=== PATIENT | male | born 1945 | race Caucasian/White ===

== ENCOUNTER → 2019-02-23 13:30 | Outpatient (BNVA) | payer MEDICARE, OTHER, SELFPAY | PROVIDERS: Family Provider Electrodiagnostic Medicine; PCP Electrodiagnostic Medicine; Visit Provider Specialist | DX: G43.711 Chronic migraine without aura, intractable, with status migrainosus (principal) | CPT/HCPCS: 64615; J0585 ==

== ENCOUNTER 2019-06-17 23:47 | Emergency (ER) | payer OTHER, MEDICARE, SELFPAY ==
[2019-06-17 23:54] VITALS: BP 177/117; PULSE 80; RESP 24; TEMP 36; O2SAT 99; BMI 21.9
[2019-06-18] VITALS (7 sets, daily range): BP systolic 158–172; BP diastolic 90–99; PULSE 67–78; RESP 16–22; O2SAT 98–100
--- NOTE | 2019-06-18 00:13 | W.ED.BACK ---
HPI - Back Pain/Injury General: Chief Complaint: Back Pain/Injury Stated Complaint: kidney stone Time Seen by Provider: 06/18/19 00:13 History of Present Illness: HPI Narrative: Patient is a 73-year-old male who comes to the ED with left flank pain. Patient states he has a past medical history of kidney stones and states that his current pain feels like past kidney stones. Patient said he woke up today around 11:00 tonight and he was having intense left flank pain and discomfort. He is not taking anything for pain at home. He denies any dysuria, hematuria, constipation and diarrhea. Associated symptoms: Deny abdominal pain, chills, dysuria, fatigue, fever(s), hematuria, nausea or vomiting Review of Systems Const: Denies: fever, chills or fatigue Eyes: Denies: change in vision or eye discomfort ENMT: Denies: throat pain, painful swallowing, nasal discharge or nasal congestion Card: Denies: chest pain, palpitations, edema, swelling of feet/ankles, shortness of breath on exertion or shortness of breath when lying down Resp: Denies: shortness of breath, productive cough or non-productive cough GI: Denies: abdominal pain, nausea, vomiting, diarrhea, constipation or blood in stool : Reports: flank pain; Denies: difficulty urinating, painful urination or blood in urine Musc: Denies: neck pain, back pain or extremity swelling Skin/Breast: Denies: rash or new lesion Neuro: Denies: headache, numbness in extremities or weakness in extremities PFS ED PFSH: Social History Smoking and tobacco status: never smoked Physical Exam Const: COMMON NORMALS: oriented x3 and alert GENERAL APPEARANCE: cooperative and ill appearing (Patient appears uncomfortable and in pain.); not comfortable HENMT: COMMON NORMALS: normocephalic HEAD & SCALP: normocephalic MOUTH: oral and palatal mucosa normal THROAT: posterior oropharynx normal and uvula midline Eye: COMMON NORMALS: PERRL PUPIL: Yes PERRL Neck/C-Spine: COMMON NORMALS: supple GENERAL: Yes normal visual inspection Resp: COMMON NORMALS: normal respiratory effort, no retractions, no use of accessory muscles and clear to auscultation bilaterally AUSCULTATION: clear to auscultation bilaterally Cardio: COMMON NORMALS: regular rate, regular rhythm, S1 normal heart sound, S2 normal heart sound, no gallops, no clicks, no murmurs and peripheral pulses 2+ throughout RATE: regular rate RHYTHM: regular rhythm HEART SOUNDS: S1 normal and S2 normal PERIPHERAL PULSES: pulses 2+ throughout GI: COMMON NORMALS: normal to inspection, nondistended, normoactive bowel sounds, soft to palpation, non-tender and no masses PALPATION: Yes soft : BLADDER/KIDNEY EXAM: Yes CVA tenderness on the left (moderate) Back/Pelvis: GENERAL BACK: Yes CVA tenderness Extremity: COMMON NORMALS: normal to inspection Neuro: COMMON NORMALS: oriented x3 and moves all extremities SENSORIUM/ORIENTATION: Yes alert Skin: COMMON NORMALS: no rashes or lesions noted GENERAL SKIN EXAM: no rashes or lesions noted and dry skin Course Vital Signs: Vital signs: Vital Signs Temperature 96.8 F L 06/17/19 23:54 Pulse Rate 73 06/18/19 02:46 Respiratory Rate 16 06/18/19 02:46 Blood Pressure 158/90 06/18/19 02:46 Pulse Oximetry 99 06/18/19 02:46 MDM - Back Pain/Injury MDM Narrative: Medical decision making narrative: Patient is a 73-year-old male who comes to the ED with left flank pain. CT of abdomen and pelvis without contrast showed an obstructing 3 mm proximal left ureter stone. CBC and CMP were unremarkable. UA was positive for blood. Patient was given IV fluids, tamsulosin and pain meds. Urology referral was placed with case management. Patient was discharged with prescription for tamsulosin and a couple hydrocodone to help with some pain. Patient was told to drink a lot of fluids and to catch and keep stone by straining urine. Tell patient urology office should be contacting him in the next several days to set up an appointment. Patient understood and agreed with plan. Lab Data: Attestation: I reviewed the patient's lab results. Labs: Lab Results 06/18/19 06/18/19 06/18/19 Range/Units 00:30 00:30 00:45 WBC 5.2 (4.0-10.0) 10^3/ uL RBC 4.16 (4.1-5.3) 10^6/u L Hgb 13.6 (11.7-16.6) g/dL Hct 40.0 L (42.0-52.0) % MCV 96.2 H (80-94) fL MCH 32.7 (28.0-34.0) pg MCHC 34.0 (30.0-36.0) g/dL RDW 12.2 (12.1-15.1) % Plt Count 186 (130-400) 10^3/c mm MPV 8.9 (7.4-10.4) fL Neut % (Auto) 38.5 % Lymph % (Auto) 46.0 % [place] % (Auto) 10.8 % Eos % (Auto) 3.9 % Baso % (Auto) 0.4 % Neut # (Auto) 2.0 (1.8-7.7) 10^3/u L Lymph # (Auto) 2.4 (0.8-4.8) 10^3/u L Raleigh # (Auto) 0.6 (0.2-0.9) 10^3/u L Eos # (Auto) 0.2 (0.0-0.8) 10^3/u L Baso # (Auto) 0.0 (0.0-0.1) 10^3/u L Nucleated RBC % (a uto) 0 % Nucleated RBCs # 0.0 /100WBC Sodium 137 (136-145) mmol/L Potassium 3.5 (3.5-5.1) mmol/L Chloride 97 L (98-107) mmol/L Carbon Dioxide 25 (22-29) mmol/L Anion Gap 18.5 (5-19) BUN 16 (8-23) mg/dL Creatinine 1.0 (0.7-1.2) mg/dL Glucose 104 (65-115) mg/dL Calculated Osmolal ity 281 L (285-295) mOsm/k g Calcium 10.1 (8.5-10.5) mg/dL Total Bilirubin 0.5 (0.15-1.2) mg/dL AST 20 (0-40) U/L ALT 17 (0-41) U/L Alkaline Phosphata se 96 (40-130) IU/L Total Protein 7.2 (6.6-8.7) g/dL Albumin 4.5 (3.5-5.2) g/dL Globulin 2.7 (1.3-4.6) g/dL Urine Color Yellow (Yellow) Urine Appearance Hazy A (CLEAR) Urine pH 8 H (5-7) Ur Specific Gravit y 1.005 (1.005-1.030) Urine Protein Neg (Negative) Urine Glucose (UA) Norm (Normal) Urine Ketones Negative (Negative) Urine Blood 3+ H (Negative) Urine Nitrate Negative (Negative) Urine Bilirubin Neg (NEGATIVE) Prot Sulfosalicyli c Acd Negative (Negative) Urine Urobilinogen Norm (Negative) mg/dL Ur Leukocyte Elsa ase Negative (Negative) Urine RBC >100 H (0-2) /hpf Urine WBC 0-4 H (0-5) /hpf Ur Squamous Epith Cells Rare (0-5) Urine Bacteria Trace (NONE) Imaging Data^: CT Abd/Pel: Attestation: I personally reviewed and interpreted this imaging study as follows: Radiologist's impression: [place] [address] CT Scan Report Signed Patient: Gil Rojas Unit #: [id number] : 1945 Age/Sex: 73 / M ADM Date: 06/17/19 Loc: ER Room/Bed: Attending Dr: Ordering Provider/Ordering MD: Av Vee Date of Service: 06/18/19 Procedure(s): CT kidney stone 80898 Accession Number(s): [id number] Report Number: [id number] PROCEDURE INFORMATION: Exam: CT Abdomen And Pelvis Without Contrast Exam date and time: 06/18/2019 12:25 AM Age: 73 years old Clinical indication: Abdominal pain; Left; Patient HX: Sudden onset L flank pain HX of stones; Additional info: Left flank pain TECHNIQUE: Imaging protocol: Computed tomography of the abdomen and pelvis without contrast. Radiation optimization: All CT scans at this facility use at least one of these dose optimization techniques: automated exposure control; mA and/or kV adjustment per patient size (includes targeted exams where dose is matched to clinical indication); or iterative reconstruction. COMPARISON: No relevant prior studies available. RADIATION DOSE METRICS: Total DLP: 521.65 mGy-cm FINDINGS: Liver: There is no focal abnormality within the liver. Gallbladder and bile ducts: The gallbladder is normal. Pancreas: The pancreas is normal. Spleen: The spleen is normal. Adrenals: The adrenal glands are normal. Kidneys and ureters: There are multiple bilateral renal collecting system calcifications. There is mild fullness of the left renal collecting system. There is a 3 mm sized stone in the proximal left ureter. This stone has a density of 741 Hounsfield units and is possibly visible on the photo lab specialist image. Stomach and bowel: Calcific density in the duodenum likely represents ingested medication. Appendix: Not identified Intraperitoneal space: Unremarkable. No free air. No significant fluid collection. Vasculature: Unremarkable. No abdominal aortic aneurysm. Lymph nodes: Unremarkable. No enlarged lymph nodes. Bladder: Unremarkable as visualized. Reproductive: The prostate demonstrates moderate nonspecific enlargement. The seminal vesicles are normal. Bones/joints: The lumbar spine demonstrates marked degenerative changes at multiple levels. There is chronic appearing compression deformity of the superior endplate of L3 Soft tissues: Unremarkable. CT/CT kidney stone [id number] IMPRESSION: Small obstructing stone in the proximal left ureter. Radiation Dose CTDIVOL = (mGy): DLP = 521.65 (mGy-cm) Dictated By: Houston Frank Signed By: Houston Frank Signed Date/Time: 06/18/1952 DD/ Discharge Plan Discharge Patient Disposition: Home, Self-Care Clinical Impression: Kidney stone on left side Condition: Stable Prescriptions: New tamsulosin 0.4 mg capsule 0.4 mg PO DAILY Qty: 14 RF: 0 No Action aspirin 325 mg tablet,delayed release (DR/EC) 325 mg PO ONCE RF: 0 coenzyme D92-bndynit E 100-100 mg-unit capsule PO RF: 0 divalproex [Depakote ER] 500 mg tablet extended release 24 hr 500 mg PO ONCE RF: 0 venlafaxine [Effexor XR] 75 mg capsule,extended release 24hr 75 mg PO QAM RF: 0 yxiiiniaon-gmynsyqnvemrn-nsjd [Fioricet] 50-300-40 mg capsule 1 cap PO Q8H PRNRF: 0 meclizine 25 mg tablet 25 mg PO BID RF: 0 melatonin 3 mg capsule 3 mg PO ONCE RF: 0 metoprolol succinate 50 mg tablet extended release 24 hr 50 mg PO ONCE RF: 0 levothyroxine [Synthroid] 125 mcg tablet 125 mcg PO ONCE RF: 0 vitamin B complex [B Complex-Vitamin B12] Tablet 1 tab PO ONCE RF: 0 cholecalciferol (vitamin D3) 1,000 unit capsule 1,000 unit PO ONCE RF: 0 ascorbic acid (vitamin C) 500 mg capsule PO RF: 0 indomethacin 50 mg capsule 100 mg PO BID RF: 0 acetaminophen [Tylenol] 325 mg capsule 325 mg PO ONCE PRNRF: 0 Discharge Orders: Discharge Order (Routine); Ordered 06/18/19 Ordered By: Av Vee Referrals: Gautam Walters, DO [Primary Care Provider] - Discharge Diet: Regular Discharge Activity: Resume usual activity and Increase activity as tolerated Patient Instructions: Kidney Stones (ED), How to Strain Your Urine (ED) Activity Restrictions/Additional Instructions[place] [facility] [place] you to set up an appointment in the next several days. Make sure to strain your urine to catch stones. Drink plenty of fluids and stay hydrated. Take prescribed Flomax to help open ureters to pass stone. Take ibuprofen or Aleve for pain. I am also sending you with a prescription for couple hydrocodone that you can take as needed for any breakthrough pain. Discharge Date/Time: 06/18/19 02:48 Coding Level of Care Code ED Key Account Director for Donna Fwbessy Exam Comprehensive
--- NOTE | 2019-06-18 00:21 | CTR_ITS ---
PROCEDURE INFORMATION: Exam: CT Abdomen And Pelvis Without Contrast Exam date and time: 06/18/2019 12:25 AM Age: 73 years old Clinical indication: Abdominal pain; Left; Patient HX: Sudden onset L flank pain HX of stones; Additional info: Left flank pain TECHNIQUE: Imaging protocol: Computed tomography of the abdomen and pelvis without contrast. Radiation optimization: All CT scans at this facility use at least one of these dose optimization techniques: automated exposure control; mA and/or kV adjustment per patient size (includes targeted exams where dose is matched to clinical indication); or iterative reconstruction. COMPARISON: No relevant prior studies available. RADIATION DOSE METRICS: Total DLP: 521.65 mGy-cm FINDINGS: Liver: There is no focal abnormality within the liver. Gallbladder and bile ducts: The gallbladder is normal. Pancreas: The pancreas is normal. Spleen: The spleen is normal. Adrenals: The adrenal glands are normal. Kidneys and ureters: There are multiple bilateral renal collecting system calcifications. There is mild fullness of the left renal collecting system. There is a 3 mm sized stone in the proximal left ureter. This stone has a density of 741 Hounsfield units and is possibly visible on the instructor decorating image. Stomach and bowel: Calcific density in the duodenum likely represents ingested medication. Appendix: Not identified Intraperitoneal space: Unremarkable. No free air. No significant fluid collection. Vasculature: Unremarkable. No abdominal aortic aneurysm. Lymph nodes: Unremarkable. No enlarged lymph nodes. Bladder: Unremarkable as visualized. Reproductive: The prostate demonstrates moderate nonspecific enlargement. The seminal vesicles are normal. Bones/joints: The lumbar spine demonstrates marked degenerative changes at multiple levels. There is chronic appearing compression deformity of the superior endplate of L3 Soft tissues: Unremarkable. CT/CT kidney stone [id number] IMPRESSION: Small obstructing stone in the proximal left ureter. Radiation Dose CTDIVOL = (mGy): DLP = 521.65 (mGy-cm)
[2019-06-18] MEDS: sodium chloride 0.9% 1,000 ML 999 ML IV (00:27)
[2019-06-18] MEDS: ondansetron 2 mg/ML SDV 2 mL 4 MG IVP (00:28)
[2019-06-18] MEDS: morphine 4 mg/mL SDV 1 mL IVP (00:28)
[2019-06-18 00:35] LABS: Basophils % 0.4 %; Eosinophils # 0.2 10^3/uL (0.0-0.8); Eosinophils % 3.9 %; Hemoglobin 13.6 g/dL (11.7-16.6); Lymphocytes # 2.4 10^3/uL (0.8-4.8); Mean Corpuscular Hemoglobin 32.7 pg (28.0-34.0); Mean Corpuscular Volume 96.2 fL (80-94); Mean Platelet Volume 8.9 fL (7.4-10.4); Monocytes # 0.6 10^3/uL (0.2-0.9); Monocytes % 10.8 %; Neutrophils % 38.5 %; Nucleated Red Blood Cells % 0 %; Platelet Count 186 10^3/cmm (130-400); Red Blood Count 4.16 10^6/uL (4.1-5.3); Red Cell Distribution Width 12.2 % (12.1-15.1); White Blood Count 5.2 10^3/uL (4.0-10.0)
[2019-06-18] MEDS: ketorolac 30 mg/mL INJ IM (00:42)
[2019-06-18 00:48] LABS: Alanine Aminotransferase 17 U/L (0-41); Albumin Level 4.5 g/dL (3.5-5.2); Alkaline Phosphatase 96 IU/L (40-130); Anion Gap 18.5 (5-19); Aspartate Amino Transferase 20 U/L (0-40); Blood Urea Nitrogen 16 mg/dL (8-23); Calcium 10.1 mg/dL (8.5-10.5); Carbon Dioxide 25 mmol/L (22-29); Chloride 97 mmol/L (98-107); Globulin 2.7 g/dL (1.3-4.6); Glucose 104 mg/dL (65-115); Osmolality Calculated 281 mOsm/kg (285-295); Potassium 3.5 mmol/L (3.5-5.1); Sodium 137 mmol/L (136-145); Total Bilirubin 0.5 mg/dL (0.15-1.2); Total Protein 7.2 g/dL (6.6-8.7)
[2019-06-18] MEDS: tamsulosin 0.4 mg Capsule PO (00:52)
[2019-06-18] MEDS: HYDROcodone-acetaminophen 7.5-325 mg Tablet 1 TAB PO (01:23)
[2019-06-18 01:33] LABS: Blood Urine 3+ (Negative); Glucose Urine UA Norm (Normal); Ketones Urine Negative (Negative); Protein Urine Neg (Negative); Specific Gravity, Urine 1.005 (1.005-1.030); Urine Appearance Hazy (CLEAR); Urine Color Yellow (Yellow); pH Urine 8 (5-7)
[2019-06-18 01:34] LABS: Bilirubin Urine Neg (NEGATIVE); Leukocyte Esterase Urine Negative (Negative); Nitrate Urine Negative (Negative); RBC Urine >100 /hpf (0-2); Sulfosalicylic Acid Urine Negative (Negative); Urobilinogen Urine Norm (Negative)
[2019-06-18 01:35] LABS: Bacteria Urine TRACE; Squamous Epithelial Cell Urine RARE (0-5); WBC Urine 0-4 /hpf (0-5)
[2019-06-18 01:36] LABS: Add Urine Culture? Yes
[2019-06-18] MEDS: HYDROmorphone 1 mg/mL INJ 1 mL IVP ×2 (01:42→02:09)
--- NOTE | 2019-06-20 10:41 | DCPLANNER ---
leasing property manager had message a follow up appointment for patient with Dr. Hammer. leasing property manager called the office of Dr. Hammer, spoke with Casie, gave clinic patients information. leasing property manager was told that patients information would be printed and given to Sherry for review. Clinic will call patient with appointment information. leasing property manager will call for appointment information. Patient has [employer] insurance, major case detective called May with [facility], informed her that patient was seen in the ED and that patient needs to follow up with Dr. Hammer.
--- NOTE | 2019-07-05 14:08 | DCPLANNER ---
Patient had an appointment scheduled for 07.03.[address] Hammer. Patient did attend the appointment.
== END 2019-06-18 02:48 | disposition home or self-care (01) ==
PROVIDERS: Emergency Provider Physician Assistant; Family Provider Electrodiagnostic Medicine; PCP Electrodiagnostic Medicine
DX: N20.0 Calculus of kidney (principal); Z79.82 Long term (current) use of aspirin
CPT/HCPCS: 12345; 74176; 80053; 81001; 85025; 87086; 96360; 96361; 96374; 96375; 99283; 99284; J1170; J1885; J2270; J2405; J7030

== ENCOUNTER 2019-07-03 08:27 | Outpatient (CLI) | payer OTHER, MEDICARE, SELFPAY ==
--- NOTE | 2019-07-03 08:35 | XR_ITS ---
WS: [id number] KUB, 07/03/2019 Clinical Data: Stone Comparison: CT abdomen, 06/18/2019. Findings: There is a calcification adjacent to the left L3 transverse process which may represent the proximal left ureteral calculus. There is a large amount of fecal material throughout the colon obscuring deta il over both kidneys. XR/XR KUB [id number] Impression: Probable proximal left ureteral calculus.
== END 2019-07-03 08:28 | disposition home or self-care (01) ==
LOC: RAD 08:33
PROVIDERS: Family Provider Electrodiagnostic Medicine; PCP Electrodiagnostic Medicine; Visit Provider Nurse Practitioner Family
DX: N20.0 Calculus of kidney (principal); N20.1 Calculus of ureter
CPT/HCPCS: 74018; 81001

== ENCOUNTER 2019-07-14 07:47 | Outpatient (CLI) | payer OTHER, MEDICARE, SELFPAY ==
--- NOTE | 2019-07-14 07:45 | XRR_ITS ---
PROCEDURE INFORMATION: Exam: XR Abdomen, 1 View Exam date and time: 07/14/2019 7:51 AM Age: 73 years old Clinical indication: Condition or disease; Other: Ureteral calculus TECHNIQUE: Imaging protocol: XR of the abdomen. Views: Frontal supine view of the abdomen. 1 View. COMPARISON: OK XR KUB [id number] 07/03/2019 8:38 AM FINDINGS: Gastrointestinal tract: bowel gas pattern is nonspecific. Air filled large bowel including distal rectal gas. Scattered loops of air filled small bowel none of which are dilated. Large amount of stool throughout the large bowel. Organs: No calcifications are seen overlying the renal outlines or the expected course of the right or left ureters. No suspicious calcifications within the pelvis. Bones/joints: Unremarkable. XR/XR KUB [id number] IMPRESSION: 1. Bowel gas pattern is nonspecific. Air filled large bowel including distal rectal gas 2. Large amount of stool throughout the large bowel.
== END 2019-07-14 07:48 | disposition home or self-care (01) ==
LOC: RAD 07:50
PROVIDERS: PCP Emergency Medicine Emergency Medical Services; Visit Provider Urology
DX: N20.1 Calculus of ureter (principal)
CPT/HCPCS: 74018; 81001

== ENCOUNTER 2019-07-24 12:56 | Day surgery (SDC) | payer OTHER, MEDICARE, SELFPAY ==
[2019-07-21 11:15] VITALS: BMI 21.9
--- NOTE | 2019-07-21 11:43 | ANES.PREANE2 ---
Pre-Anesthetic Assessment Pre-Anesthetic Assessment: Height/Weight: Height 1.57 m Weight 54.431 kg Preop Diagnosis: Refractory left proximal ureteral stone Proposed Procedure: Operation Date: 07/24/19 17:20 Proposed Procedures p ESWL 77759 29168 N20.1 N20.0(Left) - Jaycob Hammer MD s poss Cystoscopy(Not Applicable) - MD hernan King Ureteral Stent Placement(Not Applicable) - Jaycob Hammer MD Social: Social History: No alcohol and No tobacco Exam: Pre-Anes Outpt Exam: alert, oriented x 3, clear to auscultation bilaterally and regular rate & rhythm Airway: Submandibular: WNL Cervical ROM: WNL MP: 2 Dentition: Other (teeth ok) History/ROS: No significant history except as noted Pulmonary: Pulmonary: Sleep apnea and None reported CV/HEM: CV/HEM: None reported : Comments: stones Hepatic: Hepatic: None reported GI: GI: None reported Metabolic: Metabolic: Thyroid Musc/skel: Musc/skel: Lower Back Pain and OA/DJD Neuropsych: Neuropsych: None reported Anesthetic Plan: ASA status: 2 Anesthesia: Anesthesia Evaluation and General Risk of > 500 ml blood loss (7ml/kg in children): No PFSH Anesthesia PFSH: Medical History Bilateral renal stones Hyperlipidemia Hypertension Left ureteral calculus Renal calculi Thyroid disease Surgical History H/O lithotripsy History of back surgery Family History Mother , 99 Cancer cervical Father , 65 CAD (coronary artery disease) Diabetes Hypertension Cancer Hyperlipidemia Social History Smoking and tobacco status: never smoked Alcohol intake: never Marital status: Current occupational status: retired History of recent travel: No Data Anesthesia Cardiac Studies: No Data to Display
[2019-07-24] VITALS (7 sets, daily range): BP systolic 115–139; BP diastolic 75–81; PULSE 69–77; RESP 13–18; TEMP 36.1–36.6; O2SAT 97–100
--- NOTE | 2019-07-24 12:59 | XRR_ITS ---
PROCEDURE INFORMATION: Exam: XR Abdomen, 1 View Exam date and time: 07/24/2019 1:09 PM Age: 73 years old Clinical indication: Condition or disease and screening exam; Other: Pre op eswl; Other: Left proximal ureteral stone; Additional info: Preop eswl left proximal ureteral stone TECHNIQUE: Imaging protocol: XR of the abdomen. Views: Frontal supine view of the abdomen. 1 View. COMPARISON: CR XR KUB [id number] 07/14/2019 8:02 AM FINDINGS: Gastrointestinal tract: Combined small bowel and colonic dilatation. Intraperitoneal space: 3 mm nodular calcification overlying the left paraspinous region at the L3 level, suspicious for urolithiasis. Additional punctate calcification overlying the right renal fossa. CT can be performed for improved characterization, if clinically indicated. Vasculature: Vascular calcification. Bones/joints: Osteopenia, degenerative change, and mild scoliosis. XR/XR KUB 28032 IMPRESSION: 1. 3 mm nodular calcification overlying the left paraspinous region at the L3 level, suspicious for urolithiasis. Additional punctate calcification overlying the right renal fossa. CT can be performed for improved characterization, if clinically indicated. 2. Combined small bowel and colonic dilatation.
[2019-07-24] MEDS: sodium chloride 0.9% 1,000 ML 30 ML IV (13:26)
--- NOTE | 2019-07-24 14:01 | ANES.PREANE2 ---
Pre-Anesthetic Assessment Pre-Anesthetic Assessment: Height/Weight: Height 1.57 m Weight 54.431 kg Temp Pulse Resp BP Pulse Ox 97.8 F 76 18 115/76 100 07/24/19 13:16 07/24/19 13:16 07/24/19 13:16 07/24/19 13:16 07/24/19 13:16 Preop Diagnosis: Refractory left proximal ureteral stone Proposed Procedure: Operation Date: 07/24/19 15:30 Proposed Procedures p ESWL 71481 84178 N20.1 N20.0(Left) - Jaycob Hammer MD s poss Cystoscopy(Not Applicable) - Jaycob Hammer MD s Ureteral Stent Placement(Not Applicable) - Jaycob Hammer MD Was Beta Dolores taken within 24 hours: N/A Last intake: Intake Last Liquid Date 07/24/19 Last Liquid Time 08:00 Last Solid Date 07/22/19 Social: Social History: No alcohol and No tobacco Exam: Pre-Anes Outpt Exam: alert, oriented x 3, clear to auscultation bilaterally and regular rate & rhythm Airway: Submandibular: WNL Cervical ROM: WNL MP: 1 Dentition: Full Pulmonary: Pulmonary: None reported CV/HEM: CV/HEM: None reported : Comments: History of Kidney Stones Hepatic: Hepatic: None reported GI: GI: None reported Metabolic: Metabolic: None reported Musc/skel: Musc/skel: None reported Neuropsych: Neuropsych: None reported Anesthetic Plan: ASA status: 1 Anesthesia: General Meds/Allergies Current Medications: Current Medications Generic Name Dose Route Start Last Admin Trade Name Freq PRN Reason Stop Dose Admin Sodium Chloride 1,000 mls @ 30 ml s/hr 07/24/19 08:00 07/24/19 13:26 Sodium Chloride 0.9% IV 07/25/19 07:59 30 mls/hr .Q24H JOSE DANIEL Administration PFSH Anesthesia PFSH: Medical History Bilateral renal stones Hyperlipidemia Hypertension Left ureteral calculus Renal calculi Thyroid disease Surgical History H/O lithotripsy History of back surgery Family History Mother , 99 Cancer cervical Father , 65 CAD (coronary artery disease) Diabetes Hypertension Cancer Hyperlipidemia Social History Smoking and tobacco status: never smoked Alcohol intake: never Marital status: Current occupational status: retired History of recent travel: No Data Anesthesia Cardiac Studies: No Data to Display
--- NOTE | 2019-07-24 14:55 | W.PM.OPSUD ---
Surgery/Procedure H&P Update DATE OF PROCEDURE: July 24, 2019 DATE H&P PERFORMED: 07/14/19 H&P UPDATE INFORMATION: I have reviewed H&P completed within last 30 days, I have examined patient prior to procedure and No changes to prior documentation PREOP DIAGNOSIS: Refractory left proximal ureteral stone PLANNED PROCEDURE: Operation Date: 07/24/19 15:30 Proposed Procedures p ESWL 66193 20254 N20.1 N20.0(Left) - Jaycob Hammer MD s poss Cystoscopy(Not Applicable) - Jaycob Hammer MD s Ureteral Stent Placement(Not Applicable) - Jaycob Hammer MD
--- NOTE | 2019-07-24 15:02 | P.OP_ITS ---
Operative Report Date of procedure: July 24, 2019 Pre-op Diagnosis: Refractory left proximal ureteral stone Post-op diagnosis: same Procedure Done: 1. Extracorporeal shockwave lithotripsy to left proximal ureteral stone 2. Right ureteral stent physical science professor: Lithotripsy Animal Surgeon: Morgan Worthy Anesthesia: General Estimated blood loss: None Urine output: Not measured Complications: None Findings: Stone easily identified with fluoroscopy on extracorporeal shockwave lithotripsy unit. 2500 shocks administered with good change Intensity initiated at 1 and advanced to 4. Rate initiated 60 and advanced to 90. 6 Turkish by 24 cm double-pigtail stent no string Condition: stable Disposition: PACU Brief History: Gil is a very pleasant 73-year-old white male with a history of recently diagnosed left proximal ureteral stone with obstructive changes. On serial KUBs there was no obvious progression of the stone. Ultimately he chose to proceed with treatment via ESWL with or without stent. Procedure: Examination and obtaining of informed consent he was taken to the operating suite on 07/24/2019 where general anesthesia was administered without difficulty after appropriate timeout was performed, SCDs confirmed to be functioning, preoperative antibiotics administered, and beta-irina protocol confirmed. Positioned on the Dornier unit such that the stone in the left proximal ureter was positioned at the focal point utilizing biplanar fluoroscopy. Shockwave was initiated at a rate of 60 and an intensity of 1 which was slowly advanced to an intensity of 4. After change was noted the rate was increased to 90. A total of 3000 shocks were administered to the stone with some change but not dramatic. For that reason it was decided to leave a stent in place. He was prepped and draped in usual sterile fashion in dorsolithotomy position pain careful attention to avoiding pressure points. 21 Turkish cystoscope with 30 degree lens was introduced to the urethra meatus and advanced into the bladder under videoscopy. The bladder was systematically examined. There was some bloody urine within the bladder. The left ureteral orifice was easily identified and a flexible tip guidewire was advanced up the left ureter bypassing the stone easily. A 24 cm x 6 Turkish stent was passed without string. Good position confirmed via fluoroscopy and cystoscopy. Bladder drained and procedure completed. Tolerated procedure well without complication and awakened in the operating room and returned to the recovery room in stable condition. PLANS: 1. Discharge from outpatient surgery today 2. Follow-up in approximately 1 week with KUB possible cystoscopy and stent removal.
[2019-07-24] MEDS: levofloxacin-dextrose 5 % 500 MG/100 ML PREMIX 100 MG IV (15:20)
--- NOTE | 2019-07-24 17:00 | SUR.PHASEI ---
2719 PT AWAKE ALERT TALKATIVE LAUGHING , DENIES PAIN AND NAUSEA, REPORT TO OPS PT ALERT AND TALKATIVE WITH STAFF.
== END 2019-07-24 18:15 | disposition home or self-care (01) ==
PROVIDERS: PCP Emergency Medicine Emergency Medical Services; Visit Provider Urology
PROC: (CPT 50590; principal; 2019-07-24 15:30)
PROC: 0TJB8ZZ Inspection of Bladder, Via Natural or Artificial Opening Endoscopic (ICD-10-PCS; CPT 52000; 2019-07-24 15:30)
PROC: (CPT 50605; 2019-07-24 15:30)
DX: N20.1 Calculus of ureter (principal); G47.30 Sleep apnea, unspecified; M19.90 Unspecified osteoarthritis, unspecified site; E78.5 Hyperlipidemia, unspecified; I10 Essential (primary) hypertension
CPT/HCPCS: 50590; 52332; 12345; 74018; J1956; J2405; J2704; J3010; J3490; J7030

== ENCOUNTER 2019-07-31 12:24 | Outpatient (CLI) | payer OTHER, SELFPAY ==
--- NOTE | 2019-07-31 13:15 | CT_ITS ---
WS: [id number] NONCONTRAST CT RIGHT SHOULDER TECHNIQUE: Noncontrast CT right shoulder with coronal and sagittal reformatted images. CLINICAL INFORMATION: right shoulder osteoarthritis COMPARISON: None. DLP: 459.[address] scans at [facility] use at least one of these dose optimization techniques: automat ed exposure control; mA and/or kV adjustment per patient size (includes targeted exams where dose is matched to clinical indication); or iterative reconstruction. FINDINGS: Moderate hypertrophic changes at the AC joint with synovial thickening. Normal acromion. Subacromial space is preserved. Distal clavicle is normal. Degenerative arthritis at the glenohumeral joint with hypertrophic changes along the glenohumeral articulation and humeral neck. Associated degenerative subchondral cystic change involving the humeral articular surface and glenoid rim. Complete loss of the joint space and subchondral sclerosis. Subchondral cystic change involving the greater tuberosity. CT/CT shoulder RT wo con* [id number] IMPRESSION: 1. Moderate hypertrophic changes at the AC joint. Normal acromion. 2. Advanced degenerative arthritis at the glenohumeral joint with complete los s of joint space and subchondral cystic change. [id number] articulation. 3. Hypertrophic changes along the articular surface of the humeral neck and gl enoid rim. 4. No acute fractures.
== END 2019-07-31 12:25 | disposition home or self-care (01) ==
LOC: RADWPI 12:25
PROVIDERS: PCP Emergency Medicine Emergency Medical Services; Visit Provider Orthopaedic Surgery
DX: M19.011 Primary osteoarthritis, right shoulder (principal)
CPT/HCPCS: 73200

== ENCOUNTER 2019-08-02 15:26 | Outpatient (CLI) | payer OTHER, SELFPAY ==
--- NOTE | 2019-08-02 15:00 | XRR_ITS ---
PROCEDURE INFORMATION: Exam: XR Abdomen, 1 View Exam date and time: 08/02/2019 3:28 PM Age: 73 years old Clinical indication: Condition or disease; Kidney or ureter condition; Calculus (stone) in kidney; Prior surgery; Surgery type: Stent; Additional info: Renal stones TECHNIQUE: Imaging protocol: XR of the abdomen. Views: Frontal supine view of the abdomen. 1 View. COMPARISON: CR XR KUB [id number] 07/24/2019 1:06 PM FINDINGS: Gastrointestinal tract: Moderate fecal material in the colon, no bowel obstruction. Vasculature: Vascular calcifications. Bones/joints: No acute findings. Soft tissues: Left ureteral stent appearing since 07/24/19. XR/XR KUB [id number] IMPRESSION: Left ureteral stent.
== END 2019-08-02 15:27 | disposition home or self-care (01) ==
LOC: RAD 15:28
PROVIDERS: PCP Emergency Medicine Emergency Medical Services; Visit Provider Urology
DX: N20.0 Calculus of kidney (principal); Z96.0 Presence of urogenital implants
CPT/HCPCS: 74018; 81001; 82365

== ENCOUNTER → 2019-08-04 11:00 | Outpatient (BNVA) | payer OTHER, SELFPAY | PROVIDERS: PCP Emergency Medicine Emergency Medical Services; Visit Provider Urology | DX: N20.1 Calculus of ureter (principal); N20.0 Calculus of kidney; Z96.0 Presence of urogenital implants | CPT/HCPCS: 88300 ==

== ENCOUNTER → 2019-08-14 12:07 | Outpatient (BNVA) | payer OTHER, SELFPAY | PROVIDERS: PCP Emergency Medicine Emergency Medical Services; Visit Provider Urology | DX: N20.0 Calculus of kidney (principal) | CPT/HCPCS: 82365 ==

== ENCOUNTER 2019-08-21 10:24 | Observation (INO) | payer OTHER, SELFPAY ==
[2019-08-17 10:33] VITALS: BMI 22.6
--- NOTE | 2019-08-17 10:41 | ECG_ITS ---
[facility] ED Test Date: 2019-08-17 Pat Name: Gil Rojas Department: Room: Gender: Male Ambulance Driver: : 1945 Requested By: Daya Barfield Order Number: [id number] Kaycee MD: Jeannie Dunn M.D. Measurements Intervals [place] Rate: 64 P: 110 TN: 217 QRS: 32 QRSD: 88 T: 29 QT: 377 QTc: 391 Interpretive Statements SINUS RHYTHM WITH FIRST DEGREE AV BLOCK Compared to ECG 07/22/2018 16:19:44 No significant changes Electronically Signed On 08-17-2019 20:57:49 CDT by Jeannie Dunn M.D. [email or web address]/store/[id number]
--- NOTE | 2019-08-17 11:08 | ANES.PREANE2 ---
Pre-Anesthetic Assessment Pre-Anesthetic Assessment: Height/Weight: Height 1.55 m Weight 54.431 kg Preop Diagnosis: Refractory left proximal ureteral stone Proposed Procedure: Operation Date: 08/21/19 07:00 Proposed Procedures p right total shoulder arthroplasty (49046) M19.011(Right) - Tam Galvez MD Familial anesthetic complications: None Social: Social History: No alcohol and No tobacco Exam: Pre-Anes Outpt Exam: alert, oriented x 3, clear to auscultation bilaterally and regular rate & rhythm Airway: Cervical ROM: WNL MP: 2 Dentition: Full Pulmonary: Pulmonary: Sleep apnea (cpap) : : None reported Hepatic: Hepatic: None reported Metabolic: Metabolic: Thyroid Musc/skel: Comments: R shoulder Neuropsych: Neuropsych: None reported Anesthetic Plan: ASA status: 2 Anesthesia: General and Regional (specify below) (interscalene) Risk of > 500 ml blood loss (7ml/kg in children): No PFSH Anesthesia PFSH: Medical History Bilateral renal stones Hyperlipidemia Hypertension Left ureteral calculus Renal calculi Thyroid disease Surgical History H/O lithotripsy History of back surgery Family History Mother , 99 Cancer cervical Father , 65 CAD (coronary artery disease) Diabetes Hypertension Cancer Hyperlipidemia Social History Smoking and tobacco status: never smoked Alcohol intake: never Marital status: Current occupational status: retired History of recent travel: No Data Anesthesia Cardiac Studies: No Data to Display
[2019-08-21] VITALS (20 sets, daily range): BP systolic 125–179; BP diastolic 75–106; PULSE 58–96; RESP 4–18; TEMP 35.9–37.1; O2SAT 95–100
[2019-08-21] MEDS: sodium chloride 0.9% 1,000 ML 30 ML IV (05:50)
[2019-08-21] MEDS: midazolam 1 mg/mL INJ 2 mL 2 MG IVP (06:19)
[2019-08-21] MEDS: fentaNYL 50 mcg/mL INJ 2mL 100 MCG IVP (06:20)
--- NOTE | 2019-08-21 07:00 | W.PM.OPSFHP ---
Same Day Surgery H&P Indication for Procedure/HPI DATE OF PROCEDURE: August 21, 2019 CHIEF COMPLAINT/INDICATIONFOR SURGICAL PROCEDURE: Osteoarthritis right shoulder PREOP DIAGNOSIS: Right total shoulder arthroplasty PLANNED PROCEDRUE: Operation Date: 08/21/19 07:00 Proposed Procedures p right total shoulder arthroplasty (87559) M19.011(Right) - Tam Galvez MD The patient is a 73-year-old male who is had pain in his right shoulder for years. He is had multiple injections with continued discomfort. He describes painful motion and crepitations. He is admitted for elective right total shoulder arthroplasty ROS Denies any numbness tingling of the right arm. He has no fevers or chills. He has no abdominal pain nausea or vomiting. He is no chest pain shortness of breath or palpitations. He has no cough or congestion Medications/Allergies* Home Medications Medication Instructions Recorded Confirmed Type acetaminophen 325 mg capsule 325 mg PO ONCE PRN 02/23/19 08/21/19 History aspirin 325 mg tablet,delayed 325 mg PO DAILY tab 02/23/19 08/17/19 History release cholecalciferol (vitamin D3) 25 1,000 unit PO DAILY 02/23/19 08/21/19 History mcg (1,000 unit) capsule fluticasone propionate 50 1 spray INTRANASAL DAILY PRN 07/03/19 08/21/19 History mcg/actuation nasal spray,suspension garlic 1,000 mg capsule 1,000 mg PO DAILY 07/03/19 08/21/19 History levothyroxine [Synthroid] 100 mcg PO DAILY 08/17/19 08/21/19 History Allergies/Adverse Reactions Allergy/AdvReac Type Severity Reaction Status Date / Time levothyroxine sodium Allergy Unknown [place] Verified 08/21/19 05:36 [From Levothroid] lisinopril Allergy Unknown [place] Verified 08/21/19 05:36 Current Medications: Generic Name Dose Route Start Last Admin Trade Name Freq PRN Reason Stop Dose Admin Sodium Chloride 1,000 mls @ 30 mls/hr 08/21/19 05:30 08/21/19 05:50 Sodium Chloride 0.9% IV 08/22/19 05:29 30 mls/hr .Q24H JOSE DANIEL Administration Midazolam HCl 2 mg 08/21/19 05:27 08/21/19 06:06 Versed IVP 2 mg Q5M PRN Administration Preop Anxiety Pertinent History/Comorbid Conditions* Medical History (Updated 08/02/19 @ 16:32 by Jaycob Hammer MD) Bilateral renal stones Hyperlipidemia Hypertension Left ureteral calculus Renal calculi Thyroid disease Surgical History (Updated 07/03/19 @ 11:04 by Sue Graham APRN) H/O lithotripsy History of back surgery Family History (Updated 07/03/19 @ 09:07 by Francesca Campuzano RN) Father, 65 Mother, 99 Diabetes Father CAD (coronary artery disease) Father Hyperlipidemia Father Cancer Mother cervical Father Hypertension Father Social History Smoking and tobacco status: never smoked Alcohol intake: never Marital status: Current occupational status: retired History of recent travel: No Pertinent Exam Findings alert, oriented x 3 and clear to auscultation bilaterally Patient has a pain and crepitance with motion of his right shoulder. He can be flexed to 160 degrees and externally rotated 60 degrees. Recommendations Surgery/Procedure today Coding Level of Care Code Acute Department Assistant for Donna Alberts
--- NOTE | 2019-08-21 07:03 | ANES.PROC ---
Anesthesia Procedures Procedure/Date: 08/21/19 Nerve Block ^: Nerve Block 1: Main Anesthesia: general anesthesia Time Out Performed: Yes Consent: requested by attending/covering physician, risks and benefits reviewed and patient agrees to proceed Nerve block location: interscalene (right) Anesthesia monitors applied: pulse oximetry, EKG, BP cuff and oxygen Nerve block position: semi sitting Anesthetic Used: ropivicaine 0.5% and with decadron (4mg) Amount of anesthesia used (mL): 30 Ultrasound used to: recognize landmarks and visualize and ID interscalene groove Nerve Stimulator Used?: Yes Interscalene/Femoral BLK: 2 stimuplex 22 g needle used for position and inplane approach and visualize local anesthetic spread Injection: neg aspiration of heme Patient Tolerated Procedure: well and no complications Complications: none
--- NOTE | 2019-08-21 08:04 | SUR.OPER ---
notified of start of surgery.
[2019-08-21] MEDS: EPINEPHrine 1 mg/mL INJ XX (08:51)
--- NOTE | 2019-08-21 09:16 | SUR.OPER ---
called and updated on surgical progress
--- NOTE | 2019-08-21 09:54 | XRR_ITS ---
PROCEDURE INFORMATION: Exam: XR Right Shoulder Exam date and time: 08/21/2019 10:39 AM Age: 73 years old Clinical indication: Condition or disease; Other: Status post right total shoulder arthro-; Prior surgery; Surgery date: Post-operative (0-2 days); Additional info: Status post right total shoulder arthro- TECHNIQUE: Imaging protocol: XR Right shoulder. Views: 2 or more views. COMPARISON: CT shoulder RT wo con* [id number] 07/31/2019 12:34 PM FINDINGS: Bones/joints: No postoperative complication in the setting of right shoulder arthroplasty. Degenerative change. Soft tissues: Postoperative subcutaneous emphysema and skin araceli. XR/XR shoulder RT min 2V* [id number] IMPRESSION: No postoperative complication in the setting of right shoulder arthroplasty.
--- NOTE | 2019-08-21 09:58 | PM.OP ---
Operative Report Date of procedure: August 21, 2019 Pre-op Diagnosis: Right total shoulder arthroplasty Post-op diagnosis: same Post-op Findings: Same Procedure Done: Right total shoulder arthroplasty Implants: [place] Cortiloc glenoid (large 40), Nucleus (size 3), Simpliciti head (48x21) Pathology: none sent Surgeon: Tam Galvez Anesthesia: General and Nerve Block (Interscalene nerve block) Estimated blood loss (mL): 200 Complications: None Findings: The patient had severe glenohumeral degenerative changes with fairly concentric wear with the exception of large prominent anterior osteophytes his rotator cuff appeared healthy. He had old biceps tendon rupture scarring of the distal biceps in the bicipital groove Condition: stable Disposition: PACU Brief History: The admission history and physical Procedure: An intrascalene blocks provided the holding area. The patient was taken to the operating room and given a general anesthesia. They were given 2 g of Ancef. Positioned in beachchair position with the arm in arm rainey. A timeout was performed. A 8 cm long incision was made over the deltopectoral groove and dissection carried out with a scalpel blade to the deltopectoral interval. The cephalic vein was identified and retracted laterally. Digital dissection was accomplished to free lesions beneath the deltoid and beneath the coracobrachialis musculature. The biceps tendon was identified and dissection carried proximally to the bicipital groove. Utilizing cautery the subscapularis and anterior capsule was released anteriorly in full-thickness with the capsule and freed distally at the level of the anterior humeral circumflex vessels. The glenohumeral joint include bending externally rotated and dislocated anteriorly. In accordance with our preoperative plan a neck cut was made in the angle of approximately 132.5 degrees in 30 degrees of retroversion. A central guidepin was placed in the humerus prepared for the size 3 nucleus. The humeral head was then retracted posteriorly and inferiorly. Utilizing electrocautery the glenoid was spelled circumferentially. Large osteophytes anteriorly were debrided back with a rondure in accordance with our preoperative plan. The centering guide was used to place the central guidepin and the glenoid ream down to sclerotic bone. The 40 mm glenoid provided satisfactory coverage. the baseplate was prepared with the central and 3 peripheral holes. The drill holes were soaked in epinephrine solution and the final Cortiloc glenoid glenoid component was placed. A trial reduction was applied with humeral heads and the 48 x 21 head seemed to provide the best stability. The final Simlicity head was press-fit into place. The shoulder was reduced and found to be stable. The subscap was secured with a 2 locking Ultratape sutures seen in the dorsal aspect of the tendon. The greater tuberosity was debrided down to trabecular bone. The shoulder was irrigated with saline and gentamicin solution. 3 drill holes were made in the bicipital tuberosity. The most superior suture was passed through the top hole, middle sutures through the second hole, and the inferior suture through the inferior hole. The sutures were then passed through a small 4-hole [place] plate and secured with the elbow in 30 degrees of external rotation. The rotator interval was closed with ultra tape suture. The deltopectoral interval was closed with 0 Vicryl. The subcutaneous tissues were closed with 2-0 Vicryl. The skin was closed with skin araceli. Sterile dressings were applied. The patient was placed in a sling extubated and taken to recovery room in stable condition.
--- NOTE | 2019-08-21 10:18 | SUR.PHASEI ---
PT AWAKE ALERT ON RA NOW, VSS PT HAD BLOCK TO RT SHOULDER PRIOR TO SURGERY, PT UNABLE TO MOVE FINGERS DISTAL FINGERS PINK WARM SLING IN PLACE DRESSING RT SHOULDER D/I FIRST ICE TO SITE. WAITING FOR X RAY, PT ALERT TALKATIVE,
[2019-08-21 11:40] LABS: Glucose Point of Care 110 mg/dL (70-110)
[2019-08-21] MEDS: sodium chloride 0.45% 1,000 ML 80 ML IV (12:30)
[2019-08-21] MEDS: ceFAZolin 1,000 MG in sodium chloride 0.9% (plus) 50 ML 100 MG IV (16:51)
--- NOTE | 2019-08-21 18:59 | PC.NURSE ---
discharge instructions given to patient and patient verbalized understanding of instructions. patient waiting on ride home.
--- NOTE | 2019-08-21 19:37 | P.DS_ITS ---
Discharge Providers Date of Admission: 08/21/19 10:24 Date of Discharge: August 21, 2019 Attending Provider at Admission: Tam West MD Attending Provider at Discharge: Tam West MD Primary Care Provider: Nathan Valdez DO Diagnoses at Discharge Discharge Diagnosis (1) Status post total replacement of right shoulder: Status: Acute (2) Osteoarthritis of right shoulder: Status: Resolved Hospital Course Hospital Course: The patient was admitted to the hospital after an elective right total shoulder arthroplasty on 08/21/2019. Postoperatively he had little pain. He was tolerating good p.o. intake and the passing urine. He desired discharge home and was discharged home that same day. He was managed with sequential compression dressings perioperatively. He was on aspirin preoperatively and will continue with that postoperatively Physical Exam Narrative: EXAM NARRATIVE: At the time of discharge his right shoulder dressing was clean. There was minimal swelling. Due to his axillary block he was unable to fire his deltoid or biceps but was gaining early motion of his digits. He had a strong radial pulse. His sensation was intact light touch Discharge Data Data Completed and Pending: Completed Studies During Hospitalization Category Date Time Status XR shoulder RT mi n 2V* [id number] Routin e Exams 08/21/19 09:54 Completed Pending at discharge Category Date Time Status Hemoglobin AM LAB S Lab 08/22/19 04:00 Ordered Labs from last 24 hours 08/21/19 11:14 POC Glucose 110 Vitals: Last Vital Signs Temp 97.3 F L 08/21/19 18:50 Pulse 84 08/21/19 18:50 Resp 14 08/21/19 18:50 BP 152/87 08/21/19 18:50 Pulse Ox 97 08/21/19 18:50 Discharge Plan Discharge Patient Disposition: Home, Self-Care Condition: Stable Prescriptions: New aspirin 325 mg Tablet,Delayed Release (Dr/Ec) 325 mg PO DAILY Qty: 30 RF: 0 oxycodone 5 mg Tablet 5 - 10 mg PO Q4H PRN (Reason: Moderate To Severe Pain) Qty: 30 RF: 0 Continued fluticasone propionate [Flonase Allergy Relief] 50 mcg/actuation spray,suspension 1 spray INTRANASAL DAILY PRN (Reason: Allergy Symptoms) RF: 0 garlic 1,000 mg capsule 1,000 mg PO DAILY RF: 0 aspirin 325 mg tablet,delayed release (DR/EC) 325 mg PO DAILY RF: 0 Hold Instructions: Resume on 07/31/19. cholecalciferol (vitamin D3) 1,000 unit capsule 1,000 unit PO DAILY RF: 0 acetaminophen [Tylenol] 325 mg capsule 325 mg PO ONCE PRN (Reason: Pain) RF: 0 levothyroxine [Synthroid] 100 mcg Tablet 100 mcg PO DAILY RF: 0 Discontinued hydrocodone-acetaminophen [[place]] 5-325 mg tablet 1 tab PO Q6H PRN (Reason: Renal colic) 3 Days Qty: 12 RF: 0 mupirocin 2 % ointment 1 applic TOPICAL BID Qty: 22 RF: 0 Discharge Orders: Discharge Order (Routine); Ordered 08/21/19 Ordered By: Tam West Referrals: [facility] [Outside] Nathan Valdez DO [Primary Care Provider] - Tam West MD [Physician] - 2 weeks (PLEASE CALL FOR APPOINTMENT WITH DR WEST) Discharge Diet: Advance as tolerated Discharge Activity: Limit activity as instructed Patient Instructions: Oxycodone, Slow Release (By mouth), Shoulder Arthroplasty (DC), Surgical Site Infections (GEN) Activity Restrictions/Additional Instructions: May remove shoulder dressing in 72 hours and applied light dressing as necessary May shower once incisions free of drainage. Leave arm in sling/immobilizer at all times except when showering or performing exercises. Avoiding any active use of the left shoulder. May remove sling for exercises Passive forward flexion right shoulder with table slides as instructed Passive external rotation right shoulder to 30 degrees Active range of motion to elbow wrist and hand May apply cold compression as necessary for pain and swelling May take xbtm-jqc-imantif anti-inflammatories such as ibuprofen or Aleve with pain medications if you can tolerate these medications Discharge Attestations Time Spent in Discharge Care*: other Quality Metrics Clinical Quality Measures During this hospital stay, did patient experience: None Coding Level of Care Code Acute Industrial Safety And Health Specialist for Donna Alberts Diagnoses Status post total replacement of right shoulder Z96.611 Osteoarthritis of right shoulder M19.011
[2019-08-21] MEDS: oxyCODONE 5 mg IR Tab/Cap PO (21:19)
--- NOTE | 2019-08-22 09:15 | PC.NURSE ---
This RN spoke with the patient's spouse this morning who states that patient's Oxycodone was called to [facility] pharmacy, however they live in [place]. I called and spoke with Sis Castañeda RN on behalf of Dr. Galvez and it was decided that since the Rx couldn't be transferred d/t being a narcotic, we would cancel the order to [facility] and Sis would ask Dr. Galvez to send in a new Rx for the Oxycodone to [facility] for the patient's convenience of pickup. I called and spoke with Lindsey at [facility] in [place] at 0915 and cancelled the Rx for Oxycodone from Dr. Galvez there. I called and spoke with the patient's spouse and informed her of this and instructed her to pickup the Rx from [facility] in [place] instead. I also informed her of patient's f/u appointment on 09/04/[address] Galvez and provided her their phone number in case she has any questions or concerns. She verbalizes understanding and denies any further concerns at this time.
== END 2019-08-21 22:15 | disposition home or self-care (01) ==
LOC: MEDSURG 10:24
PROVIDERS: Admitting Provider Orthopaedic Surgery; PCP Emergency Medicine Emergency Medical Services; Visit Provider Orthopaedic Surgery
PROC: (CPT 23472; principal; 2019-08-21 07:00)
DX: M19.011 Primary osteoarthritis, right shoulder (principal); Z79.82 Long term (current) use of aspirin; E78.5 Hyperlipidemia, unspecified; I10 Essential (primary) hypertension; E03.9 Hypothyroidism, unspecified; Z82.49 Family history of ischemic heart disease and other diseases of the circulatory system; G47.30 Sleep apnea, unspecified
CPT/HCPCS: 23472; 12345; 36416; 73030; 82962; 93005; 96361; 96365; 96374; 96375; C1713; C1776; G0378; J0171; J0690; J1100; J1580; J2001; J2250; J2405; J2704; J2710; J2795; J3010; J3490; J7030

== ENCOUNTER 2019-09-14 15:49 | Outpatient (RCR) | payer OTHER, SELFPAY | END 2019-09-15 23:59 | disposition home or self-care (01) | LOC: SPT 15:49 | PROVIDERS: PCP Emergency Medicine Emergency Medical Services; Referring Provider Orthopaedic Surgery; Visit Provider Orthopaedic Surgery | DX: Z47.89 Encounter for other orthopedic aftercare (principal); Z96.611 Presence of right artificial shoulder joint | CPT/HCPCS: 97161 ==

== ENCOUNTER 2019-09-16 06:00 | Outpatient (RCR) | payer OTHER, SELFPAY | END 2019-10-16 23:59 | disposition home or self-care (01) | LOC: SPT 06:00 | PROVIDERS: PCP Emergency Medicine Emergency Medical Services; Referring Provider Orthopaedic Surgery; Visit Provider Orthopaedic Surgery | DX: Z96.611 Presence of right artificial shoulder joint (principal) | CPT/HCPCS: 97110 ==

== ENCOUNTER → 2019-10-03 14:36 | Outpatient (BNVA) | payer OTHER, SELFPAY | PROVIDERS: PCP Emergency Medicine Emergency Medical Services; Visit Provider Orthopaedic Surgery | DX: Z47.1 Aftercare following joint replacement surgery (principal); Z96.611 Presence of right artificial shoulder joint | CPT/HCPCS: 73030 ==

== ENCOUNTER 2019-10-17 06:00 | Outpatient (RCR) | payer OTHER, SELFPAY | END 2019-11-15 23:59 | disposition home or self-care (01) | LOC: SPT 06:00 | PROVIDERS: PCP Emergency Medicine Emergency Medical Services; Referring Provider Orthopaedic Surgery; Visit Provider Orthopaedic Surgery | DX: Z47.1 Aftercare following joint replacement surgery (principal); Z96.611 Presence of right artificial shoulder joint | CPT/HCPCS: 97110 ==

== ENCOUNTER → 2019-10-31 14:18 | Outpatient (BNVA) | payer OTHER, SELFPAY | PROVIDERS: PCP Emergency Medicine Emergency Medical Services; Visit Provider Orthopaedic Surgery | DX: Z47.1 Aftercare following joint replacement surgery (principal); Z96.611 Presence of right artificial shoulder joint | CPT/HCPCS: 73030 ==

== ENCOUNTER 2019-11-16 06:00 | Outpatient (RCR) | payer OTHER, MEDICARE, SELFPAY | END 2019-12-16 23:59 | disposition home or self-care (01) | LOC: SPT 06:00 | PROVIDERS: PCP Emergency Medicine Emergency Medical Services; Referring Provider Orthopaedic Surgery; Visit Provider Orthopaedic Surgery | DX: Z47.1 Aftercare following joint replacement surgery (principal); Z96.611 Presence of right artificial shoulder joint | CPT/HCPCS: 97110 ==

== ENCOUNTER 2019-11-24 10:14 | Emergency (ER) | payer OTHER, MEDICARE, SELFPAY ==
[2019-11-24 10:20] VITALS: BP 180/94; PULSE 85; RESP 20; O2SAT 97; BMI 22.4
--- NOTE | 2019-11-24 10:27 | CT_ITS ---
WS: [id number] CT scan of the head, 11/24/2019 Clinical Data: Symptoms of Acute Stroke Comparison: None. DLP: 634.39 mGy-cm All CT scans at [facility] use at least one of these dose optimization techniques: automat ed exposure control; mA and/or kV adjustment per patient size (includes targeted exams where dose is matched to clinical indication); or iterative reconstruction. Findings: The ventricular system is normal without shift. No recent infarct or hemorrhage is seen. There are no abnormal intracerebral masses. The cerebellum and brainstem are not remarkable. Bony windows of the skull and skull base show no fractures or erosions. The mastoid air cells, internet architect al auditory canals, sella turcica, intraorbital contents, and paranasal sinuses are unremarkable. CT/CT head wo con* [id number] Impression: Negative CT scan of the head
--- NOTE | 2019-11-24 10:27 | ECG_ITS ---
[facility] Test Date: 2019-11-24 Pat Name: Gil Rojas Department: Room: Gender: Male Laboratory Director: : 1945 Requested By: Trav Rousseau Order Number: [id number] Kaycee MD: Vaibhav Perez M.D. Measurements Intervals [place] Rate: 75 P: 100 MN: 206 QRS: 24 QRSD: 88 T: 7 QT: 365 QTc: 408 Interpretive Statements SINUS RHYTHM WITH FIRST DEGREE AV BLOCK Electronically Signed On 11-24-2019 18:51:27 CDT by Vaibhav Perez M.D. [id number]
--- NOTE | 2019-11-24 10:28 | ED_ITS ---
HPI - Neuro Symptoms/Deficit General: Chief Complaint: Neuro Symptoms/Deficit Stated Complaint: STROKE LIKE SYMPTOMS Time Seen by Provider: 11/24/19 10:27 History of Present Illness: HPI Narrative: 73-year-old male presents emergency room with his last known normal time was approximately 830 this morning he was going to physical therapy for rehab on 8 shoulder. He began have difficulty with overall weakness even some difficulty breathing and speaking. He is not in any visual deficits he is hard of hearing and has hearing aids. He follows commands well his stroke score is 7 includes ataxia which is equal bilaterally in the right and left patient has effort against gravity lower extremities. Onset (ago): minute(s) Last Observed Normal: 08:30 Timing confirmed by: spouse Location: speech and right face Severity: moderate Quality: weak Relieving factors: none Exacerbating factors: none Context: sudden onset Associated symptoms: Deny chest pain, cough, diaphoresis, fevers/chills, headache(s), anorexia, malaise, nausea, seizures, short of breath, syncope, tingling, vertigo, vomiting or weakness Treatments Prior to Arrival: none Review of Systems Const: Denies: malaise or diaphoresis ENMT: Denies: throat pain, ear or mastoid pain, nasal discharge or nasal congestion Card: Denies: chest pain or syncope Resp: Denies: dyspnea, productive cough or non-productive cough GI: Denies: nausea or vomiting : Denies: flank pain, dysuria, urinary frequency or urinary urgency Skin/Breast: Denies: rash or pruritus Neuro: Denies: headache(s) or vertigo PFS ED PFSH: Medical History Bilateral renal stones Hyperlipidemia Hypertension Left ureteral calculus Renal calculi Thyroid disease Surgical History H/O lithotripsy History of back surgery Family History Mother , 99 Cancer cervical Father , 65 CAD (coronary artery disease) Diabetes Hypertension Cancer Hyperlipidemia Social History Smoking and tobacco status: never smoked Alcohol intake: never Marital status: Current occupational status: retired History of recent travel: No NIH stroke score NIHSS: Level Of Consciousness - 1a: 1 Level Of Consciousness Questions - 1b: Both Correct Level Of Consciousness Commands - 1c: Both Correct Best Gaze - 2: Normal Visual Parekh - 3: No Visual Loss Facial Palsy - 4: Minor Paralysis (right) Motor Arm Right - 5: Effort Against [place] Motor Arm Left - 5: Effort Against [place] Motor Leg Right - 6: Effort Against [place] Motor Leg Left - 6: Effort Against [place] Limb Ataxia - 7: Present In Two Limbs (bilateral) If Amputation Is Answered In Any Of The Above - Explain: bilateral Sensory - 8: Mild To Moderate Loss Best Language - 9: Mild/Moderate Aphasia Dysarthia - 10: Mild/Moderate Dysarthia Extinction And Inattention - 11: 0 Score: Total Score: 15 Physical Exam Const: GENERAL APPEARANCE: cooperative and comfortable HENMT: COMMON NORMALS: normocephalic, atraumatic and hearing grossly normal bilaterally HEAD & SCALP: normocephalic and atraumatic Eye: COMMON NORMALS: Equal, round and reactive pupils present, EOMs intact bilaterally, conjunctivae normal and no scleral icterus CONJUNCTIVA: Yes conjunctivae normal PUPIL: Yes Equal, round and reactive pupils present Neck/C-Spine: COMMON NORMALS: full ROM, no lymphadenopathy, supple and no JVD Lymph: LYMPHATIC: no lymphadenopathy noted and no lymphedema noted Resp: COMMON NORMALS: normal respiratory effort, No retractions, No use of accessory muscles and clear to auscultation bilaterally AUSCULTATION: clear to auscultation bilaterally Cardio: COMMON NORMALS: no JVD, regular rate, regular rhythm and No murmurs present (Cardio) RATE: regular rate RHYTHM: regular rhythm GI: COMMON NORMALS: Soft to palpation and No hepatosplenomegaly present AUSCULTATION: Yes normoactive bowel sounds PALPATION: Yes Soft to palpation, No Tenderness to palpation present (GI), No Guarding due to palpation present (GI) and Yes No hepatosplenomegaly present Skin: COMMON NORMALS: no rashes or lesions noted GENERAL SKIN EXAM: no rashes or lesions noted Course Vital Signs: Vital signs: Vital Signs Pulse Rate 61 11/24/19 16:02 Respiratory Rate 14 11/24/19 16:02 Blood Pressure 148/92 11/24/19 16:02 Pulse Oximetry 98 11/24/19 16:02 MDM - Neuro Symptoms/Deficit MDM Narrative: Medical decision making narrative: CT negative for bleed discussed with on-call [place] neurologist they recommended going ahead with the TPA. There was some delay in onset of TPA due to the number of severely critically ill patients in the emergency room at the time. Discussed with the patient and family they wish to go ahead with the TPA. Will transfer to [place] as there is no neurology coverage here at this time. Lab Data: Labs: Lab Results 11/24/19 11/24/19 11/24/19 Range/Units 10:30 10:30 10:30 WBC 7.3 (4.0-10.0) 10^3/ uL RBC 4.44 (4.1-5.3) 10^6/u L Hgb 14.4 (11.7-16.6) g/dL Hct 42.0 (42.0-52.0) % MCV 94.6 H (80-94) fL MCH 32.4 (28.0-34.0) pg MCHC 34.3 (30.0-36.0) g/dL RDW 12.8 (12.1-15.1) % Plt Count 218 (130-400) 10^3/c mm MPV 8.7 (7.4-10.4) fL Neut % (Auto) 63.8 % Lymph % (Auto) 23.0 % [place] % (Auto) 9.5 % Eos % (Auto) 2.6 % Baso % (Auto) 0.4 % Neut # (Auto) 4.68 (1.8-7.7) 10^3/u L Lymph # (Auto) 1.7 (0.8-4.8) 10^3/u L [place] # (Auto) 0.7 (0.2-0.9) 10^3/u L Eos # (Auto) 0.2 (0.0-0.8) 10^3/u L Baso # (Auto) 0.0 (0.0-0.1) 10^3/u L Nucleated RBC % (a uto) 0 % Nucleated RBCs # 0.0 /100WBC PT 13.00 (12.1-14.9) SECO NDS INR 0.95 (0.8-1.2) APTT 26.5 (23.9-36.7) SECO NDS Specimen Type Sample Site ABG pH (7.35-7.45) ABG pCO2 (35-45) mmHg ABG pO2 (80.0-100.0) mmH g ABG HCO3 (22-26) mmol/L ABG O2 Saturation ABG Base Excess (-2.0-2.0) mmol/ L Eriberto Test A-a O2 Gradient (5-10) mmHg Hematocrit (42-52) % Hgb O2 Saturation (95-100) % Carboxyhemoglobin (0.4-20.1) %THgb Methemoglobin (0.4-1.5) % Total Hemoglobin (14-18) g/dL Ionized Calcium (1.1-1.4) mmol/L O2 Delivery Device FiO2 % Photovoltaic Installer ID Sodium 138 (136-145) mmol/L Potassium 3.9 (3.5-5.1) mmol/L Chloride 101 (98-107) mmol/L Carbon Dioxide 26 (22-29) mmol/L Anion Gap 14.9 (5-19) BUN 14 (8-23) mg/dL Creatinine 0.8 (0.7-1.2) mg/dL GFR Calculation Not Reportable Glucose 119 H (65-115) mg/dL Calculated Osmolal ity 288 (285-295) mOsm/k g Calcium 10.0 (8.5-10.5) mg/dL Total Bilirubin 0.4 (0.15-1.2) mg/dL AST 23 (0-40) U/L ALT 26 (0-41) U/L Alkaline Phosphata se 139 H (40-130) IU/L Total Protein 7.5 (6.6-8.7) g/dL Albumin 4.9 (3.5-5.2) g/dL Globulin 2.6 (1.3-4.6) g/dL Urine Color (Yellow) Urine Appearance (CLEAR) Urine pH (5-7) Ur Specific Gravit y (1.005-1.030) Urine Protein (Negative) Urine Glucose (UA) (Normal) Urine Ketones (Negative) Urine Blood (Negative) Urine Nitrate (Negative) Urine Bilirubin (Negative) Urine Urobilinogen (Negative) mg/dL Ur Leukocyte Elsa ase (Negative) Urine Opiates Scre en (Negative) ng/mL Ur Barbiturates Sc reen (Negative) ng/mL Ur Phencyclidine S crn (Negative) ng/mL Ur Amphetamines Sc reen (Negative) ng/mL U Benzodiazepines Scrn (Negative) ng/mL Urine Cocaine Scre en (Negative) ng/mL U Marijuana (THC) Screen (Negative) ng/mL 11/24/19 11/24/19 11/24/19 Range/Units 11:00 11:29 11:29 WBC (4.0-10.0) 10^3/ uL RBC (4.1-5.3) 10^6/u L Hgb (11.7-16.6) g/dL Hct (42.0-52.0) % MCV (80-94) fL MCH (28.0-34.0) pg MCHC (30.0-36.0) g/dL RDW (12.1-15.1) % Plt Count (130-400) 10^3/c mm MPV (7.4-10.4) fL Neut % (Auto) % Lymph % (Auto) % [place] % (Auto) % Eos % (Auto) % Baso % (Auto) % Neut # (Auto) (1.8-7.7) 10^3/u L Lymph # (Auto) (0.8-4.8) 10^3/u L [place] # (Auto) (0.2-0.9) 10^3/u L Eos # (Auto) (0.0-0.8) 10^3/u L Baso # (Auto) (0.0-0.1) 10^3/u L Nucleated RBC % (a uto) % Nucleated RBCs # /100WBC PT (12.1-14.9) SECO NDS INR (0.8-1.2) APTT (23.9-36.7) SECO NDS Specimen Type Arterial Sample Site Radial, left ABG pH 7.50 H (7.35-7.45) ABG pCO2 33.2 L (35-45) mmHg ABG pO2 78.8 L (80.0-100.0) mmH g ABG HCO3 25.8 (22-26) mmol/L ABG O2 Saturation 97.8 ABG Base Excess 3.0 H (-2.0-2.0) mmol/ L Eriberto Test Pos A-a O2 Gradient 3.8 L (5-10) mmHg Hematocrit 43.3 (42-52) % Hgb O2 Saturation 96.1 (95-100) % Carboxyhemoglobin 1.0 (0.4-20.1) %THgb Methemoglobin 0.7 (0.4-1.5) % Total Hemoglobin 14.1 (14-18) g/dL Ionized Calcium 1.2 (1.1-1.4) mmol/L O2 Delivery Device Room air FiO2 21.0 % Photovoltaic Installer ID Amh Sodium 140.0 (136-145) mmol/L Potassium 4.1 (3.5-5.1) mmol/L Chloride (98-107) mmol/L Carbon Dioxide (22-29) mmol/L Anion Gap (5-19) BUN (8-23) mg/dL Creatinine (0.7-1.2) mg/dL GFR Calculation Glucose 134.0 H (65-115) mg/dL Calculated Osmolal ity (285-295) mOsm/k g Calcium (8.5-10.5) mg/dL Total Bilirubin (0.15-1.2) mg/dL AST (0-40) U/L ALT (0-41) U/L Alkaline Phosphata se (40-130) IU/L Total Protein (6.6-8.7) g/dL Albumin (3.5-5.2) g/dL Globulin (1.3-4.6) g/dL Urine Color Yellow (Yellow) Urine Appearance Clear (CLEAR) Urine pH 7 (5-7) Ur Specific Gravit y 1.010 (1.005-1.030) Urine Protein Neg (Negative) Urine Glucose (UA) Norm (Normal) Urine Ketones Negative (Negative) Urine Blood Neg (Negative) Urine Nitrate Negative (Negative) Urine Bilirubin Neg (Negative) Urine Urobilinogen Neg (Negative) mg/dL Ur Leukocyte Elsa ase Negative (Negative) Urine Opiates Scre en Negative (Negative) ng/mL Ur Barbiturates Sc reen Positive H (Negative) ng/mL Ur Phencyclidine S crn Negative (Negative) ng/mL Ur Amphetamines Sc reen Negative (Negative) ng/mL U Benzodiazepines Scrn Negative (Negative) ng/mL Urine Cocaine Scre en Negative (Negative) ng/mL U Marijuana (THC) Screen Negative (Negative) ng/mL Discharge Plan Discharge Patient Disposition: Transfer to ED Clinical Impression: Cerebrovascular accident Prescriptions: No Action fluticasone propionate [Flonase Allergy Relief] 50 mcg/actuation spray,suspen betsy 1 spray INTRANASAL DAILY PRN (Reason: Allergy Symptoms) RF: 0 garlic 1,000 mg capsule 1,000 mg PO DAILY RF: 0 cholecalciferol (vitamin D3) 1,000 unit capsule 1,000 unit PO DAILY RF: 0 acetaminophen [Tylenol] 325 mg capsule 325 mg PO DAILY PRN (Reason: Pain) RF: 0 Fioricet 50-300-40 mg Capsule 1 cap PO Q4H PRN (Reason: Headache) RF: 0 levothyroxine [Synthroid] 100 mcg Tablet 100 mcg PO DAILY RF: 0 Referrals: Nathan Valdez DO [Primary Care Provider] - Interventions: ED Discharge Assessment Last Done: 11/24/19 16:02 ED Charges Last Done: 11/24/19 16:02 Discharge Date/Time: 11/24/19 16:06 Coding Level of Care Code ED Permastone Applicator for Donna Alberts
[2019-11-24 10:43] VITALS: O2SAT 100
[2019-11-24 10:45] LABS: Basophils % 0.4 %; Eosinophils # 0.2 10^3/uL (0.0-0.8); Eosinophils % 2.6 %; Hemoglobin 14.4 g/dL (11.7-16.6); Lymphocytes # 1.7 10^3/uL (0.8-4.8); Mean Corpuscular HGB Conc 34.3 g/dL (30.0-36.0); Mean Corpuscular Hemoglobin 32.4 pg (28.0-34.0); Mean Corpuscular Volume 94.6 fL (80-94); Mean Platelet Volume 8.7 fL (7.4-10.4); Monocytes # 0.7 10^3/uL (0.2-0.9); Monocytes % 9.5 %; Neutrophils # 4.68 10^3/uL (1.8-7.7); Neutrophils % 63.8 %; Nucleated Red Blood Cells % 0 %; Platelet Count 218 10^3/cmm (130-400); Red Blood Count 4.44 10^6/uL (4.1-5.3); Red Cell Distribution Width 12.8 % (12.1-15.1); White Blood Count 7.3 10^3/uL (4.0-10.0)
[2019-11-24 10:57] LABS: INR 0.95 (0.8-1.2)
[2019-11-24 10:58] LABS: Partial Thromboplastin Time 26.5 SECONDS (23.9-36.7)
[2019-11-24 11:04] LABS: Alanine Aminotransferase 26 U/L (0-41); Albumin Level 4.9 g/dL (3.5-5.2); Alkaline Phosphatase 139 IU/L (40-130); Anion Gap 14.9 (5-19); Aspartate Amino Transferase 23 U/L (0-40); Blood Urea Nitrogen 14 mg/dL (8-23); Carbon Dioxide 26 mmol/L (22-29); Chloride 101 mmol/L (98-107); Globulin 2.6 g/dL (1.3-4.6); Glucose 119 mg/dL (65-115); Osmolality Calculated 288 mOsm/kg (285-295); Potassium 3.9 mmol/L (3.5-5.1); Sodium 138 mmol/L (136-145); Total Bilirubin 0.4 mg/dL (0.15-1.2); Total Protein 7.5 g/dL (6.6-8.7)
[2019-11-24 11:08] LABS: ABG PCO2 33.2 mmHg (35-45); Alveolar-Arterial Oxygen Gradi 3.8 mmHg (5-10); Arterial Blood Gas Hematocrit 43.3 % (42-52); Blood Gas Allen Test Pos; Blood Gas Operator Identificat AMH; Blood Gas Sample Site Radial, left; Blood Gas Sample Type Arterial; HCO3 ABG 25.8 mmol/L (22-26); HGB O2 Sat 96.1 % (95-100); Ionized Calcium Level - ABG 1.2 mmol/L (1.1-1.4); Methemoglobin 0.7 % (0.4-1.5); Oxygen Device ROOM AIR; Oxygen Saturation ABG 97.8; PO2 ABG 78.8 mmHg (80.0-100.0); Potassium Level - ABG 4.1 mmol/L (3.5-5.0); Total Hemoglobin 14.1 g/dL (14-18)
--- NOTE | 2019-11-24 11:16 | CT_ITS ---
WS: [id number] CT ANGIOGRAM CEREBRAL AND CAROTID ARTERIES HISTORY: cva TECHNIQUE: CT angiogram is performed of the carotid and cerebral arteries. During arterial injection imaging is obtained from the skull vertex to the aortic arch in 1.25 mm imaging. Coronal and sagittal reformats are submitted. Additional multi planar reformats of the carotid and cerebral arteries are submitted, MIP imaging also reviewed. NASCET criteria utilized. All CT scans at [facility] use at least one of these dose optimization techniques: automated exposure control; mA and/or kV ad justment per patient size (includes targeted exams where dose is matched to clinical indication); or iterative reconstruction. CONTRAST: Omnipaque 350; 95 mL IV. DLP: 1708.06 mGy.cm COMPARISON: 07/22/2018 Carotid Angiogram: Right carotid: Common carotid artery: Arises normally from the innominate artery. No significant plaque or stenosis. Internal carotid artery: Very minimal calcified plaque at the bifurcation with no stenosis. External carotid artery: Patent. Left carotid: Common carotid artery: Arises normally from the aorta. No significant plaque or stenosis. Internal carotid artery: Small amount of calcified plaque at the bifurcation with no occlusion or james nosis. External carotid artery: Patent. Right vertebral artery: Small caliber RIGHT vertebral artery but it is patent. Left vertebral artery: Dominant and patent. Subclavian arteries: No stenosis or significant abnormality. Upper thorax: Normal. Thyroid gland: Atrophic or surgically absent thyroid. Osseous structures: Prior replacement of the RIGHT humeral head. Severe degenerative changes in the c ervical spine. Complete ankylosis across the C3-4 disc space. Severe disc space narrowing and desicca tion at C4-5 and C5-6. There is osteophyte encroachment into the central cervical canal at C3-4. CEREBRAL ANGIOGRAM: Intracranial vertebral arteries: Small caliber RIGHT vertebral artery. LEFT is dominant. Basilar artery: No significant stenosis or occlusion. No aneurysm. Intracranial Internal carotid arteries: Demonstrates no significant stenosis or plaque. Middle cerebral arteries: Normal. Anterior cerebral arteries and ACOM: Normal. Posterior cerebral arteries and PCOM's: Normal. Dural venous sinuses are normally enhancing. Mastoid air cells: Normal. Paranasal sinuses: Normal. Calvarium: Normal. CT/CT angio headneck* [id number] IMPRESSION: 1. No significant carotid artery stenosis. Less than 50% and similar to 07/23/19 19. 2. No intracranial significant atherosclerosis, stenosis or aneurysm. 3. Severe advanced cervical spondylosis. 4. Unremarkable [place].
[2019-11-24] MEDS: iohexol 350 mg/mL 100 mL Btl IV (11:37)
[2019-11-24 11:44] LABS: Add Urine Microscopic? NO
[2019-11-24 12:00] LABS: Bilirubin Urine Neg (Negative); Blood Urine Neg (Negative); Glucose Urine UA Norm (Normal); Ketones Urine Negative (Negative); Leukocyte Esterase Urine Negative (Negative); Nitrate Urine Negative (Negative); Protein Urine Neg (Negative); Urine Appearance Clear (CLEAR); Urine Color Yellow (Yellow); Urobilinogen Urine Neg (Negative); pH Urine 7 (5-7)
[2019-11-24 12:04] LABS: Amphetamines Screen Urine Negative (Negative); Barbiturates Screen Urine Positive (Negative); Benzodiazepines Screen Urine Negative (Negative); Cocaine Screen Urine Negative (Negative); Opiate Screen Urine Negative (Negative); PCP Screen Urine Negative (Negative); THC Screen Urine Negative (Negative)
[2019-11-24 16:02] VITALS: BP 148/92; PULSE 61; RESP 14; O2SAT 98
--- NOTE | 2019-11-28 09:04 | PC.NURSE ---
Pt was bolused 4.9ml of tPa per protocol on 11/24/19, given infusion of 44ml per protocol. Medication was scanned but did not save.
== END 2019-11-24 16:06 ==
LOC: ER 11:37
PROVIDERS: Emergency Provider Family Medicine; PCP Emergency Medicine Emergency Medical Services
DX: I63.9 Cerebral infarction, unspecified (principal); E78.5 Hyperlipidemia, unspecified; I10 Essential (primary) hypertension; Z79.899 Other long term (current) drug therapy
CPT/HCPCS: 12345; 36600; 70450; 70496; 70498; 80051; 80053; 80306; 81003; 82810; 83986; 85025; 85610; 85730; 93005; 96374; 99284; 99285; J2997; Q9967

== ENCOUNTER 2019-12-04 14:25 | Observation (INO) | payer OTHER, MEDICARE, SELFPAY ==
[2019-12-04] VITALS (10 sets, daily range): BP systolic 150–195; BP diastolic 88–112; PULSE 62–75; RESP 16–18; TEMP 36.6–36.8; O2SAT 96–100; BMI 21.9
--- NOTE | 2019-12-04 15:18 | CTR_ITS ---
PROCEDURE INFORMATION: Exam: CT Head Without Contrast Exam date and time: 12/04/2019 3:41 PM Age: 74 years old Clinical indication: Condition or disease; Other: Gómez/ recent tpa for CVA TECHNIQUE: Imaging protocol: Computed tomography of the head without contrast. Radiation optimization: All CT scans at this facility use at least one of these dose optimization techniques: automated exposure control; mA and/or kV adjustment per patient size (includes targeted exams where dose is matched to clinical indication); or iterative reconstruction. COMPARISON: CT head wo con* [id number] 11/24/2019 10:09 AM RADIATION DOSE METRICS: Total DLP (mGy-cm): 775.91 FINDINGS: Brain: Mild hypoattenuating foci are noted in the anterior lateral ventricular periventricular white matter bilaterally. No intracranial hemorrhage. No mass or acute cortical infarction identified. Cerebral ventricles: Prominence of the ventricular system and subarachnoid spaces is consistent with the patient's age of 74 years. Bones/joints: Unremarkable. No acute fracture. Paranasal sinuses: Visualized sinuses are unremarkable. No fluid levels. Mastoid air cells: Visualized mastoid air cells are well aerated. Orbital cavity: Bilateral prior cataract surgery with lens replacements. Vasculature: Atherosclerotic calcifications are present involving the carotid artery siphons bilaterally. Soft tissues: Unremarkable. CT/CT head wo con* [id number] IMPRESSION: 1. Age appropriate supratentorial and infratentorial atrophy. 2. 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 3. No acute intracranial abnormality identified. Radiation Dose CTDIVOL = (mGy): DLP = 775.91 (mGy-cm)
--- NOTE | 2019-12-04 16:23 | W.ED.NEUROSD ---
Documented by User: Trav Garland DO 12/05/19 06:37 HPI - Neuro Symptoms/Deficit General: Chief Complaint: Neuro Symptoms/Deficit Stated Complaint: numbness/tingling arms/jaw/tongue Time Seen by Provider: 12/04/19 16:23 History of Present Illness: HPI Narrative: 74-year-old male recently was here with CVA ultimately was TPA and transferred comes in today with report of headache and tingling in his fingers in his mouth. He denies any chest pain. He states he had an episode of weakness, Onset (ago): hour(s) Timing confirmed by: spouse History of same: Yes Severity: moderate Quality: weak Relieving factors: none Exacerbating factors: none Context: gradual onset Associated symptoms: Deny chest pain, cough, diaphoresis, fevers/chills, headache(s), anorexia, malaise, nausea, seizures, short of breath, syncope, tingling, vertigo, vomiting or weakness Treatments Prior to Arrival: none Review of Systems Const: Denies: fever(s), chills, body aches, change in appetite, fatigue, malaise or diaphoresis ENMT: Denies: throat pain, ear or mastoid pain, nasal discharge or nasal congestion Card: Denies: chest pain, edema, syncope, dyspnea on exertion or orthopnea Resp: Denies: dyspnea, productive cough or non-productive cough GI: Denies: abdominal pain, nausea, vomiting, hematemesis, coffee ground emesis, diarrhea, constipation, bloating, hematochezia or melena : Denies: flank pain, dysuria, urinary frequency or urinary urgency Skin/Breast: Denies: rash or pruritus Neuro: Denies: headache(s) or vertigo PFSH ED PFSH: Medical History Bilateral renal stones Chronic migraine without aura, intractable, with status migrainosus CVA (cerebral vascular accident) Hyperlipidemia Hypertension Left ureteral calculus Renal calculi Status post lithotripsy, stent removed Thyroid disease Surgical History H/O lithotripsy History of back surgery Status post total replacement of right shoulder Family History Mother , 99 Cancer cervical Father , 65 CAD (coronary artery disease) Diabetes Hypertension Cancer Hyperlipidemia Social History Smoking and tobacco status: never smoked Alcohol intake: never Marital status: Current occupational status: retired History of recent travel: No NIH stroke score NIHSS: Level Of Consciousness - 1a: 0 Level Of Consciousness Questions - 1b: Both Correct Level Of Consciousness Commands - 1c: Both Correct Best Gaze - 2: Normal Visual Parekh - 3: No Visual Loss Facial Palsy - 4: Normal Motor Arm Right - 5: No Drift Motor Arm Left - 5: No Drift Motor Leg Right - 6: No Drift Motor Leg Left - 6: No Drift Limb Ataxia - 7: Absent Sensory - 8: Mild To Moderate Loss Best Language - 9: No Aphasia Dysarthia - 10: Normal Extinction And Inattention - 11: 0 Score: Total Score: 1 Physical Exam Const: COMMON NORMALS: no acute distress GENERAL APPEARANCE: cooperative and comfortable HENMT: COMMON NORMALS: normocephalic, atraumatic, hearing grossly normal bilaterally, external ears normal, EAC's normal, TM's normal bilaterally, Normal nasal mucous membranes and turbinates present, moist oral mucous membranes and oropharynx normal HEAD & SCALP: normocephalic and atraumatic NOSE: Normal nasal mucous membranes and turbinates present EXTERNAL EAR: Yes external ears normal EXTERNAL AUDITORY CANAL: EAC's normal TYMPANIC MEMBRANE: TM's normal bilaterally Eye: COMMON NORMALS: Equal, round and reactive pupils present, EOMs intact bilaterally, conjunctivae normal and no scleral icterus CONJUNCTIVA: Yes conjunctivae normal PUPIL: Yes Equal, round and reactive pupils present Neck/C-Spine: COMMON NORMALS: full ROM, no lymphadenopathy, supple and no JVD Lymph: LYMPHATIC: no lymphadenopathy noted and no lymphedema noted Resp: COMMON NORMALS: normal respiratory effort, No retractions, No use of accessory muscles and clear to auscultation bilaterally AUSCULTATION: clear to auscultation bilaterally Cardio: COMMON NORMALS: no JVD, regular rate, regular rhythm and No murmurs present (Cardio) RATE: regular rate RHYTHM: regular rhythm GI: COMMON NORMALS: Soft to palpation and No hepatosplenomegaly present AUSCULTATION: Yes normoactive bowel sounds PALPATION: Yes Soft to palpation, No Tenderness to palpation present (GI), No Guarding due to palpation present (GI) and Yes No hepatosplenomegaly present Extremity: COMMON NORMALS: normal to inspection, capillary refill normal, no clubbing, cyanosis or edema, no calf tenderness and no pedal edema Skin: COMMON NORMALS: no rashes or lesions noted GENERAL SKIN EXAM: no rashes or lesions noted Course Vital Signs: Vital signs: Vital Signs Temperature 98.1 F 12/05/19 04:00 Pulse Rate 70 12/05/19 04:00 Respiratory Rate 17 12/05/19 04:00 Blood Pressure 148/78 12/05/19 04:00 Pulse Oximetry 96 12/05/19 04:00 MDM - Neuro Symptoms/Deficit MDM Narrative: Medical decision making narrative: Care transferred to Dr. Benton at change of shift. See his notes for final diagnosis and disposition. Lab Data: Labs: Lab Results 12/04/19 12/04/19 12/04/19 Range/Units 17:00 17:00 17:00 WBC 6.5 (4.0-10.0) 10^3/ uL RBC 4.13 (4.1-5.3) 10^6/u L Hgb 13.4 (11.7-16.6) g/dL Hct 39.3 L (42.0-52.0) % MCV 95.2 H (80-94) fL MCH 32.4 (28.0-34.0) pg MCHC 34.1 (30.0-36.0) g/dL RDW 12.8 (12.1-15.1) % Plt Count 185 (130-400) 10^3/c mm MPV 8.6 (7.4-10.4) fL Neut % (Auto) 67.0 % Lymph % (Auto) 16.0 % Harmon % (Auto) 13.3 % Eos % (Auto) 2.3 % Baso % (Auto) 0.5 % Neut # (Auto) 4.34 (1.8-7.7) 10^3/u L Lymph # (Auto) 1.0 (0.8-4.8) 10^3/u L Harmon # (Auto) 0.9 (0.2-0.9) 10^3/u L Eos # (Auto) 0.2 (0.0-0.8) 10^3/u L Baso # (Auto) 0.0 (0.0-0.1) 10^3/u L Nucleated RBC % (a uto) 0 % Nucleated RBCs # 0.0 /100WBC Sodium 140 (136-145) mmol/L Potassium 4.4 (3.5-5.1) mmol/L Chloride 101 (98-107) mmol/L Carbon Dioxide 29 (22-29) mmol/L Anion Gap 14.4 (5-19) BUN 14 (8-23) mg/dL Creatinine 0.9 (0.7-1.2) mg/dL GFR Calculation Not Reportable Glucose 111 (65-115) mg/dL Calculated Osmolal ity 291 (285-295) mOsm/k g Calcium 9.6 (8.5-10.5) mg/dL Total Bilirubin 0.4 (0.15-1.2) mg/dL AST 27 (0-40) U/L ALT 36 (0-41) U/L Alkaline Phosphata se 125 (40-130) IU/L Troponin T Baselin e 11 (0-15) ng/L Troponin T 120 Min [place] (0-15) ng/L Delta Troponin T (0-10) ABS# Total Protein 6.5 L (6.6-8.7) g/dL Albumin 4.5 (3.5-5.2) g/dL Globulin 2.0 (1.3-4.6) g/dL TSH (0.27-4.20) uIU/ mL Urine Color (Yellow) Urine Appearance (CLEAR) Urine pH (5-7) Ur Specific Gravit y (1.005-1.030) Urine Protein (Negative) Urine Glucose (UA) (Normal) Urine Ketones (Negative) Urine Blood (Negative) Urine Nitrate (Negative) Urine Bilirubin (Negative) Prot Sulfosalicyli c Acd (Negative) Urine Urobilinogen (Negative) mg/dL Ur Leukocyte Elsa ase (Negative) 12/04/19 12/04/19 12/04/19 Range/Units 17:00 18:35 20:04 WBC (4.0-10.0) 10^3/ uL RBC (4.1-5.3) 10^6/u L Hgb (11.7-16.6) g/dL Hct (42.0-52.0) % MCV (80-94) fL MCH (28.0-34.0) pg MCHC (30.0-36.0) g/dL RDW (12.1-15.1) % Plt Count (130-400) 10^3/c mm MPV (7.4-10.4) fL Neut % (Auto) % Lymph % (Auto) % Harmon % (Auto) % Eos % (Auto) % Baso % (Auto) % Neut # (Auto) (1.8-7.7) 10^3/u L Lymph # (Auto) (0.8-4.8) 10^3/u L Harmon # (Auto) (0.2-0.9) 10^3/u L Eos # (Auto) (0.0-0.8) 10^3/u L Baso # (Auto) (0.0-0.1) 10^3/u L Nucleated RBC % (a uto) % Nucleated RBCs # /100WBC Sodium (136-145) mmol/L Potassium (3.5-5.1) mmol/L Chloride (98-107) mmol/L Carbon Dioxide (22-29) mmol/L Anion Gap (5-19) BUN (8-23) mg/dL Creatinine (0.7-1.2) mg/dL GFR Calculation Glucose (65-115) mg/dL Calculated Osmolal ity (285-295) mOsm/k g Calcium (8.5-10.5) mg/dL Total Bilirubin (0.15-1.2) mg/dL AST (0-40) U/L ALT (0-41) U/L Alkaline Phosphata se (40-130) IU/L Troponin T Baselin e (0-15) ng/L Troponin T 120 Min [place] 10.21 (0-15) ng/L Delta Troponin T -0.79 L (0-10) ABS# Total Protein (6.6-8.7) g/dL Albumin (3.5-5.2) g/dL Globulin (1.3-4.6) g/dL TSH 11.01 H (0.27-4.20) uIU/ mL Urine Color Yellow (Yellow) Urine Appearance Clear (CLEAR) Urine pH 8 H (5-7) Ur Specific Gravit y 1.015 (1.005-1.030) Urine Protein Neg (Negative) Urine Glucose (UA) Norm (Normal) Urine Ketones Negative (Negative) Urine Blood Neg (Negative) Urine Nitrate Negative (Negative) Urine Bilirubin Neg (Negative) Prot Sulfosalicyli c Acd Negative (Negative) Urine Urobilinogen Neg (Negative) mg/dL Ur Leukocyte Elsa ase Negative (Negative) Discharge Plan Discharge Patient Disposition: Home Clinical Impression: Hypertension, Paresthesia Condition: Stable Discharge Orders: Discharge Order (Routine); Ordered 12/04/19 Ordered By: Leo Benton Discharge Date/Time: 12/04/19 22:52 Coding Level of Care Code ED Sweatband Perforator for Chg Fwd Exam Comprehensive Documented by User: Leo Benton MD 12/04/19 21:21 HPI - Neuro Symptoms/Deficit General: Chief Complaint: Neuro Symptoms/Deficit Stated Complaint: numbness/tingling arms/jaw/tongue Time Seen by Provider: 12/04/19 16:23 PFSH ED PFSH: Medical History Bilateral renal stones Chronic migraine without aura, intractable, with status migrainosus CVA (cerebral vascular accident) Hyperlipidemia Hypertension Left ureteral calculus Renal calculi Status post lithotripsy, stent removed Thyroid disease Surgical History H/O lithotripsy History of back surgery Status post total replacement of right shoulder Family History Mother , 99 Cancer cervical Father , 65 CAD (coronary artery disease) Diabetes Hypertension Cancer Hyperlipidemia Social History Smoking and tobacco status: never smoked Alcohol intake: never Marital status: Current occupational status: retired History of recent travel: No Course Vital Signs: Vital signs: Vital Signs Temperature 98.1 F 12/05/19 04:00 Pulse Rate 70 12/05/19 04:00 Respiratory Rate 17 12/05/19 04:00 Blood Pressure 148/78 12/05/19 04:00 Pulse Oximetry 96 12/05/19 04:00 MDM - Neuro Symptoms/Deficit MDM Narrative: Medical decision making narrative: Patient presents here with weakness along with some paresthesias. Patient's continued to have weakness here and states he does not feel well. CT head here shows no signs of CVA and he has no focal deficits. Patient does have some slight hypertension. Spoke to hospitalist will admit for observation due to his weakness and paresthesias. Lab Data: Labs: Lab Results 12/04/19 12/04/19 12/04/19 Range/Units 17:00 17:00 17:00 WBC 6.5 (4.0-10.0) 10^3/ uL RBC 4.13 (4.1-5.3) 10^6/u L Hgb 13.4 (11.7-16.6) g/dL Hct 39.3 L (42.0-52.0) % MCV 95.2 H (80-94) fL MCH 32.4 (28.0-34.0) pg MCHC 34.1 (30.0-36.0) g/dL RDW 12.8 (12.1-15.1) % Plt Count 185 (130-400) 10^3/c mm MPV 8.6 (7.4-10.4) fL Neut % (Auto) 67.0 % Lymph % (Auto) 16.0 % Harmon % (Auto) 13.3 % Eos % (Auto) 2.3 % Baso % (Auto) 0.5 % Neut # (Auto) 4.34 (1.8-7.7) 10^3/u L Lymph # (Auto) 1.0 (0.8-4.8) 10^3/u L Harmon # (Auto) 0.9 (0.2-0.9) 10^3/u L Eos # (Auto) 0.2 (0.0-0.8) 10^3/u L Baso # (Auto) 0.0 (0.0-0.1) 10^3/u L Nucleated RBC % (a uto) 0 % Nucleated RBCs # 0.0 /100WBC Sodium 140 (136-145) mmol/L Potassium 4.4 (3.5-5.1) mmol/L Chloride 101 (98-107) mmol/L Carbon Dioxide 29 (22-29) mmol/L Anion Gap 14.4 (5-19) BUN 14 (8-23) mg/dL Creatinine 0.9 (0.7-1.2) mg/dL GFR Calculation Not Reportable Glucose 111 (65-115) mg/dL Calculated Osmolal ity 291 (285-295) mOsm/k g Calcium 9.6 (8.5-10.5) mg/dL Total Bilirubin 0.4 (0.15-1.2) mg/dL AST 27 (0-40) U/L ALT 36 (0-41) U/L Alkaline Phosphata se 125 (40-130) IU/L Troponin T Baselin e 11 (0-15) ng/L Troponin T 120 Min [place] (0-15) ng/L Delta Troponin T (0-10) ABS# Total Protein 6.5 L (6.6-8.7) g/dL Albumin 4.5 (3.5-5.2) g/dL Globulin 2.0 (1.3-4.6) g/dL TSH (0.27-4.20) uIU/ mL Urine Color (Yellow) Urine Appearance (CLEAR) Urine pH (5-7) Ur Specific Gravit y (1.005-1.030) Urine Protein (Negative) Urine Glucose (UA) (Normal) Urine Ketones (Negative) Urine Blood (Negative) Urine Nitrate (Negative) Urine Bilirubin (Negative) Prot Sulfosalicyli c Acd (Negative) Urine Urobilinogen (Negative) mg/dL Ur Leukocyte Elsa ase (Negative) 12/04/19 12/04/19 12/04/19 Range/Units 17:00 18:35 20:04 WBC (4.0-10.0) 10^3/ uL RBC (4.1-5.3) 10^6/u L Hgb (11.7-16.6) g/dL Hct (42.0-52.0) % MCV (80-94) fL MCH (28.0-34.0) pg MCHC (30.0-36.0) g/dL RDW (12.1-15.1) % Plt Count (130-400) 10^3/c mm MPV (7.4-10.4) fL Neut % (Auto) % Lymph % (Auto) % Harmon % (Auto) % Eos % (Auto) % Baso % (Auto) % Neut # (Auto) (1.8-7.7) 10^3/u L Lymph # (Auto) (0.8-4.8) 10^3/u L Harmon # (Auto) (0.2-0.9) 10^3/u L Eos # (Auto) (0.0-0.8) 10^3/u L Baso # (Auto) (0.0-0.1) 10^3/u L Nucleated RBC % (a uto) % Nucleated RBCs # /100WBC Sodium (136-145) mmol/L Potassium (3.5-5.1) mmol/L Chloride (98-107) mmol/L Carbon Dioxide (22-29) mmol/L Anion Gap (5-19) BUN (8-23) mg/dL Creatinine (0.7-1.2) mg/dL GFR Calculation Glucose (65-115) mg/dL Calculated Osmolal ity (285-295) mOsm/k g Calcium (8.5-10.5) mg/dL Total Bilirubin (0.15-1.2) mg/dL AST (0-40) U/L ALT (0-41) U/L Alkaline Phosphata se (40-130) IU/L Troponin T Baselin e (0-15) ng/L Troponin T 120 Min [place] 10.21 (0-15) ng/L Delta Troponin T -0.79 L (0-10) ABS# Total Protein (6.6-8.7) g/dL Albumin (3.5-5.2) g/dL Globulin (1.3-4.6) g/dL TSH 11.01 H (0.27-4.20) uIU/ mL Urine Color Yellow (Yellow) Urine Appearance Clear (CLEAR) Urine pH 8 H (5-7) Ur Specific Gravit y 1.015 (1.005-1.030) Urine Protein Neg (Negative) Urine Glucose (UA) Norm (Normal) Urine Ketones Negative (Negative) Urine Blood Neg (Negative) Urine Nitrate Negative (Negative) Urine Bilirubin Neg (Negative) Prot Sulfosalicyli c Acd Negative (Negative) Urine Urobilinogen Neg (Negative) mg/dL Ur Leukocyte Elsa ase Negative (Negative) Imaging Data^: CT Head: Attestation: I personally reviewed and interpreted this imaging study as follows: Radiologist's impression: [address] [address] [address] Scan Report Signed Patient: Gil Rojas Unit #: [id number] : 1945 Age/Sex: 74 / M ADM Date: 12/04/19 Loc: ER Room/Bed: Attending Dr: Ordering Provider/Ordering MD: Trav Garland DO Date of Service: 12/04/19 Procedure(s): CT head wo con* [id number] Accession Number(s): [id number] Report Number: [id number] PROCEDURE INFORMATION: Exam: CT Head Without Contrast Exam date and time: 12/04/2019 3:41 PM Age: 74 years old Clinical indication: Condition or disease; Other: Gómez/ recent tpa for CVA TECHNIQUE: Imaging protocol: Computed tomography of the head without contrast. Radiation optimization: All CT scans at this facility use at least one of these dose optimization techniques: automated exposure control; mA and/or kV adjustment per patient size (includes targeted exams where dose is matched to clinical indication); or iterative reconstruction. COMPARISON: CT head wo con* [id number] 11/24/2019 10:09 AM RADIATION DOSE METRICS: Total DLP (mGy-cm): 775.91 FINDINGS: Brain: Mild hypoattenuating foci are noted in the anterior lateral ventricular periventricular white matter bilaterally. No intracranial hemorrhage. No mass or acute cortical infarction identified. Cerebral ventricles: Prominence of the ventricular system and subarachnoid spaces is consistent with the patient's age of 74 years. Bones/joints: Unremarkable. No acute fracture. Paranasal sinuses: Visualized sinuses are unremarkable. No fluid levels. Mastoid air cells: Visualized mastoid air cells are well aerated. Orbital cavity: Bilateral prior cataract surgery with lens replacements. Vasculature: Atherosclerotic calcifications are present involving the carotid artery siphons bilaterally. Soft tissues: Unremarkable. CT/CT head wo con* [id number] IMPRESSION: 1. Age appropriate supratentorial and infratentorial atrophy. 2. 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 3. No acute intracranial abnormality identified. EKG Data^: EKG 1: Attestation: I personally reviewed and interpreted this EKG as follows: EKG interpretation date: 12/04/19 EKG interpretation time: 18:31 Interpretation: sinus juana hr [address] or t wave abnormalities qrs 92 qtc 404 EKG 2: Attestation: I personally reviewed and interpreted this EKG as follows: EKG interpretation date: 12/04/19 EKG interpretation time: 19:58 Interpretation: nsr hr [address] or t wave abnormalities qrs 88 qtc 401 Discharge Plan Discharge Patient Disposition: Home Clinical Impression: Hypertension, Paresthesia Condition: Stable Discharge Orders: Discharge Order (Routine); Ordered 12/04/19 Ordered By: Leo Benton Discharge Date/Time: 12/04/19 22:52 Coding Level of Care Code ED Sweatband Perforator for Chg Fwd Exam Comprehensive
--- NOTE | 2019-12-04 16:34 | ECG_ITS ---
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 Measurements Intervals [place] Rate: 56 P: 77 ME: 225 QRS: 83 QRSD: 92 T: 70 QT: 412 QTc: 399 Interpretive Statements SINUS BRADYCARDIA WITH FIRST DEGREE AV BLOCK Compared to ECG 11/24/2019 10:25:56 Sinus rhythm no longer present Electronically Signed On 12-04-2019 21:44:16 CDT by Young Hartman M.D. [id number]
[2019-12-04 17:13] LABS: Basophils % 0.5 %; Eosinophils # 0.2 10^3/uL (0.0-0.8); Eosinophils % 2.3 %; Hematocrit 39.3 % (42.0-52.0); Hemoglobin 13.4 g/dL (11.7-16.6); Mean Corpuscular HGB Conc 34.1 g/dL (30.0-36.0); Mean Corpuscular Hemoglobin 32.4 pg (28.0-34.0); Mean Corpuscular Volume 95.2 fL (80-94); Mean Platelet Volume 8.6 fL (7.4-10.4); Monocytes # 0.9 10^3/uL (0.2-0.9); Monocytes % 13.3 %; Neutrophils # 4.34 10^3/uL (1.8-7.7); Nucleated Red Blood Cells % 0 %; Platelet Count 185 10^3/cmm (130-400); Red Blood Count 4.13 10^6/uL (4.1-5.3); Red Cell Distribution Width 12.8 % (12.1-15.1); White Blood Count 6.5 10^3/uL (4.0-10.0)
[2019-12-04 17:39] LABS: Alanine Aminotransferase 36 U/L (0-41); Albumin Level 4.5 g/dL (3.5-5.2); Alkaline Phosphatase 125 IU/L (40-130); Anion Gap 14.4 (5-19); Aspartate Amino Transferase 27 U/L (0-40); Blood Urea Nitrogen 14 mg/dL (8-23); Calcium 9.6 mg/dL (8.5-10.5); Carbon Dioxide 29 mmol/L (22-29); Chloride 101 mmol/L (98-107); Glucose 111 mg/dL (65-115); Osmolality Calculated 291 mOsm/kg (285-295); Potassium 4.4 mmol/L (3.5-5.1); Sodium 140 mmol/L (136-145); Total Bilirubin 0.4 mg/dL (0.15-1.2); Total Protein 6.5 g/dL (6.6-8.7)
[2019-12-04 17:51] LABS: Troponin(5th) Baseline 11 ng/L (0-15)
[2019-12-04 18:55] LABS: Thyroid Stimulating Hormone 11.01 uIU/mL (0.27-4.20)
[2019-12-04] MEDS: morphine 4 mg/mL SDV 1 mL IVP ×3 (19:12→23:50)
[2019-12-04 19:13] LABS: Add Urine Microscopic? NO
[2019-12-04 19:32] LABS: Bilirubin Urine Neg (Negative); Blood Urine Neg (Negative); Glucose Urine UA Norm (Normal); Ketones Urine Negative (Negative); Leukocyte Esterase Urine Negative (Negative); Nitrate Urine Negative (Negative); Protein Urine Neg (Negative); Specific Gravity, Urine 1.015 (1.005-1.030); Sulfosalicylic Acid Urine Negative (Negative); Urine Appearance Clear (CLEAR); Urine Color Yellow (Yellow); Urobilinogen Urine Neg (Negative); pH Urine 8 (5-7)
[2019-12-04 20:34] LABS: Troponin 5 2HR 10.21 ng/L (0-15)
[2019-12-04] MEDS: hyDRALAzine 20 mg/mL INJ 1 mL 5 MG IVP (20:52)
[2019-12-04 20:56] LABS: Troponin 5 2HR Delta -0.79 ABS# (0-10)
--- NOTE | 2019-12-04 21:01 | XRR_ITS ---
PROCEDURE INFORMATION: Exam: XR Chest, 1 View Exam date and time: 12/04/2019 9:25 PM Age: 74 years old Clinical indication: Chest pain; Type not specified; Prior surgery; Surgery type: Right shoulder; Additional info: Cp, numbness, tingling, headache TECHNIQUE: Imaging protocol: XR of the chest Views: 1 view. COMPARISON: CR Chest 1 [place] [id number] 07/22/2018 4:16 PM FINDINGS: Lungs: Unremarkable. No consolidation. Pleural space: Unremarkable. No pleural effusion. No pneumothorax. Heart/Mediastinum: Unremarkable. No cardiomegaly. Bones/joints: A right shoulder joint prosthesis is present. XR/XR chest 1V portable [id number] IMPRESSION: No acute cardiopulmonary abnormality.
--- NOTE | 2019-12-04 21:28 | PM.HP ---
Providers/Chief Complaint Primary Care Provider: Nathan Valdez DO Chief Complaint: numbness/tingling arms/jaw/tongue History of Present Illness Gil Rojas is a 74 year old male who carries history of migraine currently getting Botox injections, recently had CVA status post TPA, was evaluated at [place], after improvement of symptoms he was discharged home, today he came to the hospital for paresthesias, numbness and tingling of his extremities and around his mouth. is at the bedside was stating that he was discharged from [facility] a week ago, since then he has never regained his energy and power to do activities at home, he has gradually gotten worse, has not noticed any fever, patient is endorsing that he has no strengths to carry his own weight anymore, 1 week ago he was able to ambulate without any assistance. Today he decided to come to the hospital for worsening of numbness tingling and slurring of speech, he has also been noticing headache around occipital and frontal area, throbbing in nature, not associated with fever or neck pain. At arrival to the ED, CT head unremarkable, he was hypertensive, blood pressure improved after getting morphine. At the time my evaluation patient was experiencing slurred speech, hyperreflexia of lower extremities, awake alert oriented x3 GCS 15, right-sided facial droop, blood pressure 182/92, is not a TPA candidate because of recent administration a week ago, CTA head and neck is pending. Of note, TSH 11. Review of Systems Const: Reports: body aches, change in appetite, fatigue and malaise; Denies: fever(s) or chills Eyes: Denies: change in vision ENMT: Denies: throat pain Card: Denies: chest pain Resp: Denies: dyspnea GI: Denies: abdominal pain : Denies: flank pain Musc: Reports: limited range of motion, muscle cramps and muscle weakness; Denies: neck pain Skin/Breast: Denies: rash or pruritus Neuro: Reports: headache(s), weakness in extremities and difficulty walking; Denies: confusion Psych: Denies: anxiety Endo: Denies: polyuria Mj/Lymph: Denies: easy bruising All/Imm: Denies: urticaria Medications/Allergies Home Medications Medication Instructions Recorded Confirmed Last Taken Type acetaminophen 325 mg capsule 325 mg PO DAILY PRN 02/23/19 11/24/19 08/18/19 History cholecalciferol (vitamin D3) 25 1,000 unit PO DAILY 02/23/19 11/24/19 11/24/19 History mcg (1,000 unit) capsule fluticasone propionate 50 1 spray INTRANASAL DAILY PRN 07/03/19 11/24/19 11/24/19 History mcg/actuation nasal spray,suspension garlic 1,000 mg capsule 1,000 mg PO DAILY 07/03/19 11/24/19 11/24/19 History levothyroxine [Synthroid] 100 mcg PO DAILY 08/17/19 11/24/19 11/24/19 History irlemrrsfw-smcwklhbzfpsl-bcwz 1 cap PO Q4H PRN 11/24/19 11/24/19 Unknown History [Fioricet] Allergies Allergy/AdvReac Type Severity Reaction Status Date / Time levothyroxine sodium Allergy Unknown [place] Verified 12/04/19 15:15 [From Levothroid] lisinopril Allergy Unknown [place] Verified 12/04/19 15:15 PFSH Acute PFSH: Medical History Bilateral renal stones Chronic migraine without aura, intractable, with status migrainosus CVA (cerebral vascular accident) Hyperlipidemia Hypertension Left ureteral calculus Renal calculi Status post lithotripsy, stent removed Thyroid disease Surgical History H/O lithotripsy History of back surgery Status post total replacement of right shoulder Family History Mother , 99 Cancer cervical Father , 65 CAD (coronary artery disease) Diabetes Hypertension Cancer Hyperlipidemia Social History Smoking and tobacco status: never smoked Alcohol intake: never Marital status: Current occupational status: retired History of recent travel: No Vitals/I&O/Wt Last Vital Signs Temp 98.3 F 12/04/19 15:11 Pulse 62 12/04/19 20:55 Resp 18 12/04/19 20:55 BP 177/100 12/04/19 20:55 Pulse Ox 96 12/04/19 20:55 Weight last 48 hrs Weight 54.431 kg Physical Exam Narrative: EXAM NARRATIVE: Elderly male When I entered the room he appeared very lethargic Appears dehydrated Able to comprehend my questions and commands Right-sided facial droop noticed, no drooling of saliva, no tongue deviation No upper facial palsy 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 Able to lift his leg in the air, 3/5 bilaterally Awake alert oriented x3, GCS 15, Hyperreflexia lower extremities, knee reflex Equivocal ankle reflexes S1, S2 sinus rhythm Abdomen soft nontender bowel sound present Lungs are clear to auscultation No skin ulcers No lower extremity edema gangrene or ulcer Appears fatigued and lethargic No visual deficit, no pupillary asymmetry Data : 12/04/19 17:00 12/04/19 17:00 A&P Assessment and plan (1) TIA (transient ischemic attack): Status: Acute (2) Paresthesia: Status: Acute (3) Hypertension: Status: Acute Additional A&P Information TIA Recently received TPA for possible ischemic stroke, patient was evaluated at [facility] is endorsing that MRI was unremarkable and he was discharged home afterwards Today patient has slurred speech, numbness and tingling, weak handgrip, not a candidate of TPA CT head unremarkable, CTA head and neck requested, MRI in the morning PT/OT/speech evaluation Uncontrolled hypothyroidism TSH 11 This might be the etiology of his extreme lethargy fatigue and symptoms if MRI is unremarkable , Normal sinus rhythm, no signs of A. fib, sinus bradycardia with first-degree AV block, I would increase his levothyroxine dosage from 88mmcg to 120mcg Headache Patient is endorsing throbbing headache in occipital and frontal area, he receives Botox from Dr. Camacho I would use Tylenol for now and avoid other analgesics No signs of meningismus, I do not suspect meningitis Patient is awake alert oriented x3 History of nephrolithiasis: No acute exacerbation, currently creatinine is normal, Status post lithotripsy, stent was removed Full code DVT prophylaxis Lovenox Mechanical soft diet, speech evaluation in the morning Patient might need subacute rehab Attestations Medical Necessity Statement*: Anticipating discharge in less than 48 hours continued medication of levothyroxine and work-up for recurrent TIAs Time Spent in Patient Care: (>than 50% of time spent in counselling and/or direct pt care on unit). 50mins Coding Level of Care Code Acute Environmental Lead for Chg Fwd Diagnoses TIA (transient ischemic attack) G45.9 Paresthesia R20.2 Hypertension I10
--- NOTE | 2019-12-04 22:00 | CTR_ITS ---
PROCEDURE INFORMATION: Exam: CT Angiography Head With Contrast Exam date and time: 12/04/2019 10:15 PM Age: 74 years old Clinical indication: Pain; Headache; Additional info: RAMSAY TECHNIQUE: Imaging protocol: Computed tomography angiography of the head with intravenous contrast. 3D rendering (Not supervised by radiologist): MIP and/or 3D reconstructed images were created by the technologist. Radiation optimization: All CT scans at this facility use at least one of these dose optimization techniques: automated exposure control; mA and/or kV adjustment per patient size (includes targeted exams where dose is matched to clinical indication); or iterative reconstruction. Contrast material: OMNI 350; Contrast volume: 95 ml; Contrast route: INTRAVENOUS (IV); COMPARISON: CT angio headneck* [id number] 2019-11-24 11:30 RADIATION DOSE METRICS: Total DLP (mGy-cm): 2221.06 FINDINGS: ANTERIOR CIRCULATION: Right internal carotid artery: Unremarkable. Intracranial segment is patent with no significant stenosis. No aneurysm. Right middle cerebral artery: Unremarkable. No occlusion or significant stenosis. No aneurysm. Right anterior cerebral artery: Unremarkable. No occlusion or significant stenosis. No aneurysm. Left internal carotid artery: Unremarkable. Intracranial segment is patent with no significant stenosis. No aneurysm. Left middle cerebral artery: Unremarkable. No occlusion or significant stenosis. No aneurysm. Left anterior cerebral artery: Unremarkable. No occlusion or significant stenosis. No aneurysm. POSTERIOR CIRCULATION: Right vertebral artery: Right vertebral artery terminates in PICA, a normal variation. Left vertebral artery: Unremarkable. No occlusion or significant stenosis. No aneurysm. Basilar artery: Unremarkable. No occlusion or significant stenosis. No aneurysm. Right posterior cerebral artery: type patent right INSPECTOR BALL POINTS. Left posterior cerebral artery: Patent left INSPECTOR BALL POINTS. Brain: No definite mass, mass effect, or midline shift. Cerebral ventricles: Normal. No ventriculomegaly. Bones/joints: Unremarkable. No acute fracture. Soft tissues: Unremarkable. IMPRESSION: No large vessel stenosis or occlusion. PROCEDURE INFORMATION: Exam: CT Angiography Neck With Contrast Exam date and time: 12/04/2019 10:15 PM Age: 74 years old Clinical indication: Pain; Headache; Additional info: RAMSAY TECHNIQUE: Imaging protocol: Computed tomography angiography of the neck with intravenous contrast. 3D rendering (Not supervised by radiologist): MIP and/or 3D reconstructed images were created by the technologist. Radiation optimization: All CT scans at this facility use at least one of these dose optimization techniques: automated exposure control; mA and/or kV adjustment per patient size (includes targeted exams where dose is matched to clinical indication); or iterative reconstruction. Contrast material: OMNI 350; Contrast volume: 95 ml; Contrast route: INTRAVENOUS (IV); COMPARISON: CT angio headneck* [id number] 2019-11-24 11:30 RADIATION DOSE METRICS: Total DLP (mGy-cm): 2221.06 FINDINGS: Right common carotid artery: Mild atherosclerotic plaque in the predominately distal right common carotid artery and the bifurcation. Right internal carotid artery: Mild atherosclerotic plaque in the carotid bulb and proximal right internal carotid artery with less than 50% stenosis by NASCET criteria. Right external carotid artery: Mild atherosclerotic plaque at the right external carotid artery origin. Right vertebral artery: Hypoplastic right vertebral artery. Left common carotid artery: Mild atherosclerotic plaque in the predominately distal left common carotid artery and the bifurcation. Left internal carotid artery: Mild atherosclerotic plaque in the proximal left internal carotid artery and carotid bulb with less than 50% stenosis by NASCET criteria. Left external carotid artery: Mild atherosclerotic plaque at the left external carotid artery origin. Left vertebral artery: No stenosis. No dissection or occlusion. Bones/joints: Severe cervical spondylosis. Soft tissues: Normal. No significant soft tissue swelling. CT/CT angio headneck* [id number] IMPRESSION: Mild bilateral proximal ICA atherosclerotic disease with less than 50% stenosis. REFERENCES: NASCET CRITERIA. The degree of internal carotid artery stenosis is based on NASCET criteria. Normal is no stenosis. Mild is less than 50% stenosis. Moderate is 50-69% stenosis. Severe is 70% to 99% stenosis. Total occlusion is no detectable patent lumen. Radiation Dose CTDIVOL = (mGy): DLP = 2221.06~2221.06 (mGy-cm)
[2019-12-04] MEDS: iohexol 350 mg/mL 100 mL Btl IV (22:16)
--- NOTE | 2019-12-04 23:12 | PC.NURSE ---
ADMIT NOTE Pt received to floor from ER at 2245 per gurney. Unable to move self over to bed. Pt with recent TPA administration for CVA. Reports no residual effects. Pt speaks quietly and speech easily understandable but seems slightly slurred. No facial droop noted. Has generalized weakness that he says started this morning. Reports being fine yesterday. Reports unable to walk. Is able to only move/lift all extremities very little and when lifted legs & arms off bed they fall back to bed. No difference in weakness R/L. Practical Nurse equal but quite weak. Is oriented and answers questions appropriately. c/o neck & head pain as well as some numbness/tingling in hands and mouth. Has X2 PIIDs to right ac and hand. traffic monitor specialist applied. RN to complete admission assessment
[2019-12-04] MEDS: enoxaparin 40 mg/0.4 mL Syringe SUBCUT (23:35)
--- NOTE | 2019-12-04 23:40 | PC.NURSE ---
NEUROCHECK UPDATE Back into room to give Lovenox and pt noted to be moving arms better. Still quite weak and unable to extend and hold arms up or hold legs off bed. Unable to do heel, knee navarro manuever or raise arms enough to touch nose. Speech not as slow and speech no longer slurred
[2019-12-05] VITALS (8 sets, daily range): BP systolic 116–148; BP diastolic 67–84; PULSE 57–70; RESP 14–18; TEMP 36.6–36.8; O2SAT 96–98
[2019-12-05 05:23] LABS: Anion Gap 11.2 (5-19); Blood Urea Nitrogen 13 mg/dL (8-23); Calcium 9.4 mg/dL (8.5-10.5); Carbon Dioxide 28 mmol/L (22-29); Chloride 101 mmol/L (98-107); Glucose 113 mg/dL (65-115); Osmolality Calculated 283 mOsm/kg (285-295); Potassium 4.2 mmol/L (3.5-5.1); Sodium 136 mmol/L (136-145)
[2019-12-05] MEDS: acetaminophen 325 mg Tablet PO (05:42)
--- NOTE | 2019-12-05 05:50 | PC.NURSE ---
SHIFT UPDATE Pt says doing much better this morning. Has had legs bent up sleeping. Able to complete all neuro assessment this morning. Says feels a little weak still but moving extremities well now. Carrying on good conversation with nurse. Is very pleasant. Says just some slight numbness in his fingertips. Does say headache seems to be coming back. Says hurts in back of neck as well. Tylenol po given. Voiding well per urinal
[2019-12-05] MEDS: atorvastatin 40 mg Tablet 20 MG PO (08:27)
[2019-12-05] MEDS: aspirin 81 mg EC Tablet PO (08:27)
[2019-12-05] MEDS: HYDROcodone-acetaminophen 5-325 mg Tablet 1 TAB PO (08:28)
[2019-12-05] MEDS: levothyroxine 125 mcg Tablet PO (08:28)
[2019-12-05] MEDS: ibuprofen 800 mg tablet PO (12:05)
--- NOTE | 2019-12-05 13:25 | P.DS_ITS ---
Discharge Providers Date of Admission: 12/04/19 20:53 Date of Discharge: December 05, 2019 Attending Provider at Admission: Gurdeep Mathis MD Attending Provider at Discharge: Diego Simpson MD Primary Care Provider: Nathan Valdez DO Diagnoses at Discharge Discharge Diagnosis (1) TIA (transient ischemic attack): Status: Acute (2) Paresthesia: Status: Acute (3) Hypertension: Status: Acute (4) Hypothyroidism: Status: Acute Reason for Visit Reason for Visit: numbness/tingling arms/jaw/tongue Hospital Course Discharge Summary: Patient presented with generalized headache and bilateral upper extremity and perioral numbness and tingling. Pain was quite severe this morning but improved with [place] and ibuprofen. This does not appear to be a cerebrovascular accident. Patient noted to be hypothyroid and dose of levothyroxine was increased to 125 mcg daily. Patient reports compliance with his medications. This morning denies chest pain or shortness of breath. Denies abdominal pain or problems with bowel movement. Denies difficulty with urination. Reports that he did not sleep well because of his room neighbor. Patient scheduled for MRI and I will request MRI with venography without contrast and if it shows no acute findings we will dismiss patient home. Patient reports that his tingling slightly improved and strength is back to normal. Reports that during his evaluation in [place] he was told to follow- up with neurosurgeon because of concern for cervical radiculopathy. Patient reports that he discussed this with [facility] and currently waiting for follow-up to be arranged. Would like to mention that patient recently had right shoulder surgery. P.S. MRI results showed no acute findings. This morning patient reports feeling much better and denies any complaints. Reports that his headache improved. He thinks that he is under a lot of stress especially in the last 1 year when he had to move his sister multiple times. Patient this morning has good appetite and oral intake. Ambulates without difficulty. Reports feeling back to his normal baseline and wants to go home. Patient to follow-up with primary care physician as well as neurology and neurosurgeon. Patient to have TSH checked in several weeks to further adjust levothyroxine dose. Please note that physical exam documented below was performed on 12/05/2019. No further medication changes will be performed and patient will be dismissed today on 12/06/2019. Physical Exam Const: COMMON NORMALS: no acute distress and patient oriented x3 Resp: COMMON NORMALS: normal respiratory effort and clear to auscultation bilaterally AUSCULTATION: clear to auscultation bilaterally Cardio: COMMON NORMALS: regular rate, regular rhythm and S2 normal heart sound present RATE: regular rate RHYTHM: regular rhythm HEART SOUNDS: S2 normal heart sound present OTHER: No lower extremity edema GI: COMMON NORMALS: Normal to inspection, nondistended, normoactive bowel sounds present, Soft to palpation and non-tender PALPATION: Yes Soft to palpation Neuro: COMMON NORMALS: patient oriented x3 and no focal motor deficits Discharge Data Data Completed and Pending: Completed Studies During Hospitalization Category Date Time Status CT angio headneck * [id number] Rout ine Cat Scan 12/04/19 22:[address] head wo con* [id number] Stat Cat Scan 12/04/19 15:18 Completed XR chest 1V janelle ble [id number] Stat Exams 12/04/19 21:01 Completed Pending at discharge Category Date Time Status MR head wo con* [id number] Routine MRI 12/05/19 23:01 Ordered Labs from last 24 hours 12/05/19 12/04/19 12/04/19 04:22 20:04 18:35 WBC RBC Hgb Hct MCV MCH MCHC RDW Plt Count MPV Neut % (Auto) Lymph % (Auto) Turner % (Auto) Eos % (Auto) Baso % (Auto) Neut # (Auto) Lymph # (Auto) Turner # (Auto) Eos # (Auto) Baso # (Auto) Nucleated RBC % (a uto) Nucleated RBCs # Sodium 136 Potassium 4.2 Chloride 101 Carbon Dioxide 28 Anion Gap 11.2 BUN 13 Creatinine 0.9 GFR Calculation Not Reportable Glucose 113 Calculated Osmolal ity 283 L Calcium 9.4 Total Bilirubin AST ALT Alkaline Phosphata se Troponin T Baselin e Troponin T 120 Min [place] 10.21 Delta Troponin T -0.79 L Total Protein Albumin Globulin TSH Urine Color Yellow Urine Appearance Clear Urine pH 8 H Ur Specific Gravit y 1.015 Urine Protein Neg Urine Glucose (UA) Norm Urine Ketones Negative Urine Blood Neg Urine Nitrate Negative Urine Bilirubin Neg Prot Sulfosalicyli c Acd Negative Urine Urobilinogen Neg Ur Leukocyte Elsa ase Negative 12/04/19 12/04/19 12/04/19 17:00 17:00 17:00 WBC RBC Hgb Hct MCV MCH MCHC RDW Plt Count MPV Neut % (Auto) Lymph % (Auto) Turner % (Auto) Eos % (Auto) Baso % (Auto) Neut # (Auto) Lymph # (Auto) Turner # (Auto) Eos # (Auto) Baso # (Auto) Nucleated RBC % (a uto) Nucleated RBCs # Sodium 140 Potassium 4.4 Chloride 101 Carbon Dioxide 29 Anion Gap 14.4 BUN 14 Creatinine 0.9 GFR Calculation Not Reportable Glucose 111 Calculated Osmolal ity 291 Calcium 9.6 Total Bilirubin 0.4 AST 27 ALT 36 Alkaline Phosphata se 125 Troponin T Baselin e 11 Troponin T 120 Min [place] Delta Troponin T Total Protein 6.5 L Albumin 4.5 Globulin 2.0 TSH 11.01 H Urine Color Urine Appearance Urine pH Ur Specific Gravit y Urine Protein Urine Glucose (UA) Urine Ketones Urine Blood Urine Nitrate Urine Bilirubin Prot Sulfosalicyli c Acd Urine Urobilinogen Ur Leukocyte Elsa ase 12/04/19 17:00 WBC 6.5 RBC 4.13 Hgb 13.4 Hct 39.3 L MCV 95.2 H MCH 32.4 MCHC 34.1 RDW 12.8 Plt Count 185 MPV 8.6 Neut % (Auto) 67.0 Lymph % (Auto) 16.0 Turner % (Auto) 13.3 Eos % (Auto) 2.3 Baso % (Auto) 0.5 Neut # (Auto) 4.34 Lymph # (Auto) 1.0 Turner # (Auto) 0.9 Eos # (Auto) 0.2 Baso # (Auto) 0.0 Nucleated RBC % (a uto) 0 Nucleated RBCs # 0.0 Sodium Potassium Chloride Carbon Dioxide Anion Gap BUN Creatinine GFR Calculation Glucose Calculated Osmolal ity Calcium Total Bilirubin AST ALT Alkaline Phosphata se Troponin T Baselin e Troponin T 120 Min [place] Delta Troponin T Total Protein Albumin Globulin TSH Urine Color Urine Appearance Urine pH Ur Specific Gravit y Urine Protein Urine Glucose (UA) Urine Ketones Urine Blood Urine Nitrate Urine Bilirubin Prot Sulfosalicyli c Acd Urine Urobilinogen Ur Leukocyte Elsa ase Vitals: Last Vital Signs Temp 98.0 F 12/05/19 08:00 Pulse 66 12/05/19 08:00 Resp 16 12/05/19 08:00 BP 128/70 12/05/19 08:00 Pulse Ox 98 12/05/19 07:50 Discharge Plan Discharge Patient Disposition: Home Condition: Stable Prescriptions: New atorvastatin 40 mg Tablet 20 mg PO DAILY Qty: 30 RF: 0 aspirin 81 mg Tablet,Delayed Release (Dr/Ec) 81 mg PO DAILY Qty: 30 RF: 0 levothyroxine 125 mcg Tablet 125 mcg PO DAILY Qty: 30 RF: 0 hydrocodone-acetaminophen 5-325 mg Tablet 1 tab PO Q8H PRN (Reason: Moderate Pain) Qty: 10 RF: 0 ibuprofen 600 mg tablet 600 mg PO Q12H PRN (Reason: pain) Qty: 10 RF: 0 omeprazole 20 mg capsule,delayed release(DR/EC) 20 mg PO DAILY Qty: 14 RF: 0 Continued garlic 1,000 mg capsule 1,000 mg PO DAILY RF: 0 cholecalciferol (vitamin D3) 1,000 unit capsule 1,000 unit PO DAILY RF: 0 acetaminophen [Tylenol] 325 mg capsule 325 mg PO DAILY PRN (Reason: Pain) RF: 0 Flonase Allergy Relief bottle 1 spray NOSTRIL-B DAILY RF: 0 metoprolol succinate 25 mg tablet extended release 24 hr 25 mg PO DAILY RF: 0 Vitamin C 500 mg PO DAILY RF: 0 Co Q-10 1 caplet PO DAILY RF: 0 Vitamin D3 capsule 1 caplet PO DAILY RF: 0 Discontinued aspirin 325 mg Tablet 325 mg PO DAILY RF: 0 Discharge Orders: Discharge Order (Routine); Ordered 12/04/19 Ordered By: Leo Benton Referrals: Genesis Camacho MD [Physician] - 01/04/20 2:15 pm () Nathan Valdez DO [Primary Care Provider] - 12/07/19 2:00 pm (over the phone appointment with Dr Valdez. They will call you at 200pm on Dec 06) Discharge Diet: Advance as tolerated Discharge Activity: Increase activity as tolerated Patient Instructions: Hydrocodone/Acetaminophen (By mouth), Levothyroxine (By mouth), Aspirin (By mouth), Omeprazole (By mouth), Atorvastatin (By mouth), Transient Ischemic Attack (GEN) Activity Restrictions/Additional Instructions: Please call your doctor or present to emergency department if your condition worsens or you develop diarrhea, lightheadedness, fatigue or see blood in your stool or black stool. Please keep blood pressure and heart rate log 3 times daily to present to primary care physician next visit for medication adjustment. Please follow-up with neurosurgery earliest possible as we have discussed and was recommended by neurologist in [place]. Please do not take ibuprofen more than prescribed. Do not take more than 1 week. Please discuss with your doctor to repeat TSH in several weeks for further appropriate thyroid replacement medication adjustment as thyroid deficiency could possibly play some role in your symptoms. Discharge Attestations Time Spent in Discharge Care*: greater than 30 min Quality Metrics Clinical Quality Measures During this hospital stay, did patient experience: None Coding Level of Care Code Acute Tufting Machine Operator Single Needle for Chg Fwd Exam Detailed Diagnoses TIA (transient ischemic attack) G45.9 Paresthesia R20.2 Hypertension I10 Hypothyroidism E03.9
--- NOTE | 2019-12-05 13:39 | MRR_ITS ---
PROCEDURE INFORMATION: Exam: MR Angiogram Head Without Contrast, Venogram Exam date and time: 12/05/2019 6:00 PM Age: 74 years old Clinical indication: Weakness; Additional info: Generalized headache, bilateral upper extremity and perioral paresthesia TECHNIQUE: Imaging protocol: MR angiogram of the head without contrast. Exam focused on the veins. 3D rendering (Not supervised by radiologist): MIP and/or 3D reconstructed images were created by the technologist. COMPARISON: CT angio headneck* [id number] 12/04/2019 10:29 PM FINDINGS: Superior sagittal sinus: Patent. Straight sinus: Patent. Internal cerebral and cortical veins: Unremarkable as visualized. Transverse sinuses: Patent. Sigmoid sinuses: Patent. Internal jugular veins: Visualized segment patent. MR/[place] [id number] IMPRESSION: No venous thrombus.
[2019-12-05] MEDS: morphine 4 mg/mL SDV 1 mL 2 MG IVP (16:18)
[2019-12-05] MEDS: enoxaparin 40 mg/0.4 mL Syringe SUBCUT (22:00)
--- NOTE | 2019-12-05 23:01 | MRR_ITS ---
PROCEDURE INFORMATION: Exam: MR Head Without Contrast Exam date and time: 12/05/2019 12:50 PM Age: 74 years old Clinical indication: Weakness, extremity; Additional info: Recurrent TIA, recent CVA TECHNIQUE: Imaging protocol: MR of the head without contrast. COMPARISON: [place] [id number] 12/05/2019 6:25 PM FINDINGS: Brain: Mild diffuse cortical volume loss. Mild scattered foci of increased T2 FLAIR signal in supratentorial periventricular and subcortical white matter. No diffusion restriction. No intracranial hemorrhage. Cerebral ventricles: Normal. No ventriculomegaly. Bones/joints: Unremarkable. Paranasal sinuses: Normal as visualized. No acute sinusitis. Mastoid air cells: Normal as visualized. No mastoid effusion. Orbits: Unremarkable. Soft tissues: Unremarkable. MR/MR head wo con* [id number] IMPRESSION: 1. No evidence for acute ischemic infarct. 2. Mild chronic microangiopathy.
[2019-12-06] VITALS: BP 156/73; PULSE 57; RESP 20; TEMP 36.7; O2SAT 96
[2019-12-06 04:00] VITALS: BP 139/76; PULSE 60; RESP 18; TEMP 37; O2SAT 97
[2019-12-06 07:55] VITALS: BP 144/73; PULSE 69; RESP 16; TEMP 36.3; O2SAT 99
--- NOTE | 2019-12-06 08:48 | PM.PN ---
Subjective Subjective: Interval history: Patient reported yesterday some pressure behind his eyes therefore MRI was performed with venography showing no acute findings. Study was done very late therefore patient was kept overnight. This morning patient reports feeling much better and denies any headache. Has good appetite and reports that his numbness and tingling completely resolved. Vitals/I&O/Wt Last Vital Signs Temp 97.3 F L 12/06/19 07:55 Pulse 69 12/06/19 07:55 Resp 16 12/06/19 07:55 BP 144/73 12/06/19 07:55 Pulse Ox 99 12/06/19 07:55 12/05/19 12/06/19 12/06/19 22:59 06:59 14:59 Intake Total 120 / 120 Output Total 400 / 400 Balance -400 / -280 120 / 120 Weight last 48 hrs Weight 54.431 kg Physical Exam Const: COMMON NORMALS: no acute distress and patient oriented x3 Resp: COMMON NORMALS: normal respiratory effort and clear to auscultation bilaterally AUSCULTATION: clear to auscultation bilaterally Cardio: COMMON NORMALS: regular rate, regular rhythm and S2 normal heart sound present RATE: regular rate RHYTHM: regular rhythm HEART SOUNDS: S2 normal heart sound present OTHER: No lower extremity edema GI: COMMON NORMALS: Normal to inspection, nondistended, normoactive bowel sounds present, Soft to palpation and non-tender PALPATION: Yes Soft to palpation Neuro: COMMON NORMALS: patient oriented x3 and no focal motor deficits Data : 12/04/19 17:00 12/05/19 04:22 A&P Assessment and plan (1) TIA (transient ischemic attack): Status: Acute (2) Paresthesia: Status: Acute (3) Hypertension: Status: Acute Additional A&P Information TIA Recently received TPA for possible ischemic stroke, patient was evaluated at [facility] is endorsing that MRI was unremarkable and he was discharged home afterwards Today patient has slurred speech, numbness and tingling, weak handgrip, not a candidate of TPA CT head unremarkable, CTA head and neck requested, MRI in the morning PT/OT/speech evaluation Uncontrolled hypothyroidism TSH 11 This might be the etiology of his extreme lethargy fatigue and symptoms if MRI is unremarkable , Normal sinus rhythm, no signs of A. fib, sinus bradycardia with first-degree AV block, I would increase his levothyroxine dosage from 88mmcg to 120mcg Headache Patient is endorsing throbbing headache in occipital and frontal area, he receives Botox from Dr. Camacho I would use Tylenol for now and avoid other analgesics No signs of meningismus, I do not suspect meningitis Patient is awake alert oriented x3 History of nephrolithiasis: No acute exacerbation, currently creatinine is normal, Status post lithotripsy, stent was removed Full code DVT prophylaxis Lovenox Mechanical soft diet, speech evaluation in the morning Patient might need subacute rehab PLAN: We will dismiss patient home. Please refer to DC summary initiated yesterday. Attestations Medical Necessity Statement*: Patient is being discharged. Coding Level of Care Code Acute Habitat Conservation Planner for Donna Alberts Diagnoses TIA (transient ischemic attack) G45.9 Paresthesia R20.2 Hypertension I10
[2019-12-06] MEDS: levothyroxine 125 mcg Tablet PO (08:53)
[2019-12-06] MEDS: atorvastatin 40 mg Tablet 20 MG PO (08:53)
[2019-12-06] MEDS: aspirin 81 mg EC Tablet PO (08:53)
--- NOTE | 2019-12-06 09:32 | PC.NURSE ---
Discharge instructions given to patient and patient verbalized understanding of instructions. patient's waiting on ride to arrive.
--- NOTE | 2019-12-06 09:46 | PC.NURSE ---
patient taken to private vehicle by typewriter assembly and parts inspector.
[2019-12-06 09:47] VITALS: BP 144/73; PULSE 69; RESP 16; TEMP 36.3; O2SAT 99
== END 2019-12-06 09:47 | disposition home or self-care (01) ==
LOC: ER 21:17 → MEDSURG 21:56
PROVIDERS: Emergency Medicine; Family Medicine; Admitting Provider Internal Medicine; PCP Emergency Medicine Emergency Medical Services; Visit Provider Internal Medicine
DX: G45.9 Transient cerebral ischemic attack, unspecified (principal); R20.2 Paresthesia of skin; I10 Essential (primary) hypertension; E03.9 Hypothyroidism, unspecified; R51.9 Headache, unspecified; Z86.73 Personal history of transient ischemic attack (TIA), and cerebral infarction without residual deficits; E78.5 Hyperlipidemia, unspecified
CPT/HCPCS: 12345; 70450; 70496; 70498; 70544; 70551; 71045; 80048; 80053; 81003; 84443; 84484; 85025; 92523; 92610; 93005; 96372; 96374; 96375; 97161; 97165; 99284; 99285; G0378; J0360; J1650; J2270; Q9967

== ENCOUNTER 2019-12-17 06:00 | Outpatient (RCR) | payer OTHER, MEDICARE, SELFPAY | END 2020-01-15 23:59 | disposition home or self-care (01) | LOC: SPT 06:00 | PROVIDERS: PCP Emergency Medicine Emergency Medical Services; Referring Provider Orthopaedic Surgery; Visit Provider Orthopaedic Surgery | DX: Z47.1 Aftercare following joint replacement surgery (principal); Z96.611 Presence of right artificial shoulder joint | CPT/HCPCS: 97110 ==

== ENCOUNTER → 2020-01-05 13:53 | Outpatient (BNVA) | payer OTHER, SELFPAY | PROVIDERS: PCP Emergency Medicine Emergency Medical Services; Visit Provider Internal Medicine | DX: E03.9 Hypothyroidism, unspecified (principal); I10 Essential (primary) hypertension; R20.2 Paresthesia of skin; R41.0 Disorientation, unspecified; R73.9 Hyperglycemia, unspecified | CPT/HCPCS: 99204 ==

== ENCOUNTER 2020-01-08 08:04 | Outpatient (CLI) | payer OTHER, SELFPAY ==
[2020-01-08 09:32] LABS: Anion Gap 14.3 (5-19); Blood Urea Nitrogen 16 mg/dL (8-23); Calcium 9.4 mg/dL (8.5-10.5); Carbon Dioxide 26 mmol/L (22-29); Chloride 103 mmol/L (98-107); Glucose 113 mg/dL (65-115); Osmolality Calculated 290 mOsm/kg (285-295); Potassium 4.3 mmol/L (3.5-5.1); Sodium 139 mmol/L (136-145)
[2020-01-08 11:36] LABS: Cortisol Random 13.51 ug/mL (2.47-19.5)
[2020-01-08 11:47] LABS: Estmated Average Glucose 108; Hemoglobin A1C 5.4 % (4.0-6.0)
[2020-01-08 12:38] LABS: Free T4 Free Thyroxine 2.23 ng/dL (0.82-1.77)
== END 2020-01-08 08:05 | disposition home or self-care (01) ==
PROVIDERS: PCP Emergency Medicine Emergency Medical Services; Visit Provider Internal Medicine
DX: E03.9 Hypothyroidism, unspecified (principal); I10 Essential (primary) hypertension; R41.0 Disorientation, unspecified; R73.9 Hyperglycemia, unspecified
CPT/HCPCS: 36415; 80048; 82533; 83036; 84439; 84443

== ENCOUNTER 2020-01-16 06:00 | Outpatient (RCR) | payer OTHER, SELFPAY | END 2020-02-15 23:59 | disposition home or self-care (01) | LOC: SPT 06:00 | PROVIDERS: PCP Emergency Medicine Emergency Medical Services; Referring Provider Orthopaedic Surgery; Visit Provider Orthopaedic Surgery | DX: Z47.1 Aftercare following joint replacement surgery (principal); Z96.611 Presence of right artificial shoulder joint | CPT/HCPCS: 97110 ==

== ENCOUNTER 2020-01-31 13:32 | Outpatient (CLI) | payer OTHER, MEDICARE, SELFPAY ==
--- NOTE | 2020-01-31 14:00 | XR_ITS ---
WS: [id number] KUB, 01/31/2020 Clinical Data: BILATERAL RENAL STONES Comparison: KUB, 08/02/2019. Findings: No abnormal intraabdominal masses are seen. There is a small calcification adjacent to the left L3-L4 disc level which is not changed from before but probably is not within the left ureter.. There is no dilatated small bowel or evidence of obstruction. The left ureteral stent has been removed. There is a large amount of fecal material throughout the co ted. XR/XR KUB [id number] Impression: Negative KUB.
== END 2020-01-31 13:33 | disposition home or self-care (01) ==
LOC: RAD 13:40
PROVIDERS: PCP Emergency Medicine Emergency Medical Services; Visit Provider Urology
DX: N20.0 Calculus of kidney (principal)
CPT/HCPCS: 74018; 81003

== ENCOUNTER 2020-03-04 14:10 | Outpatient (CLI) | payer MEDICARE, OTHER, SELFPAY ==
[2020-03-04 15:23] LABS: Free T4 Free Thyroxine 1.59 ng/dL (0.82-1.77); Thyroid Stimulating Hormone 0.21 uIU/mL (0.27-4.20)
== END 2020-03-04 14:11 | disposition home or self-care (01) ==
LOC: LAB 14:16
PROVIDERS: PCP Emergency Medicine Emergency Medical Services; Visit Provider Internal Medicine
DX: E03.9 Hypothyroidism, unspecified (principal)
CPT/HCPCS: 36415; 84439; 84443

== ENCOUNTER → 2020-03-05 14:06 | Outpatient (BNVA) | payer MEDICARE, OTHER, SELFPAY | PROVIDERS: PCP Emergency Medicine Emergency Medical Services; Visit Provider Internal Medicine | DX: E89.0 Postprocedural hypothyroidism (principal); M25.40 Effusion, unspecified joint; R20.2 Paresthesia of skin; R79.89 Other specified abnormal findings of blood chemistry | CPT/HCPCS: 99215 ==

== ENCOUNTER 2020-03-18 13:44 | Outpatient (CLI) | payer OTHER, MEDICARE, SELFPAY ==
[2020-03-19 14:28] LABS: Thyroid Peroxidase Antobodies <1 IU/mL (<9)
[2020-03-21 18:14] LABS: TSH Receptor Binding Antibody <1.00 IU/L (< OR = 2.00)
== END 2020-03-18 13:45 | disposition home or self-care (01) ==
LOC: LAB 13:50
PROVIDERS: PCP Emergency Medicine Emergency Medical Services; Visit Provider Internal Medicine
DX: E03.9 Hypothyroidism, unspecified (principal); R79.89 Other specified abnormal findings of blood chemistry
CPT/HCPCS: 36415; 83516; 86376

== ENCOUNTER 2020-04-25 14:27 | Outpatient (CLI) | payer OTHER, MEDICARE, SELFPAY ==
[2020-04-25 15:38] LABS: Free T4 Free Thyroxine 1.12 ng/dL (0.82-1.77); Thyroid Stimulating Hormone 1.63 uIU/mL (0.27-4.20)
== END 2020-04-25 14:28 | disposition home or self-care (01) ==
LOC: LAB 14:33
PROVIDERS: PCP Emergency Medicine Emergency Medical Services; Visit Provider Internal Medicine
DX: E03.9 Hypothyroidism, unspecified (principal); R79.89 Other specified abnormal findings of blood chemistry
CPT/HCPCS: 36415; 84439; 84443

== ENCOUNTER → 2020-05-06 13:21 | Outpatient (BNVA) | payer OTHER, MEDICARE, SELFPAY | PROVIDERS: PCP Emergency Medicine Emergency Medical Services; Visit Provider Internal Medicine | DX: E89.0 Postprocedural hypothyroidism (principal); M25.40 Effusion, unspecified joint; R20.2 Paresthesia of skin | CPT/HCPCS: 99215 ==

== ENCOUNTER 2020-05-17 13:12 | Outpatient (CLI) | payer OTHER, SELFPAY ==
--- NOTE | 2020-05-17 | CT_ITS ---
WS: [id number] CT scan of the neck. Additional two-dimensional coronal and sagittal reconstruction was performed. Clinical Data: PAIN IN THROAT Comparison: None. DLP: 1491.[address] scans at [facility] use at least one of these dose optimization techniques: automat ed exposure control; mA and/or kV adjustment per patient size (includes targeted exams where dose is matched to clinical indication); or iterative reconstruction. Findings: No lymphadenopathy is noted. The salivary glands are unremarkable. There is no prevertebral soft tiss ue swelling. The larynx is symmetric. The thyroid gland shows normal enhancement. The floor of the mo uth and parapharyngeal spaces are normal. The oral cavity is unremarkable. The carotid arteries bifurcate normally with calcification at the bifurcations. The right vertebral a rtery is diminutive and the left vertebral artery is normal.. The cervical spine shows severe osteoar thritis and disc space narrowing from C2 through C7. The lung apices show no abnormalities. The porti ons of the intracranial circulation which are seen demonstrate no abnormalities. No erosion of the sk ull or skull base is seen. CT/CT neck w con* [id number] Impression: 1. Negative CT scan of the neck. 2. 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 3. Minimal calcification at both carotid bifurcations with no significant steno sis.
[2020-05-17] MEDS: iohexol 300 mg/mL 100 mL Btl IV (13:54)
[2020-05-21 15:46] LABS: Blood Urea Nitrogen 28 mg/dL (8-23)
== END 2020-05-17 13:13 | disposition home or self-care (01) ==
LOC: RADWPI 13:15
PROVIDERS: PCP Emergency Medicine Emergency Medical Services; Visit Provider Otolaryngology
DX: R07.0 Pain in throat (principal); M47.812 Spondylosis without myelopathy or radiculopathy, cervical region; I65.23 Occlusion and stenosis of bilateral carotid arteries
CPT/HCPCS: 70491; 82565; 84520; Q9967

== ENCOUNTER 2020-07-12 13:35 | Outpatient (CLI) | payer OTHER, SELFPAY ==
--- NOTE | 2020-07-12 | CT_ITS ---
WS: [id number] CT CHEST TECHNIQUE: Contrast enhanced CT of the chest with coronal and sagittal reformatted images. CLINICAL INFORMATION: PULMONARY NODULE COMPARISON: None. DLP: 622.[address] scans at [facility] use at least one of these dose optimization techniques: automat ed exposure control; mA and/or kV adjustment per patient size (includes targeted exams where dose is matched to clinical indication); or iterative reconstruction. FINDINGS: Mild chronic emphysematous changes. No acute pulmonary infiltrates. No focal pneumonia or pleural flu id. Subsegmental atelectasis right middle lobe. No mediastinal or hilar lymphadenopathy. Aortic calci fication. Coronary calcification. Calcified right hilar and subcarinal lymph nodes. Noncalcified nodule right upper lobe measuring 4 mm. Adrenal glands are normal. No axillary lymphaden opathy. Hypertrophic changes thoracic spine. CT/CT chest w con* [id number] IMPRESSION: 1. Noncalcified nodule right upper lobe measuring 4.3 mm. Recommend 6-12 month follow-up. 2. Mild chronic emphysematous changes. No acute pulmonary infiltrates. 3. No focal pneumonia or pleural fluid. 4. Subsegmental atelectasis right middle lobe. 5. No mediastinal or hilar lymphadenopathy. 6. Aortic calcification and coronary calcification.
[2020-07-12] MEDS: iohexol 300 mg/mL 100 mL Btl IV (14:07)
== END 2020-07-12 13:36 | disposition home or self-care (01) ==
LOC: RADWPI 13:42
PROVIDERS: PCP Emergency Medicine Emergency Medical Services; Visit Provider Emergency Medicine Emergency Medical Services
DX: R91.1 Solitary pulmonary nodule (principal); J98.11 Atelectasis; I70.0 Atherosclerosis of aorta; I25.10 Atherosclerotic heart disease of native coronary artery without angina pectoris
CPT/HCPCS: 71260; Q9967

== ENCOUNTER → 2020-08-06 09:54 | Outpatient (BNVA) | payer OTHER, SELFPAY | PROVIDERS: PCP Emergency Medicine Emergency Medical Services; Visit Provider Internal Medicine Rheumatology | DX: M25.50 Pain in unspecified joint (principal); M19.041 Primary osteoarthritis, right hand; M19.042 Primary osteoarthritis, left hand; Z79.899 Other long term (current) drug therapy; Z11.59 Encounter for screening for other viral diseases; Z11.1 Encounter for screening for respiratory tuberculosis; M47.816 Spondylosis without myelopathy or radiculopathy, lumbar region; R68.2 Dry mouth, unspecified; J43.9 Emphysema, unspecified | CPT/HCPCS: 99204 ==

== ENCOUNTER 2020-08-06 11:30 | Outpatient (CLI) | payer OTHER, MEDICARE, SELFPAY ==
--- NOTE | 2020-08-06 11:48 | XRR_ITS ---
PROCEDURE INFORMATION: Exam: XR Right Hand Exam date and time: 08/06/2020 11:48 AM Age: 74 years old Clinical indication: Screening exam; Other technician terminal and repeater (current) drug therapy; Additional info: Z79.899 - other technician terminal and repeater (current) drug therapy TECHNIQUE: Imaging protocol: XR Right hand. Views: 3 or more views. COMPARISON: No relevant prior studies available. FINDINGS: Bones/joints: Negative for acute bony abnormality. There is osteoarthritis with narrowing of the interphalangeal articulations of multiple digits. Severe osteoarthritis is seen in the 1st metacarpal carpal articulation with sclerosis and remodeling. Soft tissues: Unremarkable XR/XR hand RT min 3V* [id number] IMPRESSION: 1. Osteoarthritis is noted 2. Otherwise No acute findings.
--- NOTE | 2020-08-06 11:48 | XRR_ITS ---
PROCEDURE INFORMATION: Exam: XR Right Foot Exam date and time: 08/06/2020 11:48 AM Age: 74 years old Clinical indication: Screening exam; Other superintendent terminal (current) drug therapy; Additional info: Z79.899 - other superintendent terminal (current) drug therapy TECHNIQUE: Imaging protocol: XR Right foot. Views: 3 or more views. COMPARISON: No relevant prior studies available. FINDINGS: Bones/joints: Negative for acute bony abnormality. There is osteoarthritis seen with sclerosis and narrowing of the 1st metatarsal phalangeal articulation. There is hallux valgus deformity involving the 5th toe, and the 1st toe Soft tissues: Normal. XR/XR foot RT min 3V* [id number] IMPRESSION: Hallux valgus deformity 1st and 5th toe Osteoarthritis great toe Negative for acute bony abnormalities
--- NOTE | 2020-08-06 11:48 | XRR_ITS ---
PROCEDURE INFORMATION: Exam: XR Pelvis Exam date and time: 08/06/2020 11:48 AM Age: 74 years old Clinical indication: Screening exam; Other buttermaker helper (current) drug therapy; Additional info: Z79.899 - other correction (current) drug therapy TECHNIQUE: Imaging protocol: XR pelvis. Views: 1 or 2 view. COMPARISON: 1. CT kidney stone [id number] 06/18/2019 12:30 AM 2. CR XR KUB [id number] 01/31/2020 2:06 PM 3. CR XR KUB [id number] 08/02/2019 3:32 PM 4. CR XR KUB [id number] 07/24/2019 1:06 PM FINDINGS: Bones/joints: Unremarkable. No acute fracture. Soft tissues: Unremarkable. XR/XR pelvis 1-2V* [id number] IMPRESSION: No acute findings.
--- NOTE | 2020-08-06 11:48 | XRR_ITS ---
PROCEDURE INFORMATION: Exam: XR Left Foot Exam date and time: 08/06/2020 11:48 AM Age: 74 years old Clinical indication: Screening exam; Other half-way (current) drug therapy; Additional info: Z79.899 - other half-way (current) drug therapy TECHNIQUE: Imaging protocol: XR Left foot. Views: 3 or more views. COMPARISON: No relevant prior studies available. FINDINGS: Bones/joints: There is osteoarthritis seen with narrowing of the 1st metatarsophalangeal articulation. Hallux valgus deformity is seen involving the great toe. Soft tissues: Normal. XR/XR foot LT min 3V* [id number] IMPRESSION: 1. No acute bone abnormality. 2. Hallux valgus deformity great toe
--- NOTE | 2020-08-06 11:48 | XRR_ITS ---
PROCEDURE INFORMATION: Exam: XR Lumbosacral Spine Exam date and time: 08/06/2020 11:48 AM Age: 74 years old Clinical indication: Screening exam; Other long term care social worker (current) drug therapy; Additional info: Z79.899 - other long term care social worker (current) drug therapy TECHNIQUE: Imaging protocol: XR of the lumbosacral spine. Views: 2 or 3 views. COMPARISON: 1. CR Lumbar Spine 2-3 views* [id number] 11/09/2013 2:[address] kidney stone [id number] 06/18/2019 12:30 AM 3. CR XR KUB [id number] 01/31/2020 2:06 PM 4. CR XR KUB [id number] 08/02/2019 3:32 PM FINDINGS: Bones/joints: There is osteopenia and osteoarthritis seen. Multilevel intervertebral disc space narrowing is seen. No acute fracture. Normal alignment. Soft tissues: Unremarkable. XR/XR lumbar spine 2-3V* [id number] IMPRESSION: Osteopenia and osteoarthritis Otherwise No acute findings.
--- NOTE | 2020-08-06 11:48 | XRR_ITS ---
PROCEDURE INFORMATION: Exam: XR Left Hand Exam date and time: 08/06/2020 11:48 AM Age: 74 years old Clinical indication: Screening exam; Other long-term (current) drug therapy; Additional info: Z79.899 - other long-term (current) drug therapy TECHNIQUE: Imaging protocol: XR Left hand. Views: 3 or more views. COMPARISON: No relevant prior studies available. FINDINGS: Bones/joints: There is osteoarthritis with sclerosis and narrowing of the 1st metacarpal carpal articulation. There is a ossific density adjacent to the distal ulna which likely corresponds to a chronic or congenital defect. Negative for acute fractures. Soft tissues: Soft tissue edema is seen in the lateral wrist XR/XR hand LT min 3V* [id number] IMPRESSION: 1. No acute bony abnormality 2. Chronic osteoarthritis 3. Accessory ossified density near the distal ulna 4. Soft tissue edema lateral wrist.
[2020-08-06 13:06] LABS: Basophils # 0.1 10^3/uL (0.0-0.1); Basophils % 0.8 %; Eosinophils # 0.2 10^3/uL (0.0-0.8); Eosinophils % 3.4 %; Hematocrit 42.1 % (42.0-52.0); Hemoglobin 14.3 g/dL (11.7-16.6); Lymphocytes # 1.4 10^3/uL (0.8-4.8); Lymphocytes % 20.9 %; Mean Corpuscular Hemoglobin 33.3 pg (28.0-34.0); Mean Corpuscular Volume 98.1 fL (80-94); Mean Platelet Volume 8.8 fL (7.4-10.4); Monocytes # 0.6 10^3/uL (0.2-0.9); Neutrophils # 4.29 10^3/uL (1.8-7.7); Neutrophils % 65.4 %; Nucleated Red Blood Cells % 0 %; Platelet Count 182 10^3/cmm (130-400); Red Blood Count 4.29 10^6/uL (4.1-5.3); White Blood Count 6.6 10^3/uL (4.0-10.0)
[2020-08-06 13:54] LABS: Alanine Aminotransferase 30 U/L (0-41); Albumin Level 4.6 g/dL (3.5-5.2); Alkaline Phosphatase 91 IU/L (40-130); Aspartate Amino Transferase 28 U/L (0-40); C Reactive Protein 0.6 mg/L (0.0-4.9); Erythrocyte Sedimentation Rate 15 mm/hr (0-10); Globulin 2.5 g/dL (1.3-4.6); Total Protein 7.1 g/dL (6.6-8.7)
[2020-08-06 13:59] LABS: Hepatitis B Core AB, Total Non-Reactive (Nonreactive); Hepatitis B Surface Antigen Non-Reactive (Nonreactive); Hepatitis C Virus Antibody Non-Reactive (Nonreactive)
[2020-08-07 16:18] LABS: Cyclic Citrullinated Peptide <16 UNITS
[2020-08-08 14:08] LABS: Quantiferon Mitogen 7.89 IU/mL; Quantiferon Nil 0.02 IU/mL; Quantiferon TB Gold NEGATIVE (NEGATIVE)
[2020-08-08 20:48] LABS: Anti-Nuclear Antibody Screen NEGATIVE (NEGATIVE)
[2020-08-10 19:02] LABS: HLA-B27 NEGATIVE (NEGATIVE)
== END 2020-08-06 11:31 | disposition home or self-care (01) ==
LOC: RAD 11:42
PROVIDERS: PCP Emergency Medicine Emergency Medical Services; Visit Provider Internal Medicine Rheumatology
DX: M19.90 Unspecified osteoarthritis, unspecified site (principal); Z79.899 Other long term (current) drug therapy; Z11.59 Encounter for screening for other viral diseases; Z11.1 Encounter for screening for respiratory tuberculosis
CPT/HCPCS: 36415; 72100; 72170; 73130; 73630; 80076; 82565; 85025; 85651; 86038; 86140; 86431; 86480; 86704; 86803; 86812; 87340

== ENCOUNTER → 2020-08-20 09:14 | Outpatient (BNVA) | payer OTHER, SELFPAY | PROVIDERS: PCP Emergency Medicine Emergency Medical Services; Visit Provider Orthopaedic Surgery | DX: Z96.611 Presence of right artificial shoulder joint (principal) | CPT/HCPCS: 73030 ==

== ENCOUNTER → 2020-09-04 13:52 | Outpatient (BNVA) | payer OTHER, SELFPAY | PROVIDERS: PCP Emergency Medicine Emergency Medical Services; Visit Provider Internal Medicine Rheumatology | DX: M25.50 Pain in unspecified joint (principal); M19.041 Primary osteoarthritis, right hand; M19.042 Primary osteoarthritis, left hand; M47.816 Spondylosis without myelopathy or radiculopathy, lumbar region; Z79.899 Other long term (current) drug therapy; R68.2 Dry mouth, unspecified | CPT/HCPCS: 99214 ==

== ENCOUNTER 2020-11-05 09:49 | Outpatient (CLI) | payer MEDICARE, OTHER, SELFPAY ==
[2020-11-05 11:27] LABS: Free T4 Free Thyroxine 1.34 ng/dL (0.82-1.77); Thyroid Stimulating Hormone 2.36 uIU/mL (0.27-4.20)
== END 2020-11-05 09:50 | disposition home or self-care (01) ==
PROVIDERS: PCP Emergency Medicine Emergency Medical Services; Visit Provider Internal Medicine
DX: E89.0 Postprocedural hypothyroidism (principal)
CPT/HCPCS: 84439; 84443

== ENCOUNTER 2021-01-29 13:28 | Outpatient (CLI) | payer OTHER, SELFPAY ==
--- NOTE | 2021-01-29 13:30 | XRR_ITS ---
PROCEDURE INFORMATION: Exam: XR Abdomen Exam date and time: 01/29/2021 1:30 PM Age: 75 years old Clinical indication: Condition or disease; Kidney or ureter condition; Calculus (stone) in kidney; Additional info: Renal stones TECHNIQUE: Imaging protocol: XR of the abdomen. Views: Frontal supine view of the abdomen. 1 View. COMPARISON: CR XR KUB [id number] 01/31/2020 2:06 PM FINDINGS: Gastrointestinal tract: Normal. No bowel dilation. Organs: No urinary calcifications are seen. Vasculature: Atherosclerotic calcifications are present in the iliac vessels. Bones/joints: Degenerative changes are present in the lumbar spine with joint space narrowing and osteophytes. XR/XR KUB [id number] IMPRESSION: No acute abnormality. No urinary calculi are seen.
== END 2021-01-29 13:29 | disposition home or self-care (01) ==
LOC: RAD 13:29
PROVIDERS: PCP Emergency Medicine Emergency Medical Services; Visit Provider Urology
DX: N20.0 Calculus of kidney (principal)
CPT/HCPCS: 74018; 81003

== ENCOUNTER 2021-03-25 14:15 | Outpatient (CLI) | payer OTHER, SELFPAY ==
[2021-03-25 14:44] LABS: Basophils % 0.5 %; Eosinophils # 0.2 10^3/uL (0.0-0.8); Hematocrit 43.3 % (42.0-52.0); Hemoglobin 14.6 g/dL (11.7-16.6); Lymphocytes # 1.1 10^3/uL (0.8-4.8); Lymphocytes % 14.2 %; Mean Corpuscular HGB Conc 33.7 g/dL (30.0-36.0); Mean Corpuscular Hemoglobin 33.1 pg (28.0-34.0); Mean Corpuscular Volume 98.2 fl (80-94); Mean Platelet Volume 8.5 fL (7.4-10.4); Monocytes # 1.1 10^3/uL (0.2-0.9); Monocytes % 13.4 %; Neutrophils # 5.31 10^3/uL (1.8-7.7); Nucleated Red Blood Cells % 0 %; Platelet Count 167 10^3/cmm (130-400); Red Blood Count 4.41 10^6/uL (4.1-5.3); Red Cell Distribution Width 12.6 % (12.1-15.1); White Blood Count 7.9 10^3/uL (4.0-10.0)
[2021-03-25 15:16] LABS: Alanine Aminotransferase 41 U/L (0-41); Albumin Level 4.3 g/dL (3.5-5.2); Alkaline Phosphatase 73 IU/L (40-130); Aspartate Amino Transferase 22 U/L (0-40); C Reactive Protein 3.8 mg/L (0.0-4.9); Globulin 2.1 g/dL (1.3-4.6); Total Bilirubin 0.8 mg/dL (0.15-1.2); Total Protein 6.4 g/dL (6.6-8.7)
[2021-03-25 15:49] LABS: Free T4 Free Thyroxine 1.42 ng/dL (0.82-1.77); Thyroid Stimulating Hormone 2.98 uIU/mL (0.27-4.20)
== END 2021-03-25 14:16 | disposition home or self-care (01) ==
PROVIDERS: Internal Medicine Rheumatology; PCP Emergency Medicine Emergency Medical Services; Visit Provider Internal Medicine
DX: M19.90 Unspecified osteoarthritis, unspecified site (principal); Z79.899 Other long term (current) drug therapy; E89.0 Postprocedural hypothyroidism; R73.9 Hyperglycemia, unspecified; R71.8 Other abnormality of red blood cells; G62.9 Polyneuropathy, unspecified
CPT/HCPCS: 80076; 82565; 84439; 84443; 85025; 86140; 99214

== ENCOUNTER 2021-03-28 12:15 | Outpatient (CLI) | payer OTHER, SELFPAY ==
[2021-03-28 14:23] LABS: Vitamin B12 574 pg/mL (232-1245)
[2021-03-28 14:55] LABS: Folate Level > 20.0 ng/mL (4.5-32.2)
== END 2021-03-28 12:16 | disposition home or self-care (01) ==
LOC: LAB 12:24
PROVIDERS: PCP Emergency Medicine Emergency Medical Services; Visit Provider Internal Medicine
DX: G62.9 Polyneuropathy, unspecified (principal); R71.8 Other abnormality of red blood cells
CPT/HCPCS: 36415; 82607; 82746

== ENCOUNTER 2021-06-19 12:32 | Emergency (ER) | payer OTHER, MEDICARE, SELFPAY ==
[2021-06-19 13:18] VITALS: BP 151/86; PULSE 77; RESP 18; TEMP 36.6; O2SAT 99; BMI 22.4
--- NOTE | 2021-06-19 13:25 | XRR_ITS ---
PROCEDURE INFORMATION: Exam: XR Left Knee Exam date and time: 06/19/2021 1:37 PM Age: 75 years old Clinical indication: Pain and injury or trauma; Sprain or strain; Patella or knee; Injury details: Twisted left knee while moving a table. [place] it pop and immediately had excruciating pain around the lt patella. PT stated that the whole lt knee hurts all the way around medially, laterally, anterior and posterior; Prior surgery; Additional info: Injury/pain TECHNIQUE: Imaging protocol: XR Left knee. Views: 3 views. COMPARISON: CR XR foot LT min 3V* [id number] 08/06/2020 12:15 PM FINDINGS: Bones/joints: Normal. Soft tissues: Normal. XR/XR knee LT 3V* [id number] IMPRESSION: No acute findings.
--- NOTE | 2021-06-19 13:25 | W.ED.LOWEXIN ---
HPI - Extremity Injury (Lower) General: Chief Complaint: Extremity Injury, Lower Stated Complaint: Left knee pain Time Seen by Provider: 06/19/21 13:23 Source: patient Mode of arrival: wheelchair Limitations: no limitations History of Present Illness: Patient is a nice 75-year-old male who presents to ED today with a complaint of left-sided knee pain. Patient tells me earlier today he was trying to move a table when the knee twisted/buckled causing him immediate severe discomfort. Patient states he did not fall following the event and was able to catch himself however has noticed he has not been able to bear any weight on the knee since injuring it. He has no other complaints or injuries at this time. MD complaint: knee injury Onset (ago): hour(s) Injury: Left: knee Place: home Severity: severe Severity scale (1-10): 10 Relieving factors: immobilization Exacerbating factors: weight bearing, movement and palpation Associated symptoms: Reports inability to bear weight Other symptoms: none Review of Systems Card: Denies: chest pain Resp: Denies: dyspnea Musc: Reports: joint pain (L knee) and limited range of motion; Denies: neck pain, back pain, extremity pain, extremity swelling, joint swelling, joint redness or joint warmth Neuro: Denies: numbness in extremities or sensory changes PFS ED PFSH: Medical History Bilateral renal stones Chronic migraine without aura, intractable, with status migrainosus CVA (cerebral vascular accident) Degenerative joint disease (DJD) of lumbar spine Emphysema of lung High risk medication use Hyperlipidemia Hypertension Inflammatory arthritis Labile essential hypertension Left ureteral calculus Osteoarthritis of hands, bilateral Polyarthralgia Renal calculi Status post lithotripsy, stent removed Thyroid disease Surgical History H/O lithotripsy History of back surgery Status post total replacement of right shoulder Family History Mother , 99 Cancer cervical Father , 65 CAD (coronary artery disease) Diabetes Hypertension Cancer Hyperlipidemia Other Lung disease Lupus Rheumatoid arthritis Stroke Social History Smoking and tobacco status: never smoked Alcohol intake: never Marital status: Current occupational status: retired History of recent travel: No Physical Exam Const: COMMON NORMALS: no acute distress, average body habitus, patient oriented x3, no limitations, healthy appearing, alert and well nourished GENERAL APPEARANCE: cooperative Extremity: COMMON NORMALS: capillary refill normal, no joint enlargement, no clubbing, cyanosis or edema, no calf tenderness and no pedal edema GENERAL: Yes normal exam except as noted LEFT LOWER EXTREMITY: Yes knee joint (arthritic; maximum pain located posteriorly; no swelling noted) Left knee: Yes ROM (limited secondary to pain discomfort) and Yes neurovascular exam (normal) Neuro: COMMON NORMALS: patient oriented x3, moves all extremities, no focal motor deficits and no sensory deficits noted SENSORIUM/ORIENTATION: Yes alert Skin: COMMON NORMALS: no rashes or lesions noted GENERAL SKIN EXAM: no rashes or lesions noted TRAUMA: no lacerations or abrasions Course Vital Signs: Vital signs: Vital Signs Temperature 97.8 F 06/19/21 13:18 Pulse Rate 77 06/19/21 13:18 Respiratory Rate 16 06/19/21 13:43 Blood Pressure 151/86 06/19/21 13:18 Pulse Oximetry 99 06/19/21 13:18 MDM - Extremity Injury (Lower) Medical Decision Making XR negative. Patient unable to bear weight on knee. He has a walker at home and states he [facility]. Requesting crutches that he can try as well. [facility] so [facility] can further evaluate patient and order MRI if clinically indicated. Lab Data Radiology Impressions Knee X-Ray 06/19/21 13:25 IMPRESSION: No acute findings. Discharge Plan Discharge Patient Disposition: Home Clinical Impression: Left knee injury Qualifiers: Encounter type: initial encounter Qualified Code(s): S89.92XA - Unspecified injury of left lower leg, initial encounter Condition: Stable Prescriptions: New hydrocodone-acetaminophen 5-325 mg tablet 1 tab PO .q4-6 PRN (Reason: pain) Qty: 16 0RF No Action garlic 1,000 mg capsule 1,000 mg PO BID 0RF metoprolol succinate 25 mg tablet extended release 24 hr 12.5 mg PO .HS Qty: 45 3RF cholecalciferol (vitamin D3) 1,000 unit capsule 1,000 unit PO DAILY 0RF acetaminophen [Tylenol] 325 mg capsule 325 mg PO DAILY PRN (Reason: Pain) 0RF apvsuvl-oywe-ghaqn-oreg-capryl 100 mg-150 mg- 50 mg-150 mg capsule PO BID 0RF tadalafil 20 mg tablet 20 mg PO DAILY PRN (Reason: sexual activity) Qty: 20 12RF Rx Instructions: administer approximately 30min before sexual activity; NO NITROGLYCERIN! Excedrin Migraine 250-250-65 mg tablet 1 tab PO Q6H PRN0RF diclofenac sodium 1 % gel 2 g topical QID Qty: 100 2RF Rx Instructions: apply to affected area as needed levothyroxine 100 mcg tablet 100 mcg PO DAILY Qty: 30 3RF Rx Instructions: take 1 tablet wednesday-wednesday and wednesday 0.5 tablet prednisone 20 mg tablet See Rx Instructions PO .COMPLEX PRN (Reason: joint pain flare) Qty: 60 0RF Rx Instructions: take 1 tab daily for 5-7 days as needed for arthritis flare PO PRN; tramadol 50 mg tablet 50 mg PO BID PRN (Reason: pain) Qty: 60 1RF hydroxychloroquine 200 mg tablet 200 mg PO DAILY Qty: 30 3RF prednisone 5 mg tablet See Rx Instructions PO DAILY Qty: 135 1RF Rx Instructions: take 2 tabs daily x10 days then stay on 1.5 daily PO daily; Vitamin C 500 mg PO DAILY 0RF Co Q-10 1 caplet PO DAILY 0RF Vitamin D3 capsule 1 caplet PO DAILY 0RF atorvastatin 40 mg Tablet 20 mg PO DAILY Qty: 30 0RF Flonase Allergy Relief bottle 1 spray NOSTRIL-B DAILY PRN0RF Discharge Orders: Discharge ED (Routine); Ordered 06/19/21 Ordered By: Delicia Rosales Referrals: Nathan Valdez DO [Primary Care Provider] - Coding Level of Care Code ED Airline Pilot/First Officer for Chg Fwd Exam Expanded Problem Focused
[2021-06-19 13:43] VITALS: RESP 16
[2021-06-19] MEDS: morphine 4 mg/mL SDV 1 mL IM (13:43)
== END 2021-06-19 14:42 | disposition home or self-care (01) ==
PROVIDERS: Emergency Provider Physician Assistant; PCP Emergency Medicine Emergency Medical Services
DX: S89.92XA Unspecified injury of left lower leg, initial encounter (principal); X50.1XXA Overexertion from prolonged static or awkward postures, initial encounter
CPT/HCPCS: 73562; 96372; 99283; E0114; J2270

== ENCOUNTER → 2021-08-19 15:00 | Outpatient (BNVA) | payer OTHER, SELFPAY | PROVIDERS: PCP Emergency Medicine Emergency Medical Services; Visit Provider Internal Medicine Rheumatology | DX: M06.041 Rheumatoid arthritis without rheumatoid factor, right hand (principal); M06.042 Rheumatoid arthritis without rheumatoid factor, left hand; Z79.899 Other long term (current) drug therapy; M19.041 Primary osteoarthritis, right hand; M19.042 Primary osteoarthritis, left hand; Z71.85 Encounter for immunization safety counseling | CPT/HCPCS: 99214 ==

== ENCOUNTER 2021-09-17 09:59 | Outpatient (CLI) | payer OTHER, SELFPAY ==
[2021-09-17 10:53] LABS: Free T4 Free Thyroxine 1.51 ng/dL (0.82-1.77); Thyroid Stimulating Hormone 0.78 uIU/mL (0.27-4.20)
== END 2021-09-17 10:00 | disposition home or self-care (01) ==
LOC: LAB 10:01
PROVIDERS: PCP Emergency Medicine Emergency Medical Services; Visit Provider Internal Medicine
DX: Z01.89 Encounter for other specified special examinations (principal)
CPT/HCPCS: 36415; 84439; 84443

== ENCOUNTER → 2021-09-22 13:25 | Outpatient (BNVA) | payer OTHER, SELFPAY | PROVIDERS: PCP Emergency Medicine Emergency Medical Services; Visit Provider Internal Medicine | DX: E89.0 Postprocedural hypothyroidism (principal); G62.9 Polyneuropathy, unspecified; R79.89 Other specified abnormal findings of blood chemistry; R71.8 Other abnormality of red blood cells; Z71.3 Dietary counseling and surveillance | CPT/HCPCS: 99214 ==

== ENCOUNTER → 2021-12-23 11:08 | Outpatient (BNVA) | payer OTHER, SELFPAY | PROVIDERS: PCP Emergency Medicine Emergency Medical Services; Visit Provider Internal Medicine Cardiovascular Disease | DX: I10 Essential (primary) hypertension (principal); M06.041 Rheumatoid arthritis without rheumatoid factor, right hand; M06.042 Rheumatoid arthritis without rheumatoid factor, left hand; J43.9 Emphysema, unspecified; M47.816 Spondylosis without myelopathy or radiculopathy, lumbar region; E89.0 Postprocedural hypothyroidism | CPT/HCPCS: 99214 ==

== ENCOUNTER → 2022-01-06 14:25 | Outpatient (BNVA) | payer OTHER, SELFPAY | PROVIDERS: PCP Emergency Medicine Emergency Medical Services; Visit Provider Internal Medicine Rheumatology | DX: M06.041 Rheumatoid arthritis without rheumatoid factor, right hand (principal); M06.042 Rheumatoid arthritis without rheumatoid factor, left hand; Z79.899 Other long term (current) drug therapy; Z71.85 Encounter for immunization safety counseling; R68.2 Dry mouth, unspecified | CPT/HCPCS: 36415; 80076; 82565; 85025; 86140; 99214 ==

== ENCOUNTER 2022-01-29 12:51 | Outpatient (CLI) | payer OTHER, SELFPAY ==
--- NOTE | 2022-01-29 13:00 | XR_ITS ---
WS: [id number] KUB, AP view, 01/29/2022 Clinical Data: stones Comparison: KUB, 01/29/2021 Findings: No abnormal intraabdominal masses or calcifications are seen. There is no dilatated small bowel or ev idence of obstruction. There is fecal material obscuring detail over both kidneys. There is a levoscoliosis with a posterior lumbar fusion at L5-S1 with an L4 laminectomy. XR/XR KUB [id number] Impression: Negative KUB.
== END 2022-01-29 12:52 | disposition home or self-care (01) ==
PROVIDERS: PCP Emergency Medicine Emergency Medical Services; Visit Provider Urology
DX: N20.1 Calculus of ureter (principal); N20.0 Calculus of kidney; N52.9 Male erectile dysfunction, unspecified
CPT/HCPCS: 74018; 99213

== ENCOUNTER 2022-03-19 10:05 | Outpatient (CLI) | payer OTHER, SELFPAY ==
[2022-03-19 11:26] LABS: Free T4 Free Thyroxine 1.71 ng/dL (0.82-1.77); Thyroid Stimulating Hormone 0.17 uIU/mL (0.27-4.20)
== END 2022-03-19 10:06 | disposition home or self-care (01) ==
LOC: LAB 10:13
PROVIDERS: PCP Emergency Medicine Emergency Medical Services; Visit Provider Internal Medicine
DX: E03.9 Hypothyroidism, unspecified (principal); R79.89 Other specified abnormal findings of blood chemistry
CPT/HCPCS: 36415; 84439; 84443

== ENCOUNTER 2022-04-08 15:03 | Outpatient (CLI) | payer OTHER, SELFPAY ==
[2022-04-08 16:45] LABS: Free T4 Free Thyroxine 1.56 ng/dL (0.82-1.77)
== END 2022-04-08 15:04 | disposition home or self-care (01) ==
LOC: LAB 15:06
PROVIDERS: PCP Emergency Medicine Emergency Medical Services; Visit Provider Internal Medicine
DX: E89.0 Postprocedural hypothyroidism (principal)
CPT/HCPCS: 36415; 84439

== ENCOUNTER → 2022-04-09 09:34 | Outpatient (BNVA) | payer OTHER, SELFPAY | PROVIDERS: PCP Emergency Medicine Emergency Medical Services; Visit Provider Internal Medicine | DX: E89.0 Postprocedural hypothyroidism (principal); G62.9 Polyneuropathy, unspecified; R71.8 Other abnormality of red blood cells; R53.83 Other fatigue; Z71.3 Dietary counseling and surveillance; Z79.890 Hormone replacement therapy; Z68.23 Body mass index [BMI] 23.0-23.9, adult | CPT/HCPCS: 99214 ==

== ENCOUNTER 2022-04-23 12:12 | Outpatient (CLI) | payer OTHER, SELFPAY ==
[2022-04-23 13:31] LABS: Thyroid Stimulating Hormone 1.44 uIU/mL (0.27-4.20)
[2022-04-23 14:16] LABS: Free T4 Free Thyroxine 1.43 ng/dL (0.82-1.77)
[2022-04-24 10:59] LABS: T3 Total 57 ng/dL (76-181)
== END 2022-04-23 12:13 | disposition home or self-care (01) ==
LOC: LAB 12:21
PROVIDERS: PCP Emergency Medicine Emergency Medical Services; Visit Provider Internal Medicine
DX: E89.0 Postprocedural hypothyroidism (principal)
CPT/HCPCS: 36415; 84439; 84443; 84480

== ENCOUNTER → 2022-05-11 15:06 | Outpatient (BNVA) | payer OTHER, SELFPAY | PROVIDERS: PCP Emergency Medicine Emergency Medical Services; Visit Provider Internal Medicine Rheumatology | DX: M06.041 Rheumatoid arthritis without rheumatoid factor, right hand (principal); M06.042 Rheumatoid arthritis without rheumatoid factor, left hand; Z79.899 Other long term (current) drug therapy | CPT/HCPCS: 36415; 80076; 82565; 85025; 86140; 99214 ==

== ENCOUNTER 2022-07-22 13:43 | Outpatient (CLI) | payer OTHER, SELFPAY ==
[2022-07-22 15:09] LABS: Free T4 Free Thyroxine 1.47 ng/dL (0.82-1.77); Thyroid Stimulating Hormone 1.41 uIU/mL (0.27-4.20)
[2022-07-25 07:44] LABS: T3 Total 66 ng/dL (76-181)
== END 2022-07-22 13:44 | disposition home or self-care (01) ==
LOC: LAB 13:49
PROVIDERS: PCP Emergency Medicine Emergency Medical Services; Visit Provider Internal Medicine
DX: E89.0 Postprocedural hypothyroidism (principal)
CPT/HCPCS: 36415; 84439; 84443; 84480

== ENCOUNTER 2022-07-24 14:03 | Outpatient (CLI) | payer OTHER, SELFPAY ==
--- NOTE | 2022-07-24 14:11 | MR_ITS ---
WS: [id number] MRI LUMBAR SPINE NONCONTRAST HISTORY: SPONDYLOSIS W/O MYELOPATHY OR RADICULOPATHY COMPARISON: No similar studies for comparison. MRI radiograph 08/04/2020 TECHNIQUE: Sagittal and axial multisequence imaging is submitted. Postcontrast sequences 12 mL IV Mul tiHance. Complete fusion across C3-4. Osteophytosis and disc disease encroaching upon the central canal. Centr al canal cervical stenosis from C3 through C6. Mild increase in thoracic kyphosis and curvature of th e spine. Status post L5-S1 fusion. Posterior lumbar fusion hardware is present. L5 anterolisthesis by 6 mm. No acute marrow edema or fracture. Disc spaces are all narrowed and desiccated. Most significant disc space narrowing at L4-5 and L5-S1. Conus terminates normally at L1-2 disc level. L1-L2: Annular disc bulging. RIGHT foraminal disc protrusion. There is a small central disc protrusio n also. Mild central, bilateral subarticular recess and foraminal stenosis. Most significant impingem ent upon the traversing RIGHT L2 nerve root. L2-L3: Diffuse annular disc bulging, osteophytic ridging with ligamentum flavum and facet arthritis. Mild to moderate central, bilateral subarticular recess and foraminal stenosis. L3-L4: Diffuse annular disc bulging with ligamentum flavum and facet arthritis. Shallow central disc protrusion. Mild to moderate central, bilateral subarticular recess and mild foraminal stenosis. Most significant enhancement upon the LEFT traversing L4 nerve root. L4-L5: Bilateral facet joint arthritis. Mild central stenosis and foraminal stenosis. L5-S1: Central disc protrusion. Moderate bilateral foraminal stenosis, LEFT greater than RIGHT. Mild subarticular recess encroachment. No discitis or osteomyelitis. No significant enhancement of the scar or gliosis. MR/MR lumbar spine wo/w con [id number] IMPRESSION: 1. Status post posterior lumbar fusion at L5-S1. 2. Grade 1 anterolisthesis of L5. 3. Multilevel areas of central, subarticular recess and foraminal stenosis. 4. Moderate bilateral foraminal stenosis at L5-S1, LEFT greater than RIGHT. 5. Mild central, bilateral subarticular recess and foraminal stenosis at L1-2. 6. Mild to moderate central, bilateral subarticular recess and foraminal steno sis at L2-3. 7. Mild to moderate central, bilateral subarticular recess and mild foraminal stenosis at L3-4. 8. Mild central and foraminal stenosis L4-5.
[2022-07-24] MEDS: gadobenate dimeglumine 20 mL vial IV (14:56)
== END 2022-07-24 14:04 | disposition home or self-care (01) ==
LOC: RAD 14:05
PROVIDERS: PCP Emergency Medicine Emergency Medical Services; Visit Provider Orthopaedic Surgery
DX: M47.816 Spondylosis without myelopathy or radiculopathy, lumbar region (principal); M48.061 Spinal stenosis, lumbar region without neurogenic claudication; M48.07 Spinal stenosis, lumbosacral region
CPT/HCPCS: 72158; A9577

== ENCOUNTER → 2022-08-11 08:28 | Outpatient (BNVA) | payer OTHER, SELFPAY | PROVIDERS: PCP Emergency Medicine Emergency Medical Services; Visit Provider Internal Medicine | DX: E89.0 Postprocedural hypothyroidism (principal); Z71.3 Dietary counseling and surveillance; R53.83 Other fatigue; Z79.890 Hormone replacement therapy | CPT/HCPCS: 99214 ==

== ENCOUNTER → 2022-08-12 14:10 | Outpatient (BNVA) | payer OTHER, SELFPAY | PROVIDERS: PCP Emergency Medicine Emergency Medical Services; Visit Provider Internal Medicine Rheumatology | DX: M06.041 Rheumatoid arthritis without rheumatoid factor, right hand (principal); M06.042 Rheumatoid arthritis without rheumatoid factor, left hand; Z71.85 Encounter for immunization safety counseling; Z79.899 Other long term (current) drug therapy | CPT/HCPCS: 99214 ==

== ENCOUNTER → 2022-11-11 13:45 | Outpatient (BNVA) | payer OTHER, SELFPAY | PROVIDERS: PCP Emergency Medicine Emergency Medical Services; Visit Provider Internal Medicine Rheumatology | DX: Z79.899 Other long term (current) drug therapy (principal); M06.041 Rheumatoid arthritis without rheumatoid factor, right hand; M06.042 Rheumatoid arthritis without rheumatoid factor, left hand; Z71.85 Encounter for immunization safety counseling | CPT/HCPCS: 36415; 80076; 82565; 85025; 86140; 99214 ==

== ENCOUNTER → 2023-01-04 15:10 | Outpatient (BNVA) | payer OTHER, SELFPAY | PROVIDERS: PCP Emergency Medicine Emergency Medical Services; Visit Provider Internal Medicine Cardiovascular Disease | DX: I10 Essential (primary) hypertension (principal) | CPT/HCPCS: 99214 ==

== ENCOUNTER → 2023-02-03 14:12 | Outpatient (BNVA) | payer OTHER, SELFPAY | PROVIDERS: PCP Emergency Medicine Emergency Medical Services; Visit Provider Internal Medicine Rheumatology | DX: Z79.899 Other long term (current) drug therapy (principal); M06.041 Rheumatoid arthritis without rheumatoid factor, right hand; M06.042 Rheumatoid arthritis without rheumatoid factor, left hand; Z71.85 Encounter for immunization safety counseling | CPT/HCPCS: 36415; 80076; 82306; 82565; 82728; 84520; 85025; 86140; 99214 ==

== ENCOUNTER 2023-02-09 14:06 | Outpatient (CLI) | payer OTHER, SELFPAY ==
[2023-02-09 15:55] LABS: Thyroid Stimulating Hormone 13.23 uIU/mL (0.27-4.20)
== END 2023-02-09 14:07 | disposition home or self-care (01) ==
LOC: LAB 14:07
PROVIDERS: PCP Emergency Medicine Emergency Medical Services; Visit Provider Internal Medicine
DX: E89.0 Postprocedural hypothyroidism (principal)
CPT/HCPCS: 36415; 84439; 84443

== ENCOUNTER → 2023-02-11 08:27 | Outpatient (BNVA) | payer OTHER, SELFPAY | PROVIDERS: PCP Emergency Medicine Emergency Medical Services; Visit Provider Internal Medicine | DX: R71.8 Other abnormality of red blood cells (principal); G62.9 Polyneuropathy, unspecified; E89.0 Postprocedural hypothyroidism; Z71.3 Dietary counseling and surveillance; R53.83 Other fatigue; M54.9 Dorsalgia, unspecified; Z79.890 Hormone replacement therapy | CPT/HCPCS: 99214 ==

== ENCOUNTER 2023-03-23 17:38 | Emergency (ER) | payer OTHER, SELFPAY ==
--- NOTE | 2023-03-23 17:39 | XRR_ITS ---
PROCEDURE INFORMATION: Exam: XR Chest Exam date and time: 03/23/2023 5:45 PM Age: 77 years old Clinical indication: Other: AMS TECHNIQUE: Imaging protocol: Radiologic exam of the chest. Views: 1 view. COMPARISON: CT chest w con* [id number] 07/12/2020 2:04 PM FINDINGS: Lungs: See Heart/Mediastinum finding. Pleural spaces: Unremarkable. No pleural effusion. No pneumothorax. Heart/Mediastinum: There is evidence of cardiomegaly and both lungs demonstrate chronic interstitial coarsening. No lung mass or infiltrate. Bones/joints: Unremarkable. XR/XR chest 1V portable [id number] IMPRESSION: I see no acute abnormality.
--- NOTE | 2023-03-23 17:39 | ECG_ITS ---
[facility] Test Date: 2023-03-23 Pat Name: Gil Rojas Department: Room: Gender: Male Job Molder: : 1945 Requested By: Leo Benton Order Number: [id number] Kaycee MD: Vaibhav Perez M.D. Measurements Intervals [place] Rate: 93 P: 100 NE: 238 QRS: 71 QRSD: 93 T: 57 QT: 327 QTc: 408 Interpretive Statements SINUS RHYTHM WITH FIRST DEGREE AV BLOCK WITH FREQUENT SUPRAVENTRICULAR PREMATURE COMPLEXES MODERATE ST DEPRESSION [0.05+ mV ST DEPRESSION] Compared to ECG 12/04/2019 18:31:24 ST (T wave) deviation now present Sinus bradycardia no longer present Electronically Signed On 03-24-2023 7:18:47 DOCUMENTATION SPECIALIST by Vaibhav Perez M.D. [email or web address]
--- NOTE | 2023-03-23 17:39 | CTR_ITS ---
PROCEDURE INFORMATION: Exam: CTA Head Without And With Contrast, Arteriography Exam date and time: 03/23/2023 5:39 PM Age: 77 years old Clinical indication: Stroke-like symptoms; Altered mental status/memory loss; Additional info: AMS TECHNIQUE: Imaging protocol: Computed tomographic angiography of the head without and with contrast. Exam focused on the arteries. 3D rendering (Not supervised by radiologist): MIP and/or 3D reconstructed images were created by the technologist. Radiation optimization: All CT scans at this facility use at least one of these dose optimization techniques: automated exposure control; mA and/or kV adjustment per patient size (includes targeted exams where dose is matched to clinical indication); or iterative reconstruction. Contrast material: OMNI 350; Contrast volume: 100 ml; Contrast route: INTRAVENOUS (IV); Other technique: STROKE PROTOCOL was implemented. COMPARISON: [place] [id number] 12/05/2019 6:25 PM RADIATION DOSE METRICS: Total DLP (mGy-cm): 1012 FINDINGS: ANTERIOR CIRCULATION: Right internal carotid artery: Intracranial segment is patent with no significant stenosis or occlusion. No aneurysm. Right middle cerebral artery: No occlusion or significant stenosis. No aneurysm. Right anterior cerebral artery: No occlusion or significant stenosis. No aneurysm. Left internal carotid artery: Intracranial segment is patent with no significant stenosis. No aneurysm. Left middle cerebral artery: No occlusion or significant stenosis. No aneurysm. Left anterior cerebral artery: No occlusion or significant stenosis. No aneurysm. POSTERIOR CIRCULATION: Right vertebral artery: The right vertebral artery is quite small and appears to be occluded at the level of the foramen magnum. Left vertebral artery: No occlusion or significant stenosis. No aneurysm. Basilar artery: No occlusion or significant stenosis. No aneurysm. Right posterior cerebral artery: No occlusion or significant stenosis. No aneurysm. Left posterior cerebral artery: No occlusion or significant stenosis. No aneurysm. HEAD: Brain: The routine noncontrasted CT brain images demonstrate what appears to be a subacute infarct involving the right side of the maira. Cerebral ventricles: Normal. No ventriculomegaly. Bones/joints: Unremarkable. No acute fracture. Paranasal sinuses: Visualized sinuses are normal. No fluid levels. Mastoid air cells: Visualized mastoids are normal. No mastoid effusion. Soft tissues: Unremarkable. PROCEDURE INFORMATION: Exam: CTA Neck Without And With Contrast Exam date and time: 03/23/2023 5:39 PM Age: 77 years old Clinical indication: Stroke-like symptoms; Altered mental status/memory loss; Additional info: AMS TECHNIQUE: Imaging protocol: Computed tomographic angiography of the neck without and with contrast. Exam focused on the cervical segments of the vasculature. 3D rendering (Not supervised by radiologist): MIP and/or 3D reconstructed images were created by the technologist. Radiation optimization: All CT scans at this facility use at least one of these dose optimization techniques: automated exposure control; mA and/or kV adjustment per patient size (includes targeted exams where dose is matched to clinical indication); or iterative reconstruction. Contrast material: OMNI 350; Contrast volume: 100 ml; Contrast route: INTRAVENOUS (IV); COMPARISON: CT angio headneck* [id number] 12/04/2019 10:29 PM RADIATION DOSE METRICS: Total DLP (mGy-cm): 1012 FINDINGS: Right common carotid artery: No stenosis. No dissection or occlusion. Right internal carotid artery: No stenosis of the extracranial segment. No dissection or occlusion. Right external carotid artery: No occlusion or stenosis of the origin. Left common carotid artery: No stenosis. No dissection or occlusion. Left internal carotid artery: No stenosis of the extracranial segment. No dissection or occlusion. Left external carotid artery: No occlusion or stenosis of the origin. Right vertebral artery: No stenosis. No dissection or occlusion. Left vertebral artery: No stenosis. No dissection or occlusion. Soft tissues: Normal. No significant soft tissue swelling. Bones/joints: No acute fracture. CT/CT angio headne* [id number] IMPRESSION: 1. 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 Probable subacute infarct of the right maira ASSESSMENT: ASPECTS ([place] Stroke Program Early CT Score) is 10. IMPRESSION: No stenosis or occlusion. REFERENCES: NASCET CRITERIA. The degree of stenosis in the cervical segment of the internal carotid artery is based on NASCET criteria. Normal is no stenosis. Mild is less than 50% stenosis. Moderate is 50-69% stenosis. Severe is 70% to 99% stenosis. Total occlusion is no detectable patent lumen.
--- NOTE | 2023-03-23 17:47 | ED_ITS ---
HPI - Neuro Symptoms/Deficit 2 General: Chief Complaint: Neuro Symptoms/Deficit Stated Complaint: Stroke Alert Time Seen by Provider: 03/23/23 17:39 Source: EMS Mode of arrival: EMS Limitations: altered mental status History of Present Illness: 77-year-old male who per EMS had a migra ine headache today does have a history of migraine states that at 430 patient had become unresponsive. Here he will only respond to his name he opens his eyes he does not make any movements with these extremities and is not able to speak at this time. 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, bilateral Polyarthralgia CVA (cerebral vascular accident) Hyperlipidemia Hypertension Thyroid disease Renal calculi Status post lithotripsy, stent removed Bilateral renal stones Left ureteral calculus Chronic migraine without aura, intractable, with status migrainosus Surgical History Status post total replacement of right shoulder History of back surgery H/O lithotripsy Family History Mother , 99 Cancer cervical Father , 65 CAD (coronary artery disease) Diabetes Hypertension Cancer Hyperlipidemia Other Lung disease Lupus Rheumatoid arthritis Stroke Social History Smoking and tobacco/nicotine status: never used tobacco/nicotine Alcohol intake: never Substance/Drug Use: never Marital status: Current occupational status: retired NIH stroke score 2 NIHSS: Level Of Consciousness - 1a: 3 Level Of Consciousness Questions - 1b: Neither Correct Level Of Consciousness Commands - 1c: Neither Correct Best Gaze - 2: Normal Visual Parekh - 3: No Visual Loss Facial Palsy - 4: Normal Motor Arm Right - 5: No Movement Motor Arm Left - 5: No Movement Motor Leg Right - 6: No Movement Motor Leg Left - 6: No Movement Limb Ataxia - 7: Absent Sensory - 8: Severe To Total Loss Best Language - 9: M eliseo; Global Aphasia Dysarthia - 10: Normal Extinction And Inattention - 11: 2 Score: Total Score: 30 Physical Exam 2 Const: COMMON NORMALS: negative for patient oriented x3 and negative for alert ORIENTATION/CONSCIOUSNESS: not oriented to person, not oriented to place and not oriented to time HENMT: COMMON NORMALS: normocephalic and atraumatic HEAD & SCALP: n ormocephalic and atraumatic Eye: COMMON NORMALS: Equal, round and reactive pupils present and EOMs intact bilaterally PUPIL: Yes Equal, round and reactive pupils present Neck/C-Spine: COMMON NORMALS: full ROM and supple Chest: COMMONS NORMALS: normal inspection of the chest and normal palpation of entire chest wall Resp: COMMON NORMALS: normal respiratory effort, No use of accessory muscles and clear to auscultation bilaterally AUSCULTATION: clear to auscultation bilaterally Cardio: COMMON NORMALS: regular rate, regular rhythm and No murmurs present (Cardio) RATE: regular rate RHYTHM: regular rhythm GI: COMMON NORMALS: Normal to inspection, nondistended, normoactive bowel sounds present, Soft to palpation, non-tender and no masses PALPATION: Yes Soft to palpation Extremity: COMMON NORMALS: normal to inspection Neuro: COMMON NORMALS: negative for patient oriented x3 and negative for moves all extremities SENSORIUM/ORIENTATION: No alert, No oriented to person, No oriented to place and No oriented to time SPEECH: speech abnormal MOTOR EXAM: No 5/5 motor strength present throughout Psych: COMMON NORMALS: mental status grossly normal, Normal thought process present and cooperative THOUGHT PROCESS: Normal thought process present Skin: COMMON NORMALS: no rashes or lesions noted and no wounds GENERAL SKIN EXAM: no rashes or lesions noted Course 2 Vital Signs: Vital signs: Vital Signs Pulse Rate 105 H 03/23/23 18:17 Respiratory Rate 19 H 03/23/23 18:17 Blood Pressure 173/93 03/23/23 18:17 Pulse Oximetry 97 03/23/23 18:17 Oxygen Delivery Me thod Room Air 03/23/23 18:17 MDM - Neuro Symptoms/Deficit Medical Decision Making Patient presents here with a posterior stroke his last known normal was [address] showed no bleed patient was given TNKase here did speak to [facility] will transfer there for a possible thrombectomy higher level of care of neuro IR. Medical Records I reviewed the patient's medical records. Lab Data I reviewed the patient's lab results. 03/23/23 17:57 03/23/23 17:57 Radiology Impressions Chest X-Ray 03/23/23 17:39 IMPRESSION: I see no acute abnormality. Head/Neck CTA 03/23/23 17:39 IMPRESSION: 1. 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 Probable subacute infarct of the right maira ASSESSMENT: ASPECTS ([place] Stroke Program Early CT Score) is 10. IMPRESSION: No stenosis or occlusion. REFERENCES: NASCET CRITERIA. The degree of stenosis in the cervical segment of the internal carotid artery is based on NASCET criteria. Normal is no stenosis. Mild is less than 50% stenosis. Moderate is 50-69% stenosis. Severe is 70% to 99% stenosis. Total occlusion is no detectable patent lumen. Laboratory Results WBC 8.86 10^3/uL (3.29-11.43) 03/23/23 17:57 RBC 3.75 10^6/uL (3.85-5.65) L 03/23/23 17:57 Hgb 12.60 g/dL (11.27-16.99) 03/23/23 17:57 Hct 37.6 % (37-53) 03/23/23 17:57 MCV 100.3 fl (82-101) 03/23/23 17:57 MCH 33.6 pg (27-33) H 03/23/23 17:57 MCHC 33.5 g/dL (30-55) 03/23/23 17:57 RDW 12.7 % (12.1-15.1) 03/23/23 17:57 Plt Count 169 10^3/cmm (157-399) 03/23/23 17:57 MPV 8.4 fL (7.4-10.4) 03/23/23 17:57 Neut % (Auto) 56.6 % 03/23/23 17:57 Lymph % (Auto) 23.9 % 03/23/23 17:57 Baldwin % (Auto) 12.0 % 03/23/23 17:57 Eos % (Auto) 2.5 % 03/23/23 17:57 Baso % (Auto) 0.6 % 03/23/23 17:57 Neut # (Auto) 5.02 10^3/uL (1.8-7.7) 03/23/23 17:57 Lymph # (Auto) 2.1 10^3/uL (0.8-4.8) 03/23/23 17:57 Baldwin # (Auto) 1.1 10^3/uL (0.2-0.9) H 03/23/23 17:57 Eos # (Auto) 0.2 10^3/uL (0.0-0.8) 03/23/23 17:57 Baso # (Auto) 0.1 10^3/uL (0.0-0.1) 03/23/23 17:57 Nucleated RBC % (auto) 0 % 03/23/23 17:57 Nucleated RBCs # 0.0 /100WBC 03/23/23 17:57 PT 13.20 SECONDS (12.1-14.9) 03/23/23 17:57 INR 0.97 (0.8-1.2) 03/23/23 17:57 APTT 24.8 SECONDS (23.9-36.7) 03/23/23 17:57 POC Glucose 146 mg/dL (70-110) H 03/23/23 17:53 All radiology interpretation(s) finalized by discharge Discharge Plan Discharge Patient Disposition: Xfer Short-Term Hosp Clinical Impression: Cerebrovascular accident Condition: Stable Referrals: Nathan Valdez DO [Primary Care Provider] - Coding Level of Care Code ED [place] Tender for Donna Alberts
[2023-03-23 17:56] LABS: Glucose Point of Care 146 mg/dL (70-110)
[2023-03-23 18:10] LABS: Basophils # 0.1 10^3/uL (0.0-0.1); Basophils % 0.6 %; Eosinophils # 0.2 10^3/uL (0.0-0.8); Eosinophils % 2.5 %; Hematocrit 37.6 % (37-53); Lymphocytes # 2.1 10^3/uL (0.8-4.8); Lymphocytes % 23.9 %; Mean Corpuscular HGB Conc 33.5 g/dL (30-55); Mean Corpuscular Hemoglobin 33.6 pg (27-33); Mean Corpuscular Volume 100.3 fl (82-101); Mean Platelet Volume 8.4 fL (7.4-10.4); Monocytes # 1.1 10^3/uL (0.2-0.9); Neutrophils # 5.02 10^3/uL (1.8-7.7); Neutrophils % 56.6 %; Nucleated Red Blood Cells % 0 %; Platelet Count 169 10^3/cmm (157-399); Red Blood Count 3.75 10^6/uL (3.85-5.65); Red Cell Distribution Width 12.7 % (12.1-15.1); White Blood Count 8.86 10^3/uL (3.29-11.43)
[2023-03-23 18:17] VITALS: BP 173/93; PULSE 105; RESP 19; O2SAT 97
[2023-03-23 18:24] LABS: INR 0.97 (0.8-1.2); Partial Thromboplastin Time 24.8 SECONDS (23.9-36.7)
[2023-03-23] MEDS: tenecteplase 50mg Box (ACUTE MYOCARIDAL INFARCTION) IVP (18:25)
--- NOTE | 2023-03-23 18:39 | P.CONIM_ITS ---
Providers/Reason For Consult 2 Consulting Physician/Specialty*: Sky Paige MD neurology and epilepsy Reason for Consult*: Code stroke emergency department room #10. Code stroke initiated at 5:26 PM reporting patient was 9 minutes out from the [facility] emergency room Primary Care Provider: Nathan Valdez DO History of Present Illness History of Present Illness Gil Rojas is a 77 year old male with a history of previous posterior circulation stroke requiring intravenous thrombolytic in . According to the patient's the patient was given thrombolytics and transferred to another facility secondary to the hospital being full with COVID-19 patients. The patient also has a history of rheumatoid arthritis treated with Plaquenil and prednisone and intractable migraine headaches described as acute onset of sharp pain in the top of his head relieved with Excedrin Migraine at rest. According to the patient's , the patient was in his usual state of health but around 9 AM on 03/23/2023 the patient complained of a migraine headache. According to the the patient took Excedrin Migraine for the headache. Then around 4:30 PM on 03/23/2023 the patient complained of his tongue feeling numb and the stated that the patient looked as though he might lose consciousness. Therefore she was assisting the patient to a chair and he collapsed. EMS was contacted and the patient was brought to [facility] emergency room. Noncontrast head CT and CT angiogram of the head and neck were performed stat. But, there was delay in the patient imaging studies being read and interpreted by radiology. I reviewed the imaging study with Dr. Benton on his computer screen in his office. The CT scan revealed no obvious hemorrhage. On examination, the patient was locked in with his eyes open and not responding with decerebrate posturing. Corneal reflexes were intact. Pupils 3 to 4with no obvious reaction to light. The patient did have corneal reflexes and oculocephalics reflexes on passive lateral rotation of his head and vertical rotation of his head. Motor testing revealed no movement of his extremities and no withdrawal to painful stimuli. Deep tendon reflexes 1+ with plantar responses bilaterally. There was no clonus. NIH score =30. While awaiting the official radiology results of the noncontrast head CT and CT angiogram, I informed the patient's who was present at the patient's bedside that the patient's clinical examination was suggestive of a vertebral or basilar artery thrombosis. The patient's was informed of the patient's condition and I obtained consent from the patient's to give the patient IV thrombolytics (tenecteplase) head CT scan was negative for hemorrhage. The gave consent for intravenous tenecteplase and she was informed of the potential risk associated with IV tenecteplase including but not limited to hemorrhage and . Serum Accu-Chek 146 performed at the bedside by the emergency room nurse. Noncontrast head CT and CT angiogram of the head and neck were read by radiology and revealed occlusion of the right vertebral artery with a probable subacute right pontine infarction. No hemorrhage was reported. Intravenous tenecteplase was given at 6:25 PM IV push without issues. Due to the right vertebral artery occlusion, an engineering director was contacted at [facility] by Dr. Benton and the patient was accepted in transfer. This information was relayed to the patient's who was at the patient's bedside in emergency department room #10 and the patient's agreed with the plan of treatment. Following IV tenecteplase, the patient's neurological status appeared to start improving where the patient began to blink spontaneously, moaned and looked at his who was standing on at the bedside to the patient's right. The patient's body posture change from decerebrate to decorticate. Plantar responses remain flexor bilaterally. Metabolic lab: Labs were obtained for CBC, comprehensive metabolic panel, PT, PTT, INR, and TSH. RBC was slightly decreased at 3.75. H&H were within normal limits at 2.6 and 37.6 respectively. WBC was within normal limits at 8.86. Sodium was decreased at 131. Chloride slightly decreased at 97. Serum glucose was elevated 178. ALT was slightly elevated at 51. The other labs were unrevealing. PT was 13.2. INR 0.97. PTT 24.8. Noncontrast head CT and CT angiogram of the head and neck 03/23/2023: IMPRESSION: 1. 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 Probable subacute infarct of the right maira Drug allergies: Leflunomide which resulted in a rash Levothyroxine sodium (from levothyroid) type reaction unknown Lisinopril type reaction unknown Sulfasalazine reaction to sun Current home medications: Metoprolol 50 mg p.o. daily Norvasc 5 mg p.o. daily Omeprazole 40 mg p.o. daily Prednisone 2.5 mg p.o. daily Ezetimibe 10 mg p.o. daily Vitamin D3 2000 international units p.o. daily Synthroid 100 mcg p.o. daily Celebrex 200 mg p.o. daily Plaquenil 200 mg p.o. daily Lipitor 80 mg p.o. q. evening Ferosul 325 mg p.o. daily Coenzyme Q10 100 mg p.o. daily Past medical history: Posterior circulation stroke requiring intravenous thrombolytic in Close head trauma 2 weeks ago when patient slipped on ice and hit the back of his head Rheumatoid arthritis Hypothyroidism Hypertension Intractable migraine headaches Right shoulder replacement Hyperlipidemia Habits: None Family history: Negative for seizures Review of Systems 2 General: Reports: ROS unobtainable due to mental status Medications/Allergies Home Medications Medication Instructions Recorded Confirmed Last Taken Type acetaminophen 325 mg capsule 325 mg PO DAILY PRN Pain 02/23/19 02/11/23 08/18/19 History (Tylenol) cholecalciferol (vitamin D3) 25 1,000 unit PO DAILY 02/23/19 02/11/23 11/24/19 History mcg (1,000 unit) capsule Co Q-10 1 caplet PO DAILY 12/05/19 02/11/23 Unknown History Vitamin D3 1 caplet PO DAILY 12/05/19 02/11/23 Unknown History atorvastatin 40 mg tablet 20 mg (1/2 x 40 mg) PO DAILY #30 12/05/19 02/11/23 Unknown Rx tabs eczsnks-nsaiebgoeouxs-qaeddsoy 250 1 tab PO Q6H PRN 06/20/20 02/11/23 Unknown History mg-250 mg-65 mg tablet (Excedrin Migraine) levothyroxine 100 mcg tablet 100 mcg PO DAILY #30 tabs 07/03/20 02/11/23 Unknown Rx celecoxib 50 mg capsule (Celebrex) 50 mg PO DAILY 12/23/21 02/11/23 Unknown History diclofenac sodium 1 % topical gel 2 g topical QID PRN 12/23/21 02/11/23 Unknown History metoprolol succinate 25 mg 25 mg PO .HS #90 tabs 12/23/21 02/11/23 Unknown Rx tablet,extended release 24 hr amlodipine 2.5 mg tablet 2.5 mg PO DAILY HTN #90 tabs 02/02/22 02/11/23 Unknown Rx prednisone 20 mg tablet See Rx Instructions PO .COMPLEX 11/11/22 02/11/23 Unknown Rx PRN joint pain flare #30 tabs hydroxychloroquine 200 mg tablet 200 mg PO DAILY #90 tabs 02/03/23 02/11/23 Unknown Rx omeprazole 40 mg capsule,delayed See Rx Instructions PO DAILY #90 02/03/23 02/11/23 Unknown Rx release caps prednisone 2.5 mg tablet 2.5 mg PO DAILY #90 tabs 02/03/23 02/11/23 Unknown Rx Allergies Allergy/AdvReac Type Severity Reaction Status Date / Time leflunomide Allergy Intermediate rash Verified 02/11/23 07:38 levothyroxine sodium Allergy Unknown UKNOWN Verified 02/11/23 07:38 [From Levothroid] lisinopril Allergy Unknown [place]OWN Verified 02/11/23 07:38 sulfasalazine AdvReac Intermediate reaction Verified 02/11/23 07:38 to sun PFSH Acute 2 PFSH: Medical History Immunization counseling Seronegative rheumatoid arthritis of both hands Labile essential hypertension High risk medication use Inflammatory arthritis Emphysema of lung 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, bilateral Polyarthralgia CVA (cerebral vascular accident) Hyperlipidemia Hypertension Thyroid disease Renal calculi Status post lithotripsy, stent removed Bilateral renal stones Left ureteral calculus Chronic migraine without aura, intractable, with status migrainosus Surgical History Status post total replacement of right shoulder History of back surgery H/O lithotripsy Family History Mother , 99 Cancer cervical Father , 65 CAD (coronary artery disease) Diabetes Hypertension Cancer Hyperlipidemia Other Lung disease Lupus Rheumatoid arthritis Stroke Social History Smoking and tobacco/nicotine status: never used tobacco/nicotine Alcohol intake: never Substance/Drug Use: never Marital status: Current occupational status: retired Vitals/I&O/Wt Last Vital Signs Pulse 105 H 03/23/23 18:17 Resp 19 H 03/23/23 18:17 BP 173/93 03/23/23 18:17 Pulse Ox 97 03/23/23 18:17 O2 Del Method Room Air 03/23/23 18:17 Weight last 48 hrs Weight 120 lb Physical Exam 2 Narrative: NIH score =30 Initial vital signs: Blood pressure 173/97 heart rate 95 Repeat vital signs at 6:43 PM Blood pressure 158/85, heart rate 80 respirations 18 temperature 97 ?F O2 saturations 94% on room air, post tenecteplase administration (given at 6:25 PM on 03/23/2023) The patient was LOCKED-IN with no response to verbal or tactile stimuli except for positive corneal reflexes. Pupils 3 to 4 mm with questionable to no obvious reaction to light. Oculocephalic reflexes were intact during passive manipulation of the patient head laterally and vertically. Patient had positive corneal reflexes. Patient did not respond to visual threat. Patient's eyes were open and staring with no involuntary blinking. Head atraumatic. Neck supple. Cranial nerves II through XII revealed no obvious facial weakness. There was positive corneal reflexes bilaterally. Motor testing revealed decerebrate posture. Plantar responses flexor bilaterally. Deep tendon reflexes 1+ bilaterally. Sensory examination revealed no movement to painful stimuli applied to the patient's nailbeds on his hands and feet. Patient displays some intermittent tremors of his body. Throat was clear. Lungs clear. Heart regular rhythm and rate. Extremities were negative for clubbing cyanosis or edema. 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 Acute occlusion of the right vertebral artery due to thrombus 2. Acute right pontine infarction 3. 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 Status post IV tenecteplase (TNKase) 03/23/2023 5. History of previous posterior circulation stroke requiring IV intravenous thrombolytic in 6. History of intractable migraine headaches 7. Rheumatoid arthritis treated with Plaquenil and prednisone 8. History of closed head trauma in the occipital area when the patient slipped on ice approximately 2 weeks prior to this emergency room evaluation 9. History of right shoulder replacement surgery 10. Hypertension 11. Hyperlipidemia 12. Hypothyroidism Plan: 1. Agree with transfer to engineering director at [facility] for further care and treatment for right vertebral artery occlusion and acute right pontine infarction 2. The patient's was instructed to have the patient discontinue Celebrex since nonsteroidal anti-inflammatory medications have been reported to increased risk for strokes and heart disease. 3. Recommend no hypotonic fluids to minimize any posterior circulation/brainstem swelling 4. Recommend repeat noncontrast head CT scan in 24 hours or sooner if needed per NIH stroke protocol and post intravenous thrombolytics administration. 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 Note: More than 60 minutes was spent evaluating this patient, obtaining history from the patient's , evaluating the patient and reevaluating the patient with repeat neurological examinations, reviewing the patient's home medications that the brought in a plastic bag, reviewing head CT scan and CT angiogram prior to radiology interpreting the study, and making decision to give the IV thrombolytic and obtaining consent from the patient's prior to giving IV thrombolytics and explained the risk and benefits of giving IV thrombolytics and keeping the patient's informed of the treatment plan and plans to transfer to [facility]. 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
[2023-03-23 18:41] LABS: Alanine Aminotransferase 51 U/L (0-41); Albumin Level 3.8 g/dL (3.5-5.2); Alkaline Phosphatase 71 U/L (40-130); Anion Gap 14.8 (5-19); Aspartate Amino Transferase 26 U/L (0-40); Blood Urea Nitrogen 21 mg/dL (8-23); Calcium 8.5 mg/dL (8.5-10.5); Carbon Dioxide 23 mmol/L (22-29); Chloride 97 mmol/L (98-107); Globulin 2.2 g/dL (1.3-4.6); Glucose 178 mg/dL (65-115); Osmolality Calculated 279 mOsm/kg (285-295); Potassium 3.8 mmol/L (3.5-5.1); Sodium 131 mmol/L (136-145); Thyroid Stimulating Hormone 2.84 uIU/mL (0.27-4.20); Total Bilirubin 0.7 mg/dL (0.15-1.2)
[2023-03-23 18:43] VITALS: BP 158/85; PULSE 80; RESP 18; TEMP 36.1; O2SAT 94
[2023-03-23 18:44] LABS: Alcohol Level < 10 mg/dL (0-10)
--- NOTE | 2023-03-23 19:26 | PC.NURSE ---
Report was called to transferring facility by dayshift nurse, Scarlett COKER. All patient care performed by SHEELA Pantoja. This nurse was instructed by SHEELA Pantoja to go ahead and discharge patient off status board once patient left facility via [employer].
== END 2023-03-23 19:31 | disposition short-term general hospital (02) ==
PROVIDERS: Emergency Provider Emergency Medicine; PCP Emergency Medicine Emergency Medical Services
DX: I63.9 Cerebral infarction, unspecified (principal); J43.9 Emphysema, unspecified; E78.5 Hyperlipidemia, unspecified; I10 Essential (primary) hypertension; Z86.73 Personal history of transient ischemic attack (TIA), and cerebral infarction without residual deficits
CPT/HCPCS: 36415; 36416; 70496; 70498; 71045; 80053; 80307; 82962; 84443; 85025; 85610; 85730; 93005; 96374; 99285; J3101; Q9967

== ENCOUNTER 2023-04-09 12:33 | Outpatient (CLI) | payer OTHER, SELFPAY ==
[2023-04-09 14:35] LABS: Free T4 Free Thyroxine 1.51 ng/dL (0.82-1.77); Thyroid Stimulating Hormone 9.57 uIU/mL (0.27-4.20)
== END 2023-04-09 12:34 | disposition home or self-care (01) ==
LOC: LAB 12:34
PROVIDERS: PCP Emergency Medicine Emergency Medical Services; Visit Provider Internal Medicine
DX: E03.9 Hypothyroidism, unspecified (principal)
CPT/HCPCS: 36415; 84439; 84443

== ENCOUNTER → 2023-04-13 08:31 | Outpatient (BNVA) | payer OTHER, SELFPAY | PROVIDERS: PCP Emergency Medicine Emergency Medical Services; Visit Provider Internal Medicine | DX: E89.0 Postprocedural hypothyroidism (principal); R71.8 Other abnormality of red blood cells; G62.9 Polyneuropathy, unspecified; Z71.3 Dietary counseling and surveillance; R53.83 Other fatigue; M54.9 Dorsalgia, unspecified; Z79.890 Hormone replacement therapy | CPT/HCPCS: 99214 ==

== ENCOUNTER 2023-05-04 11:40 | Outpatient (CLI) | payer OTHER, SELFPAY ==
[2023-05-04 13:01] LABS: Basophils % 0.3 %; Eosinophils # 0.1 10^3/uL (0.0-0.8); Hematocrit 39.4 % (37-53); Lymphocytes # 1.5 10^3/uL (0.8-4.8); Lymphocytes % 16.1 %; Mean Corpuscular HGB Conc 32.5 g/dL (30-55); Mean Corpuscular Hemoglobin 32.2 pg (27-33); Mean Platelet Volume 9.3 fL (7.4-10.4); Monocytes # 1.2 10^3/uL (0.2-0.9); Monocytes % 13.5 %; Neutrophils # 6.06 10^3/uL (1.8-7.7); Neutrophils % 66.9 %; Nucleated Red Blood Cells % 0 %; Platelet Count 195 10^3/cmm (157-399); Red Blood Count 3.98 10^6/uL (3.85-5.65); White Blood Count 9.06 10^3/uL (3.29-11.43)
[2023-05-04 13:31] LABS: Alanine Aminotransferase 27 U/L (0-41); Albumin Level 4.4 g/dL (3.5-5.2); Alkaline Phosphatase 69 U/L (40-130); Aspartate Amino Transferase 28 U/L (0-40); Globulin 2.3 g/dL (1.3-4.6); Total Bilirubin 0.9 mg/dL (0.15-1.2); Total Protein 6.7 g/dL (6.6-8.7)
== END 2023-05-04 11:41 | disposition home or self-care (01) ==
LOC: LAB 11:40
PROVIDERS: PCP Emergency Medicine Emergency Medical Services; Visit Provider Internal Medicine Rheumatology
DX: M06.041 Rheumatoid arthritis without rheumatoid factor, right hand (principal); M06.042 Rheumatoid arthritis without rheumatoid factor, left hand; Z79.899 Other long term (current) drug therapy
CPT/HCPCS: 80076; 82565; 85025; 86140

== ENCOUNTER → 2023-05-05 14:29 | Outpatient (BNVA) | payer OTHER, SELFPAY | PROVIDERS: PCP Emergency Medicine Emergency Medical Services; Visit Provider Internal Medicine Rheumatology | DX: M06.041 Rheumatoid arthritis without rheumatoid factor, right hand (principal); M06.042 Rheumatoid arthritis without rheumatoid factor, left hand; Z71.85 Encounter for immunization safety counseling; Z79.899 Other long term (current) drug therapy | CPT/HCPCS: 99214 ==

== ENCOUNTER 2023-05-12 16:17 | Outpatient (CLI) | payer OTHER, SELFPAY ==
[2023-05-12 20:26] LABS: Free T4 Free Thyroxine 1.84 ng/dL (0.82-1.77); Thyroid Stimulating Hormone 0.16 uIU/mL (0.27-4.20)
== END 2023-05-12 16:18 | disposition home or self-care (01) ==
LOC: LAB 16:18
PROVIDERS: PCP Emergency Medicine Emergency Medical Services; Visit Provider Internal Medicine
DX: E89.0 Postprocedural hypothyroidism (principal)
CPT/HCPCS: 36415; 84439; 84443

== ENCOUNTER 2023-05-14 08:33 | Observation (INO) | payer OTHER, SELFPAY ==
[2023-05-14] VITALS (33 sets, daily range): BP systolic 86–185; BP diastolic 45–125; PULSE 55–145; RESP 12–21; TEMP 36.2–36.8; O2SAT 93–99; BMI 25.4
--- NOTE | 2023-05-14 08:41 | CT_ITS ---
WS: [id number] CT HEAD NONCONTRAST HISTORY: STROKE SYMPTOMS TECHNIQUE: Contiguous axial imaging performed through the brain in 2.5 mm imaging. Bone and soft tiss ue windows. Sagittal and coronal reformats reviewed. All CT scans at [facility] use at least one of these dose optimization techniques: automated exposure control; mA and/or kV adjustment per pa tient size (includes targeted exams where dose is matched to clinical indication); or iterative recon struction. DLP: 1102.28 mGy COMPARISON: 12/04/2019, 04/12/2023 No acute intracranial hemorrhage, midline shift or mass effect. Mild atrophy and small vessel ischemic disease. Similar appearance of the brain as compared to 2019. No new infarct and no hemorrhage. Ventricles: Normal size with no hydrocephalus. No inferior displacement of the cerebellar tonsils. Paranasal sinuses: As visualized are clear. Mastoid air cells: Well pneumatized. Calvarium and scalp: Skull is intact with no soft tissue edema or swelling. IMPRESSION: 1. No acute intracranial hemorrhage or edema. 2. Mild atrophy and small vessel ischemic disease. Similar to 04/12/2023.
--- NOTE | 2023-05-14 08:45 | XR_ITS ---
WS: [id number] Exam: XR chest 1V [id number] Date/Time of Exam: 05/14/2023 9:32 AM Reason For Exam: ams Comparison 03/23/2023. Lungs are clear and fully expanded. Unremarkable cardiomediastinal silhouette for technique. No pleur al effusions. Bony structures are intact. RIGHT humeral head prosthesis. IMPRESSION: 1. No acute cardiopulmonary finding. No change.
--- NOTE | 2023-05-14 08:45 | ECG_ITS ---
[facility] Test Date: 2023-05-14 Pat Name: Gil Rojas Department: Room: Gender: Male Pot Builder: : 1945 Requested By: Elina Rousseau Order Number: [id number] Kaycee MD: Vaibhav Perez M.D. Measurements Intervals [place] Rate: 110 P: 0 AL: 0 QRS: 58 QRSD: 90 T: 26 QT: 316 QTc: 428 Interpretive Statements ATRIAL FIBRILLATION WITH RAPID VENTRICULAR RESPONSE MODERATE ST DEPRESSION [0.05+ mV ST DEPRESSION] Compared to ECG 03/23/2023 18:04:34 Sinus rhythm no longer present First degree AV block no longer present ST (T wave) deviation still present Electronically Signed On 05-14-2023 12:31:54 CDT by Vaibhav Perez M.D. [id number]
[2023-05-14] MEDS: labetalol 5 mg/mL SDV 20mL 20 MG IVP (08:51)
[2023-05-14 08:55] LABS: Basophils % 0.3 %; Eosinophils # 0.1 10^3/uL (0.0-0.8); Eosinophils % 1.3 %; Hematocrit 41.9 % (37-53); Lymphocytes # 1.4 10^3/uL (0.8-4.8); Lymphocytes % 19.7 %; Mean Corpuscular HGB Conc 33.7 g/dL (30-55); Mean Corpuscular Hemoglobin 32.9 pg (27-33); Mean Corpuscular Volume 97.7 fl (82-101); Mean Platelet Volume 9.2 fL (7.4-10.4); Neutrophils # 4.38 10^3/uL (1.8-7.7); Neutrophils % 63.7 %; Nucleated Red Blood Cells % 0 %; Platelet Count 185 10^3/cmm (157-399); Red Blood Count 4.29 10^6/uL (3.85-5.65); Red Cell Distribution Width 13.3 % (12.1-15.1); White Blood Count 6.87 10^3/uL (3.29-11.43)
--- NOTE | 2023-05-14 08:59 | W.ED.NEUROSD ---
HPI - Neuro Symptoms/Deficit General: Chief Complaint: Neuro Symptoms/Deficit Stated Complaint: STROKE ALERT Time Seen by Provider: 05/14/23 08:35 History of Present Illness: 77-year-old man with a history of hypertension, COPD, DJD, stroke, hypertension, hyperlipidemia and intractable migraines with neurologic symptoms. He presents today with concern for stroke. He was normal at 730. came in and he would not move or speak. On presentation here he will only open his eyes and close them to startle. Does not move his feet in response to pain does not respond to sternal rub. He is hypertensive. says this is similar to the previous episode. A couple of months ago he actually received thrombolytic and was shipped to a tertiary care hospital with thought he might need embolectomy. 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 Dr. Camacho was here on patient presentation as this was called as a stroke. She evaluated the patient. 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, bilateral Polyarthralgia CVA (cerebral vascular accident) Hyperlipidemia Hypertension Thyroid disease Renal calculi Status post lithotripsy, stent removed Bilateral renal stones Left ureteral calculus Chronic migraine without aura, intractable, with status migrainosus Surgical History Status post total replacement of right shoulder History of back surgery H/O lithotripsy Family History Mother , 99 Cancer cervical Father , 65 CAD (coronary artery disease) Diabetes Hypertension Cancer Hyperlipidemia Other Lung disease Lupus Rheumatoid arthritis Stroke Social History Smoking and tobacco/nicotine status: never used tobacco/nicotine Alcohol intake: never Substance/Drug Use: never Marital status: Current occupational status: retired Physical Exam Narrative: EXAM NARRATIVE: General: responds minimally to painful stimuli. Skin: Warm, dry Head: Normocephalic, atraumatic. Neck: Supple, trachea midline. Eye: Extraocular movements are intact. Ears, nose, mouth and throat: Dry oral mucosa. Cardiovascular: Regular rate and rhythm, Normal peripheral perfusion. Respiratory: Lungs are clear to auscultation, respirations are non-labored, breath sounds are equal, Symmetrical chest wall expansion. Gastrointestinal: Soft, Nontender, Non distended, Normal bowel sounds. Musculoskeletal: no deformity. Neurological: Not Alert and oriented to person, place, time, and situation, patient does not move any of his extremities. Will not open his mouth. He is maintaining his airway without difficulty. He does open and close his eyes. Psychiatric: unable to assess. Course Vital Signs: Vital signs: Vital Signs Temperature 97.2 F L 05/14/23 08:38 Pulse Rate 100 05/14/23 10:30 Respiratory Rate 20 H 05/14/23 08:38 Blood Pressure 108/74 05/14/23 10:30 Pulse Oximetry 96 05/14/23 10:30 Oxygen Delivery Me thod Room Air 05/14/23 10:30 MDM - Neuro Symptoms/Deficit Medical Decision Making Medical decision making: Differential diagnosis including but not limited to and based on the above HPI, review of systems and physical exam: Initial concern was for stroke. Stroke protocol was followed. Lab work was ordered. An ABG to assure he was maintaining his airway. Orders placed to evaluate differential diagnosis based on the above differential, HPI and physical exam Lab Review: Laboratory results were reviewed and interpreted by myself the emergency room physician. Lab work is unremarkable. No leukocytosis. BUN and creatinine are 16 and 1. LFTs are normal. CRP is normal. Drug and alcohol screen is negative. ABG is 7.[address] head: Some old microvascular changes. No acute intracranial process. no intracranial hemorrhage, no evidence of infarct. no evidence of acute fracture.This was reviewed and interpreted by myself the ER physician. EKG: Time 907 rate 110 atrial fibrillation with rapid ventricular rate, No ST-T changes, no ectopy, This was reviewed and interpreted by myself the ER physician 9:15 AM. Consultation: Dr. Camacho with neurology was consulted. She evaluated the patient in the emergency room. She discussed findings and options with the patient's . They do not want to do thrombolytics and it is believed this is likely one of his atypical/brainstem migraine headaches. Reexamination: Patient is still not speaking. He has started moving his hand slightly. Still maintaining his airway with no increased work of breathing. Does not appear to have any focal or lateralizing neurologic symptoms. Medical Records I reviewed the patient's medical records. Lab Data 05/14/23 08:44 05/14/23 09:15 Laboratory Results WBC 6.87 10^3/uL (3.29-11.43) 05/14/23 08:44 RBC 4.29 10^6/uL (3.85-5.65) 05/14/23 08:44 Hgb 14.10 g/dL (11.27-16.99) 05/14/23 08:44 Hct 41.9 % (37-53) 05/14/23 08:44 MCV 97.7 fl (82-101) 05/14/23 08:44 MCH 32.9 pg (27-33) 05/14/23 08:44 MCHC 33.7 g/dL (30-55) 05/14/23 08:44 RDW 13.3 % (12.1-15.1) 05/14/23 08:44 Plt Count 185 10^3/cmm (157-399) 05/14/23 08:44 MPV 9.2 fL (7.4-10.4) 05/14/23 08:44 Neut % (Auto) 63.7 % 05/14/23 08:44 Lymph % (Auto) 19.7 % 05/14/23 08:44 Graham % (Auto) 14.0 % 05/14/23 08:44 Eos % (Auto) 1.3 % 05/14/23 08:44 Baso % (Auto) 0.3 % 05/14/23 08:44 Neut # (Auto) 4.38 10^3/uL (1.8-7.7) 05/14/23 08:44 Lymph # (Auto) 1.4 10^3/uL (0.8-4.8) 05/14/23 08:44 Graham # (Auto) 1.0 10^3/uL (0.2-0.9) H 05/14/23 08:44 Eos # (Auto) 0.1 10^3/uL (0.0-0.8) 05/14/23 08:44 Baso # (Auto) 0.0 10^3/uL (0.0-0.1) 05/14/23 08:44 Nucleated RBC % (auto) 0 % 05/14/23 08:44 Nucleated RBCs # 0.0 /100WBC 05/14/23 08:44 PT 13.90 SECONDS (12.1-14.9) 05/14/23 09:15 INR 1.04 (0.8-1.2) 05/14/23 09:15 APTT 24.9 SECONDS (23.9-36.7) 05/14/23 09:15 Specimen Type Arterial 05/14/23 09:11 Sample Site Radial, left 05/14/23 09:11 ABG pH 7.41 (7.35-7.45) 05/14/23 09:11 ABG pCO2 38.5 mmHg (35-45) 05/14/23 09:11 ABG pO2 73.9 mmHg (80.0-100.0) L 05/14/23 09:11 ABG PO2/FiO2 Ratio 0 05/14/23 09:11 ABG HCO3 24.4 mmol/L (22-26) 05/14/23 09:11 ABG O2 Saturation 94.8 05/14/23 09:11 ABG Base Excess -0.1 mmol/L (-2.0-2.0) 05/14/23 09:11 Eriberto Test Pos 05/14/23 09:11 A-a O2 Gradient 3.7 mmHg (5-10) L 05/14/23 09:11 Hematocrit 42.3 % (42-52) 05/14/23 09:11 Hgb O2 Saturation 93.8 % (95-100) L 05/14/23 09:11 Carboxyhemoglobin 0.6 %THgb (0.4-20.1) 05/14/23 09:11 Methemoglobin 0.4 % (0.4-1.5) 05/14/23 09:11 Total Hemoglobin 13.8 g/dL (14-18) L 05/14/23 09:11 Sodium 141.0 mmol/L (131-143) 05/14/23 09:11 Potassium 3.8 mmol/L (3.5-5.0) 05/14/23 09:11 Glucose 105.0 mg/dL (70-115) 05/14/23 09:11 Ionized Calcium 1.3 mmol/L (1.1-1.4) 05/14/23 09:11 O2 Delivery Device Room air 05/14/23 09:11 FiO2 21.0 % 05/14/23 09:11 Hot Dip Galvanizer ID Cak 05/14/23 09:11 Sodium 142 mmol/L (136-145) 05/14/23 09:15 Potassium 4.2 mmol/L (3.5-5.1) 05/14/23 09:15 Chloride 105 mmol/L (98-107) 05/14/23 09:15 Carbon Dioxide 25 mmol/L (22-29) 05/14/23 09:15 Anion Gap 16.2 (5-19) 05/14/23 09:15 BUN 16 mg/dL (8-23) 05/14/23 09:15 Creatinine 1.0 mg/dL (0.7-1.2) 05/14/23 09:15 GFR Calculation Not Reportable 05/14/23 09:15 Glucose 104 mg/dL (65-115) 05/14/23 09:15 POC Glucose 78 mg/dL (70-110) 05/14/23 08:45 Calculated Osmolality 295 mOsm/kg (285-295) 05/14/23 09:15 Calcium 9.5 mg/dL (8.5-10.5) 05/14/23 09:15 Total Bilirubin 1.2 mg/dL (0.15-1.2) 05/14/23 09:15 AST 33 U/L (0-40) 05/14/23 09:15 ALT 39 U/L (0-41) 05/14/23 09:15 Alkaline Phosphatase 77 U/L (40-130) 05/14/23 09:15 C-Reactive Protein 3.0 mg/L (0.0-4.9) 05/14/23 09:15 Total Protein 6.9 g/dL (6.6-8.7) 05/14/23 09:15 Albumin 4.3 g/dL (3.5-5.2) 05/14/23 09:15 Globulin 2.6 g/dL (1.3-4.6) 05/14/23 09:15 Salicylates 0.7 mg/dL (3-10) L 05/14/23 09:15 Acetaminophen < 5.0 ug/mL (10-30) L 05/14/23 09:15 Ethyl Alcohol < 10 mg/dL (0-10) 05/14/23 09:15 All radiology interpretation(s) finalized by discharge Other Data Assessment and plan: Atypical/brainstem migraine Paralysis Accelerated hypertension Atrial fibrillation -Neurology consultation: Thrombolytic not being given. -Valproic acid 500 mg IV being given. Per neurology. -20 mg labetalol given for hypertension. Blood pressure has improved. -I discussed the patient with the hospitalist on-call who is admitting the patient. - Discussed findings and plan with patient. Answered any questions. -I do not see any record of atrial fibrillation in the patient's chart. This can be addressed by the hospitalist once he is admitted and more alert - All laboratory values were reviewed and interpreted personally by myself, the ER physician - All imaging was reviewed and interpreted personally by myself, the ER physician. - Evaluation and treatment of this problem were appropriate in the emergency setting -I spent a total of >35 minutes of critical care time managing the patient, independent of any other practitioner. -The time involved in the performance of separately reportable procedures was not counted towards critical care time. Discharge Plan Discharge Patient Disposition: Admitted As Inpatient Clinical Impression: Migraine equivalent syndrome, Accelerated hypertension, Atrial fibrillation Condition: Stable Coding Level of Care Code ED Condominium Manager for Donna Alberts
[2023-05-14] MEDS: labetalol 5 mg/mL SDV 20mL 10 MG IVP (09:02)
--- NOTE | 2023-05-14 09:08 | PC.PHAR ---
Addendum entered by Terrie Davenport 05/14/23 09:12: PTS ALSO [facility] LAST FACILITY PT WAS IN CHANGED PTS METOPROLOL SUCCINATE 25 MG QPM TO METOPROLOL TARTRATE 25 MG DAILY Original Note: PT UNABLE TO VERIFY MEDICATIONS- PTS STS DOCTOR DISC. AMLODIPINE 2.5 MG DAILY IN MARCH 2023 AND HYDROXYCHLOROQUINE 200 MG DAILY TWO W[address] AGO. [address] CAAL DISC. OMEPRAZOLE 40 MG DAILY TWO WEEKS AGO
[2023-05-14 09:22] LABS: ABG PCO2 38.5 mmHg (35-45); ABG PH Result 7.41 (7.35-7.45); Alveolar-Arterial Oxygen Gradi 3.7 mmHg (5-10); Arterial Blood Gas Hematocrit 42.3 % (42-52); Base Excess ABG -0.1 mmol/L (-2.0-2.0); Blood Gas Allen Test Pos; Blood Gas Sample Type Arterial; Carboxyhemoglobin 0.6 %THgb (0.4-20.1); HCO3 ABG 24.4 mmol/L (22-26); HGB O2 Sat 93.8 % (95-100); Ionized Calcium Level - ABG 1.3 mmol/L (1.1-1.4); Methemoglobin 0.4 % (0.4-1.5); Oxygen Saturation ABG 94.8; PO2 ABG 73.9 mmHg (80.0-100.0); Potassium Level - ABG 3.8 mmol/L (3.5-5.0); Total Hemoglobin 13.8 g/dL (14-18)
[2023-05-14 09:23] LABS: Blood Gas Operator Identificat CAK; Blood Gas Sample Site Radial, left; Oxygen Device ROOM AIR; PO2 FiO2 Ratio Arterial Blood 0
--- NOTE | 2023-05-14 09:26 | PC.NURSE ---
Per Dr. Camacho via verbal order she asked me to put an order in for Depacon and to have the nurse bolus the medicine in over 5 minutes. I verified that the order that was put into the computer said to bolus the medicine over [address] Camacho stated she wanted it done over 5 minutes.
--- NOTE | 2023-05-14 09:26 | PC.NURSE ---
PER VERBAL ORDERS FROM DR. MARTINEZ, ORDERED VALPROIC ACID TO RUN OVER 5 MINUTES INSTEAD OF THE ORDERED 55ML/HR.
[2023-05-14] MEDS: valproic acid inj 500 MG in sodium chloride 0.9% 50 ML 55 MG IV ×2 (09:28→17:58)
--- NOTE | 2023-05-14 09:31 | PM.SAN ---
Stroke Alert Activation ED Arrival Date: 05/14/23 ED Arrival Time: 08:38 ED Physican at Bedside: 08:30 Last Known Normal/at Baseline: < 1 hour ago Other Last Known Well Infomation: Stroke alert was called at 17 reporting 15 minutes out. I came directly to the emergency department after talking with the nurse in the ER who reported that the patient had witnessed onset of hemiparesis less than an hour ago. The patient arrived around 830 (I waited more than 15 minutes for the patient's arrival) and I accompanied him to CAT scan. He appeared to be unresponsive and flaccid in all 4 extremities but with intact oculocephalic movements suggesting brainstem stroke. His pupils were intact. CT scan of the head showed no abnormalities. I accompanied him back to the emergency department and performed a more complete exam. He had no response to verbal stimulation, would not open and close the eyes, squeeze my hands or look to the right or left. Despite this, he had intact oculocephalic movements. There was a suggestion of slight downbeat nystagmus. His blood pressure was excessively high and he was given 20 mg of labetalol IV. I was in communication with Dr. Buck, who had 3 other critical patients at the same time including a patient that needed to be immediately intubated for respiratory distress. The patient's arrived and reported that he is not on any blood thinners. He reported that he has not been normal for over a month and that he has had severe headaches every day and was complaining of a severe headache this morning. He got out of bed at 630, got dressed and was walking around but he felt like his gait was unsteady. At 745 he sat down in the chair and was unresponsive and she called EMS. She reports that this is the second time he has done this. He did it 2 months ago and received TNK and was transferred to [facility]. While the nurses were giving the patient labetalol to lower his very high blood pressure I took time to review his chart. He was seen by Dr. Paige and Dr. Benton on 03/23 with identical neurologic presentation, flaccid in all 4 extremities with no response to voice. He received TNK. His CTA was suspicious for a distal vertebral artery thrombus and he was transferred to [facility]. The patient's says that he was diagnosed with brainstem migraine and discharged on no aspirin, no Plavix and no treatment for migraine. His pulse has been rapid and irregular. I returned to examine the patient several times and at around 0900 he followed commands to move his eyes to the right and left and squeeze both my hands strongly. I felt that tnk was contraindicated based upon the patient's high blood pressure (which remains unacceptably high despite labetalol), the fact that he recently received TNK within the last 2 months, the fact that his exam is improving and that he has atypical findings and the patient's also was against administration of aggressive thrombolytic. Stroke Alert Activated by: [facility] Stroke Alert Activation Time: 08:17 Stroke MD @ Bedside Time: 08:20 NIH Stroke Scale Time: 08:50 NIH stroke score NIHSS: Level Of Consciousness - 1a: 3 Level Of Consciousness Questions - 1b: Neither Correct Best Gaze - 2: Normal Visual Parekh - 3: No Visual Loss (threat) Facial Palsy - 4: Normal (good tone) Motor Arm Right - 5: No Movement Motor Arm Left - 5: No Movement Motor Leg Right - 6: No Movement Motor Leg Left - 6: No Movement Limb Ataxia - 7: Absent Sensory - 8: Severe To Total Loss (nr to pain) Best Language - 9: Mute; Global Aphasia Dysarthia - 10: Normal Extinction And Inattention - 11: 0 Stroke Alert Data/Treatment Time to CT of Head: 08:58 CT Results Time: 08:55 CT Impression: normal Stroke Risk Factors: atrial fibrillation (with rvr), coronary artery disease and hypertension tPA Contraindication: tPA Contraindication: Medical contraindication tPA Admin Prior to Arrival: No Patient & Family Educated on: Risk Factors, Treament Plan and tPA Risks/Benefits Standardized Stroke Orders Used: Yes Critical Care Time Critical Care Time: 75 - 104 mins A&P Assessment and plan (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 He received TNK at the time of his last presentation and was later diagnosed with brainstem migraine at [facility] according to his . We are attempting to obtain those records. I think that TNK is contraindicated by the patient's recent receipt of TNK and his atypical presentation. Also, his wishes we would not give it. It sounds like he has had migraines for many years and that his migraines have been out of control since he struck the back of his head in a fall several months ago. Administer Depacon IV now. I will attend the patient. He will need to be admitted. I have been in contact with Dr. Buck throughout this process. 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
--- NOTE | 2023-05-14 09:32 | PC.NURSE ---
PER VERBAL ORDER FROM DR. MARTINEZ, DHE PROTOCOL/VALPROATE 500MG TO RUN OVER 5 MINS.
[2023-05-14 09:47] LABS: Glucose Point of Care 78 mg/dL (70-110)
[2023-05-14 10:15] LABS: INR 1.04 (0.8-1.2)
[2023-05-14 10:16] LABS: Partial Thromboplastin Time 24.9 SECONDS (23.9-36.7)
[2023-05-14 10:25] LABS: Alanine Aminotransferase 39 U/L (0-41); Albumin Level 4.3 g/dL (3.5-5.2); Alkaline Phosphatase 77 U/L (40-130); Anion Gap 16.2 (5-19); Aspartate Amino Transferase 33 U/L (0-40); Blood Urea Nitrogen 16 mg/dL (8-23); Calcium 9.5 mg/dL (8.5-10.5); Carbon Dioxide 25 mmol/L (22-29); Chloride 105 mmol/L (98-107); Creatinine Clr Calc Pharmacy 50.8027; Globulin 2.6 g/dL (1.3-4.6); Glucose 104 mg/dL (65-115); Osmolality Calculated 295 mOsm/kg (285-295); Potassium 4.2 mmol/L (3.5-5.1); Salicylate 0.7 mg/dL (3-10); Sodium 142 mmol/L (136-145); Total Bilirubin 1.2 mg/dL (0.15-1.2); Total Protein 6.9 g/dL (6.6-8.7)
[2023-05-14 10:26] LABS: Acetaminophen < 5.0 ug/mL (10-30); Alcohol Level < 10 mg/dL (0-10)
--- NOTE | 2023-05-14 12:31 | P.HP_ITS ---
Providers/Chief Complaint 2 Admitting Physician: Elliot Olguin MD, hospitalist Primary Care Provider: Nathan Valdez DO Chief Complaint: STROKE ALERT History of Present Illness Gil Rojas is a 77 year old male presenting to the emergency department with reduced responsiveness. He had a previous event of this nature, on March 23 for which he received TNKase and transferred there for consideration of thrombectomy. There was concern about subacute infarction of the right maira at that time. In discussion with family who was present currently they report the symptoms seem to be more related to migraine. He was in the hospital for quite some time, treating this condition and he has made some gradual recovery. They report his balance is still off and he is still weak but able to speak normally and take care of his ADLs. reports she does have history of migraines, and that many things seem to generate them, even fluorescent lights. This morning he was apparently normal at 730, found him shortly after him and unresponsive state. Stroke alert was called, and neurology evaluated. CT head no acute findings. After neurology discussed with ER physician, as well as patient's spouse it was not thought TNKase was indicated, symptoms were improving, and this is likely related to migraine. Depakote was initiated. On my evaluation there was consideration/concern regarding a locked-in state. Currently the patient has no complaints other than a headache. He is somewhat slow to respond so history and physical is difficult. Review of Systems 2 General: Reports: 10 or more systems reviewed and unremarkable except in HPI and below Card: Denies: chest pain Resp: Denies: dyspnea GI: Denies: abdominal pain Medications/Allergies Home Medications Medication Instructions Recorded Confirmed Last Taken Type acetaminophen 325 mg capsule 325 mg PO DAILY PRN Pain 02/23/19 05/14/23 08/18/19 History (Tylenol) cholecalciferol (vitamin D3) 25 1,000 unit PO DAILY 02/23/19 05/14/23 05/13/23 History mcg (1,000 unit) capsule atorvastatin 40 mg tablet 20 mg (1/2 x 40 mg) PO DAILY #30 12/05/19 05/14/23 05/13/23 Rx tabs celecoxib 50 mg capsule (Celebrex) 50 mg PO DAILY 12/23/21 05/14/23 05/13/23 History diclofenac sodium 1 % topical gel 2 g topical QID PRN Pain 12/23/21 05/14/23 Unknown History prednisone 2.5 mg tablet 2.5 mg PO DAILY #90 tabs 02/03/23 05/14/23 05/13/23 Rx prednisone 20 mg tablet See Rx Instructions PO .COMPLEX 05/05/23 05/14/23 Unknown Rx PRN joint pain flare #30 tabs cholecalciferol (vitamin D3) 25 25 mcg PO DAILY 05/14/23 05/14/23 05/13/23 History mcg (1,000 unit) capsule (Vitamin D3) coenzyme Q10 30 mg capsule 30 mg PO DAILY 05/14/23 05/14/23 05/13/23 History levothyroxine 88 mcg tablet 88 mcg PO DAILY 05/14/23 05/14/23 05/14/23 History (Synthroid) metoprolol tartrate 25 mg tablet 25 mg PO DAILY 05/14/23 05/14/23 05/13/23 History vitamin B12 0.5 mg-folic acid 1 mg 1 tab PO DAILY 05/14/23 05/14/23 05/13/23 History tablet Allergies Allergy/AdvReac Type Severity Reaction Status Date / Time leflunomide Allergy Intermediate rash Verified 05/05/23 14:52 levothyroxine sodium Allergy Unknown [place] Verified 05/05/23 14:52 [From Levothroid] lisinopril Allergy Unknown [place] Verified 05/05/23 14:52 sulfasalazine AdvReac Intermediate reaction Verified 05/05/23 14:52 to sun PFSH Acute 2 PFSH: Medical History (Updated 05/14/23 @ 12:56 by Elliot Olguin MD) Immunization counseling Seronegative rheumatoid arthritis of both hands Labile essential hypertension High risk medication use Inflammatory arthritis Emphysema of lung 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, bilateral Polyarthralgia CVA (cerebral vascular accident) Hyperlipidemia Hypertension Thyroid disease Renal calculi Status post lithotripsy, stent removed Bilateral renal stones Left ureteral calculus Chronic migraine without aura, intractable, with status migrainosus Surgical History Status post total replacement of right shoulder History of back surgery H/O lithotripsy Family History Mother , 99 Cancer cervical Father , 65 CAD (coronary artery disease) Diabetes Hypertension Cancer Hyperlipidemia Other Lung disease Lupus Rheumatoid arthritis Stroke Social History Smoking and tobacco/nicotine status: never used tobacco/nicotine Alcohol intake: never Substance/Drug Use: never Marital status: Current occupational status: retired Vitals/I&O/Wt Last Vital Signs Temp 97.2 F L 05/14/23 08:38 Pulse 121 H 05/14/23 12:09 Resp 20 H 05/14/23 08:38 BP 120/93 05/14/23 12:09 Pulse Ox 98 05/14/23 12:09 O2 Del Method Room Air 05/14/23 12:09 05/13/23 05/14/23 05/14/23 22:59 06:59 14:59 Intake Total 55 / 55 Balance 55 / 55 Weight last 48 hrs Weight 57.153 kg Physical Exam 2 Narrative: General exam is white male, with delayed psychomotor responses but currently able to communicate and move all extremities HEENT: Pupils equally round. Oropharynx clear Neck is supple no lymphadenopathy thyromegaly Cardiovascular tachycardic, occasional premature beat Lungs clear Abdomen is soft. No obvious organomegaly exam is deferred Extremities no sinus clubbing edema, cap refill brisk Skin no rash Neuro: At this point I do not see any focal neurologic deficits. Data 05/14/23 08:44 05/14/23 09:15 Other Labs: EKG per my evaluation demonstrates atrial fibrillation, rate around 110, normal axis. PT and PTT is normal ABG demonstrates pH 7.41, pCO2 38, pO2 74 on room air LFTs are normal Recent TSH was low at 0.16 Salicylate level and acetaminophen level as well as alcohol level not concerning CT head no acute findings Chest x-ray by my read no acute findings, infiltrate. 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 Patient is currently improving Case reviewed by neurology in the emergency department. At this point no indication to give TNKase. Patient improving significantly. This occurred after Depakote was initiated. Noncontrast CT no acute findings Neurology request follow-up in 2 weeks, EEG scheduled as an outpatient. (2) Atrial fibrillation: Patient is currently in atrial fibrillation with rapid ventricular rate As blood pressure is somewhat borderline currently will place on Cardizem, no bolus, and titrate for heart rate less than 100. Increase patient's metoprolol to 25 mg twice daily Full dose anticoagulation with Lovenox with plan to discharge on Eliquis Check echocardiogram Note that TSH is abnormal. Dosage was recently decreased from 110 mcg to 88 mcg just 2 days ago. No change in dosage currently. (3) Migraine equivalent syndrome: Depakote was given in the emergency department. 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 Increase metoprolol to 25 mg twice daily Plan Other medical problems as outlined in past medical history Full code SCDs for DVT prophylaxis as well as Lovenox. 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
[2023-05-14 13:12] LABS: Magnesium 2.2 mg/dL (1.7-2.3)
[2023-05-14 14:41] LABS: Amphetamines Screen Urine Negative (Negative); Barbiturates Screen Urine Negative (Negative); Benzodiazepines Screen Urine Negative (Negative); Cocaine Screen Urine Negative (Negative); Opiate Screen Urine Negative (Negative); PCP Screen Urine Negative (Negative); THC Screen Urine Negative (Negative)
[2023-05-14 14:58] LABS: Bilirubin Urine Neg (Negative); Blood Urine Neg (Negative); Glucose Urine UA Norm (Normal); Ketones Urine Negative (Negative); Leukocyte Esterase Urine Negative (Negative); Nitrate Urine Negative (Negative); Protein Urine Neg (Negative); Urine Appearance Clear (CLEAR); Urine Color Yellow (Yellow); Urobilinogen Urine Neg (Negative); pH Urine 6 (5-7)
[2023-05-14 14:59] LABS: Add Urine Culture? No
--- NOTE | 2023-05-14 15:22 | ECG_ITS ---
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 Measurements Intervals [place] Rate: 138 P: 0 [place]: 0 QRS: 32 QRSD: 87 T: -22 QT: 282 QTc: 428 Interpretive Statements ATRIAL FLUTTER WITH RAPID VENTRICULAR RESPONSE MODERATE ST DEPRESSION [0.05+ mV ST DEPRESSION] Compared to ECG 05/14/2023 09:07:06 Atrial fibrillation no longer present ST (T wave) deviation still present Electronically Signed On 05-14-2023 22:53:22 CDT by Vaibhav Perez M.D. [id number]
[2023-05-14] MEDS: enoxaparin 60 mg/0.6 mL Syringe SUBCUT (15:34)
[2023-05-14] MEDS: sodium chloride 0.9% 1,000 ML 75 ML IV (15:34)
[2023-05-14] MEDS: dilTIAZem 100 MG in sodium chloride 0.9% (add-van) 100 ML IV (15:50)
[2023-05-14] MEDS: metoprolol tartrate 25 mg Tablet PO (21:22)
--- NOTE | 2023-05-14 22:32 | PC.NURSE ---
pt hr consistently under 100 and juana at times. pt received 2nd dose of metoprolol at 2100. Cardizem put on hold.
[2023-05-15] VITALS (29 sets, daily range): BP systolic 86–131; BP diastolic 45–100; PULSE 83–146; RESP 7–29; TEMP 36.5–37.1; O2SAT 94–99
[2023-05-15] MEDS: acetaminophen 500 mg Tablet PO (00:24)
[2023-05-15] MEDS: diphenhydrAMINE 25 mg Capsule PO ×2 (00:24→11:25)
--- NOTE | 2023-05-15 01:53 | PC.NURSE ---
per of pt, per industrial relations officer- hold synthroid for 3 days. (phone call from ) night nurse to pass along to day nurse.
[2023-05-15 03:49] LABS: Basophils % 0.5 %; Eosinophils # 0.1 10^3/uL (0.0-0.8); Eosinophils % 2.8 %; Hematocrit 34.9 % (37-53); Lymphocytes # 1.3 10^3/uL (0.8-4.8); Mean Corpuscular HGB Conc 33.8 g/dL (30-55); Mean Corpuscular Hemoglobin 33.1 pg (27-33); Mean Corpuscular Volume 97.8 fl (82-101); Mean Platelet Volume 8.9 fL (7.4-10.4); Monocytes # 0.7 10^3/uL (0.2-0.9); Monocytes % 15.9 %; Neutrophils # 2.02 10^3/uL (1.8-7.7); Neutrophils % 47.9 %; Nucleated Red Blood Cells % 0 %; Platelet Count 155 10^3/cmm (157-399); Red Blood Count 3.57 10^6/uL (3.85-5.65); Red Cell Distribution Width 13.2 % (12.1-15.1); White Blood Count 4.22 10^3/uL (3.29-11.43)
[2023-05-15] MEDS: enoxaparin 60 mg/0.6 mL Syringe SUBCUT ×2 (03:49→17:42)
[2023-05-15 04:05] LABS: Alanine Aminotransferase 29 U/L (0-41); Albumin Level 3.5 g/dL (3.5-5.2); Alkaline Phosphatase 63 U/L (40-130); Anion Gap 17.2 (5-19); Aspartate Amino Transferase 22 U/L (0-40); Blood Urea Nitrogen 17 mg/dL (8-23); Calcium 8.9 mg/dL (8.5-10.5); Carbon Dioxide 22 mmol/L (22-29); Chloride 107 mmol/L (98-107); Creatinine Clr Calc Pharmacy 50.8027; Globulin 2.1 g/dL (1.3-4.6); Glucose 96 mg/dL (65-115); Osmolality Calculated 295 mOsm/kg (285-295); Potassium 4.2 mmol/L (3.5-5.1); Sodium 142 mmol/L (136-145); Total Protein 5.6 g/dL (6.6-8.7)
--- NOTE | 2023-05-15 06:00 | USCV_ITS ---
Gil Rojas Age: 77 Gender: M : 1945 Exam Date: 05/15/2023 07:23 Ordering Phys: Elliot Olguin MD Technologist: Kendall Underwood [place] [facility] [place] a fib BP: 97 / 68 HR: 112 Rhythm: Sinus Technical Quality: Adequate MEASUREMENTS (Male / Female) Normal Values 2D ECHO LVOT Diameter 2.0 cm LV Ejection Fraction MOD 2C 67.3 % LV Ejection Fraction 2C AL 66.8 % LA Diameter 3.5 cm RA Systolic Volume 4C AL 21.5 ml RA Systolic Volume 4C MOD 21.2 ml Aorta at Sinotubular Diameter 2.8 cm IVC Diameter 1.5 cm M-MODE LA Ao Ratio MM 1.0 AV Cusp Separation MM 1.4 cm DOPPLER AV Peak Velocity 133.0 cm/s LVOT Peak Velocity 71.0 cm/s AV Area Cont Eq vti 1.4 cm squared AV Area Cont Eq pk 1.7 cm squared MV Peak Velocity 90.0 cm/s MV Area PHT 9.4 cm squared Mitral E to A Ratio 2.9 TV Peak Velocity 205.0 cm/s TR Peak Velocity 244.0 cm/s TR Peak Gradient 23.8 mmHg TR Mean Velocity 167.0 cm/s TR Mean Gradient 12.4 mmHg TR Velocity Time Integral 49.1 cm PV Peak Velocity 88.0 cm/s RV Ejection Time 0.3 s FINDINGS Left Ventricle Normal left ventricular size and systolic function, EF 66%. Mild to moderate concentric left ventricular hypertrophy Right Ventricle The right ventricle is normal in size and function. Right Atrium Mildly ncreased right atrial size. Left Atrium Moderately increased left atrial size. Mitral Valve Thickened mitral valve. Trace mitral valve regurgitation. Aortic Valve Thickened aortic valve. Trace aortic valve regurgitation. Tricuspid Valve Trace to mild tricuspid valve regurgitation. Estimated pulmonary artery peak systolic pressure was 27 mm Hg Pulmonic Valve Trace pulmonary valve regurgitation. Pericardium No pericardial effusion. Aorta Normal aortic annulus size. IVC Normal inferior vena cava. CONCLUSIONS Normal left ventricular size and systolic function, EF 66%. Mild to moderate concentric left ventricular hypertrophy. Moderately increased left atrial size. Mildly ncreased right atrial size. Thickened mitral valve. Trace mitral valve regurgitation. Thickened aortic valve. Trace aortic valve regurgitation. Trace to mild tricuspid valve regurgitation. Estimated pulmonary artery peak systolic pressure was 27 mm Hg. There is no pericardial effusion. There are no intracardiac masses. No similar previous studies are available for comparison Dr Young Hartman MD FACC (Electronically Signed) Final Date: 15 May 2023 08:32 S
[2023-05-15] MEDS: predniSONE 5 mg Tablet 2.5 MG PO (08:17)
[2023-05-15] MEDS: divalproex DR 500 mg Tablet PO (08:17)
[2023-05-15] MEDS: atorvastatin 40 mg Tablet 20 MG PO (08:17)
[2023-05-15] MEDS: metoprolol tartrate 25 mg Tablet PO ×2 (08:17→20:36)
[2023-05-15] MEDS: acetaminophen 325 mg Tablet 650 MG PO (11:25)
[2023-05-15] MEDS: metoclopramide 5 mg/mL SDV 2 mL IVP (11:25)
[2023-05-15] MEDS: sodium chloride 0.9% 1,000 ML 75 ML IV (11:30)
[2023-05-15 11:52] LABS: Magnesium 1.9 mg/dL (1.7-2.3)
[2023-05-15] MEDS: magnesium sulfate premix 1 GM/100 ML PIGGYBACK IV (13:55)
--- NOTE | 2023-05-15 15:13 | PC.NURSE ---
Hand off to SHEELA Dye.
--- NOTE | 2023-05-15 18:36 | P.PN_ITS ---
Subjective 2 Subjective: Having a migraine. Additionally reports proptosis recently more symptomatic. Some photosensitivity, some pain diplopia at extremes of gaze. Vitals/I&O/Wt Last Vital Signs Temp 97.7 F 05/15/23 16:00 Pulse 124 H 05/15/23 16:00 Resp 15 05/15/23 16:00 BP 99/81 05/15/23 16:00 Pulse Ox 97 05/15/23 16:00 O2 Del Method Room Air 05/15/23 16:00 05/15/23 05/15/23 05/15/23 06:59 14:59 22:59 Intake Total 600 / 1188.5 820 / 820 360 / 1180 Output Total 375 / 1050 650 / 650 Balance 225 / 138.5 170 / 170 360 / 530 Weight last 48 hrs Weight 57.606 kg Weight 57.153 kg Weight 57.153 kg Physical Exam 2 Narrative: Accompanied by his . Sitting up in bed. Having a migraine, pulled out a cover to his forehead. Const: COMMON NORMALS: patient oriented x3 and alert GENERAL APPEARANCE: c ooperative ORIENTATION/CONSCIOUSNESS: Yes awake HENMT: COMMON NORMALS: oropharynx normal Neck/C-Spine: COMMON NORMALS: no JVD Resp: COMMON NORMALS: normal respiratory effort and clear to auscultation bilaterally AUSCULTATION: clear to auscultation bilaterally Cardio: COMMON NORMALS: no JVD, regular rhythm, S1 normal heart sound present, S2 normal heart sound present and No murmurs present (Cardio) RHYTHM: regular rhythm HEART SOUNDS: S1 normal heart sound present and S2 normal heart sound present GI: COMMON NORMALS: Normal to inspection, nondistended, normoactive bowel sounds present, Soft to palpation and non-tender PALPATION: Yes Soft to palpation Extremity: COMMON NORMALS: no joint enlargement and no pedal edema Neuro: COMMON NORMALS: patient oriented x3 and moves all extremities S ENSORIUM/ORIENTATION: Yes alert Skin: COMMON NORMALS: no rashes or lesions noted GENERAL SKIN EXAM: no rashes or lesions noted Data 05/15/23 03:32 05/15/23 03:32 Micro: Microbiology 05/14/23 09:22 Blood Culture - Preliminary Blood NEGATIVE TO DATE 05/14/23 09:15 Blood Culture - Preliminary Blood NEGATIVE TO DATE A&P Assessment and plan (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 Focal abnormality so far has resolved. Migraine persistent this morning despite Depakote. Requested additional Tylenol, Benadryl, Reglan. IV Dilaudid as needed for breakthrough. Depakote was given in the emergency department. 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 Patient is currently improving Case reviewed by neurology in the emergency department. At this point no indication to give TNKase. Patient improving significantly. This occurred after Depakote was initiated. Noncontrast CT no acute findings Neurology request follow-up in 2 weeks, EEG scheduled as an outpatient. (3) Atrial fibrillation: Reviewed vitals, CBC, CMP, potassium, check magnesium. Noted 1.9. Requested some replacement. Discussed with him, suspect A-fib with RVR likely secondary to recent difficulties with control of hypothyroidism. On review of Echocardiogram, does also have somemild right atrial dilation. No major valvular abnormality. Recheck electrolytes. Continue metoprolol 25 mg twice daily. It seems there have been some changes in him some metoprolol dosing per discussion as well and he went from succinate once daily to possibly tartrate once daily. Anticoagulated with Lovenox. Noted mild thrombocytopenia, monitor with risk of bleeding with anticoagulation, reassess for any bleeding, reassess blood counts. Note that TSH is abnormal. Dosage was recently decreased from 110 mcg to 88 mcg just 2 days ago. No change in dosage currently. (4) Hypothyroidism: Notes some worsening proptosis recently, follows with endocrinology. There has been some difficulty maintaining TSH level, levothyroxine dosage had to be reduced with TSH suppressed. Currently on 88 mcg. Will need follow-up with endocrinology. Consider follow-up with ophthalmology. Some eye sensitivity, some diplopia on extremes of gaze. Monitor for any worsening symptoms, monitor for any eye dryness, etc. See notations under atrial fibrillation Qualifiers: Hypothyroidism type: postablative Qualified Code(s): E89.0 - Postprocedural hypothyroidism (5) Hypertension: Patient's blood pressure was somewhat high on arrival, but now is much more normal. Increase metoprolol to 25 mg twice daily Plan Other medical problems as outlined in past medical history Full code SCDs for DVT prophylaxis as well as Lovenox. 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
[2023-05-15] MEDS: HYDROmorphone 1 mg/mL INJ 1 mL 0.400000000000000022 MG IVP (19:45)
[2023-05-16] VITALS (29 sets, daily range): BP systolic 92–153; BP diastolic 71–105; PULSE 88–125; RESP 5–25; TEMP 36.4–36.8; O2SAT 83–97
[2023-05-16] MEDS: sodium chloride 0.9% 1,000 ML 75 ML IV ×2 (02:56→15:46)
[2023-05-16] MEDS: enoxaparin 60 mg/0.6 mL Syringe SUBCUT ×2 (03:38→15:43)
[2023-05-16 03:45] LABS: Basophils % 0.4 %; Eosinophils # 0.1 10^3/uL (0.0-0.8); Eosinophils % 1.7 %; Hematocrit 35.5 % (37-53); Lymphocytes # 1.2 10^3/uL (0.8-4.8); Lymphocytes % 22.4 %; Mean Corpuscular HGB Conc 33.5 g/dL (30-55); Mean Corpuscular Hemoglobin 33.5 pg (27-33); Mean Platelet Volume 9.1 fL (7.4-10.4); Monocytes # 0.8 10^3/uL (0.2-0.9); Monocytes % 14.6 %; Neutrophils # 3.24 10^3/uL (1.8-7.7); Neutrophils % 59.8 %; Nucleated Red Blood Cells % 0 %; Platelet Count 148 10^3/cmm (157-399); Red Blood Count 3.55 10^6/uL (3.85-5.65); Red Cell Distribution Width 13.3 % (12.1-15.1); White Blood Count 5.41 10^3/uL (3.29-11.43)
[2023-05-16 04:07] LABS: Blood Urea Nitrogen 17 mg/dL (8-23); Calcium 8.5 mg/dL (8.5-10.5); Carbon Dioxide 26 mmol/L (22-29); Chloride 110 mmol/L (98-107); Creatinine Clr Calc Pharmacy 51.2053; Glucose 107 mg/dL (65-115); Magnesium 1.9 mg/dL (1.7-2.3); Osmolality Calculated 300 mOsm/kg (285-295); Sodium 144 mmol/L (136-145)
[2023-05-16] MEDS: atorvastatin 40 mg Tablet 20 MG PO (09:20)
[2023-05-16] MEDS: divalproex DR 500 mg Tablet PO (09:21)
[2023-05-16] MEDS: predniSONE 5 mg Tablet 2.5 MG PO (09:22)
[2023-05-16] MEDS: metoprolol tartrate 25 mg Tablet PO ×2 (09:27→20:39)
[2023-05-16] MEDS: HYDROmorphone 1 mg/mL INJ 1 mL 0.400000000000000022 MG IVP ×2 (11:57→20:37)
[2023-05-16] MEDS: magnesium sulfate premix 1 GM/100 ML PIGGYBACK IV (11:58)
--- NOTE | 2023-05-16 16:24 | P.PN_ITS ---
Subjective 2 Subjective: Headache had resolved earlier, but starting to get a migraine again this afternoon. Vitals/I&O/Wt Last Vital Signs Temp 97.6 F 05/16/23 16:00 Pulse 110 H 05/16/23 16:00 Resp 13 05/16/23 16:00 BP 122/90 05/16/23 16:00 Pulse Ox 97 05/16/23 16:00 O2 Del Method Room Air 05/16/23 16:00 05/16/23 05/16/23 05/16/23 06:59 14:59 22:59 Intake Total 1000 / 2480 240 / 240 962.5 / 1202.5 Output Total 250 / 250 Balance 1000 / 1830 -10 / -10 962.5 / 952.5 Weight last 48 hrs Weight 58.468 kg Weight 57.606 kg Weight 57.153 kg Physical Exam 2 Narrative: Accompanied by his . Const: COMMON NORMALS: patient oriented x3 and alert GENERAL APPEARANCE: c ooperative ORIENTATION/CONSCIOUSNESS: Yes awake HENMT: COMMON NORMALS: oropharynx normal Neck/C-Spine: COMMON NORMALS: no JVD Resp: COMMON NORMALS: normal respiratory effort and clear to auscultation bilaterally AUSCULTATION: clear to auscultation bilaterally Cardio: COMMON NORMALS: no JVD, S1 normal heart sound present, S2 normal heart sound present and No murmurs present (Cardio) RATE: tachycardic RHYTHM: a bnormal rhythm irregularly irregular HEART SOUNDS: S1 normal heart sound present and S2 normal heart sound present GI: COMMON NORMALS: Normal to inspection, nondistended, normoactive bowel sounds present, Soft to palpation and non-tender PALPATION: Yes Soft to palpation Extremity: COMMON NORMALS: no joint enlargement and no pedal edema Neuro: COMMON NORMALS: patient oriented x3 and moves all extremities S ENSORIUM/ORIENTATION: Yes alert Skin: COMMON NORMALS: no rashes or lesions noted GENERAL SKIN EXAM: no rashes or lesions noted Data 05/16/23 03:15 05/16/23 03:15 A&P Assessment and plan (1) Atrial fibrillation: A-fib with RVR, last night with worsening heart rates blood pressure also down to 86/69. Reviewed vitals, CBC, BMP, magnesium. Potassium is okay. Magnesium 1.90, will give additional 1 g magnesium. Suboptimally controlled heart rates in the 120s. Blood pressure soft. Discussed with him difficult to increase metoprolol at current time. Cardizem is not a good choice. Discussed secondary options, consideration of digoxin, although suboptimal in elderly, may be beneficial in his case given amiodarone is also not a good choice with active thyroid issues. Discussed risk of toxicity. He verbalized understanding, agreement, the goal would be to try to control heart rates, subsequently with improvement in blood pressure escalate metoprolol and de-escalate and discontinue digoxin. Will give 0.25 mg IV digoxin. Continue with 0.25 mg p.o. daily. Monitor heart rates. Blood pressure. Discussed with him, suspect A-fib with RVR likely secondary to recent difficulties with control of hypothyroidism. Discussed Echocardiogram, does also have some mild bi-atrial dilation. LVH. No major valvular abnormality. Recheck electrolytes. Continue metoprolol 25 mg twice daily. It seems there have been some changes in him some metoprolol dosing per discussion as well and he went from succinate once daily to possibly tartrate once daily. Anticoagulated with Lovenox. Noted mild thrombocytopenia, monitor with risk of bleeding with anticoagulation, reassess for any bleeding, reassess blood counts. Switch to Eliquis on discharge. Note that TSH is abnormal. Dosage was recently decreased from 110 mcg to 88 mcg just 2 days ago. No change in dosage currently. (2) Migraine equivalent syndrome: Migraine overall better but starting to have migraine again this afternoon. Discussed with him, he will preemptively request for Tylenol, Benadryl to help arrest migraine before gets out of hand. He has follow-up appointment with neurology in [place] on the eighth. Will be discussing with them her current migraine and treatment options. Yesterday migraine was quite bad and required IV Dilaudid. Migraine with focal abnormality on presentation. Focal abnormality so far has resolved. Migraine persistent this morning despite Depakote. Requested additional Tylenol, Benadryl, Reglan. IV Dilaudid as needed for breakthrough. Depakote was given in the emergency department. After consultation with the neurologist we will continue Depakote extended release 500 mg daily (3) Hypothyroidism: Notes some worsening proptosis recently, follows with endocrinology. There has been some difficulty maintaining TSH level, levothyroxine dosage had to be reduced with TSH suppressed. Currently was held, to restart on 88 mcg on Wed. Will need follow-up with endocrinology. Please refer for follow-up with ophthalmology for symptomatic exophthalmos. Added lubricating eye drops. Some eye sensitivity, some diplopia on extremes of gaze. Monitor for any worsening symptoms, monitor for any eye dryness, etc. 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 Patient presents with second episode of what appears to be a locked-in syndrome, with the first episode in March treated with TNKase and transferred. 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 Patient is currently improving Case reviewed by neurology in the emergency department. At this point no indication to give TNKase. Patient improving significantly. This occurred after Depakote was initiated. Noncontrast CT no acute findings Neurology request follow-up in 2 weeks, EEG scheduled as an outpatient. (5) Hypertension: Patient's blood pressure was somewhat high on arrival, but now is much more soft. Metoprolol 25 mg twice daily Plan Other medical problems as outlined in past medical history Full code SCDs for DVT prophylaxis as well as Lovenox. 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
[2023-05-16] MEDS: artificial tears Op Soln 15 mL Btl 1 DROP EYE-BOTH ×2 (17:50→21:19)
[2023-05-16] MEDS: digoxin 250 mcg/ml INJ 2 mL IVP (20:36)
[2023-05-17] VITALS (15 sets, daily range): BP systolic 120–153; BP diastolic 73–104; PULSE 52–104; RESP 6–26; TEMP 36.7–36.8; O2SAT 91–97
[2023-05-17] MEDS: enoxaparin 60 mg/0.6 mL Syringe SUBCUT (04:39)
[2023-05-17] MEDS: sodium chloride 0.9% 1,000 ML 75 ML IV (04:39)
[2023-05-17 04:55] LABS: Basophils % 0.3 %; Eosinophils # 0.1 10^3/uL (0.0-0.8); Eosinophils % 2.1 %; Hematocrit 34.6 % (37-53); Lymphocytes # 1.4 10^3/uL (0.8-4.8); Lymphocytes % 22.6 %; Mean Corpuscular HGB Conc 33.8 g/dL (30-55); Mean Corpuscular Hemoglobin 32.8 pg (27-33); Mean Corpuscular Volume 96.9 fl (82-101); Mean Platelet Volume 9.5 fL (7.4-10.4); Monocytes # 0.7 10^3/uL (0.2-0.9); Monocytes % 12.2 %; Neutrophils # 3.73 10^3/uL (1.8-7.7); Neutrophils % 61.8 %; Nucleated Red Blood Cells % 0 %; Platelet Count 145 10^3/cmm (157-399); Red Blood Count 3.57 10^6/uL (3.85-5.65); Red Cell Distribution Width 13.2 % (12.1-15.1); White Blood Count 6.05 10^3/uL (3.29-11.43)
[2023-05-17] MEDS: artificial tears Op Soln 15 mL Btl 1 DROP EYE-BOTH (04:57)
[2023-05-17 05:13] LABS: Blood Urea Nitrogen 10 mg/dL (8-23); Calcium 8.9 mg/dL (8.5-10.5); Carbon Dioxide 25 mmol/L (22-29); Chloride 107 mmol/L (98-107); Creatinine Clr Calc Pharmacy 57.7462; Glucose 94 mg/dL (65-115); Magnesium 1.9 mg/dL (1.7-2.3); Osmolality Calculated 293 mOsm/kg (285-295); Sodium 142 mmol/L (136-145)
[2023-05-17] MEDS: levothyroxine 88 mcg Tablet PO (06:37)
[2023-05-17] MEDS: predniSONE 5 mg Tablet 2.5 MG PO (08:09)
[2023-05-17] MEDS: metoprolol tartrate 25 mg Tablet PO (08:09)
[2023-05-17] MEDS: atorvastatin 40 mg Tablet 20 MG PO (08:09)
[2023-05-17] MEDS: digoxin 250 mcg Tablet PO (08:09)
[2023-05-17] MEDS: divalproex DR 500 mg Tablet PO (08:10)
--- NOTE | 2023-05-17 09:27 | PC.CHAP ---
Pastoral Care Encounter/Spiritual Assessment Type of Contact [] Declined analytical scientist visit [] Patient/Family/Request visit [] Outpatient visit [] Follow-up visit [] Physician referral [] Code/Alert [x] Routine visit [] Staff referral [] Actively dying [] Patient sleeping [] Family support [] [] Out of room [] Palliative care [] [] Receiving care in room [] Pre-surgical visit [] Trauma [] Long length of stay [] ICU visit [] Other: Relational/Emotional Strength [] Patient feels connected with others/family/visitors/staff [] Distress [] Loneliness/isolation [] Abandonment Spirituality of Patient [x] Person of Lisa [] Attends Shinto of their Lisa [x] Believes in Prayer [] Reads Bible or Temple materials [] There are Spiritual issues to be addressed V Block Saw Operator Interventions [x] Prayer [] Active listening [] Non-anxious presence [] Spiritual/emotional support [] Crisis/trauma care [] Spiritual counseling [] Bereavement support [] Provided bereavement packet [] Provided Bible/devotional materials [] Provided toy/stuffed animal, coloring book to patient or family member [] Provided Communion [] Anointing/[place] [] Salvation [x] Completed spiritual assessment [] Other: Impact on Illness or Injury [] Angry [] Fearful [] Anxious [] Often cries [] Exhaustion [] Unable to work [] Unable to attend muslim [] Unable to walk/stand [] Unable to read [] Unable to drive [] Unable to eat/drink [] Unable to sleep [] Unable to be with family [] Patient intubated [] Other: Summary Time spent with patient 5min
--- NOTE | 2023-05-17 11:47 | PM.DCS ---
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 He had a previous event of this nature, on March 23 for which he received TNKase and transferred there for consideration of thrombectomy. There was concern about subacute infarction of the right maira at that time. In discussion with family who was present currently they report the symptoms seem to be more related to migraine. He was in the hospital for quite some time, treating this condition and he has made some gradual recovery. They report his balance is still off and he is still weak but able to speak normally and take care of his ADLs. reports she does have history of migraines, and that many things seem to generate them, even fluorescent lights. This morning he was apparently normal at 730, found him shortly after him and unresponsive state. Stroke alert was called, and neurology evaluated. CT head no acute findings. After neurology discussed with ER physician, as well as patient's spouse it was not thought TNKase was indicated, symptoms were improving, and this is likely related to migraine. Depakote was initiated. On my evaluation there was consideration/concern regarding a locked-in state. Currently the patient has no complaints other than a headache. He is somewhat slow to respond so history and physical is difficult. Hospital Course Hospital Course Patient was admitted to the hospital further evaluation and management with concerns for locked-in syndrome on admission, headache in setting of migraine equivalent along with atrial fibrillation with rapid ventricular response. Patient was seen by neurology on admission. 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 Gradually within 24 hours his mentation improved and he is back to his baseline mentation. He was also found to have symptoms consistent with hyperthyroidism. On review it seems patient has had difficulty in maintaining his TSH level as an outpatient as well for which he follows up with endocrinology and his home dose of levothyroxine was withheld with advised to start lower dose at 88 mcg daily in 3 days which was started on 05/16. Patient remained in atrial flutter during hospitalization with occasional episodes of RVR for which his home dose of metoprolol was changed from 25 mg metoprolol tartrate daily to 25 mg twice daily. Please also seen that patient is not on anticoagulation for unknown reasons. Requirement of anticoagulation for stroke prevention were discussed in detail with the patient and he was agreeable. He has been started on Eliquis 5 mg twice daily. He has a follow-up appointment set up with his neurologist as an outpatient on May 23 at [facility] which she has been advised to keep diligently along with follow-up appointment with endocrinology on 05/17. He is also advised to follow-up with his primary care provider within next 1 week. He is advised to stop NSAIDs. Depakote has been continued on discharge. Physical Exam Const: COMMON NORMALS: patient oriented x3 and alert GENERAL APPEARANCE: cooperative ORIENTATION/CONSCIOUSNESS: Yes awake HENMT: COMMON NORMALS: oropharynx normal Neck/C-Spine: COMMON NORMALS: no JVD Resp: COMMON NORMALS: normal respiratory effort and clear to auscultation bilaterally AUSCULTATION: clear to auscultation bilaterally Cardio: COMMON NORMALS: no JVD, regular rhythm, S1 normal heart sound present, S2 normal heart sound present and No murmurs present (Cardio) RATE: tachycardic RHYTHM: regular rhythm and abnormal rhythm irregularly irregular HEART SOUNDS: S1 normal heart sound present and S2 normal heart sound present GI: COMMON NORMALS: Normal to inspection, nondistended, normoactive bowel sounds present, Soft to palpation and non-tender PALPATION: Yes Soft to palpation Extremity: COMMON NORMALS: no joint enlargement and no pedal edema Neuro: COMMON NORMALS: patient oriented x3 and moves all extremities SENSORIUM/ORIENTATION: Yes alert Skin: COMMON NORMALS: no rashes or lesions noted GENERAL SKIN EXAM: no rashes or lesions noted Discharge Data Studies Completed and Pending Completed Studies During Hospitalization Category Date Time Status CT head thrombolytic [id number] Stat Cat Scan 05/14/23 08:41 Completed XR chest 1V [id number] Stat Exams 05/14/23 08:45 Completed CV. echo complete* [id number] Routine Ultrasound 05/15/23 06:00 Completed Pending at discharge Category Date Time Status Basic Metabolic Panel AM LABS Lab 05/18/23 04:00 Ordered Blood Culture Stat Lab 05/14/23 09:22 Results Complete Blood Count w/Auto AM LABS Lab 05/18/23 04:00 Ordered Magnesium AM LABS Lab 05/18/23 04:00 Ordered Vitamin D 1,25 Dihydroxy Routine Lab 05/15/23 01:02 Received Laboratory Results WBC 6.05 10^3/uL (3.29-11.43) 05/17/23 04:03 RBC 3.57 10^6/uL (3.85-5.65) L 05/17/23 04:03 Hgb 11.70 g/dL (11.27-16.99) 05/17/23 04:03 Hct 34.6 % (37-53) L 05/17/23 04:03 MCV 96.9 fl (82-101) 05/17/23 04:03 MCH 32.8 pg (27-33) 05/17/23 04:03 MCHC 33.8 g/dL (30-55) 05/17/23 04:03 RDW 13.2 % (12.1-15.1) 05/17/23 04:03 Plt Count 145 10^3/cmm (157-399) L 05/17/23 04:03 MPV 9.5 fL (7.4-10.4) 05/17/23 04:03 Neut % (Auto) 61.8 % 05/17/23 04:03 Lymph % (Auto) 22.6 % 05/17/23 04:03 Nelson % (Auto) 12.2 % 05/17/23 04:03 Eos % (Auto) 2.1 % 05/17/23 04:03 Baso % (Auto) 0.3 % 05/17/23 04:03 Neut # (Auto) 3.73 10^3/uL (1.8-7.7) 05/17/23 04:03 Lymph # (Auto) 1.4 10^3/uL (0.8-4.8) 05/17/23 04:03 Nelson # (Auto) 0.7 10^3/uL (0.2-0.9) 05/17/23 04:03 Eos # (Auto) 0.1 10^3/uL (0.0-0.8) 05/17/23 04:03 Baso # (Auto) 0.0 10^3/uL (0.0-0.1) 05/17/23 04:03 Nucleated RBC % (auto) 0 % 05/17/23 04:03 Nucleated RBCs # 0.0 /100WBC 05/17/23 04:03 PT 13.90 SECONDS (12.1-14.9) 05/14/23 09:15 INR 1.04 (0.8-1.2) 05/14/23 09:15 APTT 24.9 SECONDS (23.9-36.7) 05/14/23 09:15 Specimen Type Arterial 05/14/23 09:11 Sample Site Radial, left 05/14/23 09:11 ABG pH 7.41 (7.35-7.45) 05/14/23 09:11 ABG pCO2 38.5 mmHg (35-45) 05/14/23 09:11 ABG pO2 73.9 mmHg (80.0-100.0) L 05/14/23 09:11 ABG PO2/FiO2 Ratio 0 05/14/23 09:11 ABG HCO3 24.4 mmol/L (22-26) 05/14/23 09:11 ABG O2 Saturation 94.8 05/14/23 09:11 ABG Base Excess -0.1 mmol/L (-2.0-2.0) 05/14/23 09:11 Eriberto Test Pos 05/14/23 09:11 A-a O2 Gradient 3.7 mmHg (5-10) L 05/14/23 09:11 Hematocrit 42.3 % (42-52) 05/14/23 09:11 Hgb O2 Saturation 93.8 % (95-100) L 05/14/23 09:11 Carboxyhemoglobin 0.6 %THgb (0.4-20.1) 05/14/23 09:11 Methemoglobin 0.4 % (0.4-1.5) 05/14/23 09:11 Total Hemoglobin 13.8 g/dL (14-18) L 05/14/23 09:11 Sodium 141.0 mmol/L (131-143) 05/14/23 09:11 Potassium 3.8 mmol/L (3.5-5.0) 05/14/23 09:11 Glucose 105.0 mg/dL (70-115) 05/14/23 09:11 Ionized Calcium 1.3 mmol/L (1.1-1.4) 05/14/23 09:11 O2 Delivery Device Room air 05/14/23 09:11 FiO2 21.0 % 05/14/23 09:11 Senior Pricing Analyst ID Cak 05/14/23 09:11 Sodium 142 mmol/L (136-145) 05/17/23 04:03 Potassium 4.0 mmol/L (3.5-5.1) 05/17/23 04:03 Chloride 107 mmol/L (98-107) 05/17/23 04:03 Carbon Dioxide 25 mmol/L (22-29) 05/17/23 04:03 Anion Gap 14.0 (5-19) 05/17/23 04:03 BUN 10 mg/dL (8-23) 05/17/23 04:03 Creatinine 0.9 mg/dL (0.7-1.2) 05/17/23 04:03 GFR Calculation Not Reportable 05/17/23 04:03 Glucose 94 mg/dL (65-115) 05/17/23 04:03 POC Glucose 78 mg/dL (70-110) 05/14/23 08:45 Calculated Osmolality 293 mOsm/kg (285-295) 05/17/23 04:03 Calcium 8.9 mg/dL (8.5-10.5) 05/17/23 04:03 Magnesium 1.9 mg/dL (1.7-2.3) 05/17/23 04:03 Total Bilirubin 1.0 mg/dL (0.15-1.2) 05/15/23 03:32 AST 22 U/L (0-40) 05/15/23 03:32 ALT 29 U/L (0-41) 05/15/23 03:32 Alkaline Phosphatase 63 U/L (40-130) 05/15/23 03:32 C-Reactive Protein 3.0 mg/L (0.0-4.9) 05/14/23 09:15 Total Protein 5.6 g/dL (6.6-8.7) L 05/15/23 03:32 Albumin 3.5 g/dL (3.5-5.2) 05/15/23 03:32 Globulin 2.1 g/dL (1.3-4.6) 05/15/23 03:32 Urine Color Yellow (Yellow) 05/14/23 14:07 Urine Appearance Clear (CLEAR) 05/14/23 14:07 Urine pH 6 (5-7) 05/14/23 14:07 Ur Specific [place] 1.010 (1.005-1.030) 05/14/23 14:07 Urine Protein Neg (Negative) 05/14/23 14:07 Urine Glucose (UA) Norm (Normal) 05/14/23 14:07 Urine Ketones Negative (Negative) 05/14/23 14:07 Urine Blood Neg (Negative) 05/14/23 14:07 Urine Nitrate Negative (Negative) 05/14/23 14:07 Urine Bilirubin Neg (Negative) 05/14/23 14:07 Urine Urobilinogen Neg mg/dL (Negative) 05/14/23 14:07 Ur Leukocyte Esterase Negative (Negative) 05/14/23 14:07 Urine RBC None /hpf (0-2) 05/14/23 14:07 Urine WBC None /hpf (0-5) 05/14/23 14:07 Ur Squamous Epith Cells None /hpf (0-5) 05/14/23 14:07 Amorphous Sediment Not Reportable 05/14/23 14:07 Urine Bacteria None /hpf (NONE) 05/14/23 14:07 Salicylates 0.7 mg/dL (3-10) L 05/14/23 09:15 Urine Opiates Screen Negative ng/mL (Negative) 05/14/23 14:07 Acetaminophen < 5.0 ug/mL (10-30) L 05/14/23 09:15 Ur Barbiturates Screen Negative ng/mL (Negative) 05/14/23 14:07 Ur Phencyclidine Scrn Negative ng/mL (Negative) 05/14/23 14:07 Ur Amphetamines Screen Negative ng/mL (Negative) 05/14/23 14:07 U Benzodiazepines Scrn Negative ng/mL (Negative) 05/14/23 14:07 Urine Cocaine Screen Negative ng/mL (Negative) 05/14/23 14:07 U Marijuana (THC) Screen Negative ng/mL (Negative) 05/14/23 14:07 Ethyl Alcohol < 10 mg/dL (0-10) 05/14/23 09:15 Imaging Echo: Radiologist's impression: CONCLUSIONS Normal left ventricular size and systolic function, EF 66%. Mild to moderate concentric left ventricular hypertrophy. Moderately increased left atrial size. Mildly ncreased right atrial size. Thickened mitral valve. Trace mitral valve regurgitation. Thickened aortic valve. Trace aortic valve regurgitation. Trace to mild tricuspid valve regurgitation. Estimated pulmonary artery peak systolic pressure was 27 mm Hg. There is no pericardial effusion. There are no intracardiac masses. No similar previous studies are available for comparison Dr Young Hartman MD [facility] (Electronically Signed) Final Date: 15 May 2023 Vitals Last Vital Signs Temp 98.0 F 05/17/23 04:00 Pulse 104 H 05/17/23 08:09 Resp 17 05/17/23 04:00 BP 121/79 05/17/23 04:00 Pulse Ox 91 05/17/23 04:00 O2 Del Method Room Air 05/17/23 04:00 Discharge Plan Discharge Patient Disposition: Home Condition: Stable Prescriptions: New divalproex 500 mg Tablet,Delayed Release (Dr/Ec) 500 mg PO DAILY 30 Days Qty: 30 0RF Eliquis 5 mg tablet 5 mg PO BID Qty: 60 0RF Continued cholecalciferol (vitamin D3) 1,000 unit capsule 1,000 unit PO DAILY acetaminophen [Tylenol] 325 mg capsule 325 mg PO DAILY PRN (Reason: Pain) diclofenac sodium 1 % gel 2 g topical QID PRN (Reason: Pain) Rx Instructions: apply to affected area as needed prednisone 2.5 mg tablet 2.5 mg PO DAILY Qty: 90 1RF prednisone 20 mg tablet See Rx Instructions PO .COMPLEX PRN (Reason: joint pain flare) Qty: 30 1RF Rx Instructions: take 1 tab daily for 5-7 days as needed for arthritis flare PO PRN; atorvastatin 40 mg Tablet 20 mg PO DAILY Qty: 30 0RF Synthroid 88 mcg Tablet 88 mcg PO DAILY coenzyme Q10 30 mg Capsule 30 mg PO DAILY Vitamin D3 25 mcg (1,000 unit) Capsule 25 mcg PO DAILY vitamin O05-kgyaz acid 0.5-1 mg Tablet 1 tab PO DAILY Changed metoprolol tartrate 25 mg Tablet 25 mg PO BID Qty: 60 0RF Discontinued celecoxib [Celebrex] 50 mg capsule 50 mg PO DAILY Discharge Orders: Discharge Order (Routine); Ordered 05/17/23 Ordered By: Mu Pearson Referrals: Nathan Valdez DO [Primary Care Provider] - 06/01/23 1:30 pm (Please keep your May 31 appointment. ) Discharge Diet: Cardiac Discharge Activity: Resume usual activity and Increase activity as tolerated Patient Instructions: Divalproex (By mouth) (Depakote, Depakote ER, Depakote Sprinkles), Apixaban (By mouth) (Eliquis), A-fib (Atrial Fibrillation) (DC), Migraine Headache (GEN), Hypertension (DC), Opioid Safety Activity Restrictions/Additional Instructions: Dose of metoprolol has been increased to 25 mg twice daily. Continue with levothyroxine to 88 mcg daily. Follow-up with endocrinology appointment on 05/17. Continue taking medications for migraine as before. Depakote has been added. Follow-up with your neurologist appointment on 05/23. For anticoagulation Eliquis 5 mg twice daily has been started. Discharge Attestations Time Spent in Discharge Care*: greater than 30 min Specific Discharge Activities: educating patient, discussing with pcp/other providers, discussing with residential case manager/social workers/dc planners, documenting/other paperwork and evaluating patient/reviewing data Status at Discharge: Cognitive status at discharge: cognitively intact, Behavioral status at discharge: cooperative, Functional status at discharge: independent ambulation, Overall status at discharge: patient is progressing back to baseline Quality Metrics Clinical Quality Measures [ No reported AMI, CVA or VTE this stay] Coding Level of Care Code 76464 Total time (in minutes) for Discharge: 60 Diagnoses Atrial fibrillation I48.91 Migraine equivalent syndrome G43.109 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
[2023-05-17] MEDS: acetaminophen 325 mg Tablet 650 MG PO (13:57)
--- NOTE | 2023-05-17 14:20 | PC.NURSE ---
Discharge Note Patient discharged to [home] via [w/c to POV] accompanied by [his ]. Discharge instructions reviewed with patient and/or manufacturer representative. Mobile pharmacy medications and/or prescriptions transmitted to [facility] pharmacy per pt request. A 30 Free Eliquis coupon was provided. Pt c/o migraine at time of d/c and tylenol was given per MD orders. Belongings/home medications returned.
[2023-05-20 08:49] LABS: Vit D 1,25 (Oh)2, Total 64 pg/mL (18-72); Vit D2 1,25 (Oh)2 <8 pg/mL; Vit D3 1,25 (Oh)2 64 pg/mL
== END 2023-05-17 14:15 | disposition home or self-care (01) ==
LOC: ER 10:43 → CSU 17:08
PROVIDERS: Internal Medicine; Admitting Provider Internal Medicine; Emergency Provider Emergency Medicine; PCP Emergency Medicine Emergency Medical Services; Visit Provider Student in an Organized Health Care Education/Training Program
DX: I48.91 Unspecified atrial fibrillation (principal); G43.109 Migraine with aura, not intractable, without status migrainosus; E89.0 Postprocedural hypothyroidism; G83.5 Locked-in state; I10 Essential (primary) hypertension; H53.2 Diplopia; Z86.73 Personal history of transient ischemic attack (TIA), and cerebral infarction without residual deficits; E78.5 Hyperlipidemia, unspecified; Z79.899 Other long term (current) drug therapy
CPT/HCPCS: 36415; 36416; 36600; 70450; 71045; 80048; 80051; 80053; 80306; 80307; 81001; 81015; 82330; 82652; 82805; 82962; 83735; 85025; 85610; 85730; 86140; 87040; 93005; 93306; 96361; 96365; 96366; 96367; 96372; 96375; 96376; 99285; G0378; J1160; J1170; J1650; J2765; J3475; J3490; J7030; J7512

== ENCOUNTER → 2023-05-18 09:32 | Outpatient (BNVA) | payer OTHER, SELFPAY | PROVIDERS: PCP Emergency Medicine Emergency Medical Services; Visit Provider Internal Medicine | DX: E89.0 Postprocedural hypothyroidism (principal); R71.8 Other abnormality of red blood cells; G62.9 Polyneuropathy, unspecified; Z71.3 Dietary counseling and surveillance; R53.83 Other fatigue; M54.9 Dorsalgia, unspecified; H57.89 Other specified disorders of eye and adnexa; Z79.890 Hormone replacement therapy | CPT/HCPCS: 99214 ==

== ENCOUNTER → 2023-06-15 14:33 | Outpatient (BNVA) | payer OTHER, SELFPAY | PROVIDERS: PCP Emergency Medicine Emergency Medical Services; Visit Provider Nurse Practitioner Family | DX: I48.91 Unspecified atrial fibrillation (principal); I10 Essential (primary) hypertension | CPT/HCPCS: 93005; 99214 ==

== ENCOUNTER → 2023-06-22 09:01 | Outpatient (BNVA) | payer OTHER, SELFPAY | PROVIDERS: PCP Emergency Medicine Emergency Medical Services; Visit Provider Nurse Practitioner Family | DX: I10 Essential (primary) hypertension (principal) | CPT/HCPCS: 99213 ==

== ENCOUNTER 2023-07-02 13:15 | Outpatient (CLI) | payer OTHER, SELFPAY ==
[2023-07-02 14:28] LABS: Free T4 Free Thyroxine 1.63 ng/dL (0.82-1.77); Thyroid Stimulating Hormone 0.11 uIU/mL (0.27-4.20)
== END 2023-07-02 13:16 | disposition home or self-care (01) ==
LOC: LAB 13:19
PROVIDERS: PCP Emergency Medicine Emergency Medical Services; Visit Provider Internal Medicine
DX: E89.0 Postprocedural hypothyroidism (principal)
CPT/HCPCS: 36415; 84439; 84443

== ENCOUNTER → 2023-07-08 12:15 | Outpatient (BNVA) | payer OTHER, SELFPAY | PROVIDERS: PCP Emergency Medicine Emergency Medical Services; Visit Provider Internal Medicine | DX: E89.0 Postprocedural hypothyroidism (principal); R71.8 Other abnormality of red blood cells; G62.9 Polyneuropathy, unspecified; Z71.3 Dietary counseling and surveillance; R53.83 Other fatigue; M54.9 Dorsalgia, unspecified; H57.89 Other specified disorders of eye and adnexa; Z79.890 Hormone replacement therapy | CPT/HCPCS: 99214 ==

== ENCOUNTER 2023-07-25 12:23 | Emergency (ER) | payer OTHER, MEDICARE, SELFPAY ==
[2023-07-25 12:24] VITALS: BP 176/108; PULSE 113; RESP 25; TEMP 36.3; O2SAT 98; BMI 30.2
--- NOTE | 2023-07-25 12:31 | ECG_ITS ---
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 Measurements Intervals Doran Rate: 123 P: 0 KS: 0 QRS: 51 QRSD: 93 T: 5 QT: 297 QTc: 426 Interpretive Statements ATRIAL FLUTTER/TACHYCARDIA WITH RAPID VENTRICULAR RESPONSE NONSPECIFIC ST & T-WAVE ABNORMALITY ABNORMAL RHYTHM ECG Compared to ECG 06/15/2023 14:39:08 Atrial fibrillation no longer present Possible ischemia no longer present T-wave abnormality still present Electronically Signed On 07-25-2023 20:30:03 CDT by Young Hartman M.D. [id number] f
--- NOTE | 2023-07-25 12:32 | CTR_ITS ---
PROCEDURE INFORMATION: Exam: CT Head Without Contrast Exam date and time: 07/25/2023 12:57 PM Age: 77 years old Clinical indication: Altered mental status/memory loss; Additional info: AMS TECHNIQUE: Imaging protocol: Computed tomography of the head without contrast. Radiation optimization: All CT scans at this facility use at least one of these dose optimization techniques: automated exposure control; mA and/or kV adjustment per patient size (includes targeted exams where dose is matched to clinical indication); or iterative reconstruction. COMPARISON: CT head thrombolytic [id number] 05/14/2023 8:34 AM RADIATION DOSE METRICS: Total DLP (mGy-cm): 1052.95 FINDINGS: Brain: Unchanged mild, diffuse atrophy of the brain.There is ill-defined, fairly symmetric low-density within the cerebral deep white matter bilaterally which is likely the sequela of chronic ischemic change due to small vessel disease. This is unchanged. No CT evidence of mass effect, intracranial hemorrhage, or acute infarct. Otherwise, unremarkable. Cerebral ventricles: No ventriculomegaly. Paranasal sinuses: New right maxillary sinusitis. Otherwise, unremarkable. Mastoid air cells: Visualized mastoid air cells are well aerated. Bones: Unremarkable. No acute fracture. Soft tissues: Unremarkable. CT/CT head wo con* [id number] IMPRESSION: 1. No acute intracranial findings. 2. Additional details as above.
[2023-07-25 12:33] VITALS: BP 166/104; PULSE 123; RESP 17; O2SAT 99
[2023-07-25 12:53] LABS: Basophils % 0.5 %; Eosinophils # 0.2 10^3/uL (0.0-0.8); Eosinophils % 2.2 %; Lymphocytes # 1.9 10^3/uL (0.8-4.8); Mean Corpuscular HGB Conc 33.9 g/dL (30-55); Mean Corpuscular Hemoglobin 33.2 pg (27-33); Mean Corpuscular Volume 97.9 fl (82-101); Monocytes # 0.9 10^3/uL (0.2-0.9); Monocytes % 11.4 %; Neutrophils # 4.48 10^3/uL (1.8-7.7); Neutrophils % 59.3 %; Nucleated Red Blood Cells % 0 %; Platelet Count 156 10^3/cmm (157-399); Red Blood Count 4.19 10^6/uL (3.85-5.65); Red Cell Distribution Width 13.3 % (12.1-15.1); White Blood Count 7.56 10^3/uL (3.29-11.43)
[2023-07-25 13:11] LABS: Lactic Sepsis W/Reflex 1.7 mmol/L (0.5-2.2); Valproic Acid Level 55.7 ug/mL (50-100)
[2023-07-25 13:21] LABS: Alanine Aminotransferase 92 U/L (0-41); Albumin Level 4.1 g/dL (3.5-5.2); Alkaline Phosphatase 95 U/L (40-130); Anion Gap 17.7 (5-19); Aspartate Amino Transferase 60 U/L (0-40); Blood Urea Nitrogen 16 mg/dL (8-23); Calcium 9.2 mg/dL (8.5-10.5); Carbon Dioxide 25 mmol/L (22-29); Chloride 100 mmol/L (98-107); Creatinine Clr Calc Pharmacy 60.4791; Globulin 2.8 g/dL (1.3-4.6); Glucose 104 mg/dL (65-115); INR 1.13 (0.8-1.2); Osmolality Calculated 289 mOsm/kg (285-295); Potassium 3.7 mmol/L (3.5-5.1); Sodium 139 mmol/L (136-145); Thyroid Stimulating Hormone 0.15 uIU/mL (0.27-4.20); Total Bilirubin 0.8 mg/dL (0.15-1.2); Total Protein 6.9 g/dL (6.6-8.7)
[2023-07-25 13:46] VITALS: BP 130/92; PULSE 101; RESP 18; O2SAT 99
[2023-07-25] MEDS: prochlorperazine 10 mg/2 mL Inj 5 MG IVP (14:29)
[2023-07-25] MEDS: diphenhydrAMINE 50 mg/mL SDV 1mL 25 MG IVP (14:29)
[2023-07-25 14:32] VITALS: BP 168/91; PULSE 100; O2SAT 98
[2023-07-25 14:59] LABS: Free T4 Free Thyroxine 1.59 ng/dL (0.82-1.77)
[2023-07-25 15:25] VITALS: BP 123/85; PULSE 103; RESP 18; O2SAT 99
--- NOTE | 2023-07-25 15:35 | ED_ITS ---
HPI - Weakness 2 General: Chief complaint: Weakness Stated complaint: AMS Time Seen by Provider: 07/25/23 12:24 History of Present Illness: This patient is a 77-year-old male who was brought in by ambulance today. EMS reports that his brought him to the ambulance shed in a private vehicle after he collapsed at a denominational luncheon. When I later spoke to his she said that he had started complaining of a headache. They were fluorescent lights in the room and apparently these trigger migraines for him. They were planning to leave because of his not feeling well and then he laid his head down on the table and became unresponsive. He has had episodes like this several times in the past. His and some other denominational members were able to help him walk to the car and they brought him to the EMS shed. EMS noted normal vital signs other than some mild tachycardia. He does have a history of atrial fibrillation. He was unresponsive to any stimuli. He is maintaining his airway. He was not requiring any respiratory support. After discussion with his and review of the prior visits, it is apparent that he has had these episodes multiple times. 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 He also has been treated with TNK on 2 occasions. His last visit was here at the end of April and he was treated conservatively. The time before that in March, he was given TNK and transferred to [facility] in [place]. His CTA at that time raise concern for a thrombosis in the vertebral artery. He was transferred to [facility] for interventional to evaluate and his says that they did not find anything for them to do there. He is on Eliquis and this was started fairly recently. His A-fib is a fairly recent diagnosis as well. He was also fairly recently diagnosed with hyperthyroidism and has been seeing endocrinology for that. 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 His and daughter report that there has been nothing else unusual or different recently. He has not been ill. No history of recent trauma. He is scheduled to follow-up with the neurologist in [place]. 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, bilateral Polyarthralgia CVA (cerebral vascular accident) Hyperlipidemia Hypertension Thyroid disease Renal calculi Status post lithotripsy, stent removed Bilateral renal stones Left ureteral calculus Chronic migraine without aura, intractable, with status migrainosus Surgical History Status post total replacement of right shoulder History of back surgery H/O lithotripsy Family History Mother , 99 Cancer cervical Father , 65 CAD (coronary artery disease) Diabetes Hypertension Cancer Hyperlipidemia Other Lung disease Lupus Rheumatoid arthritis Stroke Social History Smoking and tobacco/nicotine status: never used tobacco/nicotine Alcohol intake: never Substance/Drug Use: never Marital status: Current occupational status: retired Physical Exam 2 Const: GENERAL APPEARANCE: comfortable and well developed HENMT: HEAD & SCALP: normal to inspection FACE & SINUS: normal facial exam Eye: GENERAL EYE: appearance normal, both eyes and all related structures Neck/C-Spine: COMMON NORMALS: supple and no JVD Chest: COMMONS NORMALS: normal inspection of the chest Resp: COMMON NORMALS: normal respiratory effort, No use of accessory muscles and clear to auscultation bilaterally AUSCULTATION: clear to auscultation bilaterally Cardio: COMMON NORMALS: no JVD, regular rate, regular rhythm and No murmurs present (Cardio) RATE: regular rate RHYTHM: regular rhythm GI: COMMON NORMALS: Normal to inspection, nondistended, normoactive bowel sounds present, Soft to palpation and non-tender INSPECTION: Yes normal to inspection AUSCULTATION: Yes normoactive bowel sounds PALPATION: Yes Soft to palpation Back/Pelvis: COMMON NORMALS: thoracic and lumbar spine normal to inspection Extremity: COMMON NORMALS: normal to inspection Neuro: JOANIE COMA SCALE: document GCS findings Joanie coma scale eye opening: Spontaneous [place] coma scale verbal response: None Joanie coma scale motor response: None [place] coma scale total score: 6 SENSORIUM/ORIENTATION: Yes other (Does not make eye contact, does not seem to respond to verbal input) CRANIAL NERVES: Yes pupillary reactivity/size, Yes CN III (oculomotor), Yes CN IX and CN X (glossopharyngeal/vagus), Yes CN XI (spinal accessory) and Yes other (Ocular motor reflexes intact. Flinches to threat.) Psych: COMMON NORMALS: mental status grossly normal, cooperative and normal affect Skin: COMMON NORMALS: no rashes or lesions noted and turgor normal GENERAL SKIN EXAM: no rashes or lesions noted and turgor normal Course 2 Vital Signs: Vital signs: Vital Signs Temperature 97.4 F L 07/25/23 12:24 Pulse Rate 103 H 07/25/23 15:25 Respiratory Rate 18 07/25/23 15:25 Blood Pressure 123/85 07/25/23 15:25 Pulse Oximetry 99 07/25/23 15:25 Oxygen Delivery Me thod Room Air 07/25/23 15:25 MDM - Weakness Medical Decision Making This is a very similar presentation to several prior episodes. The patient appears to have a locked-in appearance. Today it does not sound like he lost consciousness but was not responding to any input. On my exam he did not respond to painful stimuli at all. Initially his eyes were closed however toward the end of my exam he did open his eyes and stares at the ceiling. He is on apixaban, CT scan was done to rule out bleed. This was negative. I spoke with the neurologist on-call, Dr. Paige, and we reviewed prior imaging and episodes. It does not sound as though this is a stroke given the stereotypical presentation and spontaneous resolution with prior episodes. After my obtaining the history from his and daughter and reevaluating the patient he does appear much more alert. He was able to nod his head and look around. I do wonder if this could be some sort of atypical stroke. Certainly could also be some sort of migraine variant. Dr. Paige suggested a cardiac cath technologist and an outpatient EEG. As the patient's neurology follow-up is at [facility] this might be better done through their facility. Dr. Paige did offer to see the patient here in follow-up as well. After a period of observation if he has returned to baseline I think he safe to go home. If not we will discuss further treatment options. Patient has returned to baseline and was able to provide more history. He recalls feeling the symptoms coming on. They came on very quickly and he was not able to control them. He said during the episode he is able to hear and see. He is able to feel pain. He is simply not able to respond at all. He tells me that he has been having episodes similar to this since he was a child. In the past the onset would be over an hour or 2. Now he thinks these may be related episodes but develop over a matter of a few minutes. He has had an EEG in the remote past. He also has episodes of dizziness very frequently. That has been ongoing for about 3 or 4 years. He feels comfortable going home and I think that is an appropriate disposition at this time. Lab Data 07/25/23 12:47 07/25/23 12:[address] 07/25/23 12:32 IMPRESSION: 1. No acute intracranial findings. 2. Additional details as above. Laboratory Results WBC 7.56 10^3/uL (3.29-11.43) 07/25/23 12:47 RBC 4.19 10^6/uL (3.85-5.65) 07/25/23 12:47 Hgb 13.90 g/dL (11.27-16.99) 07/25/23 12:47 Hct 41.0 % (37-53) 07/25/23 12:47 MCV 97.9 fl (82-101) 07/25/23 12:47 MCH 33.2 pg (27-33) H 07/25/23 12:47 MCHC 33.9 g/dL (30-55) 07/25/23 12:47 RDW 13.3 % (12.1-15.1) 07/25/23 12:47 Plt Count 156 10^3/cmm (157-399) L 07/25/23 12:47 MPV 9.0 fL (7.4-10.4) 07/25/23 12:47 Neut % (Auto) 59.3 % 07/25/23 12:47 Lymph % (Auto) 25.0 % 07/25/23 12:47 [place] % (Auto) 11.4 % 07/25/23 12:47 Eos % (Auto) 2.2 % 07/25/23 12:47 Baso % (Auto) 0.5 % 07/25/23 12:47 Neut # (Auto) 4.48 10^3/uL (1.8-7.7) 07/25/23 12:47 Lymph # (Auto) 1.9 10^3/uL (0.8-4.8) 07/25/23 12:47 [place] # (Auto) 0.9 10^3/uL (0.2-0.9) 07/25/23 12:47 Eos # (Auto) 0.2 10^3/uL (0.0-0.8) 07/25/23 12:47 Baso # (Auto) 0.0 10^3/uL (0.0-0.1) 07/25/23 12:47 Nucleated RBC % (auto) 0 % 07/25/23 12:47 Nucleated RBCs # 0.0 /100WBC 07/25/23 12:47 PT 14.90 SECONDS (12.1-14.9) 07/25/23 12:47 INR 1.13 (0.8-1.2) 07/25/23 12:47 Sodium 139 mmol/L (136-145) 07/25/23 12:47 Potassium 3.7 mmol/L (3.5-5.1) 07/25/23 12:47 Chloride 100 mmol/L (98-107) 07/25/23 12:47 Carbon Dioxide 25 mmol/L (22-29) 07/25/23 12:47 Anion Gap 17.7 (5-19) 07/25/23 12:47 BUN 16 mg/dL (8-23) 07/25/23 12:47 Creatinine 1.0 mg/dL (0.7-1.2) 07/25/23 12:47 GFR Calculation Not Reportable 07/25/23 12:47 Glucose 104 mg/dL (65-115) 07/25/23 12:47 Calculated Osmolality 289 mOsm/kg (285-295) 07/25/23 12:47 Lactic Acid 1.7 mmol/L (0.5-2.2) 07/25/23 12:47 Calcium 9.2 mg/dL (8.5-10.5) 07/25/23 12:47 Total Bilirubin 0.8 mg/dL (0.15-1.2) 07/25/23 12:47 AST 60 U/L (0-40) H 07/25/23 12:47 ALT 92 U/L (0-41) H 07/25/23 12:47 Alkaline Phosphatase 95 U/L (40-130) 07/25/23 12:47 Total Protein 6.9 g/dL (6.6-8.7) 07/25/23 12:47 Albumin 4.1 g/dL (3.5-5.2) 07/25/23 12:47 Globulin 2.8 g/dL (1.3-4.6) 07/25/23 12:47 TSH 0.15 uIU/mL (0.27-4.20) L 07/25/23 12:47 Free T4 1.59 ng/dL (0.82-1.77) 07/25/23 12:47 Valproic Acid 55.7 ug/mL (50-100) 07/25/23 12:47 All radiology interpretation(s) finalized by discharge Discharge Plan Discharge Patient Disposition: Home 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, Migraine equivalent syndrome Condition: Stable Prescriptions: No Action cholecalciferol (vitamin D3) 1,000 unit capsule 1,000 unit PO DAILY acetaminophen [Tylenol] 325 mg capsule 325 mg PO DAILY PRN (Reason: Pain) diclofenac sodium 1 % gel 2 g topical QID PRN (Reason: Pain) Rx Instructions: apply to affected area as needed prednisone 2.5 mg tablet 2.5 mg PO DAILY Qty: 90 1RF prednisone 20 mg tablet See Rx Instructions PO .COMPLEX PRN (Reason: joint pain flare) Qty: 30 1RF Rx Instructions: take 1 tab daily for 5-7 days as needed for arthritis flare PO PRN; metoprolol tartrate 50 mg tablet 50 mg PO BID Qty: 60 4RF divalproex [Depakote ER] 500 mg tablet extended release 24 hr 500 mg PO DAILY atorvastatin 40 mg Tablet 20 mg PO DAILY Qty: 30 0RF Synthroid 88 mcg Tablet 88 mcg PO DAILY coenzyme Q10 30 mg Capsule 30 mg PO DAILY vitamin Q39-xibcu acid 0.5-1 mg Tablet 1 tab PO DAILY Eliquis 5 mg tablet 5 mg PO BID Qty: 60 0RF Discharge Orders: Discharge ED (Routine); Ordered 07/25/23 Ordered By: Buffy Jensen Referrals: Nathan Valdez DO [Primary Care Provider] - Patient Instructions: Opioid Safety, Pain Management Activity Restrictions/Additional Instructions: Contact your neurologist in [place] to let them know you have had another episode. Hopefully they can move up your next appointment. Coding Level of Care Code ED Manager Technology for Donna Alberts
== END 2023-07-25 17:18 | disposition home or self-care (01) ==
PROVIDERS: Emergency Provider Emergency Medicine; PCP Emergency Medicine Emergency Medical Services
DX: G83.5 Locked-in state (principal); G43.109 Migraine with aura, not intractable, without status migrainosus; Z79.01 Long term (current) use of anticoagulants; Z86.73 Personal history of transient ischemic attack (TIA), and cerebral infarction without residual deficits; E78.5 Hyperlipidemia, unspecified; I10 Essential (primary) hypertension; J43.9 Emphysema, unspecified
CPT/HCPCS: 36415; 70450; 80053; 80164; 83605; 84439; 84443; 85025; 85610; 93005; 96374; 96375; 99285; J0780; J1200

== ENCOUNTER 2023-08-16 09:42 | Inpatient (IN) | payer OTHER, SELFPAY ==
[2023-08-16] VITALS (73 sets, daily range): BP systolic 90–167; BP diastolic 40–116; PULSE 61–129; RESP 7–29; TEMP 35.8–36.7; O2SAT 85–100; BMI 25.5
--- NOTE | 2023-08-16 09:47 | ECG_ITS ---
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 Measurements Intervals [place] Rate: 98 P: 0 [place]: 0 QRS: 58 QRSD: 89 T: 3 QT: 314 QTc: 401 Interpretive Statements ATRIAL FLUTTER/TACHYCARDIA WITH ABERRANT CONDUCTION OR VENTRICULAR PREMATURE COMPLEXES NONSPECIFIC T-WAVE ABNORMALITY ABNORMAL RHYTHM ECG Compared to ECG 07/25/2023 12:31:28 Aberrant conduction of supraventricular beat(s) now present T-wave abnormality still present Electronically Signed On 08-17-2023 21:50:25 CDT by Young Hartman M.D. [id number]
--- NOTE | 2023-08-16 09:47 | XR_ITS ---
WS: [id number] XR chest 1V portable [id number] REASON FOR EXAM: dyspnea/cough FINDINGS: Moderate tortuosity of the thoracic aorta with mild cardiomegaly. There is calcified granulomatous disease bilaterally. There are increased reticular interstitial lung opacities in the lower lung qureshi. Compared to 2023 these opacities are more prominent and particularly overlying the costophrenic angles the opacit ies have the configuration of curly B lines. The chest is otherwise unchanged compared to the previous study. XR/XR chest 1V portable [id number] IMPRESSION: Findings suggest early congestive heart failure.
--- NOTE | 2023-08-16 10:22 | ED_ITS ---
HPI - Arrhythmia/Palpitations 2 General: Chief Complaint: Arrhythmia/Palpitations Stated Complaint: cp, rapied hr Time Seen by Provider: 08/16/23 09:46 Source: patient Mode of arrival: ambulatory History of Present Illness: 77-year-old male presents emergency comp laining of chest discomfort and rapid heart rate increasing short of breath symptoms began yesterday intermittently is noticing a rapid heart rate shortness of breath there is no significant decrease in exercise tolerance. Patient has a known history of atrial fibrillation is currently on apixaban and metoprolol he has taken all of his doses regularly has not missed any doses or any change in medications recently. No active chest pain at this time MD complaint: rapid heart beat Onset (ago): minute(s) Arrhythmia history: atrial fibrillation Associated symptoms: Reports short of breath; Deny anxiety, cough, diaphoresis, muscle cramps, nausea, paresthesias, pre- syncope, sense of impending doom, syncope or vomiting Treatments prior to arrival: beta-irina Review of Systems 2 Const: Reports: fatigue and malaise; Denies: fever(s), chills or diaphoresis Card: Reports: chest pain, palpitations, irregular heart rhythm, dyspnea on exertion and orthopnea; Denies: syncope or pre-syncope Resp: Reports: dyspnea GI: Denies: nausea or vomiting : Denies: dysuria, urinary frequency or urinary urgency Musc: Denies: muscle cramps Skin/Breast: Denies: rash Psych: Denies: anxiety PFSH ED 2 PFSH: Medical History Immunization counseling Seronegative rheumatoid arthritis of both hands Labile essential hypertension High risk medication use Inflammatory arthritis Emphysema of lung 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, bilateral Polyarthralgia CVA (cerebral vascular accident) Hyperlipidemia Hypertension Thyroid disease Renal calculi Status post lithotripsy, stent removed Bilateral renal stones Left ureteral calculus Chronic migraine without aura, intractable, with status migrainosus Surgical History Status post total replacement of right shoulder History of back surgery H/O lithotripsy Family History Mother , 99 Cancer cervical Father , 65 CAD (coronary artery disease) Diabetes Hypertension Cancer Hyperlipidemia Other Lung disease Lupus Rheumatoid arthritis Stroke Social History Smoking and tobacco/nicotine status: never used tobacco/nicotine Alcohol intake: never Substance/Drug Use: never Marital status: Current occupational status: retired Physical Exam 2 Const: GENERAL APPEARANCE: cooperative and comfortable O RIENTATION/CONSCIOUSNESS: Yes awake, Yes oriented to person, Yes oriented to place and Yes oriented to time HENMT: COMMON NORMALS: normocephalic, atraumatic and hearing grossly normal bilaterally HEAD & SCALP: normocephalic and atraumatic Resp: COMMON NORMALS: normal respiratory effort, No retractions and No use of accessory muscles AUSCULTATION: crackles Cardio: COMMON NORMALS: No murmurs present (Cardio) RATE: tachycardic R HYTHM: abnormal rhythm irregularly irregular GI: COMMON NORMALS: Soft to palpation and No hepatosplenomegaly present A USCULTATION: Yes normoactive bowel sounds PALPATION: Yes Soft to palpation, No Tenderness to palpation present (GI), No Guarding due to palpation present (GI) and Yes No hepatosplenomegaly present Extremity: COMMON NORMALS: normal to inspection, capillary refill normal, no clubbing, cyanosis or edema, no calf tenderness and no pedal edema Neuro: SENSORIUM/ORIENTATION: Yes oriented to person, Yes oriented to place and Yes oriented to time Skin: COMMON NORMALS: no rashes or lesions noted GENERAL SKIN EXAM: no rashes or lesions noted Course 2 Vital Signs: Vital signs: Vital Signs Temperature 98.1 F 08/16/23 09:48 Pulse Rate 121 H 08/16/23 13:12 Respiratory Rate 16 08/16/23 13:12 Blood Pressure 159/107 08/16/23 13:12 Pulse Oximetry 94 08/16/23 13:12 Oxygen Delivery Me thod Room Air 08/16/23 13:12 MDM - Arrhythmia/Palpitations Medical Decision Making Patient Janet-fib with RVR initially his rate was fairly well-controlled but then increased in the 120s and 130s while at rest these slightly short of breath of this no further chest discomfort he was given Lasix and then subsequently started on amiodarone drip chest x-ray shows decompensated heart failure BNP is elevated. Discussed with hospitalist orders written. Medical Records I reviewed the patient's medical records. Lab Data I reviewed the patient's lab results. 08/16/23 10:16 08/16/23 10:16 Radiology Impressions Chest X-Ray 08/16/23 09:47 IMPRESSION: Findings suggest early congestive heart failure. Laboratory Results WBC 9.74 10^3/uL (3.29-11.43) 08/16/23 10:16 RBC 3.82 10^6/uL (3.85-5.65) L 08/16/23 10:16 Hgb 12.60 g/dL (11.27-16.99) 08/16/23 10:16 Hct 38.3 % (37-53) 08/16/23 10:16 MCV 100.3 fl (82-101) 08/16/23 10:16 MCH 33.0 pg (27-33) 08/16/23 10:16 MCHC 32.9 g/dL (30-55) 08/16/23 10:16 RDW 14.5 % (12.1-15.1) 08/16/23 10:16 Plt Count 139 10^3/cmm (157-399) L 08/16/23 10:16 MPV 10.2 fL (7.4-10.4) 08/16/23 10:16 Neut % (Auto) 77.4 % 08/16/23 10:16 Lymph % (Auto) 11.5 % 08/16/23 10:16 [place] % (Auto) 9.4 % 08/16/23 10:16 Eos % (Auto) 0.0 % 08/16/23 10:16 Baso % (Auto) 0.2 % 08/16/23 10:16 Neut # (Auto) 7.53 10^3/uL (1.8-7.7) 08/16/23 10:16 Lymph # (Auto) 1.1 10^3/uL (0.8-4.8) 08/16/23 10:16 [place] # (Auto) 0.9 10^3/uL (0.2-0.9) 08/16/23 10:16 Eos # (Auto) 0.0 10^3/uL (0.0-0.8) 08/16/23 10:16 Baso # (Auto) 0.0 10^3/uL (0.0-0.1) 08/16/23 10:16 Nucleated RBC % (auto) 0 % 08/16/23 10:16 Nucleated RBCs # 0.0 /100WBC 08/16/23 10:16 Sodium 138 mmol/L (136-145) 08/16/23 10:16 Potassium 4.3 mmol/L (3.5-5.1) 08/16/23 10:16 Chloride 101 mmol/L (98-107) 08/16/23 10:16 Carbon Dioxide 26 mmol/L (22-29) 08/16/23 10:16 Anion Gap 15.3 (5-19) 08/16/23 10:16 BUN 25 mg/dL (8-23) H 08/16/23 10:16 Creatinine 1.2 mg/dL (0.7-1.2) 08/16/23 10:16 GFR Calculation Not Reportable 08/16/23 10:16 Glucose 118 mg/dL (65-115) H 08/16/23 10:16 Calculated Osmolality 291 mOsm/kg (285-295) 08/16/23 10:16 Calcium 9.2 mg/dL (8.5-10.5) 08/16/23 10:16 Magnesium 2.1 mg/dL (1.7-2.3) 08/16/23 10:16 Total Bilirubin 0.9 mg/dL (0.15-1.2) 08/16/23 10:16 AST 35 U/L (0-40) 08/16/23 10:16 ALT 73 U/L (0-41) H 08/16/23 10:16 Alkaline Phosphatase 92 U/L (40-130) 08/16/23 10:16 Troponin T Baseline 22 ng/L (0-15) H 08/16/23 10:16 Troponin T 120 Minute 23.10 ng/L (0-15) H 08/16/23 12:14 Delta Troponin T 1.10 ABS# (0-10) 08/16/23 12:14 NT-Pro-B Natriuret Pep 3179 pg/mL (0-450) H 08/16/23 10:16 Total Protein 6.2 g/dL (6.6-8.7) L 08/16/23 10:16 Albumin 4.0 g/dL (3.5-5.2) 08/16/23 10:16 Globulin 2.2 g/dL (1.3-4.6) 08/16/23 10:16 Urine Color Yellow (Yellow) 08/16/23 10:25 Urine Appearance Clear (CLEAR) 08/16/23 10:25 Urine pH 7 (5-7) 08/16/23 10:25 Ur Specific [place] 1.010 (1.005-1.030) 08/16/23 10:25 Urine Protein Neg (Negative) 08/16/23 10:25 Urine Glucose (UA) Norm (Normal) 08/16/23 10:25 Urine Ketones 1+ (Negative) H 08/16/23 10:25 Urine Blood 2+ (Negative) H 08/16/23 10:25 Urine Nitrate Negative (Negative) 08/16/23 10:25 Urine Bilirubin Neg (Negative) 08/16/23 10:25 Urine Urobilinogen Norm mg/dL (Negative) 08/16/23 10:25 Ur Leukocyte Esterase Negative (Negative) 08/16/23 10:25 Urine RBC 5-10 /hpf (0-2) H 08/16/23 10:25 Urine WBC None /hpf (0-5) 08/16/23 10:25 Ur Squamous Epith Cells None /hpf (0-5) 08/16/23 10:25 Amorphous Sediment Not Reportable 08/16/23 10:25 Urine Bacteria None /hpf (NONE) 08/16/23 10:25 All radiology interpretation(s) finalized by discharge Discharge Plan Discharge Patient Disposition: Admitted As Inpatient Admit Provider: Zuhair Zurita Clinical Impression: Atrial fibrillation with RVR, CHF exacerbation Condition: Stable Coding Level of Care Code ED Distance Education Faculty Liaison for Donna Alberts
[2023-08-16 10:26] LABS: Basophils % 0.2 %; Hematocrit 38.3 % (37-53); Lymphocytes # 1.1 10^3/uL (0.8-4.8); Lymphocytes % 11.5 %; Mean Corpuscular HGB Conc 32.9 g/dL (30-55); Mean Corpuscular Volume 100.3 fl (82-101); Mean Platelet Volume 10.2 fL (7.4-10.4); Monocytes # 0.9 10^3/uL (0.2-0.9); Monocytes % 9.4 %; Neutrophils # 7.53 10^3/uL (1.8-7.7); Neutrophils % 77.4 %; Nucleated Red Blood Cells % 0 %; Platelet Count 139 10^3/cmm (157-399); Red Blood Count 3.82 10^6/uL (3.85-5.65); Red Cell Distribution Width 14.5 % (12.1-15.1); White Blood Count 9.74 10^3/uL (3.29-11.43)
[2023-08-16 10:43] LABS: Troponin(5th) Baseline 22 ng/L (0-15)
[2023-08-16 10:51] LABS: Alanine Aminotransferase 73 U/L (0-41); Alkaline Phosphatase 92 U/L (40-130); Anion Gap 15.3 (5-19); Aspartate Amino Transferase 35 U/L (0-40); Blood Urea Nitrogen 25 mg/dL (8-23); Calcium 9.2 mg/dL (8.5-10.5); Carbon Dioxide 26 mmol/L (22-29); Chloride 101 mmol/L (98-107); Creatinine Clr Calc Pharmacy 41.9993; Globulin 2.2 g/dL (1.3-4.6); Glucose 118 mg/dL (65-115); NT Pro B Type Natriuretic Pept 3179 pg/mL (0-450); Osmolality Calculated 291 mOsm/kg (285-295); Potassium 4.3 mmol/L (3.5-5.1); Sodium 138 mmol/L (136-145); Total Bilirubin 0.9 mg/dL (0.15-1.2); Total Protein 6.2 g/dL (6.6-8.7)
[2023-08-16 10:53] LABS: Urine Appearance Clear (CLEAR); Urine Color Yellow (Yellow); pH Urine 7 (5-7)
[2023-08-16 10:54] LABS: Add Urine Microscopic? YES; Bilirubin Urine Neg (Negative); Blood Urine 2+ (Negative); Glucose Urine UA Norm (Normal); Ketones Urine 1+ (Negative); Leukocyte Esterase Urine Negative (Negative); Nitrate Urine Negative (Negative); Protein Urine Neg (Negative); Urobilinogen Urine Norm (Negative)
[2023-08-16 10:55] LABS: Add Urine Culture? No
[2023-08-16] MEDS: FUROsemide 10 mg/mL SDV 4mL 40 MG IVP ×2 (11:20→21:47)
--- NOTE | 2023-08-16 11:49 | ECG_ITS ---
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 Measurements Intervals [place] Rate: 108 P: 0 [place]: 0 QRS: 53 QRSD: 76 T: 225 QT: 307 QTc: 412 Interpretive Statements ATRIAL FLUTTER/TACHYCARDIA WITH RAPID VENTRICULAR RESPONSE NONSPECIFIC ST & T-WAVE ABNORMALITY Compared to ECG 08/16/2023 09:44:35 Aberrant conduction of supraventricular beat(s) no longer present T-wave abnormality still present Electronically Signed On 08-17-2023 22:06:09 CDT by Young Hartman M.D. [id number]
[2023-08-16] MEDS: amiodarone 150 MG/100 ML PREMIX 400 MG IV (13:24)
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
[2023-08-16 14:03] LABS: Magnesium 2.1 mg/dL (1.7-2.3)
[2023-08-16] MEDS: potassium chloride ER 20 mEq Tablet 40 MEQ PO (15:01)
[2023-08-16] MEDS: pantoprazole 40 mg SDV IVP (15:01)
[2023-08-16 15:21] LABS: Estmated Average Glucose 134; Hemoglobin A1C 6.3 % (4.0-6.0)
[2023-08-16 15:27] LABS: Thyroid Stimulating Hormone 1.15 uIU/mL (0.27-4.20)
--- NOTE | 2023-08-16 15:47 | ECG_ITS ---
[facility] Test Date: 2023-08-16 Pat Name: Gil Rojas Department: Room: [facility]02 Gender: Male Central Office Supervisor: : 1945 Requested By: Trav Rousseau Order Number: [id number] Kaycee MD: Young Hartman M.D. Measurements Intervals [place] Rate: 82 P: 0 AR: 0 QRS: -67 QRSD: 184 T: 114 QT: 470 QTc: 551 Interpretive Statements ELECTRONIC VENTRICULAR PACEMAKER ABNORMAL RHYTHM ECG Compared to ECG 08/16/2023 11:49:59 Atrial flutter no longer present T-wave abnormality no longer present Electronically Signed On 08-17-2023 22:07:35 CDT by Young Hartman M.D. [email or web address]/OM/[id number]
[2023-08-16 16:47] LABS: Troponin 5 6HR 25.94 ng/L (0-15); Troponin 5 6HR Delta 3.94 ng/L (0-12)
[2023-08-16] MEDS: apixaban 5 mg Tablet PO (17:31)
--- NOTE | 2023-08-16 23:38 | PC.NURSE ---
pt temp pt shanel low oral and axillary. warm blankets and bear hugger placed at this time.
[2023-08-17] VITALS (77 sets, daily range): BP systolic 72–142; BP diastolic 43–92; PULSE 69–116; RESP 10–41; TEMP 36.1–36.8; O2SAT 80–99
[2023-08-17 04:58] LABS: Basophils % 0.4 %; Eosinophils # 0.1 10^3/uL (0.0-0.8); Eosinophils % 0.5 %; Hematocrit 40.1 % (37-53); Lymphocytes # 2.2 10^3/uL (0.8-4.8); Lymphocytes % 22.2 %; Mean Corpuscular HGB Conc 33.2 g/dL (30-55); Mean Corpuscular Hemoglobin 32.7 pg (27-33); Mean Corpuscular Volume 98.5 fl (82-101); Mean Platelet Volume 10.3 fL (7.4-10.4); Monocytes % 9.9 %; Neutrophils # 6.39 10^3/uL (1.8-7.7); Neutrophils % 65.1 %; Nucleated Red Blood Cells % 0 %; Platelet Count 129 10^3/cmm (157-399); Red Blood Count 4.07 10^6/uL (3.85-5.65); Red Cell Distribution Width 14.3 % (12.1-15.1); White Blood Count 9.82 10^3/uL (3.29-11.43)
[2023-08-17 05:12] LABS: Anion Gap 14.9 (5-19); Blood Urea Nitrogen 23 mg/dL (8-23); Carbon Dioxide 33 mmol/L (22-29); Chloride 94 mmol/L (98-107); Creatinine Clr Calc Pharmacy 36.4889; Glucose 108 mg/dL (65-115); Magnesium 1.9 mg/dL (1.7-2.3); Osmolality Calculated 290 mOsm/kg (285-295); Potassium 3.9 mmol/L (3.5-5.1); Sodium 138 mmol/L (136-145)
[2023-08-17 05:22] LABS: NT Pro B Type Natriuretic Pept 2271 pg/mL (0-450)
[2023-08-17] MEDS: divalproex ER 500 mg Tablet (24H) PO (08:40)
[2023-08-17] MEDS: levothyroxine 88 mcg Tablet PO (08:40)
[2023-08-17] MEDS: apixaban 5 mg Tablet PO ×2 (08:40→17:23)
[2023-08-17] MEDS: FUROsemide 10 mg/mL SDV 4mL 40 MG IVP (08:42)
--- NOTE | 2023-08-17 08:43 | PC.NURSE ---
Spoke with Dr. Zurita about the IV lasix and was instructed to give this morning dose priro to his discontinuing the medication. Confirmed with Dr. Zurita to give this morning dose though it is now discontinued and he confirmed that he did want this morning dose given.
[2023-08-17] MEDS: amiodarone 200 mg Tablet 400 MG PO ×2 (09:17→17:23)
--- NOTE | 2023-08-17 15:07 | PM.PN ---
Subjective Subjective: Patient was seen this morning, heart rates currently in the 120s, A-fib, denies any chest pain, does report intermittent shortness of breath, no nausea, no vomiting Vitals/I&O/Wt Last Vital Signs Temp 98.2 F 08/17/23 09:51 Pulse 100 08/17/23 14:00 Resp 19 H 08/17/23 13:30 BP 101/63 08/17/23 13:30 Pulse Ox 95 08/17/23 13:30 O2 Del Method Room Air 08/17/23 11:27 O2 Flow Rate 2 08/16/23 17:24 08/17/23 08/17/23 08/17/23 06:59 14:59 22:59 Intake Total 200 / 937.759 778.623 / 778.623 Output Total 1600 / 2400 550 / 550 Balance -1400 / -1462.241 228.623 / 228.623 Weight last 48 hrs Weight 57.47 kg Weight 57.47 kg Weight 56.699 kg Physical Exam Const: COMMON NORMALS: no acute distress and patient oriented x3 Resp: COMMON NORMALS: normal respiratory effort, No retractions, No use of accessory muscles and clear to auscultation bilaterally AUSCULTATION: clear to auscultation bilaterally Cardio: COMMON NORMALS: S1 normal heart sound present and S2 normal heart sound present RATE: tachycardic RHYTHM: abnormal rhythm HEART SOUNDS: S1 normal heart sound present and S2 normal heart sound present GI: COMMON NORMALS: Normal to inspection, nondistended, normoactive bowel sounds present and non-tender Extremity: COMMON NORMALS: no pedal edema Neuro: COMMON NORMALS: patient oriented x3 Psych: COMMON NORMALS: mental status grossly normal Data 08/17/23 04:05 08/17/23 04:05 A&P Assessment and plan (1) Atrial fibrillation with RVR: (2) CHF exacerbation: (3) Hypertension: Qualifiers: Hypertension type: essential hypertension Qualified Code(s): I10 - Essential (primary) hypertension (4) Hypothyroidism: Qualifiers: Hypothyroidism type: postablative Qualified Code(s): E89.0 - Postprocedural hypothyroidism (5) Seronegative rheumatoid arthritis of both hands: (6) 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 Plan ? Continue amiodarone drip, transition off to p.o. amiodarone ? Continue Eliquis ? Monitor heart rates closely ? Check magnesium levels ? Check TSH Acute CHF exacerbation ? Combination of systolic, diastolic ? 1 dose lasix ? Replace potassium -Check magnesium ? Monitor respiratory status closely History of locked-in syndrome, ? Recent history of tPA in March for CVA, for which she was transferred to [facility], no acute interventions as per patient -Etiology brainstem migraine? Does report intermittent migraines -further investigations being done at [facility] in [place] Full code ? 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
[2023-08-17] MEDS: pantoprazole 40 mg SDV IVP (15:33)
--- NOTE | 2023-08-17 15:41 | USCV_ITS ---
Bob, Gil Age: 77 Gender: M : 1945 Exam Date: 08/17/2023 18:35 Ordering Phys: Zuhair Zurita MD Technologist: DORY [place] [facility] [place]: shortness of breath BP: 104 / 56 HR: 86 Rhythm: Atrial fibrillation with arrythmia Technical Quality: Good MEASUREMENTS (Male / Female) Normal Values 2D ECHO LV Diastolic Diameter PLAX 3.5 cm 4.2 - 5.9 / 3.9 - 5.3 cm IVS Diastolic Thickness 1.2 cm 0.6 - 1.0 / 0.6 - 0.9 cm IVS Systolic Thickness 1.3 cm LVPW Diastolic Thickness 1.1 cm 0.6 - 1.0 / 0.6 - 0.9 cm LVPW Systolic Thickness 1.5 cm LVOT Diameter 1.8 cm LV Ejection Fraction 2D Teich 59.5 % LV Ejection Fraction MOD 2C 60.7 % LV Ejection Fraction 2C AL 62.5 % LA Diameter 3.9 cm LA Sys Volume AL 54.1 cm cubed LA Sys Volume Index AL 34.7 cm cubed/m squared Aorta at Sinotubular Diameter 3.3 cm IVC Diameter 1.6 cm M-MODE LA Ao Ratio MM 1.3 AV Cusp Separation MM 1.7 cm DOPPLER AV Peak Velocity 111.0 cm/s LVOT Peak Velocity 67.0 cm/s AV Area Cont Eq vti 1.3 cm squared AV Area Cont Eq pk 1.6 cm squared MV Peak Velocity 88.0 cm/s MV Area PHT 3.4 cm squared Mitral E to A Ratio 0.0 TV Peak Velocity 226.0 cm/s TR Peak Velocity 226.0 cm/s TR Peak Gradient 20.4 mmHg TV Peak E Velocity 48.0 cm/s Right Atrial Pressure 3.0 mmHg Pulmonary Artery Systolic Pressu 23.4 mmHg PV Peak Velocity 73.0 cm/s FINDINGS Left Ventricle Normal left ventricular size, systolic function and wall thickness, with no regional wall motion abnormalities. Rhythm precludes evaluation of diastolic function. Left ventricular ejection fraction is estimated at 65 %. Right Ventricle Normal right ventricular size and systolic function. Normal right ventricular systolic pressure. Right Atrium The right atrium is normal in size. Left Atrium Mildly increased left atrial size. Mitral Valve Structurally normal mitral valve. Trace mitral valve regurgitation. Aortic Valve Structurally normal trileaflet aortic valve. Mild aortic valve calcification. Aortic valve sclerosis without stenosis. No aortic valve regurgitation. Tricuspid Valve Structurally normal tricuspid valve. Mild tricuspid valve regurgitation. Pulmonic Valve Pulmonic valve not well visualized. Mild pulmonary valve regurgitation. Pericardium Normal pericardium without effusion. Aorta Normal ascending aorta dimension. IVC The inferior vena cava appears normal. CONCLUSIONS Normal left ventricular size, systolic function and wall thickness, with no regional wall motion abnormalities. Rhythm precludes evaluation of diastolic function. Left ventricular ejection fraction is estimated at 65 %. Mildly increased left atrial size. Structurally normal mitral valve. Trace mitral valve regurgitation. Structurally normal trileaflet aortic valve. Mild aortic valve calcification. Aortic valve sclerosis without stenosis. No aortic valve regurgitation. Previous study was done 3 months ago[address] No change. Dr. Kyle Wade MD (Electronically Signed) Final Date: 18 August 2023 16:16 S
--- NOTE | 2023-08-17 15:41 | ECG_ITS ---
[facility] Test Date: 2023-08-17 Pat Name: Gil Rojas Department: Room: [facility]02 Gender: Male Molding Supervisor: : 1945 Requested By: Zuhair Zurita Order Number: [id number] Kaycee MD: Young Hartman M.D. Measurements Intervals [place] Rate: 105 P: 0 OR: 0 QRS: 47 QRSD: 94 T: 95 QT: 357 QTc: 473 Interpretive Statements Atrial fibrillation WITH RAPID VENTRICULAR RESPONSE WITH ABERRANT CONDUCTION OR VENTRICULAR PREMATURE COMPLEXES NONSPECIFIC ST & T-WAVE ABNORMALITY ABNORMAL RHYTHM ECG Compared to ECG 08/16/2023 17:12:19 Ventricular premature complex(es) now present Aberrant conduction of supraventricular beat(s) now present T-wave abnormality now present Ventricular-paced complex(es) or rhythm no longer present Electronically Signed On 08-17-2023 21:58:52 CDT by Young Hartman M.D. [email or web address].Perle[employer] [id number]
[2023-08-17] MEDS: midodrine 5 mg TABLET 10 MG PO (15:59)
[2023-08-17 17:30] LABS: Basophils % 0.4 %; Eosinophils # 0.1 10^3/uL (0.0-0.8); Hematocrit 41.3 % (37-53); Lymphocytes # 1.2 10^3/uL (0.8-4.8); Lymphocytes % 15.5 %; Mean Corpuscular HGB Conc 32.7 g/dL (30-55); Mean Corpuscular Hemoglobin 32.5 pg (27-33); Mean Corpuscular Volume 99.5 fl (82-101); Mean Platelet Volume 9.7 fL (7.4-10.4); Monocytes % 12.2 %; Neutrophils # 5.41 10^3/uL (1.8-7.7); Neutrophils % 68.3 %; Nucleated Red Blood Cells % 0 %; Platelet Count 141 10^3/cmm (157-399); Red Blood Count 4.15 10^6/uL (3.85-5.65); Red Cell Distribution Width 14.6 % (12.1-15.1); White Blood Count 7.93 10^3/uL (3.29-11.43)
--- NOTE | 2023-08-17 17:41 | ECG_ITS ---
[facility] Test Date: 2023-08-17 Pat Name: Gil Rojas Department: Room: [facility]02 Gender: Male Blending Machine Feeder: : 1945 Requested By: Zuhair Zurita Order Number: [id number] Kaycee MD: Young Hartman M.D. Measurements Intervals [place] Rate: 91 P: 0 MA: 0 QRS: 21 QRSD: 86 T: 27 QT: 385 QTc: 475 Interpretive Statements ATRIAL FLUTTER/TACHYCARDIA NONSPECIFIC ST & T-WAVE ABNORMALITY ABNORMAL RHYTHM ECG Compared to ECG 08/17/2023 15:54:43 Ventricular premature complex(es) no longer present Aberrant conduction of supraventricular beat(s) no longer present T-wave abnormality still present Electronically Signed On 08-17-2023 22:16:19 CDT by Young Hartman M.D. [email or web address].[employer] Smart[email or web address]/store/[id number]
[2023-08-17 17:51] LABS: Troponin(5th) Baseline 36 ng/L (0-15)
[2023-08-17 18:00] LABS: Anion Gap 16.9 (5-19); Blood Urea Nitrogen 26 mg/dL (8-23); Calcium 8.9 mg/dL (8.5-10.5); Carbon Dioxide 33 mmol/L (22-29); Chloride 96 mmol/L (98-107); Creatinine Clr Calc Pharmacy 28.3802; Glucose 129 mg/dL (65-115); Osmolality Calculated 298 mOsm/kg (285-295); Potassium 4.9 mmol/L (3.5-5.1); Sodium 141 mmol/L (136-145)
[2023-08-17 19:10] LABS: Reflex Lactate Order REFLEX LACTIC ORDERD
[2023-08-17 19:25] LABS: Troponin 5 2HR 36.66 ng/L (0-15); Troponin 5 2HR Delta 0.66 ABS# (0-10)
[2023-08-17 20:37] LABS: Lactic Acid level (Lactate) 2.7 mmol/L (0.5-2.2)
--- NOTE | 2023-08-17 22:28 | ECG_ITS ---
[facility] Test Date: 2023-08-17 Pat Name: Gil Rojas Department: Room: [facility]02 Gender: Male Cardroom Attendant: : 1945 Requested By: Zuhair Zurita Order Number: [id number] Benoit MD: Kyle Wade M.D. Measurements Intervals [place] Rate: 90 P: 0 IA: 0 QRS: 41 QRSD: 89 T: 43 QT: 422 QTc: 517 Interpretive Statements ATRIAL fibrillation MODERATE ST DEPRESSION [0.05+ mV ST DEPRESSION] PROLONGED QT INTERVAL WARNING: DATA QUALITY MAY AFFECT INTERPRETATION Compared to ECG 08/17/2023 17:47:57 ST (T wave) deviation now present Prolonged QT interval now present T-wave abnormality no longer present Electronically Signed On 08-18-2023 19:40:25 CDT by Kyle Wade M.D. [id number]
[2023-08-18] VITALS (18 sets, daily range): BP systolic 99–159; BP diastolic 76–102; PULSE 74–135; RESP 15–21; TEMP 36.3–36.8; O2SAT 92–98; BMI 25.5
[2023-08-18] MEDS: midodrine 5 mg TABLET 10 MG PO ×2 (00:13→08:11)
[2023-08-18 05:07] LABS: Basophils # 0.1 10^3/uL (0.0-0.1); Basophils % 0.7 %; Eosinophils # 0.2 10^3/uL (0.0-0.8); Hematocrit 39.4 % (37-53); Lymphocytes # 1.2 10^3/uL (0.8-4.8); Lymphocytes % 16.3 %; Mean Corpuscular HGB Conc 32.5 g/dL (30-55); Mean Corpuscular Hemoglobin 32.7 pg (27-33); Mean Corpuscular Volume 100.8 fl (82-101); Mean Platelet Volume 9.8 fL (7.4-10.4); Monocytes % 12.7 %; Neutrophils # 4.83 10^3/uL (1.8-7.7); Neutrophils % 63.9 %; Nucleated Red Blood Cells % 0 %; Platelet Count 151 10^3/cmm (157-399); Red Blood Count 3.91 10^6/uL (3.85-5.65); Red Cell Distribution Width 14.6 % (12.1-15.1); White Blood Count 7.55 10^3/uL (3.29-11.43)
[2023-08-18 05:33] LABS: Anion Gap 12.4 (5-19); Blood Urea Nitrogen 26 mg/dL (8-23); Calcium 8.9 mg/dL (8.5-10.5); Carbon Dioxide 32 mmol/L (22-29); Chloride 100 mmol/L (98-107); Creatinine Clr Calc Pharmacy 31.9278; Glucose 125 mg/dL (65-115); Magnesium 2.1 mg/dL (1.7-2.3); Osmolality Calculated 296 mOsm/kg (285-295); Potassium 4.4 mmol/L (3.5-5.1); Sodium 140 mmol/L (136-145)
[2023-08-18 05:40] LABS: NT Pro B Type Natriuretic Pept 517 pg/mL (0-450)
[2023-08-18] MEDS: apixaban 5 mg Tablet PO ×2 (08:11→17:15)
[2023-08-18] MEDS: levothyroxine 88 mcg Tablet PO (08:12)
[2023-08-18] MEDS: amiodarone 200 mg Tablet 400 MG PO ×2 (08:12→17:15)
[2023-08-18] MEDS: divalproex ER 500 mg Tablet (24H) PO (08:12)
--- NOTE | 2023-08-18 08:37 | XR_ITS ---
WS: [id number] XR chest 1V portable [id number] REASON FOR EXAM: sob FINDINGS: The Mild to moderate tortuosity of the thoracic aorta. The heart size is at the upper limits of normal. Calcified granulomas disease in both hemithoraces. Reticular interstitial lung opacities in the lower lung qureshi including Jose B lines appear to hav e resolved compared to the examination of 08/16/2023. No new lung findings. No lung nodule or lung mass. No adenopathy. Mild reverse S thoracolumbar scoliosis with degenerative spondylosis in the mid and lower thoracic sp ine. Right shoulder arthroplasty. Severe osteoarthritis of the left shoulder joint. XR/XR chest 1V portable [id number] IMPRESSION: Resolution of early congestive heart failure.
[2023-08-18 09:12] LABS: C Reactive Protein 4.8 mg/L (0.0-4.9)
[2023-08-18 09:19] LABS: Procalcitonin 0.06 ng/mL (0-0.5)
[2023-08-18 09:29] LABS: Lactic Sepsis W/Reflex 2.7 mmol/L (0.5-2.2)
--- NOTE | 2023-08-18 09:35 | PC.NURSE ---
VS prior to ambulation
--- NOTE | 2023-08-18 09:36 | PC.NURSE ---
VS following ambulation around Nurses station.
--- NOTE | 2023-08-18 09:36 | PC.NURSE ---
Prior to ambulation, VS: 124/93, 98bpm, O2 96% RA. Sitting with legs off side of bed VS: 122/81, HR 107, 98% RA. Standing VS: 115/86, 117 bpm, 97% RA. Pt ambulated one whole lap around Nurses station and returned to room. VS following ambulation: 121/90, HR 11bpm, 99% RA. Dr. Zurita advised.
--- NOTE | 2023-08-18 09:45 | PC.SOCIAL ---
IMM Update Pg. 2 of IMM updated and reviewed with patient, who verbalized understanding. Copy provided.
[2023-08-18 09:49] LABS: Add Urine Microscopic? NO; Charge for UA Resulting for Rev
[2023-08-18 10:25] LABS: Bilirubin Urine Neg (Negative); Blood Urine Neg (Negative); Glucose Urine UA Norm (Normal); Ketones Urine 1+ (Negative); Leukocyte Esterase Urine Negative (Negative); Nitrate Urine Negative (Negative); Protein Urine Neg (Negative); Urine Appearance Clear (CLEAR); Urine Color Yellow (Yellow); Urobilinogen Urine 1 mg/dL (Negative); pH Urine 8 (5-7)
[2023-08-18 10:53] LABS: Reflex Lactate Order REFLEX LACTIC ORDERD
[2023-08-18 12:36] LABS: Lactic Acid level (Lactate) 1.8 mmol/L (0.5-2.2)
--- NOTE | 2023-08-18 13:21 | PC.NURSE ---
Prior to ambulation
--- NOTE | 2023-08-18 13:25 | PC.NURSE ---
Addendum entered by Marilee Chávez RN 08/18/23 13:28: Dr. Zurita advised of above. Original Note: Pt up with physical therapy. Ambulated two seperate times around Nurses station. First time, following ambulation, VS: 159/102, HR 135. Pt rested for approx 5 min. before ambulating again around Nurses station. After second ambulation, VS: 173/110, HR 137. Pt denies dizziness.
[2023-08-18] MEDS: dilTIAZem 30 mg Tablet PO ×2 (13:42→21:29)
[2023-08-18] MEDS: pantoprazole 40 mg SDV IVP (13:42)
--- NOTE | 2023-08-18 14:42 | P.PN_ITS ---
Subjective 2 Subjective: Patient was seen this morning, denies any fevers, no chills, his heart rates in the low 100s, his blood pressures have improved, we discussed taking off the midodrine as he had hypotension yesterday afternoon which improved with 1 dose of midodrine, in Trendelenburg, will have him ambulate monitor his blood pressure, his heart rate, Vitals/I&O/Wt Last Vital Signs Temp 97.5 F L 08/18/23 12:00 Pulse 126 H 08/18/23 14:00 Resp 19 H 08/18/23 12:00 BP 159/102 08/18/23 13:21 Pulse Ox 97 08/18/23 12:00 O2 Del Method Room Air 08/18/23 12:00 O2 Flow Rate 0 08/18/23 12:00 08/17/23 08/18/23 08/18/23 22:59 06:59 14:59 Intake Total 480 / 1258.623 360 / 360 Output Total 200 / 750 300 / 1050 300 / 300 Balance 280 / 508.623 -300 / 208.623 60 / 60 Weight last 48 hrs Weight 57.47 kg Weight 57.47 kg Weight 57.47 kg Physical Exam 2 Const: COMMON NORMALS: no acute distress and patient oriented x3 Resp: COMMON NORMALS: normal respiratory effort, No retractions, No use of accessory muscles and clear to auscultation bilaterally AUSCULTATION: clear to auscultation bilaterally Cardio: COMMON NORMALS: regular rhythm, S1 normal heart sound present and S2 normal heart sound present RATE: tachycardic RHYTHM: regular rhythm H EART SOUNDS: S1 normal heart sound present and S2 normal heart sound present GI: COMMON NORMALS: Normal to inspection, nondistended, normoactive bowel sounds present and non-tender Extremity: COMMON NORMALS: no pedal edema Neuro: COMMON NORMALS: patient oriented x3 Psych: COMMON NORMALS: mental status grossly normal Data 08/18/23 03:40 08/18/23 03:40 A&P Assessment and plan (1) Atrial fibrillation with RVR: (2) CHF exacerbation: (3) Hypertension: Qualifiers: Hypertension type: essential hypertension Qualified Code(s): I10 - Essential (primary) hypertension (4) Hypothyroidism: Qualifiers: Hypothyroidism type: postablative Qualified Code(s): E89.0 - Postprocedural hypothyroidism (5) Seronegative rheumatoid arthritis of both hands: (6) 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 Plan ? Continue amiodarone 400 mg twice daily, will get patient to ambulate, check orthostatic vitals, will consider adding on Cardizem i ? Continue Eliquis ? Monitor heart rates closely ? Check magnesium levels ? Check TSH Acute CHF exacerbation, creatinine 1.6 ? Combination of systolic, diastolic ? Hold off on Lasix ? Replace potassium -Check magnesium ? Monitor respiratory status closely History of locked-in syndrome, ? Recent history of tPA in March for CVA, for which she was transferred to [facility], no acute interventions as per patient -Etiology brainstem migraine? Does report intermittent migraines -further investigations being done at [facility] in [place] Full code ? 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
[2023-08-18 14:50] LABS: Anion Gap 15.1 (5-19); Blood Urea Nitrogen 27 mg/dL (8-23); Calcium 9.1 mg/dL (8.5-10.5); Carbon Dioxide 31 mmol/L (22-29); Chloride 97 mmol/L (98-107); Creatinine Clr Calc Pharmacy 34.0563; Glucose 90 mg/dL (65-115); Magnesium 2.2 mg/dL (1.7-2.3); Osmolality Calculated 293 mOsm/kg (285-295); Potassium 4.1 mmol/L (3.5-5.1); Sodium 139 mmol/L (136-145)
--- NOTE | 2023-08-18 17:23 | PC.NURSE ---
Pt being transferred to Med Surg room 275. Report called to Selam.
[2023-08-19] VITALS (8 sets, daily range): BP systolic 97–131; BP diastolic 63–71; PULSE 41–93; RESP 16–18; TEMP 36.7–36.9; O2SAT 93–97
[2023-08-19] MEDS: dilTIAZem 30 mg Tablet PO (01:33)
[2023-08-19] MEDS: acetaminophen 325 mg Tablet 650 MG PO (04:14)
--- NOTE | 2023-08-19 05:28 | PC.NURSE ---
Patient HR 45-60. Dr Newman notified and gave order to hold 0730 dose of 30mg cardizem.
[2023-08-19 06:20] LABS: Basophils % 0.4 %; Eosinophils # 0.2 10^3/uL (0.0-0.8); Hematocrit 36.3 % (37-53); Lymphocytes # 1.3 10^3/uL (0.8-4.8); Lymphocytes % 19.2 %; Mean Corpuscular HGB Conc 32.8 g/dL (30-55); Mean Corpuscular Hemoglobin 32.5 pg (27-33); Mean Corpuscular Volume 99.2 fl (82-101); Mean Platelet Volume 9.6 fL (7.4-10.4); Monocytes # 0.8 10^3/uL (0.2-0.9); Monocytes % 11.4 %; Neutrophils # 4.23 10^3/uL (1.8-7.7); Neutrophils % 61.2 %; Nucleated Red Blood Cells % 0 %; Platelet Count 125 10^3/cmm (157-399); Red Blood Count 3.66 10^6/uL (3.85-5.65); Red Cell Distribution Width 14.4 % (12.1-15.1); White Blood Count 6.92 10^3/uL (3.29-11.43)
[2023-08-19 06:36] LABS: Anion Gap 13.8 (5-19); Blood Urea Nitrogen 22 mg/dL (8-23); Carbon Dioxide 31 mmol/L (22-29); Chloride 96 mmol/L (98-107); Creatinine Clr Calc Pharmacy 38.1879; Glucose 119 mg/dL (65-115); Osmolality Calculated 286 mOsm/kg (285-295); Potassium 4.8 mmol/L (3.5-5.1); Sodium 136 mmol/L (136-145)
[2023-08-19 06:40] LABS: NT Pro B Type Natriuretic Pept 559 pg/mL (0-450)
[2023-08-19] MEDS: amiodarone 200 mg Tablet 400 MG PO (09:07)
[2023-08-19] MEDS: apixaban 5 mg Tablet PO (09:08)
[2023-08-19] MEDS: divalproex ER 500 mg Tablet (24H) PO (09:08)
[2023-08-19] MEDS: levothyroxine 88 mcg Tablet PO (09:08)
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
--- NOTE | 2023-08-19 12:28 | PC.NURSE ---
Diltiazem po not to give.... Asked Dr. Zurita if he wanted me to give the po dilitiazem that is scheduled for 13:30 as it is not liisted as the pt continuing to take at home on discharge and was instructed to not give the medication.
--- NOTE | 2023-08-19 13:51 | PC.NURSE ---
Discharge Note Patient discharged to [home] via [ambulation] accompanied by [his ]. Discharge instructions reviewed with patient and/or communications representative. Mobile pharmacy medications and/or prescriptions provided. Belongings/home medications returned.
== END 2023-08-19 13:52 | disposition home or self-care (01) | DRG 308 ==
LOC: ER 10:28 → ICU 13:12 → MEDSURG 08-18 17:45
PROVIDERS: Admitting Provider Family Medicine; Emergency Provider Family Medicine; PCP Nurse Practitioner Family; Visit Provider Family Medicine
DX: I48.91 Unspecified atrial fibrillation (principal); G83.5 Locked-in state; I50.43 Acute on chronic combined systolic (congestive) and diastolic (congestive) heart failure; M06.042 Rheumatoid arthritis without rheumatoid factor, left hand; M06.041 Rheumatoid arthritis without rheumatoid factor, right hand; M47.816 Spondylosis without myelopathy or radiculopathy, lumbar region; Z86.73 Personal history of transient ischemic attack (TIA), and cerebral infarction without residual deficits; E78.5 Hyperlipidemia, unspecified; G43.709 Chronic migraine without aura, not intractable, without status migrainosus; J43.9 Emphysema, unspecified; E89.0 Postprocedural hypothyroidism; I95.1 Orthostatic hypotension; R00.1 Bradycardia, unspecified; R00.0 Tachycardia, unspecified; I11.0 Hypertensive heart disease with heart failure
CPT/HCPCS: 36415; 71045; 80048; 80053; 81001; 81003; 83036; 83605; 83735; 83880; 84145; 84443; 84484; 85025; 86140; 93005; 93306; 94664; 96365; 96374; 96375; 96376; 97161; 99285; A4222; C9113; J0283; J1940

== ENCOUNTER 2023-08-31 16:05 | Emergency (ER) | payer OTHER, SELFPAY ==
--- NOTE | 2023-08-31 16:06 | XRR_ITS ---
PROCEDURE INFORMATION: Exam: XR Chest Exam date and time: 08/31/2023 4:14 PM Age: 77 years old Clinical indication: Cardiovascular condition or disease; Atrial fibrillation; Prior surgery; Surgery date: 6+ months; Surgery type: RT shoulder; Additional info: Afib TECHNIQUE: Imaging protocol: Radiologic exam of the chest. Views: 1 view. COMPARISON: CR XR chest 1V portable [id number] 08/18/2023 8:49 AM FINDINGS: Lungs: Unremarkable. No consolidation or mass. Pleural spaces: Unremarkable. No pleural effusion. No pneumothorax. Heart/Mediastinum: Unremarkable. No cardiomegaly. Bones/joints: Unremarkable. XR/XR chest 1V portable [id number] IMPRESSION: No acute findings.
[2023-08-31 16:07] VITALS: BP 175/109; PULSE 110; RESP 16; TEMP 36.7; O2SAT 97
--- NOTE | 2023-08-31 16:09 | ECG_ITS ---
[facility] Test Date: 2023-08-31 Pat Name: Gil Rojas Department: Room: Gender: Male [employer]iter: : 1945 Requested By: Leo Benton Order Number: [id number] Kaycee MD: Young Hartman M.D. Measurements Intervals [place] Rate: 106 P: 0 ND: 0 QRS: 58 QRSD: 97 T: -42 QT: 348 QTc: 464 Interpretive Statements Atrial fibrillation WITH RAPID VENTRICULAR RESPONSE WITH ABERRANT CONDUCTION OR VENTRICULAR PREMATURE COMPLEXES NONSPECIFIC ST & T-WAVE ABNORMALITY Compared to ECG 08/17/2023 22:28:45 Ventricular premature complex(es) now present T-wave abnormality now present Atrial fibrillation no longer present ST (T wave) deviation no longer present Prolonged QT interval no longer present Electronically Signed On 08-31-2023 21:32:49 CDT by Young Hartman M.D. [email or web address]
--- NOTE | 2023-08-31 16:14 | W.ED.ARRPALP ---
HPI - Arrhythmia/Palpitations General: Chief Complaint: Arrhythmia/Palpitations Stated Complaint: afib Time Seen by Provider: 08/31/23 16:06 Source: patient and EMS Mode of arrival: EMS Limitations: no limitations History of Present Illness: 77-year-old male has a history of A-fib states that he had been outside mowing and felt like his heart was racing and went to the CT clinic was found to be in A-fib with RVR night called EMS. He denies any chest pain. He denies any shortness of breath. He states he did recently had some medication changes when he was admitted here he is currently on amiodarone heart rate here is 105. Associated symptoms: Deny nausea or vomiting Review of Systems Const: Denies: fever(s), chills, body aches or change in appetite ENMT: Denies: throat pain or dental pain Card: Reports: palpitations and irregular heart rhythm; Denies: chest pain Resp: Denies: dyspnea GI: Denies: abdominal pain, nausea, vomiting or diarrhea : Denies: dysuria Musc: Denies: neck pain or back pain Skin/Breast: Denies: rash Neuro: Denies: headache(s) PFSH ED PFSH: Medical History Immunization counseling Seronegative rheumatoid arthritis of both hands Labile essential hypertension High risk medication use Inflammatory arthritis Emphysema of lung 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, bilateral Polyarthralgia CVA (cerebral vascular accident) Hyperlipidemia Hypertension Thyroid disease Renal calculi Status post lithotripsy, stent removed Bilateral renal stones Left ureteral calculus Chronic migraine without aura, intractable, with status migrainosus Surgical History Status post total replacement of right shoulder History of back surgery H/O lithotripsy Family History Mother , 99 Cancer cervical Father , 65 CAD (coronary artery disease) Diabetes Hypertension Cancer Hyperlipidemia Other Lung disease Lupus Rheumatoid arthritis Stroke Social History Smoking and tobacco/nicotine status: never used tobacco/nicotine Alcohol intake: never Substance/Drug Use: never Marital status: Current occupational status: retired Physical Exam Const: COMMON NORMALS: no acute distress, patient oriented x3 and healthy appearing HENMT: COMMON NORMALS: normocephalic and atraumatic HEAD & SCALP: normocephalic and atraumatic Neck/C-Spine: COMMON NORMALS: full ROM and supple Chest: COMMONS NORMALS: normal inspection of the chest and normal palpation of entire chest wall Resp: COMMON NORMALS: normal respiratory effort, No retractions, No use of accessory muscles and clear to auscultation bilaterally AUSCULTATION: clear to auscultation bilaterally Cardio: COMMON NORMALS: No murmurs present (Cardio) RATE: tachycardic RHYTHM: abnormal rhythm irregularly irregular GI: COMMON NORMALS: Normal to inspection, nondistended, normoactive bowel sounds present, Soft to palpation, non-tender and no masses PALPATION: Yes Soft to palpation Extremity: COMMON NORMALS: normal to inspection and full ROM Neuro: COMMON NORMALS: patient oriented x3, moves all extremities and no focal motor deficits Psych: COMMON NORMALS: mental status grossly normal, Normal thought process present and cooperative THOUGHT PROCESS: Normal thought process present Skin: COMMON NORMALS: no rashes or lesions noted and no wounds GENERAL SKIN EXAM: no rashes or lesions noted Course Vital Signs: Vital signs: Vital Signs Temperature 98.1 F 08/31/23 16:07 Pulse Rate 110 H 08/31/23 16:07 Respiratory Rate 16 08/31/23 16:07 Blood Pressure 175/109 08/31/23 16:07 Pulse Oximetry 97 08/31/23 16:07 MDM - Arrhythmia/Palpitations Medical Decision Making Patient presents with A-fib with RVR heart rate here is much improved after dose of Cardizem it has been running in 60s and 70s. Patient's blood work here is normal he had no chest pain no signs of ACS he stable for discharge she is follow-up with PCP return if worsening he understands agrees to plan Medical Records I reviewed the patient's medical records. Lab Data I reviewed the patient's lab results. 08/31/23 16:10 08/31/23 16:10 Radiology Impressions Chest X-Ray 08/31/23 16:06 IMPRESSION: No acute findings. Laboratory Results WBC 5.29 10^3/uL (3.29-11.43) 08/31/23 16:10 RBC 4.14 10^6/uL (3.85-5.65) 08/31/23 16:10 Hgb 13.60 g/dL (11.27-16.99) 08/31/23 16:10 Hct 41.1 % (37-53) 08/31/23 16:10 MCV 99.3 fl (82-101) 08/31/23 16:10 MCH 32.9 pg (27-33) 08/31/23 16:10 MCHC 33.1 g/dL (30-55) 08/31/23 16:10 RDW 14.5 % (12.1-15.1) 08/31/23 16:10 Plt Count 163 10^3/cmm (157-399) 08/31/23 16:10 MPV 8.8 fL (7.4-10.4) 08/31/23 16:10 Neut % (Auto) 57.1 % 08/31/23 16:10 Lymph % (Auto) 20.6 % 08/31/23 16:10 [place] % (Auto) 17.0 % 08/31/23 16:10 Eos % (Auto) 3.8 % 08/31/23 16:10 Baso % (Auto) 0.4 % 08/31/23 16:10 Neut # (Auto) 3.02 10^3/uL (1.8-7.7) 08/31/23 16:10 Lymph # (Auto) 1.1 10^3/uL (0.8-4.8) 08/31/23 16:10 [place] # (Auto) 0.9 10^3/uL (0.2-0.9) 08/31/23 16:10 Eos # (Auto) 0.2 10^3/uL (0.0-0.8) 08/31/23 16:10 Baso # (Auto) 0.0 10^3/uL (0.0-0.1) 08/31/23 16:10 Nucleated RBC % (auto) 0 % 08/31/23 16:10 Nucleated RBCs # 0.0 /100WBC 08/31/23 16:10 PT 16.30 SECONDS (12.1-14.9) H 08/31/23 16:10 INR 1.27 (0.8-1.2) H 08/31/23 16:10 Sodium 139 mmol/L (136-145) 08/31/23 16:10 Potassium 3.9 mmol/L (3.5-5.1) 08/31/23 16:10 Chloride 100 mmol/L (98-107) 08/31/23 16:10 Carbon Dioxide 25 mmol/L (22-29) 08/31/23 16:10 Anion Gap 17.9 (5-19) 08/31/23 16:10 BUN 24 mg/dL (8-23) H 08/31/23 16:10 Creatinine 1.4 mg/dL (0.7-1.2) H 08/31/23 16:10 GFR Calculation Not Reportable 08/31/23 16:10 Glucose 98 mg/dL (65-115) 08/31/23 16:10 Calculated Osmolality 292 mOsm/kg (285-295) 08/31/23 16:10 Calcium 9.2 mg/dL (8.5-10.5) 08/31/23 16:10 Total Bilirubin 0.9 mg/dL (0.15-1.2) 08/31/23 16:10 AST 53 U/L (0-40) H 08/31/23 16:10 ALT 76 U/L (0-41) H 08/31/23 16:10 Alkaline Phosphatase 93 U/L (40-130) 08/31/23 16:10 Total Protein 6.8 g/dL (6.6-8.7) 08/31/23 16:10 Albumin 4.5 g/dL (3.5-5.2) 08/31/23 16:10 Globulin 2.3 g/dL (1.3-4.6) 08/31/23 16:10 TSH 18.26 uIU/mL (0.27-4.20) H 08/31/23 16:10 Valproic Acid 59.5 ug/mL (50-100) 08/31/23 16:10 All radiology interpretation(s) finalized by discharge EKG Data EKG 1: I personally reviewed and interpreted this EKG as follows: EKG interpretation date: 08/31/23 EKG interpretation time: 16:09 Interpretation: atrial fib hr [address] elevation qrs 97 qtc 410 Other EKG comments: Chest X-Ray 08/31/23 16:06 IMPRESSION: No acute findings. Discharge Plan Discharge Patient Disposition: Home Clinical Impression: Atrial fibrillation with RVR Condition: Stable Prescriptions: No Action cholecalciferol (vitamin D3) 1,000 unit capsule 1,000 unit PO DAILY acetaminophen [Tylenol] 325 mg capsule 325 mg PO DAILY PRN (Reason: Pain) divalproex [Depakote ER] 500 mg tablet extended release 24 hr 500 mg PO DAILY levothyroxine [Synthroid] 88 mcg Tablet 88 mcg PO DAILY coenzyme Q10 30 mg Capsule 30 mg PO DAILY vitamin [id number] acid 0.5-1 mg Tablet 1 tab PO DAILY Eliquis 5 mg tablet 5 mg PO BID Qty: 60 0RF Pacerone 200 mg Tablet See Rx Instructions .ROUTE .COMPLEX Qty: 60 0RF Rx Instructions: 1 tab bid for 7 days, followed by once daily Lasix 20 mg tablet 20 mg PO DAILY PRN (Reason: shortness of breath) 30 Days Qty: 30 0RF Rx Instructions: for edema or shortness of breath or weight gain>3lbs Klor-Con 10 10 mEq tablet extended release 10 meq PO DAILY PRN (Reason: with lasix) 30 Days Qty: 30 0RF Rx Instructions: take whenever you take lasix Discharge Orders: Discharge ED (Routine); Ordered 08/31/23 Ordered By: Leo Benton Referrals: Princess Sutton APRN [Primary Care Provider] - 4-7 days Discharge Diet: Advance as tolerated Discharge Activity: Resume usual activity Patient Instructions: A-fib (Atrial Fibrillation) (ED) Coding Level of Care Code ED [employer] for Donna Alberts
[2023-08-31] MEDS: dilTIAZem 5 mg/mL SDV 5 mL 15 MG IVP (16:20)
[2023-08-31] MEDS: sodium chloride 0.9% 500 ML 999 ML IV (16:28)
[2023-08-31 16:36] LABS: Basophils % 0.4 %; Eosinophils # 0.2 10^3/uL (0.0-0.8); Eosinophils % 3.8 %; Hematocrit 41.1 % (37-53); Lymphocytes # 1.1 10^3/uL (0.8-4.8); Lymphocytes % 20.6 %; Mean Corpuscular HGB Conc 33.1 g/dL (30-55); Mean Corpuscular Hemoglobin 32.9 pg (27-33); Mean Corpuscular Volume 99.3 fl (82-101); Mean Platelet Volume 8.8 fL (7.4-10.4); Monocytes # 0.9 10^3/uL (0.2-0.9); Neutrophils # 3.02 10^3/uL (1.8-7.7); Neutrophils % 57.1 %; Nucleated Red Blood Cells % 0 %; Platelet Count 163 10^3/cmm (157-399); Red Blood Count 4.14 10^6/uL (3.85-5.65); Red Cell Distribution Width 14.5 % (12.1-15.1); White Blood Count 5.29 10^3/uL (3.29-11.43)
[2023-08-31 16:44] LABS: INR 1.27 (0.8-1.2)
[2023-08-31 16:50] LABS: Valproic Acid Level 59.5 ug/mL (50-100)
[2023-08-31 16:56] LABS: Alanine Aminotransferase 76 U/L (0-41); Albumin Level 4.5 g/dL (3.5-5.2); Alkaline Phosphatase 93 U/L (40-130); Anion Gap 17.9 (5-19); Aspartate Amino Transferase 53 U/L (0-40); Blood Urea Nitrogen 24 mg/dL (8-23); Calcium 9.2 mg/dL (8.5-10.5); Carbon Dioxide 25 mmol/L (22-29); Chloride 100 mmol/L (98-107); Creatinine Clr Calc Pharmacy 35.9994; Globulin 2.3 g/dL (1.3-4.6); Glucose 98 mg/dL (65-115); Osmolality Calculated 292 mOsm/kg (285-295); Potassium 3.9 mmol/L (3.5-5.1); Sodium 139 mmol/L (136-145); Thyroid Stimulating Hormone 18.26 uIU/mL (0.27-4.20); Total Bilirubin 0.9 mg/dL (0.15-1.2); Total Protein 6.8 g/dL (6.6-8.7)
[2023-08-31 18:01] VITALS: BP 175/109; PULSE 110; RESP 16; TEMP 36.7; O2SAT 97
== END 2023-08-31 18:03 | disposition home or self-care (01) ==
PROVIDERS: Emergency Provider Emergency Medicine; PCP Nurse Practitioner Family
DX: I48.20 Chronic atrial fibrillation, unspecified (principal); Z79.01 Long term (current) use of anticoagulants; J43.9 Emphysema, unspecified; I10 Essential (primary) hypertension; E78.5 Hyperlipidemia, unspecified; Z86.73 Personal history of transient ischemic attack (TIA), and cerebral infarction without residual deficits
CPT/HCPCS: 71045; 80053; 80164; 84443; 85025; 85610; 93005; 96361; 96374; 99285; J3490; J7040

== ENCOUNTER 2023-09-16 13:50 | Outpatient (CLI) | payer OTHER, SELFPAY ==
[2023-09-16 14:33] LABS: Free T4 Free Thyroxine 1.26 ng/dL (0.82-1.77); Thyroid Stimulating Hormone 11.55 uIU/mL (0.27-4.20)
== END 2023-09-16 13:51 | disposition home or self-care (01) ==
LOC: LAB 13:51
PROVIDERS: PCP Nurse Practitioner Family; Visit Provider Internal Medicine
DX: E89.0 Postprocedural hypothyroidism (principal); I48.0 Paroxysmal atrial fibrillation; J44.9 Chronic obstructive pulmonary disease, unspecified; I10 Essential (primary) hypertension; E78.5 Hyperlipidemia, unspecified; R94.31 Abnormal electrocardiogram [ECG] [EKG]
CPT/HCPCS: 36415; 84439; 84443; 93005; 99214

== ENCOUNTER → 2023-09-21 11:44 | Outpatient (BNVA) | payer OTHER, SELFPAY | PROVIDERS: PCP Nurse Practitioner Family; Visit Provider Internal Medicine | DX: R79.89 Other specified abnormal findings of blood chemistry (principal); E89.0 Postprocedural hypothyroidism; R71.8 Other abnormality of red blood cells; G62.9 Polyneuropathy, unspecified; Z71.3 Dietary counseling and surveillance; R53.83 Other fatigue; M54.9 Dorsalgia, unspecified; H57.89 Other specified disorders of eye and adnexa; I48.0 Paroxysmal atrial fibrillation; E07.9 Disorder of thyroid, unspecified; Z79.890 Hormone replacement therapy | CPT/HCPCS: 99214 ==

== ENCOUNTER → 2023-10-13 13:46 | Outpatient (BNVA) | payer OTHER, SELFPAY | PROVIDERS: PCP Nurse Practitioner Family; Visit Provider Internal Medicine Rheumatology | DX: M06.042 Rheumatoid arthritis without rheumatoid factor, left hand (principal); M06.041 Rheumatoid arthritis without rheumatoid factor, right hand; Z79.899 Other long term (current) drug therapy; R79.89 Other specified abnormal findings of blood chemistry; Z71.85 Encounter for immunization safety counseling | CPT/HCPCS: 36415; 80076; 82565; 84520; 99214 ==

== ENCOUNTER 2023-10-20 08:02 | Outpatient (CLI) | payer OTHER, SELFPAY ==
--- NOTE | 2023-10-20 08:15 | US_ITS ---
WS: [id number] RIGHT UPPER QUADRANT ULTRASOUND HISTORY: R79.89 - Other specified abnormal findings of blood chemi... COMPARISON: None available. Liver: 11.9 cm in length. Normal size liver and echogenicity. No bile duct dilatation or mass. Portal Vein: Normal hepatopetal flow with monophasic waveform. Gallbladder: Normally distended gallbladder with no stones or wall thickening. CBD: 0.6 cm Pancreas: Normal size and echogenicity. Right kidney: 8.9 cm in length. Low normal size kidney with no hydronephrosis. No solid mass. Nonobst ructing 5 mm calcification in the upper pole. Aorta and IVC: Mild atherosclerosis aorta. No ascites. US/US liver [id number] IMPRESSION: 1. Normal gallbladder. 2. No bile duct dilatation. 3. Nonobstructing 5 mm calcification upper pole RIGHT kidney.
== END 2023-10-20 08:03 | disposition home or self-care (01) ==
LOC: RAD 08:02
PROVIDERS: PCP Nurse Practitioner Family; Visit Provider Internal Medicine Rheumatology
DX: R79.89 Other specified abnormal findings of blood chemistry (principal); N20.0 Calculus of kidney
CPT/HCPCS: 76705

== ENCOUNTER → 2023-11-01 11:15 | Outpatient (BNVA) | payer OTHER, SELFPAY | PROVIDERS: PCP Nurse Practitioner Family; Visit Provider Internal Medicine | DX: I10 Essential (primary) hypertension (principal); M06.041 Rheumatoid arthritis without rheumatoid factor, right hand; M06.042 Rheumatoid arthritis without rheumatoid factor, left hand; J43.9 Emphysema, unspecified; M47.816 Spondylosis without myelopathy or radiculopathy, lumbar region; E89.0 Postprocedural hypothyroidism | CPT/HCPCS: 99214 ==

== ENCOUNTER 2023-11-18 10:07 | Outpatient (CLI) | payer OTHER, SELFPAY ==
[2023-11-18 11:05] LABS: Free T4 Free Thyroxine 1.45 ng/dL (0.82-1.77); Thyroid Stimulating Hormone 5.64 uIU/mL (0.27-4.20)
== END 2023-11-18 10:08 | disposition home or self-care (01) ==
LOC: LAB 10:08
PROVIDERS: PCP Nurse Practitioner Family; Visit Provider Internal Medicine
DX: R79.89 Other specified abnormal findings of blood chemistry (principal); E89.0 Postprocedural hypothyroidism
CPT/HCPCS: 36415; 84439; 84443

== ENCOUNTER → 2023-11-22 10:14 | Outpatient (BNVA) | payer OTHER, SELFPAY | PROVIDERS: PCP Nurse Practitioner Family; Visit Provider Internal Medicine | DX: E89.0 Postprocedural hypothyroidism (principal); R71.8 Other abnormality of red blood cells; G62.9 Polyneuropathy, unspecified; Z71.3 Dietary counseling and surveillance; R53.83 Other fatigue; M54.9 Dorsalgia, unspecified; H57.89 Other specified disorders of eye and adnexa; I48.0 Paroxysmal atrial fibrillation; E07.9 Disorder of thyroid, unspecified; Z79.890 Hormone replacement therapy | CPT/HCPCS: 99214 ==

== ENCOUNTER 2023-12-12 18:00 | Emergency (ER) | payer OTHER, MEDICARE, SELFPAY ==
[2023-12-12 18:00] VITALS: BP 136/81; PULSE 82; RESP 18; TEMP 36.7; O2SAT 97; BMI 25.2
--- NOTE | 2023-12-12 18:19 | CTR_ITS ---
PROCEDURE INFORMATION: Exam: CT Cervical Spine Without Contrast Exam date and time: 12/12/2023 6:31 PM Age: 78 years old Clinical indication: Injury or trauma; Fall; Blunt trauma; Additional info: Fall neck pain TECHNIQUE: Imaging protocol: Computed tomography of the cervical spine without contrast. Radiation optimization: All CT scans at this facility use at least one of these dose optimization techniques: automated exposure control; mA and/or kV adjustment per patient size (includes targeted exams where dose is matched to clinical indication); or iterative reconstruction. COMPARISON: MR cervical spin wo con* [id number] 07/26/2017 10:04 AM RADIATION DOSE METRICS: Total DLP (mGy-cm): 463.77 FINDINGS: Bones: Mild straightening of the normal cervical lordosis. Mild levoscoliosis. Apparent osseous fusion of C2-C4. Chronic height loss of C5, stable. Severe multilevel degenerative change. No evidence of acute fracture. Lungs: Lung apices are normal. Soft tissues: The soft tissues are within normal limits. CT/CT cervical spin wo con* [id number] IMPRESSION: No evidence of acute fracture.
--- NOTE | 2023-12-12 18:19 | CTR_ITS ---
PROCEDURE INFORMATION: Exam: CT Head Without Contrast Exam date and time: 12/12/2023 6:29 PM Age: 78 years old Clinical indication: Injury or trauma; Fall; Blunt trauma (contusions or hematomas); Additional info: Fall head inj TECHNIQUE: Imaging protocol: Computed tomography of the head without contrast. Radiation optimization: All CT scans at this facility use at least one of these dose optimization techniques: automated exposure control; mA and/or kV adjustment per patient size (includes targeted exams where dose is matched to clinical indication); or iterative reconstruction. COMPARISON: CT head wo con* [id number] 07/25/2023 12:57 PM RADIATION DOSE METRICS: Total DLP (mGy-cm): 1125.58 FINDINGS: Brain: There is [id number] cerebral atrophy. There are ykve-yq-yhfgognm deep white matter microangiopathic ischemic changes. No acute hemorrhage is identified. No mass or mass effect is identified. Cerebral ventricles: Moderately dilated ventricles secondary to atrophy. Paranasal sinuses: Trace fluid or debris in the posterior right maxillary sinus significantly improved compared to prior study. The paranasal sinuses are otherwise clear. Mastoid air cells: The mastoid air cells are clear. Orbital cavities: Suggested exophthalmos, stable. Bones: No acute osseous abnormalities are seen. Soft tissues: The soft tissues are within normal limits. CT/CT head wo con* [id number] IMPRESSION: 1. No acute intracranial pathology. 2. Senescent changes.
--- NOTE | 2023-12-12 18:52 | ED_ITS ---
HPI - Fall General: Chief Complaint: Fall Stated Complaint: neck pain s/p fall Time Seen by Provider: 12/12/23 18:02 History of Present Illness: 78-year-old male patient who fell while blowing leaves in his yard. He fell backwards, striking the back of his head and his neck on the ground. He does not complain of significant pain otherwise. He does have a significant headache and neck pain. Pain does not radiate into the upper or lower extremities. There is no numbness or tingling. He does not feel weak. He was not knocked unconscious. He does appear to be on Eliquis. Related Data Home Medications Medication Instructions Recorded Confirmed acetaminophen 325 mg capsule 325 mg PO DAILY PRN Pain 02/23/19 11/22/23 (Tylenol) cholecalciferol (vitamin D3) 25 1,000 unit PO DAILY 02/23/19 11/22/23 mcg (1,000 unit) capsule coenzyme Q10 30 mg capsule 30 mg PO DAILY 05/14/23 11/22/23 vitamin B12 0.5 mg-folic acid 1 mg 1 tab PO DAILY 05/14/23 11/22/23 tablet divalproex 500 mg tablet,extended 500 mg PO DAILY 06/22/23 11/22/23 release 24 hr (Depakote ER) amiodarone 200 mg tablet (Pacerone) 200 mg PO DAILY 09/16/23 11/22/23 atorvastatin 80 mg tablet (Lipitor) 80 mg PO DAILY 09/16/23 11/22/23 ezetimibe 10 mg tablet (Zetia) 10 mg PO DAILY 09/16/23 11/22/23 ascorbate calcium-bioflavonoid tab PO 11/01/23 11/22/23 1,000 mg-200 mg tablet (Elsa-C with Bioflavonoids) magnesium aspartate-potassium tab PO DAILY 11/01/23 11/22/23 aspartate 250 mg-250 mg tablet zinc acetate 50 mg (zinc) capsule 50 mg PO DAILY 11/01/23 11/22/23 (Galzin) Previous Rx's Medication Instructions Recorded apixaban 5 mg tablet (Eliquis) 5 mg PO BID #60 tabs 05/17/23 levothyroxine 75 mcg tablet 75 mcg PO DAILY #90 tabs 09/01/23 amlodipine 5 mg tablet 5 mg PO DAILY #90 tabs 11/01/23 hydrocodone 5 mg-acetaminophen 325 1 tab PO Q8H PRN pain #5 tabs 12/12/23 mg tablet Allergies Allergy/AdvReac Type Severity Reaction Status Date / Time leflunomide Allergy Intermediate rash Verified 11/22/23 07:56 levothyroxine sodium Allergy Unknown UKNOWN Verified 11/22/23 07:56 [From Levothroid] lisinopril Allergy Unknown UKNOWN Verified 11/22/23 07:56 sulfasalazine AdvReac Intermediate reaction Verified 11/22/23 07:56 to [facility] PFS: Medical History Immunization counseling Seronegative rheumatoid arthritis of both hands Labile essential hypertension High risk medication use Inflammatory arthritis Emphysema of lung 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, bilateral Polyarthralgia CVA (cerebral vascular accident) Hyperlipidemia Hypertension Thyroid disease Renal calculi Status post lithotripsy, stent removed Bilateral renal stones Left ureteral calculus Chronic migraine without aura, intractable, with status migrainosus Surgical History Status post total replacement of right shoulder History of back surgery H/O lithotripsy Family History Mother , 99 Cancer cervical Father , 65 CAD (coronary artery disease) Diabetes Hypertension Cancer Hyperlipidemia Other Lung disease Lupus Rheumatoid arthritis Stroke Social History Smoking and tobacco/nicotine status: unknown if used tobacco/nicotine Alcohol intake: never Substance/Drug Use: never Marital status: Current occupational status: retired Physical Exam Const: COMMON NORMALS: no acute distress and alert GENERAL APPEARANCE: cooperative and frail appearing (Mildly) HENMT: COMMON NORMALS: normocephalic, atraumatic and Normal external nose present HEAD & SCALP: normocephalic and atraumatic FACE & SINUS: normal f acial exam and face symmetric NOSE: Normal external nose present Eye: COMMON NORMALS: Equal, round and reactive pupils present and EOMs intact bilaterally PUPIL: Yes Equal, round and reactive pupils present Neck/C-Spine: GENERAL: Yes trachea midline Chest: CHEST: Yes Symmetrical chest wall rise Resp: COMMON NORMALS: normal respiratory effort, No retractions, No use of accessory muscles and clear to auscultation bilaterally AUSCULTATION: clear to auscultation bilaterally Cardio: COMMON NORMALS: regular rate and regular rhythm RATE: regular rate RHYTHM: regular rhythm GI: COMMON NORMALS: Normal to inspection, nondistended, normoactive bowel sounds present Extremity: COMMON NORMALS: no pedal edema Neuro: JOANIE COMA SCALE: document GCS findings Joanie coma scale eye opening: Spontaneous Joanie coma scale verbal response: Orientated Joanie coma scale motor response: Obey commands Joanie coma scale total score: 15 SENSORIUM/ORIENTATION: Yes alert SPEECH: speech normal SENSORY EXAM: Yes extremities (intact) MOTOR EXAM: Normal motor muscle tone present throughout and No Abnormal motor strength present PUPIL EXAM: Normal pupillary reactivity/response: bilateral Psych: COMMON NORMALS: speech normal SPEECH: Yes normal speech Skin: COMMON NORMALS: no rashes or lesions noted GENERAL SKIN EXAM: no rashes or lesions noted Course Vital Signs: Vital signs: Vital Signs Temperature 98.1 F 12/12/23 18:00 Pulse Rate 81 12/12/23 20:23 Respiratory Rate 17 12/12/23 20:23 Blood Pressure 126/88 12/12/23 20:23 Pulse Oximetry 96 12/12/23 20:23 MDM - Fall Medical Decision Making CTs revealed no acute findings. Will allow home. He is in quite a bit of pain, and will need some pain medication likely. Close outpatient follow-up. Lab Data Radiology Impressions Cervical Spine CT 12/12/23 18:19 IMPRESSION: No evidence of acute fracture. Head CT 12/12/23 18:19 IMPRESSION: 1. No acute intracranial pathology. 2. Senescent changes. All radiology interpretation(s) finalized by discharge Discharge Plan Discharge Patient Disposition: Home Clinical Impression: Contusion of scalp, Neck strain Condition: Stable Prescriptions: New hydrocodone-acetaminophen 5-325 mg tablet 1 tab PO Q8H PRN (Reason: pain) Qty: 5 0RF No Action cholecalciferol (vitamin D3) 1,000 unit capsule 1,000 unit PO DAILY acetaminophen [Tylenol] 325 mg capsule 325 mg PO DAILY PRN (Reason: Pain) Galzin 50 mg (zinc) capsule 50 mg PO DAILY magnesium, potassium aspartate 250-250 mg tablet PO DAILY Elsa-C with Bioflavonoids 1,000-200 mg tablet PO amlodipine 5 mg tablet 5 mg PO DAILY Qty: 90 3RF Pacerone 200 mg tablet 200 mg PO DAILY atorvastatin [Lipitor] 80 mg tablet 80 mg PO DAILY ezetimibe [Zetia] 10 mg tablet 10 mg PO DAILY divalproex [Depakote ER] 500 mg tablet extended release 24 hr 500 mg PO DAILY levothyroxine 75 mcg tablet 75 mcg PO DAILY Qty: 90 1RF coenzyme Q10 30 mg Capsule 30 mg PO DAILY vitamin [id number] acid 0.5-1 mg Tablet 1 tab PO DAILY Eliquis 5 mg tablet 5 mg PO BID Qty: 60 0RF Discharge Orders: Discharge ED (Routine); Ordered 12/12/23 Ordered By: Ramon Bonilla Referrals: Princess Sutton APRN [Primary Care Provider] - 1-3 days Patient Instructions: Cervical Strain (ED), Scalp Contusion in Adults (ED), Opioid Safety, Pain Management Activity Restrictions/Additional Instructions: Return for any concerning symptoms including significant weakness, numbness or tingling, worsening pain despite treatment, other concerning symptoms. Ice or heat may help. Call your doctor in the morning for a follow-up appointment. Coding Level of Care Code ED [employer] for Donna Alberts
[2023-12-12] MEDS: ondansetron 2 mg/ML SDV 2 mL 4 MG IVP (19:35)
[2023-12-12 19:36] VITALS: RESP 20
[2023-12-12] MEDS: morphine 4 mg/mL SDV 1 mL IVP (19:36)
[2023-12-12 20:12] VITALS: RESP 18
[2023-12-12] MEDS: oxyCODONE-APAP 5-325 mg Tablet 1 TAB PO (20:12)
[2023-12-12 20:23] VITALS: BP 126/88; PULSE 81; RESP 17; O2SAT 96
== END 2023-12-12 20:28 | disposition home or self-care (01) ==
PROVIDERS: Emergency Provider Emergency Medicine; PCP Nurse Practitioner Family
DX: S16.1XXA Strain of muscle, fascia and tendon at neck level, initial encounter (principal); S00.03XA Contusion of scalp, initial encounter; W19.XXXA Unspecified fall, initial encounter; Y93.H9 Activity, other involving exterior property and land maintenance, building and construction; Z79.01 Long term (current) use of anticoagulants
CPT/HCPCS: 70450; 72125; 96374; 96375; 99285; J2270; J2405

== ENCOUNTER 2023-12-16 15:35 | Emergency (ER) | payer OTHER, SELFPAY ==
[2023-12-16] VITALS (8 sets, daily range): BP systolic 136–188; BP diastolic 84–127; PULSE 78–116; RESP 16–18; TEMP 36.9; O2SAT 92–100; BMI 32.3
--- NOTE | 2023-12-16 15:44 | CTR_ITS ---
PROCEDURE INFORMATION: Exam: CT Head Without Contrast Exam date and time: 12/16/2023 4:10 PM Age: 78 years old Clinical indication: Injury or trauma; Fall; Other: Worsening occipital pain, double vision; Additional info: Worsening occipital pain/double vision TECHNIQUE: Imaging protocol: Computed tomography of the head without contrast. Radiation optimization: All CT scans at this facility use at least one of these dose optimization techniques: automated exposure control; mA and/or kV adjustment per patient size (includes targeted exams where dose is matched to clinical indication); or iterative reconstruction. COMPARISON: CT head wo con* [id number] 12/12/2023 6:29 PM RADIATION DOSE METRICS: Total DLP (mGy-cm): 1111.98 FINDINGS: Brain: No intracranial hemorrhage. There is global parenchymal volume loss. Periventricular white matter hypoattenuation is nonspecific but most likely due to small vessel disease. No evidence of acute territorial infarct or cerebral edema. No mass effect or midline shift. Cerebral ventricles: Prominent ventricles likely secondary to volume loss. Paranasal sinuses: Visualized sinuses are unremarkable. No fluid levels. Mastoid air cells: Visualized mastoid air cells are well aerated. Bones: Unremarkable. No acute fracture. Soft tissues: Unremarkable. CT/CT head wo con* [id number] IMPRESSION: No acute intracranial findings.
--- NOTE | 2023-12-16 15:46 | ECG_ITS ---
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 Measurements Intervals [place] Rate: 97 P: 0 ND: 0 QRS: 55 QRSD: 98 T: 23 QT: 320 QTc: 407 Interpretive Statements ATRIAL FIBRILLATION NONSPECIFIC ST & T-WAVE ABNORMALITY ABNORMAL RHYTHM ECG Compared to ECG 09/16/2023 15:12:58 No significant change Electronically Signed On 12-16-2023 17:15:12 CDT by Alfredo Oneill M.D. [id number]
[2023-12-16] MEDS: HYDROmorphone 1 mg/mL INJ 1 mL 0.4 MG IVP (15:51)
[2023-12-16 15:56] LABS: Basophils % 0.5 %; Eosinophils # 0.1 10^3/uL (0.0-0.8); Eosinophils % 1.3 %; Hematocrit 42.4 % (37-53); Lymphocytes # 1.8 10^3/uL (0.8-4.8); Lymphocytes % 23.7 %; Mean Corpuscular HGB Conc 33.7 g/dL (30-55); Mean Corpuscular Hemoglobin 33.1 pg (27-33); Mean Corpuscular Volume 98.1 fl (82-101); Mean Platelet Volume 8.7 fL (7.4-10.4); Monocytes # 0.9 10^3/uL (0.2-0.9); Monocytes % 11.3 %; Neutrophils # 4.72 10^3/uL (1.8-7.7); Neutrophils % 61.6 %; Nucleated Red Blood Cells % 0 %; Platelet Count 169 10^3/cmm (157-399); Red Blood Count 4.32 10^6/uL (3.85-5.65); Red Cell Distribution Width 13.4 % (12.1-15.1); White Blood Count 7.67 10^3/uL (3.29-11.43)
[2023-12-16 16:14] LABS: Alanine Aminotransferase 17 U/L (0-41); Albumin Level 4.6 g/dL (3.5-5.2); Alkaline Phosphatase 86 U/L (40-130); Anion Gap 17.2 (5-19); Aspartate Amino Transferase 17 U/L (0-40); Blood Urea Nitrogen 18 mg/dL (8-23); Calcium 9.1 mg/dL (8.5-10.5); Carbon Dioxide 25 mmol/L (22-29); Chloride 99 mmol/L (98-107); Creatine Phosphokinase 57 U/L (39-308); Globulin 2.9 g/dL (1.3-4.6); Glucose 114 mg/dL (65-115); Osmolality Calculated 287 mOsm/kg (285-295); Potassium 4.2 mmol/L (3.5-5.1); Sodium 137 mmol/L (136-145); Total Bilirubin 0.5 mg/dL (0.15-1.2); Total Protein 7.5 g/dL (6.6-8.7)
[2023-12-16 16:15] LABS: INR 1.04 (0.8-1.2)
[2023-12-16 16:17] LABS: Partial Thromboplastin Time 26.7 SECONDS (23.9-36.7)
--- NOTE | 2023-12-16 17:05 | ED_ITS ---
HPI - Headache 2 General: Chief Complaint: Headache Stated Complaint: HEADACHE Time Seen by Provider: 12/16/23 15:37 Source: patient and EMS Mode of arrival: EMS Limitations: no limitations History of Present Illness: Patient is a 78-year-old male presents the emergency department by ambulance for a posterior headache that has been present since previous ED visit on 12/11. During that time, he was leaf blowing outside and he fell backwards and struck the back of his head. He had negative workup here in the emergency department though was in quite a bit of pain the entire time. He was prescribed hydrocodone but states he thinks this was sent to the wrong place as he has not been taking it. Of note, patient has a history of previous ED visits where he would become unresponsive and stare at the ceiling, where he was able to hear you but could not respond. The first such incident, he was transferred for full neurological workup. He came back a second time and during his ED stay at that time he became fully awake after certain period of monitoring. At this time he is responsive, stating that his complaint is pain where he hit his head to the occiput. He notes some doubling of his vision but no other focal neurological deficit. He has not had any vomiting, chest pain, shortness of breath, neck pain, back pain, or other symptoms. He states that the headache is worse with any movement at the neck, and feels like it wraps around to his forehead in a bandlike pattern. Pain is rated at is an 8/10 at this time. He is on Eliquis. He also states not taking his blood pressure medication because recently it was low. He also notes he sees a neurologist in [place], he takes Depakote but nothing else for migraines. MD elicited complaint: headache Pertinent past history: recent trauma and migraines Onset (ago): day(s) Onset description: other (After trauma on 12/11) Location: occipital and band-like Severity: severe Pain scale (0-10): 8 Quality & Timing: throbbing Exacerbating factors: movement of head/neck Relieving factors: nothing Context: recent head injury Associated symptoms: Deny chest pain, fever(s), lightheadedness, nausea, rash or vomiting Related Data Home Medications Medication Instructions Recorded Confirmed acetaminophen 325 mg capsule 325 mg PO DAILY PRN Pain 02/23/19 11/22/23 (Tylenol) cholecalciferol (vitamin D3) 25 1,000 unit PO DAILY 02/23/19 11/22/23 mcg (1,000 unit) capsule coenzyme Q10 30 mg capsule 30 mg PO DAILY 05/14/23 11/22/23 vitamin B12 0.5 mg-folic acid 1 mg 1 tab PO DAILY 05/14/23 11/22/23 tablet divalproex 500 mg tablet,extended 500 mg PO DAILY 06/22/23 11/22/23 release 24 hr (Depakote ER) amiodarone 200 mg tablet (Pacerone) 200 mg PO DAILY 09/16/23 11/22/23 atorvastatin 80 mg tablet (Lipitor) 80 mg PO DAILY 09/16/23 11/22/23 ezetimibe 10 mg tablet (Zetia) 10 mg PO DAILY 09/16/23 11/22/23 ascorbate calcium-bioflavonoid tab PO 11/01/23 11/22/23 1,000 mg-200 mg tablet (Elsa-C with Bioflavonoids) magnesium aspartate-potassium tab PO DAILY 11/01/23 11/22/23 aspartate 250 mg-250 mg tablet zinc acetate 50 mg (zinc) capsule 50 mg PO DAILY 11/01/23 11/22/23 (Galzin) Previous Rx's Medication Instructions Recorded apixaban 5 mg tablet (Eliquis) 5 mg PO BID #60 tabs 05/17/23 levothyroxine 75 mcg tablet 75 mcg PO DAILY #90 tabs 09/01/23 amlodipine 5 mg tablet 5 mg PO DAILY #90 tabs 11/01/23 hydrocodone 7.5 mg-acetaminophen 1 tab PO Q8H PRN pain #5 tabs 12/16/23 325 mg tablet Allergies Allergy/AdvReac Type Severity Reaction Status Date / Time leflunomide Allergy Intermediate rash Verified 11/22/23 07:56 levothyroxine sodium Allergy Unknown UKNOWN Verified 11/22/23 07:56 [From Levothroid] lisinopril Allergy Unknown UKNOWN Verified 11/22/23 07:56 sulfasalazine AdvReac Intermediate reaction Verified 11/22/23 07:56 to bar Review of Systems 2 General: Reports: 10 or more systems reviewed and unremarkable except in HPI and below Const: Reports: other (Recent fall/head injury on 12/11); Denies: fever(s), chills or fatigue Eyes: Reports: change in vision (Double vision) ENMT: Denies: throat pain, ear or mastoid pain or nasal discharge Card: Denies: chest pain, palpitations, swelling of feet/ankles or lightheadedness Resp: Denies: dyspnea, productive cough or wheezing GI: Denies: abdominal pain, nausea, vomiting, diarrhea or constipation : Denies: flank pain, difficulty urinating, dysuria or urinary frequency Musc: Denies: neck pain, back pain or joint pain Skin/Breast: Denies: rash Neuro: Reports: headache(s); Denies: numbness in extremities or weakness in extremities PFSH ED 2 PFSH: Medical History Immunization counseling Seronegative rheumatoid arthritis of both hands Labile essential hypertension High risk medication use Inflammatory arthritis Emphysema of lung 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, bilateral Polyarthralgia CVA (cerebral vascular accident) Hyperlipidemia Hypertension Thyroid disease Renal calculi Status post lithotripsy, stent removed Bilateral renal stones Left ureteral calculus Chronic migraine without aura, intractable, with status migrainosus Surgical History Status post total replacement of right shoulder History of back surgery H/O lithotripsy Family History Mother , 99 Cancer cervical Father , 65 CAD (coronary artery disease) Diabetes Hypertension Cancer Hyperlipidemia Other Lung disease Lupus Rheumatoid arthritis Stroke Social History Smoking and tobacco/nicotine status: unknown if used tobacco/nicotine Alcohol intake: never Substance/Drug Use: never Marital status: Current occupational status: retired Physical Exam 2 Const: COMMON NORMALS: patient oriented x3, no limitations and healthy appearing GENERAL APPEARANCE: cooperative ORIENTATION/CONSCIOUSNESS: Yes awake, Yes oriented to person, Yes oriented to place and Yes oriented to time OTHER: Appears very uncomfortable in bed secondary to pain, however there is no focal neurological deficit and he is alert and oriented. GCS 15 HENMT: COMMON NORMALS: normocephalic, atraumatic and Normal external nose present HEAD & SCALP: normocephalic, atraumatic and scalp tenderness (Occipital); no Acrocyanosis present, no Landis's sign, no contusion, no hematoma, no palpable skull fracture, no raccoon eyes and no scalp lesion FACE & SINUS: n ormal facial exam and face symmetric; no Acrocyanosis present NOSE: Normal external nose present MOUTH: Normal oral and palatal mucosa present Eye: COMMON NORMALS: Equal, round and reactive pupils present, EOMs intact bilaterally and conjunctivae normal CONJUNCTIVA: Yes conjunctivae normal P UPIL: Yes Equal, round and reactive pupils present OTHER: Eyes track midline, no nystagmus Neck/C-Spine: OTHER: Antalgic range of motion at the cervical region, negative for tenderness to palpation along the spinous process or paracervical muscles. Chest: COMMONS NORMALS: normal inspection of the chest and normal palpation of entire chest wall Resp: COMMON NORMALS: normal respiratory effort, No retractions, No use of accessory muscles and clear to auscultation bilaterally AUSCULTATION: clear to auscultation bilaterally Cardio: COMMON NORMALS: regular rate, No gallops present (Cardio), No murmurs present (Cardio) and No rub (Cardio) RATE: regular rate RHYTHM: abnormal rhythm irregularly irregular GI: COMMON NORMALS: Normal to inspection, nondistended, normoactive bowel sounds present, Soft to palpation and non-tender PALPATION: Yes Soft to palpation Back/Pelvis: COMMON NORMALS: no thoracic nor lumbar tenderness and thoraco- lumbar ROM normal Extremity: COMMON NORMALS: normal to inspection, full ROM and capillary refill normal Neuro: COMMON NORMALS: patient oriented x3, CN's II-XII intact bilaterally, moves all extremities, no focal motor deficits and no sensory deficits noted SENSORIUM/ORIENTATION: Yes oriented to person, Yes oriented to place and Yes oriented to time COORDINATION/BALANCE: [id number] test normal and [id number] test normal MOTOR EXAM: 5/5 motor strength present throughout, Pronator motor function not present, no tremor noted, no asterixis, Motor fasciculations not present, Normal motor muscle tone present throughout and Motor abnormalities not present COORDINATION: [id number]-it-[id number] test normal and gccn-nj-[id number] test normal Psych: COMMON NORMALS: mental status grossly normal Skin: COMMON NORMALS: no rashes or lesions noted GENERAL SKIN EXAM: no rashes or lesions noted Course 2 Vital Signs: Vital signs: Vital Signs Temperature 98.4 F 12/16/23 15:36 Pulse Rate 87 12/16/23 19:33 Respiratory Rate 16 12/16/23 15:51 Blood Pressure 136/99 12/16/23 19:33 Pulse Oximetry 92 12/16/23 19:33 Oxygen Delivery Me thod Room Air 12/16/23 15:36 MDM - Headache Medical Decision Making Patient presented by ambulance for headache, he was seen here in the emergency department a couple of days ago for a fall where he had intracranial hemorrhage ruled out. Upon further history taking and reviewing patient's records, he has history of atypical migraines in the past where he has been worked up at a neurological facility after what was thought to be a CVA. Reportedly, this is resemblance today of those prior episodes, where sometimes he will go completely unresponsive and Steri-Strip at the ceiling. He has been completely responsive here today and is neurologically intact, with his main complaint being worsening of the pain. Initially he was given narcotic pain medication which did not do much. Retaking of imaging was negative for any new findings. He was then treated for migraine with a migraine cocktail and does report quite a bit of relief after this. He has a neurologist, I instructed him to follow-up with them for further evaluation, though it appears at this time that there is no need for acute consult. All of his questions and concerns were addressed and he is ready to go home at this time. He states with his last visit he was supposed to have pain medication sent to his pharmacy but was sent to the wrong 1, I we will resend his. Lab Data 12/16/23 15:23 12/16/23 15:[address] 12/16/23 15:44 IMPRESSION: No acute intracranial findings. Laboratory Results WBC 7.67 10^3/uL (3.29-11.43) 12/16/23 15:23 RBC 4.32 10^6/uL (3.85-5.65) 12/16/23 15:23 Hgb 14.30 g/dL (11.27-16.99) 12/16/23 15:23 Hct 42.4 % (37-53) 12/16/23 15:23 MCV 98.1 fl (82-101) 12/16/23 15: MCH 33.1 pg (27-33) H 12/16/23 15: MCHC 33.7 g/dL (30-55) 12/16/23 15: RDW 13.4 % (12.1-15.1) 12/16/23 15:23 Plt Count 169 10^3/cmm (157-399) 12/16/23 15: MPV 8.7 fL (7.4-10.4) 12/16/23 15:23 Neut % (Auto) 61.6 % 12/16/23 15:23 Lymph % (Auto) 23.7 % 12/16/23 15:23 [place] % (Auto) 11.3 % 12/16/23 15: Eos % (Auto) 1.3 % 12/16/23 15: Baso % (Auto) 0.5 % 12/16/23: Neut # (Auto) 4.72 10^3/uL (1.8-7.7) 12/16/23 15: Lymph # (Auto) 1.8 10^3/uL (0.8-4.8) 12/16/23 15:23 [place] # (Auto) 0.9 10^3/uL (0.2-0.9) 12/16/23 15:23 Eos # (Auto) 0.1 10^3/uL (0.0-0.8) 12/16/23 15:23 Baso # (Auto) 0.0 10^3/uL (0.0-0.1) 12/16/23 15: Nucleated RBC % (auto) 0 % 12/16/23 15: Nucleated RBCs # 0.0 /100WBC 12/16/23 15:23 PT 13.90 SECONDS (12.1-14.9) 12/16/23 15: INR 1.04 (0.8-1.2) 12/16/23 15:23 APTT 26.7 SECONDS (23.9-36.7) 12/16/23 15:23 Sodium 137 mmol/L (136-145) 12/16/23 15:23 Potassium 4.2 mmol/L (3.5-5.1) 12/16/23 15:23 Chloride 99 mmol/L (98-107) 12/16/23 15:23 Carbon Dioxide 25 mmol/L (22-29) 12/16/23 15:23 Anion Gap 17.2 (5-19) 12/16/23 15:23 BUN 18 mg/dL (8-23) 12/16/23 15:23 Creatinine 1.2 mg/dL (0.7-1.2) 12/16/23 15:23 GFR Calculation Not Reportable 12/16/23 15:23 Glucose 114 mg/dL (65-115) 12/16/23 15:23 Calculated Osmolality 287 mOsm/kg (285-295) 12/16/23 15:23 Calcium 9.1 mg/dL (8.5-10.5) 12/16/23 15:23 Total Bilirubin 0.5 mg/dL (0.15-1.2) 12/16/23 15:23 AST 17 U/L (0-40) 12/16/23 15:23 ALT 17 U/L (0-41) 12/16/23 15:23 Alkaline Phosphatase 86 U/L (40-130) 12/16/23 15:23 Creatine Kinase 57 U/L (39-308) 12/16/23 15:23 Total Protein 7.5 g/dL (6.6-8.7) 12/16/23 15:23 Albumin 4.6 g/dL (3.5-5.2) 12/16/23 15:23 Globulin 2.9 g/dL (1.3-4.6) 12/16/23 15:23 All radiology interpretation(s) finalized by discharge Discharge Plan Discharge Patient Disposition: Home Clinical Impression: Headache Qualifiers: Headache type: unspecified Headache chronicity pattern: acute headache I ntractability: intractable Qualified Code(s): R51.9 - Headache, unspecified Condition: Stable Prescriptions: New hydrocodone-acetaminophen 7.5-325 mg tablet 1 tab PO Q8H PRN (Reason: pain) Qty: 5 0RF Discontinued hydrocodone-acetaminophen 5-325 mg tablet 1 tab PO Q8H PRN (Reason: pain) Qty: 5 0RF No Action cholecalciferol (vitamin D3) 1,000 unit capsule 1,000 unit PO DAILY acetaminophen [Tylenol] 325 mg capsule 325 mg PO DAILY PRN (Reason: Pain) Galzin 50 mg (zinc) capsule 50 mg PO DAILY magnesium, potassium aspartate 250-250 mg tablet PO DAILY Elsa-C with Bioflavonoids 1,000-200 mg tablet PO amlodipine 5 mg tablet 5 mg PO DAILY Qty: 90 3RF Pacerone 200 mg tablet 200 mg PO DAILY atorvastatin [Lipitor] 80 mg tablet 80 mg PO DAILY ezetimibe [Zetia] 10 mg tablet 10 mg PO DAILY divalproex [Depakote ER] 500 mg tablet extended release 24 hr 500 mg PO DAILY levothyroxine 75 mcg tablet 75 mcg PO DAILY Qty: 90 1RF coenzyme Q10 30 mg Capsule 30 mg PO DAILY vitamin [id number] acid 0.5-1 mg Tablet 1 tab PO DAILY Eliquis 5 mg tablet 5 mg PO BID Qty: 60 0RF Discharge Orders: Discharge ED (Routine); Ordered 12/16/23 Ordered By: Jason Teague Referrals: Princess Sutton APRN [Primary Care Provider] - Activity Restrictions/Additional Instructions: Pain medications as provided. Please follow-up with neurology as discussed. Return with any new or concerning symptoms you may have. Continue taking your home medications as usual. Coding Level of Care Code ED [facility] for Donna Alberts
[2023-12-16] MEDS: sodium chloride 0.9% 1,000 ML 999 ML IV (17:17)
[2023-12-16] MEDS: dexamethasone 10 mg/mL INJ IVP (17:17)
[2023-12-16] MEDS: diphenhydrAMINE 50 mg/mL SDV 1mL IVP (17:19)
[2023-12-16] MEDS: ondansetron 2 mg/ML SDV 2 mL 4 MG IVP (17:20)
[2023-12-16] MEDS: ketorolac 60 mg/2 mL INJ 30 MG IVP (17:22)
== END 2023-12-16 19:05 | disposition home or self-care (01) ==
PROVIDERS: Emergency Provider Physician Assistant; PCP Nurse Practitioner Family
DX: R51.9 Headache, unspecified (principal); Z79.01 Long term (current) use of anticoagulants; I10 Essential (primary) hypertension
CPT/HCPCS: 70450; 80053; 82550; 85025; 85610; 85730; 93005; 96374; 96375; 99285; J1100; J1171; J1200; J1885; J2405; J7030

== ENCOUNTER 2024-01-03 13:18 | Outpatient (CLI) | payer OTHER, SELFPAY ==
[2024-01-03 14:12] LABS: Free T4 Free Thyroxine 1.27 ng/dL (0.82-1.77)
== END 2024-01-03 13:19 | disposition home or self-care (01) ==
PROVIDERS: PCP Nurse Practitioner Family; Visit Provider Internal Medicine
DX: E89.0 Postprocedural hypothyroidism (principal)
CPT/HCPCS: 36415; 84439; 84443

== ENCOUNTER → 2024-02-23 13:22 | Outpatient (BNVA) | payer OTHER, SELFPAY | PROVIDERS: PCP Nurse Practitioner Family; Visit Provider Internal Medicine Rheumatology | DX: M06.041 Rheumatoid arthritis without rheumatoid factor, right hand (principal); M06.042 Rheumatoid arthritis without rheumatoid factor, left hand; Z71.85 Encounter for immunization safety counseling; M18.0 Bilateral primary osteoarthritis of first carpometacarpal joints | CPT/HCPCS: 99214 ==

== ENCOUNTER → 2024-03-01 14:53 | Outpatient (BNVA) | payer OTHER, SELFPAY | PROVIDERS: PCP Nurse Practitioner Family; Visit Provider Internal Medicine Rheumatology | DX: M06.9 Rheumatoid arthritis, unspecified (principal) | CPT/HCPCS: 20610; J1010 ==

== ENCOUNTER 2024-03-22 10:20 | Inpatient (IN) | payer OTHER, MEDICARE, SELFPAY ==
[2024-03-22] VITALS (52 sets, daily range): BP systolic 96–167; BP diastolic 73–125; PULSE 85–119; RESP 12–25; TEMP 36.3–36.6; O2SAT 96–99
--- NOTE | 2024-03-22 10:22 | ECG_ITS ---
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 Measurements Intervals [place] Rate: 103 P: 0 MD: 0 QRS: 59 QRSD: 86 T: 40 QT: 398 QTc: 522 Interpretive Statements ATRIAL FIBRILLATION WITH RAPID VENTRICULAR RESPONSE NONSPECIFIC ST & T-WAVE ABNORMALITY Compared to ECG 12/16/2023 15:51:00 Atrial fibrillation no longer present T-wave abnormality still present Electronically Signed On 03-23-2024 21:59:26 COMPUTER ANALYST by Vaibhav Perez M.D. [id number]
--- NOTE | 2024-03-22 10:22 | CT_ITS ---
WS: [id number] CT HEAD NONCONTRAST HISTORY: ACUTE STROKE SYMPTOMS TECHNIQUE: Contiguous axial imaging performed through the brain. Bone and soft tissue windows. Sagittal and coronal reformats reviewed. All CT scans at [facility] use at least one of these dose optimization techniques: automated exposure control; mA and/or kV adjustment per patient size (includes targeted exams where dose is matched to clinical indication); or iterative reconstruction. DLP: 1230.13 mGy COMPARISON: 12/16/2023 No acute intracranial hemorrhage, midline shift or mass effect. Mild symmetric atrophy and mild small vessel changes. More prominent small vessel disease in the RIGHT occipital lobe was also present on the prior study. Ventricles: Normal size with no hydrocephalus. Paranasal sinuses: As visualized are clear. Mastoid air cells: Well pneumatized. Calvarium and scalp: Skull is intact with no soft tissue edema or swelling. CT/CT head thrombolytic [id number] IMPRESSION: 1. No acute intracranial hemorrhage or edema. 2. Mild atrophy and small vessel disease, similar to 12/16/2023. Notified Leo Benton MD at 03/22/2024 10:28 AM.
--- NOTE | 2024-03-22 10:22 | CT_ITS ---
WS: [id number] CT ANGIOGRAM CEREBRAL AND CAROTID ARTERIES HISTORY: stroke TECHNIQUE: CT angiogram is performed of the carotid and cerebral arteries. During arterial injection imaging is obtained from the skull vertex to the aortic arch in 1.25 mm imaging. Coronal and sagittal reformats are submitted. Additional multi planar reformats of the carotid and cerebral arteries are submitted, MIP imaging also reviewed. NASCET criteria utilized. All CT scans at [facility] use at least one of these dose optimization techniques: automated exposure control; mA and/or kV adjustment per patient size (includes targeted exams where dose is matched to clinical indication); or iterative reconstruction. CONTRAST: Omnipaque 350; 100 mL IV. DLP: 376.89 mGy.cm COMPARISON: 03/23/2023 Carotid Angiogram: Right carotid: Common carotid artery: Arises normally from the innominate artery. No significant plaque or stenosis. Internal carotid artery: Small amount of calcified plaque at the bifurcation. Stenosis less than 50%. External carotid artery: Patent. Left carotid: Common carotid artery: Arises normally from the aorta. No significant plaque or stenosis. Internal carotid artery: Small amount of calcified plaque at the bifurcation with no high-grade stenosis. External carotid artery: Patent. Right vertebral artery: Extremely small caliber RIGHT vertebral artery as seen on the prior exam from 03/23/2023. Short segment in the lower cervical spine where the vertebral artery is difficult to visualize but I do believe it is probably intact just obscured by the adjacent bone. Left vertebral artery: Dominant and normal caliber with a small amount of plaque at the origin from the subclavian artery. Subclavian arteries: No stenosis or significant abnormality. Upper thorax: Emphysema at the apices. Thyroid gland: Normal. Osseous structures: Unremarkable. CEREBRAL ANGIOGRAM: Intracranial vertebral arteries: Extremely small caliber distal RIGHT vertebral artery. Distally there is a small segment of the vertebral artery which is not definitely opacified with contrast. Similar appearance of the RIGHT vertebral artery on 03/23/2023. LEFT vertebral artery is dominant. Basilar artery: No significant stenosis or occlusion. No aneurysm. Intracranial Internal carotid arteries: Mild plaque in the intracranial carotid arteries to the cavernous sinuses. Middle cerebral arteries: Normal proximal middle cerebral arteries. No thrombus. Anterior cerebral arteries and ACOM: Normal. Posterior cerebral arteries and PCOM's: Normal. Dural venous sinuses are normally enhancing. CT/CT angio headneck* [id number] IMPRESSION: 1. No high-grade cervical carotid artery stenosis. Small amount of plaque bila terally, stenosis less than 50%. 2. Reidentified is an extremely small caliber RIGHT vertebral artery throughou t its course and possibly occluded distally beyond the foramen magnum. Similar findings noted on 03/23/2023. 3. Normal basilar artery. 4. No thrombus or stenosis within the central [place] of [place].
[2024-03-22 10:25] LABS: Glucose Point of Care 175 mg/dL (70-110)
[2024-03-22] MEDS: iohexol 350 mg/mL 500 mL Btl (per mL) IV (10:31)
--- NOTE | 2024-03-22 10:35 | PC.PHAR ---
PATIENT IS [facility]
--- NOTE | 2024-03-22 10:40 | W.ED.NEUROSD ---
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 His last known normal was 930. Here he is only able to blink his eyes really he does respond to questions with eye blinking with 1 for yes and 2 for no he is not able to speak or move any extremities. Related Data Home Medications ?Medication ?Instructions ?Recorded ?Confirmed cholecalciferol (vitamin D3) 25 1,000 unit PO DAILY 02/23/19 03/01/24 mcg (1,000 unit) capsule coenzyme Q10 30 mg capsule 30 mg PO DAILY 05/14/23 03/01/24 vitamin B12 0.5 mg-folic acid 1 mg 1 tab PO DAILY 05/14/23 03/01/24 tablet ezetimibe 10 mg tablet (Zetia) 10 mg PO DAILY 09/16/23 03/01/24 ascorbate calcium-bioflavonoid tab PO 11/01/23 03/01/24 1,000 mg-200 mg tablet (Elsa-C with Bioflavonoids) acetaminophen 500 mg tablet 1,000 mg PO .[id number] for 02/23/24 03/01/24 (Tylenol Extra Strength) osteoarthritis Previous Rx's ?Medication ?Instructions ?Recorded apixaban 5 mg tablet (Eliquis) 5 mg PO BID #60 tabs 05/17/23 amlodipine 5 mg tablet 5 mg PO DAILY #90 tabs 11/01/23 Synthroid 100 mcg tablet 100 mcg PO DAILY #30 tabs 02/03/24 (levothyroxine) Allergies Allergy/AdvReac Type Severity Reaction Status Date / Time leflunomide Allergy Intermediate rash Verified 02/23/24 13:50 levothyroxine sodium (From Allergy Unknown [place] Verified 02/23/24 13:50 Levothroid) lisinopril Allergy Unknown [place] Verified 02/23/24 13:50 sulfasalazine AdvReac Intermediate reaction Verified 02/23/24 13:50 to sun Review of Systems General: Reports: ROS unobtainable due to mental status PFSH ED PFSH: Medical History Osteoarthritis of carpometacarpal (CMC) joint of both thumbs Immunization counseling Seronegative rheumatoid arthritis of both hands Labile essential hypertension High risk medication use Inflammatory arthritis Emphysema of lung 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, bilateral Polyarthralgia CVA (cerebral vascular accident) Hyperlipidemia Hypertension Thyroid disease Renal calculi Status post lithotripsy, stent removed Bilateral renal stones Left ureteral calculus Chronic migraine without aura, intractable, with status migrainosus Surgical History Status post total replacement of right shoulder History of back surgery H/O lithotripsy Family History Mother , 99 Cancer cervical Father , 65 CAD (coronary artery disease) Diabetes Hypertension Cancer Hyperlipidemia Other Lung disease Lupus Rheumatoid arthritis Stroke Social History Smoking and tobacco/nicotine status: unknown if used tobacco/nicotine Alcohol intake: never Substance/Drug Use: never Marital status: Current occupational status: retired NIH stroke score NIHSS: Level Of Consciousness - 1a: 0 Level Of Consciousness Questions - 1b: Both Correct Level Of Consciousness Commands - 1c: Both Correct Best Gaze - 2: Normal Visual Parekh - 3: No Visual Loss Facial Palsy - 4: Normal Motor Arm Right - 5: No Movement Motor Arm Left - 5: No Movement Motor Leg Right - 6: No Movement Motor Leg Left - 6: No Movement Limb Ataxia - 7: Absent Sensory - 8: Normal Best Language - 9: Mute; Global Aphasia Dysarthia - 10: Severe Dysarthia Extinction And Inattention - 11: 0 Score: Total Score: 21 Physical Exam Const: COMMON NORMALS: negative for patient oriented x3 ORIENTATION/CONSCIOUSNESS: not oriented to person, not oriented to place and not oriented to time HENMT: COMMON NORMALS: normocephalic and atraumatic HEAD & SCALP: normocephalic and atraumatic Eye: COMMON NORMALS: Equal, round and reactive pupils present and EOMs intact bilaterally PUPIL: Yes Equal, round and reactive pupils present Neck/C-Spine: COMMON NORMALS: full ROM Chest: COMMONS NORMALS: normal inspection of the chest Resp: COMMON NORMALS: normal respiratory effort and clear to auscultation bilaterally AUSCULTATION: clear to auscultation bilaterally Cardio: COMMON NORMALS: regular rate RATE: regular rate RHYTHM: abnormal rhythm irregularly irregular GI: COMMON NORMALS: Normal to inspection, nondistended, normoactive bowel sounds present and Soft to palpation PALPATION: Yes Soft to palpation Extremity: COMMON NORMALS: normal to inspection Neuro: COMMON NORMALS: negative for patient oriented x3 SENSORIUM/ORIENTATION: No oriented to person, No oriented to place and No oriented to time GAIT: No Normal gait present MOTOR EXAM: No 5/5 motor strength present throughout Course Vital Signs: Vital signs: Vital Signs Temperature 97.9 F 03/22/24 10:25 Pulse Rate 94 03/22/24 11:16 Respiratory Rate 14 03/22/24 11:16 Blood Pressure 121/96 03/22/24 11:16 Pulse Oximetry 98 03/22/24 11:16 MDM - Neuro Symptoms/Deficit Medical Decision Making Patient presents here with strokelike symptoms he started to be able to move his extremities more head CT showed no acute abnormalities no large thrombus on CTA is not a thrombectomy candidate he is not a lytic candidate due to being on Eliquis patient's been seen by neurology spoke to hospitalist will admit. Medical Records I reviewed the patient's medical records. Lab Data I reviewed the patient's lab results. 03/22/24 10:35 03/22/24 10:[address] 03/22/24 10:22 IMPRESSION: 1. No acute intracranial hemorrhage or edema. 2. Mild atrophy and small vessel disease, similar to 12/16/2023. Notified Leo Benton MD at 03/22/2024 10:28 AM. Head/Neck CTA 03/22/24 10:22 IMPRESSION: 1. No high-grade cervical carotid artery stenosis. Small amount of plaque bilaterally, stenosis less than 50%. 2. Reidentified is an extremely small caliber RIGHT vertebral artery throughout its course and possibly occluded distally beyond the foramen magnum. Similar findings noted on 03/23/2023. 3. Normal basilar artery. 4. No thrombus or stenosis within the central [place] of [place]. Laboratory Results WBC 5.30 10^3/uL (3.29-11.43) 03/22/24 10:35 RBC 4.23 10^6/uL (3.85-5.65) 03/22/24 10:35 Hgb 14.50 g/dL (11.27-16.99) 03/22/24 10:35 Hct 41.6 % (37-53) 03/22/24 10:35 MCV 98.3 fl (82-101) 03/22/24 10:35 MCH 34.3 pg (27-33) H 03/22/24 10:35 MCHC 34.9 g/dL (30-55) 03/22/24 10:35 RDW 13.1 % (12.1-15.1) 03/22/24 10:35 Plt Count 183 10^3/cmm (157-399) 03/22/24 10:35 MPV 8.1 fL (7.4-10.4) 03/22/24 10:35 Neut % (Auto) 64.1 % 03/22/24 10:35 Lymph % (Auto) 21.9 % 03/22/24 10:35 [place] % (Auto) 11.3 % 03/22/24 10:35 Eos % (Auto) 1.3 % 03/22/24 10:35 Baso % (Auto) 0.6 % 03/22/24 10:35 Neut # (Auto) 3.40 10^3/uL (1.8-7.7) 03/22/24 10:35 Lymph # (Auto) 1.2 10^3/uL (0.8-4.8) 03/22/24 10:35 [place] # (Auto) 0.6 10^3/uL (0.2-0.9) 03/22/24 10:35 Eos # (Auto) 0.1 10^3/uL (0.0-0.8) 03/22/24 10:35 Baso # (Auto) 0.0 10^3/uL (0.0-0.1) 03/22/24 10:35 Nucleated RBC % (auto) 0 % 03/22/24 10:35 Nucleated RBCs # 0.0 /100WBC 03/22/24 10:35 PT 14.90 SECONDS (12.1-14.9) 03/22/24 10:35 INR 1.09 (0.8-1.2) 03/22/24 10:35 APTT 28.3 SECONDS (23.9-36.7) 03/22/24 10:35 Sodium 132 mmol/L (136-145) L 03/22/24 10:35 Potassium 4.1 mmol/L (3.5-5.1) 03/22/24 10:35 Chloride 95 mmol/L (98-107) L 03/22/24 10:35 Carbon Dioxide 25 mmol/L (22-29) 03/22/24 10:35 Anion Gap 16.1 (5-19) 03/22/24 10:35 BUN 13 mg/dL (8-23) 03/22/24 10:35 Creatinine 1.1 mg/dL (0.7-1.2) 03/22/24 10:35 GFR Calculation Not Reportable 03/22/24 10:35 Glucose 154 mg/dL (65-115) H 03/22/24 10:35 POC Glucose 175 mg/dL (70-110) H 03/22/24 10:22 Calculated Osmolality 277 mOsm/kg (285-295) L 03/22/24 10:35 Calcium 9.2 mg/dL (8.5-10.5) 03/22/24 10:35 Total Bilirubin 0.9 mg/dL (0.15-1.2) 03/22/24 10:35 AST 32 U/L (0-40) 03/22/24 10:35 ALT 42 U/L (0-41) H 03/22/24 10:35 Alkaline Phosphatase 118 U/L (40-130) 03/22/24 10:35 Total Protein 6.8 g/dL (6.6-8.7) 03/22/24 10:35 Albumin 4.3 g/dL (3.5-5.2) 03/22/24 10:35 Globulin 2.5 g/dL (1.3-4.6) 03/22/24 10:35 Amorphous Sediment Not Reportable 03/22/24 10:25 All radiology interpretation(s) finalized by discharge EKG Data EKG 1: I personally reviewed and interpreted this EKG as follows: EKG interpretation date: 03/22/24 EKG interpretation time: 11:01 Interpretation: atrial flutter hr [address] or t wave abnormalities qrs 86 qtc 457 Discharge Plan Discharge Condition: Stable Prescriptions: No Action cholecalciferol (vitamin D3) 1,000 unit capsule 1,000 unit PO DAILY Elsa-C with Bioflavonoids 1,000-200 mg tablet PO amlodipine 5 mg tablet 5 mg PO DAILY Qty: 90 3RF ezetimibe [Zetia] 10 mg tablet 10 mg PO DAILY acetaminophen [Tylenol Extra Strength] 500 mg tablet 1,000 mg PO .[id number] levothyroxine [Synthroid] 100 mcg tablet 100 mcg PO DAILY Qty: 30 0RF coenzyme Q10 30 mg Capsule 30 mg PO DAILY vitamin [id number] 0.5-1 mg Tablet 1 tab PO DAILY Eliquis 5 mg tablet 5 mg PO BID Qty: 60 0RF Referrals: Princess Sutton APRN [Primary Care Provider] - Print Language: French Coding Level of Care Code ED Med Care Manager for Donna Alberts
[2024-03-22 10:48] LABS: Basophils % 0.6 %; Eosinophils # 0.1 10^3/uL (0.0-0.8); Eosinophils % 1.3 %; Hematocrit 41.6 % (37-53); Lymphocytes # 1.2 10^3/uL (0.8-4.8); Lymphocytes % 21.9 %; Mean Corpuscular HGB Conc 34.9 g/dL (30-55); Mean Corpuscular Hemoglobin 34.3 pg (27-33); Mean Corpuscular Volume 98.3 fl (82-101); Mean Platelet Volume 8.1 fL (7.4-10.4); Monocytes # 0.6 10^3/uL (0.2-0.9); Monocytes % 11.3 %; Neutrophils % 64.1 %; Nucleated Red Blood Cells % 0 %; Platelet Count 183 10^3/cmm (157-399); Red Blood Count 4.23 10^6/uL (3.85-5.65); Red Cell Distribution Width 13.1 % (12.1-15.1)
[2024-03-22 11:01] LABS: INR 1.09 (0.8-1.2); Partial Thromboplastin Time 28.3 SECONDS (23.9-36.7)
[2024-03-22 11:05] LABS: Alanine Aminotransferase 42 U/L (0-41); Albumin Level 4.3 g/dL (3.5-5.2); Alkaline Phosphatase 118 U/L (40-130); Anion Gap 16.1 (5-19); Aspartate Amino Transferase 32 U/L (0-40); Blood Urea Nitrogen 13 mg/dL (8-23); Calcium 9.2 mg/dL (8.5-10.5); Carbon Dioxide 25 mmol/L (22-29); Chloride 95 mmol/L (98-107); Globulin 2.5 g/dL (1.3-4.6); Glucose 154 mg/dL (65-115); Osmolality Calculated 277 mOsm/kg (285-295); Potassium 4.1 mmol/L (3.5-5.1); Sodium 132 mmol/L (136-145); Total Bilirubin 0.9 mg/dL (0.15-1.2); Total Protein 6.8 g/dL (6.6-8.7)
--- NOTE | 2024-03-22 11:25 | PM.CONSULT ---
Providers/Reason For Consult Consulting Physician/Specialty*: Sky Paige MD neurology and epilepsy Reason for Consult*: Acute care/code stroke emergency department room #6 Primary Care Provider: Princess Sutton APRN History of Present Illness History of Present Illness Gil Rojas is a 78 year old male with history of locked-in syndrome evaluated by ks March [address] angiogram revealing right vertebral artery occlusion patient underwent intravenous tenecteplase infusion and was transferred to another facility. The patient also has a history of Graves' disease, status post treatment with radiation followed by hypothyroidism treated with levothyroxine, atrial fibrillation with loop recorder on Eliquis. The patient was reported to recover and was discharged from the other facility. 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 According to the patient's , no etiology for the patient's strokelike symptoms have been determined. On 03/22/2024 around 9:30 AM the patient was checking the car with his daughter and informed his daughter he was not feeling well. Patient was reported to collapse but remained awake but was unable to move but was able to answer questions by blinking. Code stroke was initiated at 10:14 AM on 03/22/2024. NIH stroke score = 21 (secondary to patient unable to move his arms = 8 or legs =8, unable to speak= 3, severe dysarthria =2) Stat noncontrast head CT 03/22/2024 IMPRESSION: 1. No acute intracranial hemorrhage or edema. 2. Mild atrophy and small vessel disease, similar to 12/16/2023. 78 year old male with history of locked-in syndrome evaluated by ks March [address] angiogram revealing right vertebral artery occlusion patient underwent intravenous tenecteplase infusion and was transferred to another facility. The patient also has a history of Graves' disease, status post treatment with radiation followed by hypothyroidism treated with levothyroxine, atrial fibrillation with loop recorder on Eliquis. The patient was reported to recover and was discharged from the other facility. 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 According to the patient's , no etiology for the patient's strokelike symptoms have been determined. On 03/22/2024 around 9:30 AM the patient was checking the car with his daughter and informed his daughter he was not feeling well. Patient was reported to collapse but remained awake but was unable to move but was able to answer questions by blinking. Code stroke was initiated at 10:14 AM on 03/22/2024. NIH stroke score = 21 (secondary to patient unable to move his arms = 8 or legs =8, unable to speak= 3, severe dysarthria =2) Stat noncontrast head CT 03/22/2024 3. Normal basilar artery. 4. No thrombus or stenosis within the central [place]. Metabolic lab 03/22/2024 CBC, PT, PTT, and INR were unrevealing Comprehensive metabolic panel revealed decreased serum sodium 132 (normal equals 136-145), chloride decreased at 95 (normal equals 98-107), point of contact glucose Accu-Chek elevated at 175 (normal equals 70-110), serum glucose elevated at 154 (normal equals 65-115). Urine drug screen negative. Magnesium and TSH pending at the time of this dictation. 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 Note: The patient had similar symptoms March 23, 2023 when patient was evaluated by me and given intravenous tenecteplase and transferred to another facility. 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 According to the patient's the patient was given thrombolytics and transferred to another facility secondary to the hospital being full with COVID-19 patients. The patient also has a history of rheumatoid arthritis treated with Plaquenil and prednisone and intractable migraine headaches described as acute onset of sharp pain in the top of his head relieved with Excedrin Migraine at rest. According to the patient's , the patient was in his usual state of health but around 9 AM on 03/23/2023 the patient complained of a migraine headache. According to the the patient took Excedrin Migraine for the headache. Then around 4:30 PM on 03/23/2023 the patient complained of his tongue feeling numb and the stated that the patient looked as though he might lose consciousness. Therefore she was assisting the patient to a chair and he collapsed. EMS was contacted and the patient was brought to [facility] emergency room. Noncontrast head CT and CT angiogram of the head and neck were performed stat. But, there was delay in the patient imaging studies being read and interpreted by radiology. I reviewed the imaging study with Dr. Benton on his computer screen in his office. The CT scan revealed no obvious hemorrhage. On examination, the patient was locked in with his eyes open and not responding with decerebrate posturing. Corneal reflexes were intact. Pupils 3 to 4with no obvious reaction to light. The patient did have corneal reflexes and oculocephalics reflexes on passive lateral rotation of his head and vertical rotation of his head. Motor testing revealed no movement of his extremities and no withdrawal to painful stimuli. Deep tendon reflexes 1+ with plantar responses bilaterally. There was no clonus. NIH score =30. While awaiting the official radiology results of the noncontrast head CT and CT angiogram, I informed the patient's who was present at the patient's bedside that the patient's clinical examination was suggestive of a vertebral or basilar artery thrombosis. The patient's was informed of the patient's condition and I obtained consent from the patient's to give the patient IV thrombolytics (tenecteplase) head CT scan was negative for hemorrhage. The gave consent for intravenous tenecteplase and she was informed of the potential risk associated with IV tenecteplase including but not limited to hemorrhage and . Serum Accu-Chek 146 performed at the bedside by the emergency room nurse. Noncontrast head CT and CT angiogram of the head and neck were read by radiology and revealed occlusion of the right vertebral artery with a probable subacute right pontine infarction. No hemorrhage was reported. Intravenous tenecteplase was given at 6:25 PM IV push without issues. Due to the right vertebral artery occlusion, an territory outside sales manager was contacted at [facility] by Dr. Benton and the patient was accepted in transfer. This information was relayed to the patient's who was at the patient's bedside in emergency department room #10 and the patient's agreed with the plan of treatment. Following IV tenecteplase, the patient's neurological status appeared to start improving where the patient began to blink spontaneously, moaned and looked at his who was standing on at the bedside to the patient's right. The patient's body posture change from decerebrate to decorticate. Plantar responses remain flexor bilaterally. Metabolic lab: Labs were obtained for CBC, comprehensive metabolic panel, PT, PTT, INR, and TSH. RBC was slightly decreased at 3.75. H&H were within normal limits at 2.6 and 37.6 respectively. WBC was within normal limits at 8.86. Sodium was decreased at 131. Chloride slightly decreased at 97. Serum glucose was elevated 178. ALT was slightly elevated at 51. The other labs were unrevealing. PT was 13.2. INR 0.97. PTT 24.8. Noncontrast head CT and CT angiogram of the head and neck 03/23/2023: IMPRESSION: 1. 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 Probable subacute infarct of the right maira Drug allergies: Leflunomide which resulted in a rash Levothyroxine sodium (from levothyroid) type reaction unknown Lisinopril type reaction unknown Sulfasalazine reaction to sun Current home medications: Eliquis 5 mg p.o. twice daily for atrial fibrillation Synthroid 100 mcg p.o. daily for hypothyroidism following irradiation treatment treatment for Graves' disease Ezetimibe 10 mg p.o. daily Norvasc 5 mg p.o. daily Vitamin D3 1000 international units p.o. daily Coenzyme Q10 capsules 30 mg p.o. daily Tylenol 1000 mg p.o. 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 daily Omeprazole 40 mg p.o. daily Prednisone 2.5 mg p.o. daily Vitamin D3 2000 international units p.o. daily Celebrex 200 mg p.o. daily Plaquenil 200 mg p.o. daily Lipitor 80 mg p.o. q. evening Ferosul 325 mg p.o. daily Coenzyme Q10 100 mg p.o. daily Habits: None Family history: Negative for seizures Review of Systems General: Reports: 10 or more systems reviewed and unremarkable except in HPI and below Card: Reports: irregular heart rhythm (Atrial fibrillation) Musc: Reports: muscle weakness Neuro: Reports: weakness in extremities (Temporary paralysis/Locked-IN) and Slurred speech present Medications/Allergies Home Medications ?Medication ?Instructions ?Recorded ?Confirmed ?Last Taken ?Type cholecalciferol (vitamin D3) 25 1,000 unit PO DAILY 02/23/19 03/22/24 08/15/23 History mcg (1,000 unit) capsule coenzyme Q10 30 mg capsule 30 mg PO DAILY 05/14/23 03/22/24 08/15/23 History apixaban 5 mg tablet (Eliquis) 5 mg PO BID #60 tabs 05/17/23 03/22/24 08/15/23 Rx ezetimibe 10 mg tablet (Zetia) 10 mg PO DAILY 09/16/23 03/22/24 Unknown History amlodipine 5 mg tablet 5 mg PO DAILY #90 tabs 11/01/23 03/22/24 Unknown Rx Synthroid 100 mcg tablet 100 mcg PO DAILY #30 tabs 02/03/24 03/22/24 Unknown Rx (levothyroxine) acetaminophen 500 mg tablet 1,000 mg PO .T24jiows for 02/23/24 03/22/24 Unknown History (Tylenol Extra Strength) osteoarthritis Allergies Allergy/AdvReac Type Severity Reaction Status Date / Time leflunomide Allergy Intermediate rash Verified 02/23/24 13:50 levothyroxine sodium (From Allergy Unknown UKNOWN Verified 02/23/24 13:50 Levothroid) lisinopril Allergy Unknown NOWN Verified 02/23/24 13:50 sulfasalazine AdvReac Intermediate reaction Verified 02/23/24 13:50 to sun PFSH Acute PFSH: Medical History Osteoarthritis of carpometacarpal (CMC) joint of both thumbs Immunization counseling Seronegative rheumatoid arthritis of both hands Labile essential hypertension High risk medication use Inflammatory arthritis Emphysema of lung 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, bilateral Polyarthralgia CVA (cerebral vascular accident) Hyperlipidemia Hypertension Thyroid disease Renal calculi Status post lithotripsy, stent removed Bilateral renal stones Left ureteral calculus Chronic migraine without aura, intractable, with status migrainosus Surgical History Status post total replacement of right shoulder History of back surgery H/O lithotripsy Family History Mother , 99 Cancer cervical Father , 65 CAD (coronary artery disease) Diabetes Hypertension Cancer Hyperlipidemia Other Lung disease Lupus Rheumatoid arthritis Stroke Social History Smoking and tobacco/nicotine status: unknown if used tobacco/nicotine Alcohol intake: never Substance/Drug Use: never Marital status: Current occupational status: retired Vitals/I&O/Wt Last Vital Signs Temp 97.9 F 03/22/24 10:25 Pulse 94 03/22/24 11:16 Resp 14 03/22/24 11:16 BP 121/96 03/22/24 11:16 Pulse Ox 98 03/22/24 11:16 03/21/24 03/22/24 03/22/24 22:59 06:59 14:59 Intake Total 0 / 0 Balance 0 / 0 Weight last 48 hrs Weight 130 lb Physical Exam Narrative: NIH stroke score = 21 (secondary to patient unable to move his arms = 8 or legs =8, unable to speak= 3, severe dysarthria =2) Point of contact glucose Accu-Chek elevated at 175 (normal equals 70-110) Blood pressure 159/91 cardiac telemetry monitoring revealing atrial fibrillation with occasional PVCs. Heart rate 109 bpm initially heartbeat was greater than 120 bpm O2 saturation 96% on room air. Patient is in no respiratory distress. The patient is alert. Patient follows commands and answers questions by blinking. Patient's extraocular movements are intact. Pupils 3 mm round reactive light and accommodation. There were no nystagmus on extraocular movements. Visual qureshi appear to be full via confrontation. 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 Deep tendon reflex reveals plantar responses bilaterally. Sensory examination intact to touch. There appears to be no extinction on double sensory stimulation. Throat clear. Lungs clear. Heart irregular rhythm secondary to atrial fibrillation. Extremities were negative for cyanosis. Abdomen soft bowel sounds positive. Data 03/22/24 10:35 03/22/24 10:35 A&P Assessment and plan (1) Posterior circulation stroke of uncertain pathology: Impression: 1. 78 year old male with history of locked-in syndrome evaluated by me March [address] angiogram revealing right vertebral artery occlusion patient underwent intravenous tenecteplase infusion and was transferred to another facility. The patient also has a history of Graves' disease, status post treatment with radiation followed by hypothyroidism treated with levothyroxine, atrial fibrillation with loop recorder on [employer]. The patient was reported to recover and was discharged from the other facility. 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 According to the patient's , no etiology for the patient's strokelike symptoms have been determined. On 03/22/2024 around 9:30 AM the patient was checking the car with his daughter and informed his daughter he was not feeling well. Patient was reported to collapse but remained awake but was unable to move but was able to answer questions by blinking. Code stroke was initiated at 10:14 AM on 03/22/2024. NIH stroke score = 21 (secondary to patient unable to move his arms = 8 or legs =8, unable to speak= 3, severe dysarthria =2) Stat noncontrast head CT 03/22/2024 revealed no acute findings. Stat CT angiogram of the head and neck 03/22/2024 revealed 1. No high-grade cervical carotid artery stenosis. Small amount of plaque bilaterally, stenosis less than 50%. 2. Reidentified is an extremely small caliber RIGHT vertebral artery throughout its course and possibly occluded distally beyond the foramen magnum. Similar findings noted on 03/23/2023. 3. Normal basilar artery. 4. No thrombus or stenosis within the central [place]. Since the patient is on Eliquis, patient was not a candidate for intravenous thrombolytics and no intravenous thrombolytics were administered. The patient's symptoms began to improve while in the emergency room. Plan: 1. Labs for magnesium and TSH 2. Agree with admission to hospital and placed patient on cardiac telemetry monitoring 3. Recommend cardiac evaluation 4. Recommend starting aspirin 81 mg p.o. every morning with food first dose now 5. Continue Eliquis and adjust or change anticoagulation medications per cardiology's recommendations 6. Recommend obtaining labs for B12, folate, methylmalonic acid and homocystine and vitamin D 7. Recommend endocrine evaluation of patient's TSH remains elevated 8. Recommend magnesium replacement if magnesium level is decreased 9. Follow-up results of CT scan of the cervical spine 10. Recommend contacting the cad designer that placed the loop recorder in [facility] 11. Stroke education and stroke pamphlet for patient and family 12. Continue neurochecks and vital signs per NIH stroke protocol 13. Continue Ezetimibe cholesterol-lowering agent per NIH stroke protocol unless contraindication 14. OT PT and speech consults 15. Fall precautions 16. Bowel and bladder management to prevent constipation and observe for any urinary issues 17. The patient's medical condition was discussed with his who is a retired DIE MACHINE OPERATOR as well as with the patient at the patient's bedside. The elected not to refer the patient to [facility] but wanted to have the patient's care continue here at [facility] (2) Locked in syndrome: PDMP PDMP Reviewed: Not Reviewed Consult Attestations Medical Necessity Statement: The patient was evaluated by neurology for acute care/code stroke emergency department room #6 Coding Level of Care Code 86935 Diagnoses Posterior circulation stroke of uncertain pathology I63.539 Locked in syndrome G83.5
[2024-03-22 11:30] LABS: Bilirubin Urine Negative (Negative); Blood Urine Negative (Negative); Glucose Urine UA Negative (Normal); Ketones Urine Negative (Negative); Leukocyte Esterase Urine Negative (Negative); Nitrate Urine Negative (Negative); Protein Urine Negative (Negative); Specific Gravity, Urine 1.016 (1.005-1.030); Urine Appearance Clear (CLEAR); Urine Color Yellow (Yellow); Urobilinogen Urine 0.2 mg/dL (Negative); pH Urine 6.5 (5-7)
[2024-03-22 11:34] LABS: Add Urine Microscopic? YES; Bacteria Urine None Seen /hpf; Hyaline Casts Urine 0-4 /lpf; RBC Urine 0-2 /hpf (0-2); Squamous Epithelial Cell Urine 0-5 /hpf (0-5); WBC Urine 0-5 /hpf (0-5)
[2024-03-22 11:36] LABS: Amphetamines Screen Urine Negative (Negative); Barbiturates Screen Urine Negative (Negative); Benzodiazepines Screen Urine Negative (Negative); Cocaine Screen Urine Negative (Negative); Opiate Screen Urine Negative (Negative); PCP Screen Urine Negative (Negative); THC Screen Urine Negative (Negative)
[2024-03-22 11:41] LABS: Magnesium 2.2 mg/dL (1.7-2.3); Thyroid Stimulating Hormone 0.46 uIU/mL (0.27-4.20)
[2024-03-22] MEDS: aspirin 300 mg Supp PR (12:30)
--- NOTE | 2024-03-22 13:02 | PC.NURSE ---
arrived from ED, able to speak one or two words at a time, and follow commands equal weakness to all limbs speech slurred with left sided facial droop
--- NOTE | 2024-03-22 14:39 | PM.HP ---
Providers/Chief Complaint Admitting Physician: Josh Santos Primary Care Provider: Princess Sutton APRN Chief Complaint: Stroke Alert History of Present Illness Pleasant 78-year-old gentleman with past history of CVA, locked-in syndrome, past history of TNK and prior to that also tPA administration after acute presentation with stroke, with history of atrial fibrillation, seronegative arthritis, DJD of cervical and lumbar spine, recently also some tingling/numbness in the right hand, right leg, for which she followed up with his neurologist, and assessed to be secondary to nerve root compression, HTN, HLD, emphysema, chronic migraine, 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 He was only able to communicate by blinking his eyes. Stroke code was called in ER with concern for locked-in syndrome. He was assessed by CT head, glucose was not low. CT head with without acute intracranial hemorrhage or edema. Mild atrophy and small vessel disease. He was assessed by neurology at bedside, was found to have NIH of 21, answering questions by blinking. Initially unable to move, subsequently with some gradual improvement, slightly moving his hands bilaterally, opens mouth, move his toes. Symptoms continue to gradually improve. He was not found candidate for thrombolysis due to anticoagulation which he takes for atrial fibrillation. He is admitted to the intensive care unit. He states he did not feeling chest pain or pressure, palpitations, headache, or any other prodromal symptoms. He does remember that during the episode he had to actively remember to breathe. He does state he had to struggle quite a bit to get out from the football of his car. He tells me he is admission with some recurrent episodes in the past. He reports intermittent chills with his speech and movements would get really slow. He states prior evaluations by other physicians considered other conditions including hypokalemic periodic paralysis. He denies any known parasomnia, history of narcolepsy. He does state he was previously found to have obstructive sleep apnea. Review of Systems Const: Denies: fever(s), chills, body aches or malaise ENMT: Denies: throat pain Card: Denies: chest pain, edema, pre-syncope or dyspnea on exertion Resp: Denies: dyspnea, productive cough, change in phlegm color or hemoptysis GI: Denies: abdominal pain, nausea, vomiting, diarrhea, constipation, hematochezia or melena : Denies: flank pain, difficulty urinating, urinary frequency or hematuria Musc: Denies: back pain, joint swelling or joint redness Skin/Breast: Denies: rash or new lesions Neuro: Reports: weakness in extremities; Denies: headache(s), numbness in extremities, dizziness, confusion or seizure-like activity Endo: Denies: polyuria or polydipsia Medications/Allergies Home Medications ?Medication ?Instructions ?Recorded ?Confirmed ?Last Taken ?Type cholecalciferol (vitamin D3) 25 1,000 unit PO DAILY 02/23/19 03/22/24 08/15/23 History mcg (1,000 unit) capsule coenzyme Q10 30 mg capsule 30 mg PO DAILY 05/14/23 03/22/24 08/15/23 History apixaban 5 mg tablet (Eliquis) 5 mg PO BID #60 tabs 05/17/23 03/22/24 08/15/23 Rx ezetimibe 10 mg tablet (Zetia) 10 mg PO DAILY 09/16/23 03/22/24 Unknown History amlodipine 5 mg tablet 5 mg PO DAILY #90 tabs 11/01/23 03/22/24 Unknown Rx Synthroid 100 mcg tablet 100 mcg PO DAILY #30 tabs 02/03/24 03/22/24 Unknown Rx (levothyroxine) acetaminophen 500 mg tablet 1,000 mg PO .[id number] for 02/23/24 03/22/24 Unknown History (Tylenol Extra Strength) osteoarthritis Allergies Allergy/AdvReac Type Severity Reaction Status Date / Time leflunomide Allergy Intermediate rash Verified 02/23/24 13:50 levothyroxine sodium (From Allergy Unknown [place] Verified 02/23/24 13:50 Levothroid) lisinopril Allergy Unknown [place] Verified 02/23/24 13:50 sulfasalazine AdvReac Intermediate reaction Verified 02/23/24 13:50 to sun PFSH Acute PFSH: Medical History Paroxysmal atrial fibrillation Osteoarthritis of carpometacarpal (CMC) joint of both thumbs Immunization counseling Seronegative rheumatoid arthritis of both hands Labile essential hypertension High risk medication use Inflammatory arthritis Emphysema of lung 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, bilateral Polyarthralgia CVA (cerebral vascular accident) Hyperlipidemia Hypertension Thyroid disease Renal calculi Status post lithotripsy, stent removed Bilateral renal stones Left ureteral calculus Chronic migraine without aura, intractable, with status migrainosus Surgical History Status post total replacement of right shoulder History of back surgery H/O lithotripsy Family History Mother , 99 Cancer cervical Father , 65 CAD (coronary artery disease) Diabetes Hypertension Cancer Hyperlipidemia Other Lung disease Lupus Rheumatoid arthritis Stroke Social History Smoking and tobacco/nicotine status: unknown if used tobacco/nicotine Alcohol intake: never Substance/Drug Use: never Marital status: Current occupational status: retired Vitals/I&O/Wt Last Vital Signs Temp 97.9 F 03/22/24 10:25 Pulse 93 03/22/24 13:00 Resp 12 03/22/24 13:00 BP 123/79 03/22/24 13:00 Pulse Ox 97 03/22/24 13:00 O2 Del Method Room Air 03/22/24 13:03 03/21/24 03/22/24 03/22/24 22:59 06:59 14:59 Intake Total 0 / 0 Balance 0 / 0 Weight last 48 hrs Weight 57.153 kg Weight 58.967 kg Physical Exam Const: COMMON NORMALS: patient oriented x3 and alert GENERAL APPEARANCE: cooperative ORIENTATION/CONSCIOUSNESS: Yes awake HENMT: COMMON NORMALS: oropharynx normal Neck/C-Spine: COMMON NORMALS: no JVD Resp: COMMON NORMALS: normal respiratory effort and clear to auscultation bilaterally AUSCULTATION: clear to auscultation bilaterally Cardio: COMMON NORMALS: no JVD, regular rhythm, S1 normal heart sound present, S2 normal heart sound present and No murmurs present (Cardio) RHYTHM: regular rhythm HEART SOUNDS: S1 normal heart sound present and S2 normal heart sound present GI: COMMON NORMALS: Normal to inspection, nondistended, normoactive bowel sounds present, Soft to palpation and non-tender PALPATION: Yes Soft to palpation Extremity: COMMON NORMALS: no joint enlargement and no pedal edema Neuro: COMMON NORMALS: patient oriented x3 and moves all extremities SENSORIUM/ORIENTATION: Yes alert OTHER: Generally weak, although overall improving power and movements. Able to move his upper and lower extremities currently, although with some exertion, moving slowly. He is awake and alert, conversant, pleasant, following directions. Without facial droop, without aphasia or dysarthria. No difficulty with horizontal tracking. Visual qureshi full to confrontation. No visual extinction. Sensory exam intact bilaterally, no sensory extinction. Performs FNF, although slowly and with some effort, requiring some exertion to lift his arms. On upper and lower extremity power assessment, does hold his limbs in the air without drift, although with effort, but able to maintain further count. Skin: COMMON NORMALS: no rashes or lesions noted GENERAL SKIN EXAM: no rashes or lesions noted Data 03/22/24 10:35 03/22/24 10:35 A&P Assessment and plan (1) Posterior circulation stroke of uncertain pathology: Presenting after an episode of severe generalized weakness, collapse, unable to move, communicating only by blinking, concern for locked-in syndrome. Assessed in ER for possible CVA, although with improving symptoms, possible TIA, concern for posterior circulation/brainstem TIA, possibly with recurrence with similar episodes in the past [employer] having received tPA and more recently TNK. On Eliquis already. Was not found a candidate for TNK at current time on initial assessment. Has been showing some gradually improving symptoms. Reviewed vitals, CBC, INR, CMP, TSH, UA, UDS, EKG, and monitor potation with atrial fibrillation, pending official read, head CT, head and neck CTA, ER provider note, discussed with ER provider, neurology note, discussed with neurology provider. He has received aspirin 300 mg, will add aspirin 325 mg daily. He does have atrial fibrillation, has been on Eliquis already. Has he has recurrence of suspected TIA versus CVA, consider nonresponse to factor Xa inhibitor. Consider switch over to dabigatran. Additional assessment requested with limited TTE bubble study, on review of prior echo send not see that a bubble study has been done before. He has a loop recorder, request interrogation of the device, nursing will attempt to see if this is possible here. Otherwise monitor on telemetry in the meantime. Continue ezetimibe. He has previously had issues with statin and requested not to take statin. With some generalized weakness, will additionally assess CK with noted mild elevation of ALT. Additional diagnoses considered, discussed with him, discussed with neurology. He denies history of parasomnia, although symptoms symptoms could be consideration of cataplexy, although appear more severe with more locked in appearance as prescription with neurology. May benefit from referral for sleep study after discharge. He also tells me that other diagnosis was previously considered including hypokalemic periodic paralysis, although on review his potassium is normal, so this may be less likely. He is also not hyperkalemic. Thyrotoxic periodic paralysis could be considered, although his TSH was checked and is normal. Will go and check free T4 and free T3. He does get replacement with Synthroid after Graves' disease. Follows with endocrinology. Discussed with neurology also regarding consideration of seizure, as per discussion EEG is requested. Although otherwise no seizure-like activity. No evidence of subclavian steal on CTA. Permissive hypertension, hold amlodipine for now. Willl need follow up w neuro. Plan Atrial fibrillation: Continue telemonitoring. Consider nonresponse to Eliquis. Stop Eliquis. Switch to dabigatran. Continue amiodarone. MARIBEL: Continue nightly CPAP Seronegative arthritis, DJD of cervical and lumbar spine, recently also some tingling/numbness in the right hand, right leg, for which she followed up with his neurologist, and assessed to be secondary to nerve root compression, HTN, hold amlodipine HLD, Emphysema, Chronic migraine: received treatment with new medicine on Mon, but does not remember the name of medicine. Record requested. PDMP PDMP Reviewed: Not Reviewed Attestations Medical Necessity Statement*: Admission over 2 midnights anticipated for assessment management of TIA versus brainstem CVA with locked-in syndrome and additional man with atrial fibrillation, on anticoagulant, with possible anticoagulation failure. Diagnoses Posterior circulation stroke of uncertain pathology I63.531
[2024-03-22] MEDS: pantoprazole 40 mg SDV IVP (14:46)
[2024-03-22] MEDS: acetaminophen 325 mg Tablet 650 MG PO (14:46)
[2024-03-22 17:19] LABS: Free T4 Free Thyroxine 1.81 ng/dL (0.82-1.77); T3 Free 2.1 PG/ML (2.0-4.4)
[2024-03-22 17:33] LABS: Creatine Phosphokinase 296 U/L (39-308)
[2024-03-22 17:50] LABS: Folate Level > 20.0 ng/mL (4.5-32.2)
[2024-03-22 19:02] LABS: Homocysteine 12.06 umol/l (0-15)
[2024-03-23] VITALS (25 sets, daily range): BP systolic 97–164; BP diastolic 66–127; PULSE 60–121; RESP 8–29; TEMP 36.2–37.1; O2SAT 94–98
[2024-03-23 04:17] LABS: Basophils % 0.4 %; Eosinophils # 0.2 10^3/uL (0.0-0.8); Eosinophils % 2.9 %; Hematocrit 44.8 % (37-53); Lymphocytes # 1.3 10^3/uL (0.8-4.8); Lymphocytes % 24.7 %; Mean Corpuscular HGB Conc 33.7 g/dL (30-55); Mean Corpuscular Hemoglobin 33.5 pg (27-33); Mean Corpuscular Volume 99.3 fl (82-101); Mean Platelet Volume 8.6 fL (7.4-10.4); Monocytes # 0.7 10^3/uL (0.2-0.9); Monocytes % 12.5 %; Neutrophils # 3.06 10^3/uL (1.8-7.7); Neutrophils % 58.5 %; Nucleated Red Blood Cells % 0 %; Platelet Count 198 10^3/cmm (157-399); Red Blood Count 4.51 10^6/uL (3.85-5.65); Red Cell Distribution Width 13.2 % (12.1-15.1); White Blood Count 5.22 10^3/uL (3.29-11.43)
[2024-03-23 04:46] LABS: Alanine Aminotransferase 44 U/L (0-41); Albumin Level 4.1 g/dL (3.5-5.2); Alkaline Phosphatase 116 U/L (40-130); Aspartate Amino Transferase 31 U/L (0-40); Blood Urea Nitrogen 10 mg/dL (8-23); Calcium 9.3 mg/dL (8.5-10.5); Carbon Dioxide 27 mmol/L (22-29); Chloride 101 mmol/L (98-107); Creatinine Clr Calc Pharmacy 50.0089; Globulin 2.8 g/dL (1.3-4.6); Glucose 94 mg/dL (65-115); Osmolality Calculated 289 mOsm/kg (285-295); Sodium 140 mmol/L (136-145); Total Protein 6.9 g/dL (6.6-8.7)
[2024-03-23] MEDS: aspirin 325 mg Tablet PO (08:03)
[2024-03-23] MEDS: levothyroxine 100 mcg Tablet PO (08:04)
[2024-03-23] MEDS: ezetimibe 10 mg Tablet PO (08:04)
[2024-03-23] MEDS: acetaminophen 325 mg Tablet 650 MG PO (10:45)
--- NOTE | 2024-03-23 11:00 | CTR_ITS ---
PROCEDURE INFORMATION: Exam: CT Cervical Spine With Contrast Exam date and time: 03/24/2024 12:15 AM Age: 78 years old Clinical indication: Numbness and weakness; Additional info: Looking for cervical stenosis TECHNIQUE: Imaging protocol: Computed tomography of the cervical spine with contrast. Radiation optimization: All CT scans at this facility use at least one of these dose optimization techniques: automated exposure control; mA and/or kV adjustment per patient size (includes targeted exams where dose is matched to clinical indication); or iterative reconstruction. Contrast material: OMNI 350; Contrast volume: 100 ml; Contrast route: INTRAVENOUS (IV); COMPARISON: CT cervical spin wo con* [id number] 12/12/2023 6:31 PM RADIATION DOSE METRICS: Total DLP (mGy-cm): 152.52 FINDINGS: Bones: Bony fusion of C2, C3 and C4 vertebral bodies. Severe degenerative disc disease at C4-C5, C5-C6 and C6-C7. Severe neural foraminal narrowing on the right at C4-C5 and C5-C6. Lungs: Lung apices are normal. Soft tissues: Unremarkable. CT/CT cervical spin wo con* [id number] IMPRESSION: 1. Bony fusion of C2, C3 and C4 vertebral bodies. 2. Severe degenerative disc disease at C4-C5, C5-C6 and C6-C7. 3. Severe neural foraminal narrowing on the right at C4-C5 and C5-C6.
--- NOTE | 2024-03-23 11:07 | PC.NURSE ---
Patient c/o of bustamante and ringing in ears and mid sentence became unresponive to all stimuli and could only move eyes, maintained airway on RA HR 140s Dr. Ontiveros notifed, Dr ramírez at bedside. see orders for orders recieved from both providers
--- NOTE | 2024-03-23 11:10 | PC.NURSE ---
HR came back to WNL prior to metoprolol administration
--- NOTE | 2024-03-23 11:32 | PM.PN ---
Subjective Subjective: History of present illness: Gil Rojas is a 78 year old male with history of locked-in syndrome evaluated by ut March [address] angiogram revealing right vertebral artery occlusion patient underwent intravenous tenecteplase infusion and was transferred to another facility. The patient also has a history of Graves' disease, status post treatment with radiation followed by hypothyroidism treated with levothyroxine, atrial fibrillation with loop recorder on Eliquis. The patient was reported to recover and was discharged from the other facility. 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 According to the patient's , no etiology for the patient's strokelike symptoms have been determined. On 03/22/2024 around 9:30 AM the patient was checking the car with his daughter and informed his daughter he was not feeling well. Patient was reported to collapse but remained awake but was unable to move but was able to answer questions by blinking. Code stroke was initiated at 10:14 AM on 03/22/2024. NIH stroke score = 21 (secondary to patient unable to move his arms = 8 or legs =8, unable to speak= 3, severe dysarthria =2) Stat noncontrast head CT 03/22/2024 IMPRESSION: 1. No acute intracranial hemorrhage or edema. 2. Mild atrophy and small vessel disease, similar to 12/16/2023. 78 year old male with history of locked-in syndrome evaluated by ut March [address] angiogram revealing right vertebral artery occlusion patient underwent intravenous tenecteplase infusion and was transferred to another facility. The patient also has a history of Graves' disease, status post treatment with radiation followed by hypothyroidism treated with levothyroxine, atrial fibrillation with loop recorder on Eliquis. The patient was reported to recover and was discharged from the other facility. 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 According to the patient's , no etiology for the patient's strokelike symptoms have been determined. On 03/22/2024 around 9:30 AM the patient was checking the car with his daughter and informed his daughter he was not feeling well. Patient was reported to collapse but remained awake but was unable to move but was able to answer questions by blinking. Code stroke was initiated at 10:14 AM on 03/22/2024. NIH stroke score = 21 (secondary to patient unable to move his arms = 8 or legs =8, unable to speak= 3, severe dysarthria =2) Stat noncontrast head CT 03/22/2024 3. Normal basilar artery. 4. No thrombus or stenosis within the [place]. Metabolic lab 03/22/2024 CBC, PT, PTT, and INR were unrevealing Comprehensive metabolic panel revealed decreased serum sodium 132 (normal equals 136-145), chloride decreased at 95 (normal equals 98-107), point of contact glucose Accu-Chek elevated at 175 (normal equals 70-110), serum glucose elevated at 154 (normal equals 65-115). Urine drug screen negative. Magnesium and TSH pending at the time of this dictation. Note: Labs performed on 01/03/2024 TSH elevated at 13.4 (normal equals 0.27-4.2) Free T4 within normal limits at 1.27 While still in the emergency room patient's symptoms began to improve with patient being able to slightly psychiatric nurse with his hands bilaterally and move his toes and open and close his mouth spontaneously and attempt to moan and mumble. Note: The patient had similar symptoms March 23, 2023 when patient was evaluated by me and given intravenous tenecteplase and transferred to another facility. On the morning of 03/23/2024 around 11 AM the patient experienced another episode of near paralysis he remained awake and was able to understand and follow commands with his eyes patient had slight movement of his arms and legs. During this time the patient's heart rate increased into the 140s and his blood pressure was elevated. As the symptoms improved over approximately 5 to 10 minutes the patient was able to move his extremities and speak approximately and his blood pressure and heart rate decreased. Patient remained in atrial fibrillation. Metabolic lab for thyroid profile, magnesium were unrevealing. I spoke with the attending physician via phone regarding the clinical event that occurred on 03/23/2024. The patient scheduled to have bedside EEG performed today and we will order CT with contrast of the cervical spine to assess for spinal stenosis as well as obtain outpatient sleep evaluation to assess for the possibility of narcolepsy with cataplexy since patient also has a history of obstructive sleep apnea. Will also consider starting patient on anticonvulsant medication during this hospitalization if clinically indicated. Drug allergies: Leflunomide which resulted in a rash Levothyroxine sodium (from levothyroid) type reaction unknown Lisinopril type reaction unknown Sulfasalazine reaction to sun Current home medications: Eliquis 5 mg p.o. twice daily for atrial fibrillation Synthroid 100 mcg p.o. daily for hypothyroidism following irradiation treatment treatment for Graves' disease Ezetimibe 10 mg p.o. daily Norvasc 5 mg p.o. daily Vitamin D3 1000 international units p.o. daily Coenzyme Q10 capsules 30 mg p.o. daily Tylenol 1000 mg p.o. 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 daily Omeprazole 40 mg p.o. daily Prednisone 2.5 mg p.o. daily Vitamin D3 2000 international units p.o. daily Celebrex 200 mg p.o. daily Plaquenil 200 mg p.o. daily Lipitor 80 mg p.o. q. evening Ferosul 325 mg p.o. daily Coenzyme Q10 100 mg p.o. daily Habits: None Family history: Negative for seizures Review of Systems General: Reports: 10 or mor e systems reviewed and unremarkable except in HPI and below Card: Reports: irregular heart rhythm (Atr ial fibrillation) Musc: Reports: muscle we akness Neuro: Reports: weakness in extremities (Te mporary paralysis/ Locked-IN) and Slu rred speech presen t Vitals/I&O/Wt Last Vital Signs Temp 98.8 F 03/23/24 08:00 Pulse 90 03/23/24 10:33 Resp 21 H 03/23/24 08:00 BP 132/83 03/23/24 08:00 Pulse Ox 98 03/23/24 10:33 O2 Del Method Room Air 03/23/24 10:33 03/22/24 03/23/24 03/23/24 22:59 06:59 14:59 Intake Total 200 / 200 200 / 200 Output Total 1170 / 1170 120 / 1290 Balance -970 / -970 -120 / -1090 200 / 200 Weight last 48 hrs Weight 127 lb 9.6 oz Weight 126 lb Weight 130 lb Physical Exam Narrative: The patient is now near his baseline and is awake and talking some and moving extremities. He denied any pain. Cranial nerves II through XII intact. Motor testing generalized weakness but improving. Deep tendon reflex revealed plantar responses bilaterally. Throat clear. Lungs clear. Heart atrial fibrillation. Extremities were negative for cyanosis or edema. Data 03/23/24 03:46 03/23/24 03:46 A&P Assessment and plan (1) Paralysis: 1. Recurrent episodes of paralysis since 2019 where the patient appears to be LOCKED-IN last episodes 03/22/2024 and 03/23/2024 2. History of cervical disc disease with chronic neck pain 3. Atrial fibrillation treated with Eliquis 4. Cardiac loop recorder so MRI cannot be obtained 5. Obstructive sleep apnea with reported change in breathing with sleep Plan: 1. CT with contrast of the cervical spine to assess for spinal stenosis 2. Bedside EEG recording to assess for seizures 3. Recommend outpatient sleep evaluation for possible narcolepsy with cataplexy 4. Will consider obtaining lumbar puncture under fluoroscopy by radiology to obtain CSF [place] level to assess for narcolepsy 5. Will consider obtaining HLA?DQB1*06:02 genotyping to assess for narcolepsy 6. Vitamin D level ordered 7. Note: Due to cardiac loop recorder head MRI or cervical MRI cannot be obtained 8. Will consider starting IV anticonvulsant medication if warranted (2) Weakness: PDMP PDMP Reviewed: Not Reviewed Attestations Medical Necessity Statement*: The patient was evaluated by neurology for recurrent episodes of paralysis Coding Level of Care Code 48923 Diagnoses Paralysis G83.9 Weakness R53.1
[2024-03-23 12:16] LABS: 25 Hydroxy Vitamin D 33 ng/mL (30-100)
--- NOTE | 2024-03-23 12:17 | P.PCN_ITS ---
Documented by User: Sophia Stanleymarian 03/23/24 12:20 EEG Routine Details of Procedure EEG Routine 59988- awake & drowsy: [id number] Documented by User: Sky Paige MD 03/24/24 18:08 EEG Routine Details of Procedure Details/Comments: EEG TEMPLATE: This is a 19 channel routine video surface EEG recording utilizing the [employer] software with surface and EKG electrodes. The procedure was performed utilizing the international 10-20 system. Patient name: Gil Rojas Date of : 1945 Patient age [age] years old Identification number: [id number] Referring Physician: Josh Santos MD Interpreting physician: Dr. Sky Paige EEG#: EEG Start time: 11:31:48 EEG End time: 11:54:22 Duration of study: 22 minutes Date of study: 03/23/2024 Reason for study: Paroxysmal episodes of paralysis as though the patient is locked-in assess for seizures and assist in determining if anticonvulsant medications are required. Skull defects: None Condition of recording: The patient was reported to be awake and later on briefly drowsy Cooperation: Good Medications: Eliquis 5 mg p.o. twice daily for atrial fibrillation Synthroid 100 mcg p.o. daily for hypothyroidism following irradiation treatment treatment for Graves' disease Ezetimibe 10 mg p.o. daily Norvasc 5 mg p.o. daily Vitamin D3 1000 international units p.o. daily Coenzyme Q10 capsules 30 mg p.o. daily Tylenol 1000 mg p.o. every 8 hours for osteoarthritis Background activity: Background activity during wakefulness consisted of 9 Hz low voltage alpha activity posteriorly penetrated by intermittent low voltage beta activity centrally and anteriorly. The alpha activity was symmetrical and reactive to eye opening. Intermittently during the recording the record was partially obscured by muscle and motion artifact. Later during the recording the alpha activity dropped out and generalized 4 to 7 Hz theta activity was seen over the left and right hemispheres. Interictal activity: None Ictal activity: None EKG telemetry lead 120 bpm, irregular/atrial fibrillation Impression: This is a normal awake and drowsy 22-minute surface EEG recording. Note: This recording was performed approximately 20 to 30 minutes following one of the patient's locked-in type episodes where the patient was still reporting weakness in his arms and legs but able to follow commands by blinking and all opening his mouth and was fully alert. In view of the unremarkable EEG findings, clinical events may be suggestive of narcolepsy/cataplexy as patient has a history of obstructive sleep apnea and reports a change in his sleeping recently. Recommend patient be scheduled for sleep evaluation to assess for narcolepsy cataplexy versus functional neurological disorder. Note: Head CT scan and CT angiogram of the head and neck unrevealing for acute findings. Note: Since the patient has a cardiac loop recorder, head MRI and cervical MRI could not be obtained. CT scan of the cervical spine with contrast revealed degenerative disc disease of the spine with some moderate central canal stenosis but no severe canal stenosis or spinal cord impingement. Vitamin D level normal at 33. Homocystine and folate normal. B12 level was not performed although ordered. Physician name/Signature: Sky Paige MD route service representative/Signature: Sophia ALCARAZ TSilke
--- NOTE | 2024-03-23 16:45 | P.PN_ITS ---
Subjective 2 Subjective: He was awake and alert, conversant this morning, interacting with staff, however, additional episode of flaccid paralysis this morning, accompanied with hypertension, tachycardia, initially responsive, but with improvement able to answer questions by blinking his eyes, flaccid, reporting feeling both hands being held. Undergoing EEG. Vitals/I&O/Wt Last Vital Signs Temp 98.8 F 03/23/24 08:00 Pulse 91 03/23/24 16:00 Resp 17 03/23/24 16:00 BP 119/77 03/23/24 16:00 Pulse Ox 95 03/23/24 12:00 O2 Del Method Room Air 03/23/24 10:33 03/23/24 03/23/24 03/23/24 06:59 14:59 22:59 Intake Total 400 / 400 Output Total 120 / 1290 600 / 600 Balance -120 / -1090 -200 / -200 Weight last 48 hrs Weight 57.878 kg Weight 57.153 kg Weight 58.967 kg Physical Exam 2 Const: COMMON NORMALS: patient oriented x3 and alert GENERAL APPEARANCE: c ooperative ORIENTATION/CONSCIOUSNESS: Yes awake HENMT: COMMON NORMALS: oropharynx normal Neck/C-Spine: COMMON NORMALS: no JVD Resp: COMMON NORMALS: normal respiratory effort and clear to auscultation bilaterally AUSCULTATION: clear to auscultation bilaterally Cardio: COMMON NORMALS: no JVD, regular rhythm, S1 normal heart sound present, S2 normal heart sound present and No murmurs present (Cardio) RHYTHM: regular rhythm HEART SOUNDS: S1 normal heart sound present and S2 normal heart sound present GI: COMMON NORMALS: Normal to inspection, nondistended, normoactive bowel sounds present, Soft to palpation and non-tender PALPATION: Yes Soft to palpation Extremity: COMMON NORMALS: no joint enlargement and no pedal edema Neuro: COMMON NORMALS: patient oriented x3 and moves all extremities S ENSORIUM/ORIENTATION: Yes alert OTHER: Generally weak, although overall improving power and movements. Able to move his upper and lower extremities currently, although with some exertion, moving slowly. He is awake and alert, conversant, pleasant, following directions. Without facial droop, without aphasia or dysarthria. No difficulty with horizontal tracking. Visual qureshi full to confrontation. No visual extinction. Sensory exam intact bilaterally, no sensory extinction. Performs FNF, although slowly and with some effort, requiring some exertion to lift his arms. On upper and lower extremity power assessment, does hold his limbs in the air without drift, although with effort, but able to maintain further count. Skin: COMMON NORMALS: no rashes or lesions noted GENERAL SKIN EXAM: no rashes or lesions noted Data 03/23/24 03:46 03/23/24 03:46 A&P Assessment and plan (1) Posterior circulation stroke of uncertain pathology: During episode this morning transiently unresponsive, with tachycardia up into 140s, hypertensive, systolic blood pressure up to 170s. He is alert, but with flaccid paralysis, not moving his extremities, blinks his eyes to answer questions, is able to feel both hands being held. Not able to squeeze them. Maintaining respirations independently, maintaining airway at current time. At this time not require intubation, mechanical and/support. At this time he is also undergoing EEG. Discussed with neurology, hold off on empiric anticonvulsants at this time. Follow-up EEG. On additional discussion with neurology, EEG without sign of seizure. Continue supportive care currently in ICU. Reassess. On reassessment he is gradually improving. Will continue monitor, reassess in the morning, with continued improvement may be able to discharge home with follow-up sleep study to further assess for possible narcolepsy with intermittent cataplexy. Further consideration given to hypokalemic and/or hyperkalemic. Take Plavix, but potassium continues to stay normal at 4. This is considered less likely. Thyrotoxic. Paralysis considered, although TSH is normal, free T3 normal, free T4 only minimally elevated. He is on Synthroid 100 mcg daily at home, we may consider decreasing his dose slightly given low normal TSH, minimally elevated free T4. Reviewed vitals, CBC, CMP, vitamin D is also been requested, reviewed, low normal at 33. Methylmalonic acid has also been requested, pending. Requesting TTE bubble study. He has been unable to have assessment with MRI study due to presence of loop recorder. Has neck CTA has been requested by neurology as well. Results with reidentified small caliber right vertebral artery throughout its course and possibly occluded distally beyond the frontal magnum. No high-grade cervical carotid artery stenosis. Small moderate plaque bilaterally, stenosis less than 50%. CK has been assessed and normal. No evidence of subclavian steal on CTA. Permissive hypertension, hold amlodipine for now. Willl need follow up w neuro. Plan Atrial fibrillation: Transiently A-fib with RVR, heart rates up as high as 140s. Hypertensive. 5 mg push of IV metoprolol ordered for him, however, with some improvement mental status heart rate is also improving spontaneously, down to 105. IV metoprolol did not have to be given. Continue telemonitoring. Consider nonresponse to Eliquis. Stop Eliquis. Switch to dabigatran. Resume amiodarone once able to tolerate oral diet. MARIBEL: Continue nightly CPAP Seronegative arthritis, DJD of cervical and lumbar spine, recently also some tingling/numbness in the right hand, right leg, for which she followed up with his neurologist, and assessed to be secondary to nerve root compression, HTN, hold amlodipine HLD, Emphysema, Chronic migraine: received treatment with new medicine on Mon, but does not remember the name of medicine. Record requested. PDMP PDMP Reviewed: Not Reviewed Attestations 2 Medical Necessity Statement*: Continue admission for assessment management of possible posterior circulation TIA versus CVA, unidentified etiology of intermittent paralysis. Paroxysmal atrial fibrillation with RVR. Coding Level of Care Code Critical Care >/= 30 minutes Critical care time (in minutes): 40 The high probability of a clinically significant, sudden or life threatening deterioration, as referenced in this documentation, required my full and direct attention, intervention and personal management. The critical care time shown is in addition to time spent performing any reported separately billable procedures and includes the following: [x] Data and vital sign review and interpretation [x ] Patient assessment, examination and intervention [x] Medication orders and management [x] Patient/Family updates as able [x] Care Coordination and Documentation. Diagnoses Posterior circulation stroke of uncertain pathology I63.539
--- NOTE | 2024-03-23 16:55 | USCV_ITS ---
Bob, Gil Age: 78 Gender: M : 1945 Exam Date: 03/23/2024 18:37 Ordering Phys: Josh Santos MD Technologist: DORY Exam Location: [facility] [place] Indication: Possible TIA/CVA, history of Afib, HTN, HLD, emphysema. BP: 148 / 105 HR: 92 Rhythm: Atrial fibrillation with erratic rhythm Technical Quality: Adequate MEASUREMENTS (Male / Female) Normal Values 2D ECHO LV Diastolic Diameter PLAX 3.0 cm 4.2 - 5.9 / 3.9 - 5.3 cm IVS Diastolic Thickness 1.4 cm 0.6 - 1.0 / 0.6 - 0.9 cm IVS Systolic Thickness 1.6 cm LVPW Diastolic Thickness 1.3 cm 0.6 - 1.0 / 0.6 - 0.9 cm LVPW Systolic Thickness 1.8 cm LVOT Diameter 1.9 cm LV Ejection Fraction 2D Teich 58.9 % LV Ejection Fraction MOD 4C 68.4 % LV Ejection Fraction MOD 2C 72.4 % LV Ejection Fraction 2C AL 74.0 % LA Diameter 3.2 cm LA Sys Volume AL 67.0 cm cubed LA Sys Volume Index AL 42.8 cm cubed/m squared Aorta at Sinotubular Diameter 3.0 cm IVC Diameter 1.2 cm M-MODE LA Ao Ratio MM 1.3 AV Cusp Separation MM 1.7 cm DOPPLER AV Peak Velocity 104.0 cm/s LVOT Peak Velocity 77.0 cm/s AV Area Cont Eq vti 2.0 cm squared AV Area Cont Eq pk 2.0 cm squared MV Peak Velocity 89.0 cm/s MV Area PHT 4.0 cm squared Mitral E to A Ratio 199.0 TR Peak Velocity 243.0 cm/s TR Peak Gradient 23.6 mmHg TV Peak E Velocity 48.0 cm/s PV Peak Velocity 92.0 cm/s FINDINGS Left Ventricle Left ventricle is normal in size. LV systolic function is normal with EF 55 to 60%. No regional wall motion abnormalities are seen. Diastolic function is indeterminate because of atrial fibrillation. Right Ventricle Normal in size and function Right Atrium Normal in size. Bubble study does not show intracardiac shunt. Left Atrium Dilated Mitral Valve Structurally normal mitral valve. Mild mitral regurgitation. Aortic Valve Aortic valve is thickened. No significant stenosis or regurgitation. Tricuspid Valve Insufficient TR jet to calculate RVSP Pulmonic Valve Not well visualized Pericardium Normal Aorta Normal in size IVC Appears to be normal CONCLUSIONS LV systolic function is normal with EF of 55-60% Diastolic function is indeterminate because of atrial fibrillation. Bubble study does not show intracardiac shunt. Left atrial dilation Mild mitral regurgitation Vaibhav Perez MD (Electronically Signed) Final Date: 24 March 2024 13:51 S
[2024-03-24] VITALS (37 sets, daily range): BP systolic 83–147; BP diastolic 54–106; PULSE 80–139; RESP 10–24; TEMP 36.4–36.9; O2SAT 86–100; BMI 25.6
--- NOTE | 2024-03-24 01:35 | CTR_ITS ---
PROCEDURE INFORMATION: Exam: CT Cervical Spine With Contrast Exam date and time: 03/24/2024 12:28 AM Age: 78 years old Clinical indication: Numbness and weakness; Additional info: Stenosis TECHNIQUE: Imaging protocol: Computed tomography of the cervical spine with contrast. Radiation optimization: All CT scans at this facility use at least one of these dose optimization techniques: automated exposure control; mA and/or kV adjustment per patient size (includes targeted exams where dose is matched to clinical indication); or iterative reconstruction. Contrast material: OMNI 350; Contrast volume: 100 ml; Contrast route: INTRAVENOUS (IV); COMPARISON: CT cervical spine w con [id number] 03/24/2024 12:15 AM RADIATION DOSE METRICS: Total DLP (mGy-cm): 228.97 FINDINGS: Multilevel degenerative changes involve the cervical spine without fracture or acute subluxation. C2-C3: Mild central disc/osteophyte complex. No significant canal narrowing. Degenerative changes involve the uncovertebral joints without significant neural foraminal narrowing. C3-C4: There is a broad disc/osteophyte complex causing mild to moderate canal narrowing. Degenerative changes involve the uncovertebral joints resulting in mild bilateral neural foraminal narrowing. C4-C5: There is a broad disc/osteophyte complex without significant canal narrowing. Degenerative changes involve the uncovertebral joints with severe right and moderate left neural foraminal narrowing. C5-C6 there is a broad disc/osteophyte complex causing moderate canal stenosis. Degenerative changes involve the uncovertebral joints with severe right and [id number] left neural foraminal narrowing. C6-C7: There is a broad disc/osteophyte complex. Mild canal narrowing. No significant neural foraminal narrowing. C7-T1: Negative. Lungs: Lung apices are normal. Soft tissues: Unremarkable. CT/CT cervical spine w con [id number] IMPRESSION: Multilevel degenerative changes involving the cervical spine as detailed above. Findings are most severe involving the mid and lower cervical spine. No acute bony abnormality.
[2024-03-24 04:46] LABS: Basophils % 0.5 %; Eosinophils # 0.2 10^3/uL (0.0-0.8); Eosinophils % 3.4 %; Hematocrit 43.4 % (37-53); Lymphocytes # 1.3 10^3/uL (0.8-4.8); Lymphocytes % 22.7 %; Mean Corpuscular HGB Conc 33.9 g/dL (30-55); Mean Corpuscular Hemoglobin 33.6 pg (27-33); Mean Corpuscular Volume 99.1 fl (82-101); Mean Platelet Volume 8.7 fL (7.4-10.4); Monocytes # 0.7 10^3/uL (0.2-0.9); Monocytes % 12.6 %; Neutrophils # 3.39 10^3/uL (1.8-7.7); Neutrophils % 59.9 %; Nucleated Red Blood Cells % 0 %; Platelet Count 190 10^3/cmm (157-399); Red Blood Count 4.38 10^6/uL (3.85-5.65); Red Cell Distribution Width 13.1 % (12.1-15.1); White Blood Count 5.65 10^3/uL (3.29-11.43)
[2024-03-24 05:04] LABS: Alanine Aminotransferase 47 U/L (0-41); Albumin Level 3.8 g/dL (3.5-5.2); Alkaline Phosphatase 111 U/L (40-130); Aspartate Amino Transferase 30 U/L (0-40); Blood Urea Nitrogen 9 mg/dL (8-23); Calcium 8.9 mg/dL (8.5-10.5); Carbon Dioxide 25 mmol/L (22-29); Chloride 101 mmol/L (98-107); Creatinine Clr Calc Pharmacy 50.6433; Globulin 2.5 g/dL (1.3-4.6); Glucose 94 mg/dL (65-115); Osmolality Calculated 282 mOsm/kg (285-295); Sodium 137 mmol/L (136-145); Total Bilirubin 0.9 mg/dL (0.15-1.2); Total Protein 6.3 g/dL (6.6-8.7)
[2024-03-24] MEDS: levothyroxine 100 mcg Tablet PO (08:18)
[2024-03-24] MEDS: aspirin 325 mg Tablet PO (08:18)
[2024-03-24] MEDS: amiodarone 200 mg Tablet PO (08:19)
[2024-03-24] MEDS: ezetimibe 10 mg Tablet PO (08:19)
--- NOTE | 2024-03-24 13:17 | PC.NURSE ---
nursing unit coordinator rounds 2/6 and / stroke education book given to patient.
[2024-03-24] MEDS: pantoprazole 40 mg SDV IVP (14:37)
--- NOTE | 2024-03-24 14:43 | PC.SOCIAL ---
IMM Updated Updated pt on IMM. No questions voiced. Provided pt a copy. Initialed, dated, & timed a copy & placed in chart.
--- NOTE | 2024-03-24 14:46 | P.DS_ITS ---
Discharge Providers Date of Admission: 03/22/24 11:39 Date of Discharge: March 24, 2024 Attending Provider at Admission: Josh Santos Attending Provider at Discharge: Josh Santos Primary Care Provider: Princess Sutton APRN Diagnoses at Discharge Discharge Diagnosis (1) Posterior circulation stroke of uncertain pathology: Status: Acute Reason for Visit Reason for Visit: Stroke Alert Brief History: Pleasant 78-year-old gentleman with past history of CVA, locked-in syndrome, past history of TNK and prior to that also tPA administration after acute presentation with stroke, with history of atrial fibrillation, seronegative arthritis, DJD of cervical and lumbar spine, recently also some tingling/numbness in the right hand, right leg, for which she followed up with his neurologist, and assessed to be secondary to nerve root compression, HTN, HLD, emphysema, chronic migraine, who was working on a fuse box in the class a regional drivers side foot well of his car where he had laid upside down, and had difficulty getting out subsequently, had to struggle quite a bit and states he felt like he was not able to get out but managed in the end, then as he was walking away from the car suddenly had an episode of severe generalized weakness, collapsing to the ground. He was only able to communicate by blinking his eyes. Stroke code was called in ER with concern for locked-in syndrome. He was assessed by CT head, glucose was not low. CT head with without acute intracranial hemorrhage or edema. Mild atrophy and small vessel disease. He was assessed by neurology at bedside, was found to have NIH of 21, answering questions by blinking. Initially unable to move, subsequently with some gradual improvement, slightly moving his hands bilaterally, opens mouth, move his toes. Symptoms continue to gradually improve. He was not found candidate for thrombolysis due to anticoagulation which he takes for atrial fibrillation. He is admitted to the intensive care unit. He states he did not feeling chest pain or pressure, palpitations, headache, or any other prodromal symptoms. He does remember that during the episode he had to actively remember to breathe. He does state he had to struggle quite a bit to get out from the football of his car. He tells me he is admission with some recurrent episodes in the past. He reports intermittent chills with his speech and movements would get really slow. He states prior evaluations by other physicians considered other conditions including hypokalemic periodic paralysis. He denies any known parasomnia, history of narcolepsy. He does state he was previously found to have obstructive sleep apnea. Hospital Course Hospital Course He has had episodes of variable severity for years, with most episodes coming on with him starting to feel unwell, starting to have slow speech slow movements. Stating that sometimes may be related to stressful or emotional situations, like walking in [employer] and will start feeling unwell, having to go home immediately, usually may lie down and sleep through the episode and feel better later in the day. During hospitalization after initial episode of paralysis, gradually improved, starting to be able to move, verbally communicate, coming back to baseline. During hospitalization had an additional episode which was accompanied by tachycardia up into 120s as well as hypertension. Blood pressure up to 170s on the morning following admission. Without noted tonic-clonic activity. With some improvement initially again opening his eyes, able to blink answers, reporting that sensations were normal and symmetrical, but could not move. EEG done immediately after the episode without suggestion of seizure activity. As discussed with patient on assessment by neurology range of diagnoses been considered including possibility of brainstem transient ischemia, he does have history of atrial fibrillation, and in case of being one of the low percentage of people who do not respond to Eliquis, anticoagulation has prescription with neurologist suggested to an agent with alternate mode of action with continuing on dabigatran instead of Eliquis. He continues on low-dose aspirin. He declined statin due to personal concerns. Additional conditions considered including hypo or hyperkalemic. Paralysis, but his potassium has remained entirely normal. Additionally thyrotoxic. Paralysis could be a consideration, although TSH is normal, though on low normal range, free T4 checked and mildly elevated, normal free T3. Levothyroxine dose will be adjusted downward slightly to 88 mcg. Please follow-up thyroid function. However, no severe abnormality of thyroid function, with suspected thyrotoxic periodic paralysis to be less likely. Given some relation to potential emotional triggers to his episodes, additional consideration given to possibly narcolepsy with cataplexy, has his also does note that he may require taking of daytime naps. He does have history of MARIBEL. Will refer him for polysomnography, as per discussion with neurology for now medication is not yet started, but will be considered on follow-up alongside with lumbar puncture. Additionally consideration may be given to MRI imaging, which could not be obtained here due to presence of loop recorder, but has prescription she will try to set up imaging in [place] through his neurologist today or to allow for additional assessment of the brain. Head MRI back in 2019 showed no evidence of acute ischemic infarct, mild chronic microangiopathy. Additionally as per discussion he may seek evaluation at a tertiary facility like [facility]. He otherwise is feeling better. He has ambulated in the room and did well. Accompanied by his during discussion. He is counseled on precautions similar to orthostatic precautions, sitting down or laying down immediately in case of any prodromal symptoms to avoid injury and notifying someone to be with him at the time of the episode. With slightly soft blood pressure, amlodipine is discontinued. Orthostatics are also requested to be assessed prior to discharge. Physical Exam Narrative: Accompanied by his on second visit. Const: COMMON NORMALS: patient oriented x3 and alert GENERAL APPEARANCE: cooperative ORIENTATION/CONSCIOUSNESS: Yes awake HENMT: COMMON NORMALS: oropharynx normal Neck/C-Spine: COMMON NORMALS: no JVD Resp: COMMON NORMALS: normal respiratory effort and clear to auscultation bilaterally AUSCULTATION: clear to auscultation bilaterally Cardio: COMMON NORMALS: no JVD, regular rhythm, S1 normal heart sound present, S2 normal heart sound present and No murmurs present (Cardio) RHYTHM: regular rhythm HEART SOUNDS: S1 normal heart sound present and S2 normal heart sound present GI: COMMON NORMALS: Normal to inspection, nondistended, normoactive bowel sounds present, Soft to palpation and non-tender PALPATION: Yes Soft to palpation Extremity: COMMON NORMALS: no joint enlargement and no pedal edema Neuro: COMMON NORMALS: patient oriented x3 and moves all extremities SENSORIUM/ORIENTATION: Yes alert Skin: COMMON NORMALS: no rashes or lesions noted GENERAL SKIN EXAM: no rashes or lesions noted Discharge Data Studies Completed and Pending Completed Studies During Hospitalization Category Date Time Status CT angio headneck* [id number] Stat Cat Scan 03/22/24 10:[address] cervical spine w con [id number] Routine Cat Scan 03/24/24 01:[address] head thrombolytic [id number] Stat Cat Scan 03/22/24 10:22 Completed CV. echo w/w bubble cont [id number] Routine Ultrasound 03/23/24 16:55 Completed Pending at discharge Category Date Time Status CT cervical spin wo con* [id number] Routine Cat Scan 03/23/24 11:00 Taken EEG electroencephalogram Routine Exams 03/22/24 15:44 Ordered Complete Blood Count w/Auto AM LABS Lab 03/25/24 04:00 Ordered Comprehensive Metabolic Panel AM LABS Lab 03/25/24 04:00 Ordered Methylmalonic Acid Routine Lab 03/22/24 10:35 Received Radiology Impressions Head CT 03/22/24 10:22 IMPRESSION: 1. No acute intracranial hemorrhage or edema. 2. Mild atrophy and small vessel disease, similar to 12/16/2023. Notified Leo Benton MD at 03/22/2024 10:28 AM. Head/Neck CTA 03/22/24 10:22 IMPRESSION: 1. No high-grade cervical carotid artery stenosis. Small amount of plaque bilaterally, stenosis less than 50%. 2. Reidentified is an extremely small caliber RIGHT vertebral artery throughout its course and possibly occluded distally beyond the foramen magnum. Similar findings noted on 03/23/2023. 3. Normal basilar artery. 4. No thrombus or stenosis within the central [place] of [place]. Cervical Spine CT 03/24/24 01:35 IMPRESSION: Multilevel degenerative changes involving the cervical spine as detailed above. Findings are most severe involving the mid and lower cervical spine. No acute bony abnormality. Laboratory Results WBC 5.65 10^3/uL (3.29-11.43) 03/24/24 03:46 RBC 4.38 10^6/uL (3.85-5.65) 03/24/24 03:46 Hgb 14.70 g/dL (11.27-16.99) 03/24/24 03:46 Hct 43.4 % (37-53) 03/24/24 03:46 MCV 99.1 fl (82-101) 03/24/24 03:46 MCH 33.6 pg (27-33) H 03/24/24 03:46 MCHC 33.9 g/dL (30-55) 03/24/24 03:46 RDW 13.1 % (12.1-15.1) 03/24/24 03:46 Plt Count 190 10^3/cmm (157-399) 03/24/24 03:46 MPV 8.7 fL (7.4-10.4) 03/24/24 03:46 Neut % (Auto) 59.9 % 03/24/24 03:46 Lymph % (Auto) 22.7 % 03/24/24 03:46 [place] % (Auto) 12.6 % 03/24/24 03:46 Eos % (Auto) 3.4 % 03/24/24 03:46 Baso % (Auto) 0.5 % 03/24/24 03:46 Neut # (Auto) 3.39 10^3/uL (1.8-7.7) 03/24/24 03:46 Lymph # (Auto) 1.3 10^3/uL (0.8-4.8) 03/24/24 03:46 [place] # (Auto) 0.7 10^3/uL (0.2-0.9) 03/24/24 03:46 Eos # (Auto) 0.2 10^3/uL (0.0-0.8) 03/24/24 03:46 Baso # (Auto) 0.0 10^3/uL (0.0-0.1) 03/24/24 03:46 Nucleated RBC % (auto) 0 % 03/24/24 03:46 Nucleated RBCs # 0.0 /100WBC 03/24/24 03:46 PT 14.90 SECONDS (12.1-14.9) 03/22/24 10:35 INR 1.09 (0.8-1.2) 03/22/24 10:35 APTT 28.3 SECONDS (23.9-36.7) 03/22/24 10:35 Sodium 137 mmol/L (136-145) 03/24/24 03:46 Potassium 4.0 mmol/L (3.5-5.1) 03/24/24 03:46 Chloride 101 mmol/L (98-107) 03/24/24 03:46 Carbon Dioxide 25 mmol/L (22-29) 03/24/24 03:46 Anion Gap 15.0 (5-19) 03/24/24 03:46 BUN 9 mg/dL (8-23) 03/24/24 03:46 Creatinine 1.0 mg/dL (0.7-1.2) 03/24/24 03:46 GFR Calculation Not Reportable 03/24/24 03:46 Glucose 94 mg/dL (65-115) 03/24/24 03:46 POC Glucose 175 mg/dL (70-110) H 03/22/24 10:22 Calculated Osmolality 282 mOsm/kg (285-295) L 03/24/24 03:46 Calcium 8.9 mg/dL (8.5-10.5) 03/24/24 03:46 Magnesium 2.2 mg/dL (1.7-2.3) 03/22/24 10:35 Total Bilirubin 0.9 mg/dL (0.15-1.2) 03/24/24 03:46 AST 30 U/L (0-40) 03/24/24 03:46 ALT 47 U/L (0-41) H 03/24/24 03:46 Alkaline Phosphatase 111 U/L (40-130) 03/24/24 03:46 Creatine Kinase 296 U/L (39-308) 03/22/24 10:35 Total Protein 6.3 g/dL (6.6-8.7) L 03/24/24 03:46 Albumin 3.8 g/dL (3.5-5.2) 03/24/24 03:46 Globulin 2.5 g/dL (1.3-4.6) 03/24/24 03:46 25-OH Vitamin D Total 33 ng/mL (30-100) 03/23/24 11:22 Folate > 20.0 ng/mL (4.5-32.2) 03/22/24 10:35 Homocysteine 12.06 umol/l (0-15) 03/22/24 10:35 TSH 0.46 uIU/mL (0.27-4.20) 03/22/24 10:35 Free T4 1.81 ng/dL (0.82-1.77) H 03/22/24 10:35 Free T3 2.1 PG/ML (2.0-4.4) 03/22/24 10:35 Urine Color Yellow (Yellow) 03/22/24 10:25 Urine Appearance Clear (CLEAR) 03/22/24 10:25 Urine pH 6.5 (5-7) 03/22/24 10:25 Ur Specific [place] 1.016 (1.005-1.030) 02/05/25 10:25 Urine Protein Negative (Negative) 03/22/24 10:25 Urine Glucose (UA) Negative (Normal) 03/22/24 10:25 Urine Ketones Negative (Negative) 03/22/24 10:25 Urine Blood Negative (Negative) 03/22/24 10:25 Urine Nitrate Negative (Negative) 03/22/24 10:25 Urine Bilirubin Negative (Negative) 03/22/24 10:25 Urine Urobilinogen 0.2 mg/dL (Negative) 03/22/24 10:25 Ur Leukocyte Esterase Negative (Negative) 03/22/24 10:25 Urine RBC 0-2 /hpf (0-2) 03/22/24 10:25 Urine WBC 0-5 /hpf (0-5) 03/22/24 10:25 Ur Squamous Epith Cells 0-5 /hpf (0-5) 03/22/24 10:25 Amorphous Sediment Not Reportable 03/22/24 10:25 Urine Bacteria None seen /hpf (NONE) 03/22/24 10:25 Hyaline Casts 0-4 /lpf H 03/22/24 10:25 Urine Opiates Screen Negative ng/mL (Negative) 03/22/24 10:25 Ur Barbiturates Screen Negative ng/mL (Negative) 03/22/24 10:25 Ur Phencyclidine Scrn Negative ng/mL (Negative) 03/22/24 10:25 Ur Amphetamines Screen Negative ng/mL (Negative) 03/22/24 10:25 U Benzodiazepines Scrn Negative ng/mL (Negative) 03/22/24 10:25 Urine Cocaine Screen Negative ng/mL (Negative) 03/22/24 10:25 U Marijuana (THC) Screen Negative ng/mL (Negative) 03/22/24 10:25 Vitals Last Vital Signs Temp 98.4 F 03/24/24 08:00 Pulse 93 03/24/24 10:15 Resp 21 H 03/24/24 10:00 BP 97/66 03/24/24 06:00 Pulse Ox 100 03/24/24 10:15 O2 Del Method Room Air 03/24/24 10:15 Discharge Plan Discharge Patient Disposition: Home Condition: Stable Prescriptions: New aspirin 81 mg capsule 81 mg PO DAILY Qty: 90 0RF dabigatran etexilate [Pradaxa] 150 mg Capsule 150 mg PO BID Qty: 180 0RF amiodarone [Pacerone] 200 mg Tablet 200 mg PO DAILY Qty: 30 0RF levothyroxine 88 mcg capsule 88 mcg PO DAILY Qty: 30 3RF Continued cholecalciferol (vitamin D3) 1,000 unit capsule 1,000 unit PO DAILY ezetimibe [Zetia] 10 mg tablet 10 mg PO DAILY acetaminophen [Tylenol Extra Strength] 500 mg tablet 1,000 mg PO .[id number] coenzyme Q10 30 mg Capsule 30 mg PO DAILY Discontinued amlodipine 5 mg tablet 5 mg PO DAILY Qty: 90 3RF levothyroxine [Synthroid] 100 mcg tablet 100 mcg PO DAILY Qty: 30 0RF Rx Instructions: SYNTHROID ONLY, ALLERGIC TO GENERIC Eliquis 5 mg tablet 5 mg PO BID Qty: 60 0RF Discharge Orders: Discharge Order (Routine); Ordered 03/24/24 Ordered By: Josh Santos Other Ambulatory Orders: Sleep Study W Sleep Stage (Routine) Timeframe: 3 Days Facility: [facility] - Location: [facility] Ordered By: Josh Santos Referrals: Princess Sutton APRN [Primary Care Provider] - 4-7 days Sky Paige MD [Physician] - 4-7 days Discharge Diet: Regular Activity Restrictions/Additional Instructions: Please follow-up for sleep study and follow-up with neurology for additional assessment, consideration of further differential diagnosis for the periodic paralysis episodes. Continue aspirin, and anticoagulation as discussed has been changed to Pradaxa in case of lack of response to Eliquis. Follow-up with your neurologist for reassessment, as well as referral for MRI brain in [place]. Consider sitting up for assessment at a tertiary facility as discussed. In case you feel an oncoming episode, sit down and/or lie down immediately and let someone know so they can accompany you during episode. As discussed also your TSH was low normal and free T4 mildly elevated, your Synthroid dose due to this is slightly decreased down to 88 mcg. Please follow- up with your primary doctor and/or endocrinology for reassessment of thyroid function in 3 weeks. Seek medical attention in case of worsening or new concerning symptoms. Discharge Attestations Time Spent in Discharge Care*: greater than 30 min Status at Discharge: Cognitive status at discharge: cognitively intact , Behavioral status at discharge: cooperative , Quality Metrics Clinical Quality Measures [ Cerebrovascular Accident { Contraindication to Antithrombotic: None; antithrombotic prescribed; Contraindication to Anticoagulation: None; anticoagulation prescribed; Contraindication to Statin: Drug declined by patient;}] Coding Level of Care Code 84729 Total time (in minutes) for Discharge: 50 Diagnoses Posterior circulation stroke of uncertain pathology I63.539
--- NOTE | 2024-03-24 17:10 | PC.NURSE ---
Pt was discharged to to personal vehicle via wheelchair. All medications transferred to pharmacy and mediations gone over with patient.
[2024-03-28 22:30] LABS: Methylmalonic Acid 225 nmol/L (69-390)
== END 2024-03-24 17:05 | disposition home or self-care (01) | DRG 64 ==
LOC: ER 11:21 → ICU 11:40
PROVIDERS: Psychiatry & Neurology Neurology; Admitting Provider Internal Medicine; Emergency Provider Emergency Medicine; PCP Nurse Practitioner Family; Visit Provider Internal Medicine
DX: I63.539 Cerebral infarction due to unspecified occlusion or stenosis of unspecified posterior cerebral artery (principal); G83.5 Locked-in state; I48.0 Paroxysmal atrial fibrillation; M06.042 Rheumatoid arthritis without rheumatoid factor, left hand; M06.041 Rheumatoid arthritis without rheumatoid factor, right hand; M47.812 Spondylosis without myelopathy or radiculopathy, cervical region; I10 Essential (primary) hypertension; E78.5 Hyperlipidemia, unspecified; J43.9 Emphysema, unspecified; G43.709 Chronic migraine without aura, not intractable, without status migrainosus; Z79.01 Long term (current) use of anticoagulants; G47.33 Obstructive sleep apnea (adult) (pediatric); R00.0 Tachycardia, unspecified; E89.0 Postprocedural hypothyroidism; W88.1XXA Exposure to radioactive isotopes, initial encounter; Z87.442 Personal history of urinary calculi
CPT/HCPCS: 36415; 36416; 70450; 70496; 70498; 72125; 72126; 80053; 80306; 81001; 82306; 82550; 82746; 82962; 83090; 83735; 83921; 84439; 84443; 84481; 85025; 85610; 85730; 93005; 94660; 95816; 99285; 99291; C8929; J2470

== ENCOUNTER 2024-04-17 13:35 | Outpatient (CLI) | payer OTHER, SELFPAY ==
[2024-04-17 14:34] LABS: Free T4 Free Thyroxine 1.58 ng/dL (0.82-1.77); Thyroid Stimulating Hormone 3.29 uIU/mL (0.27-4.20)
== END 2024-04-17 13:36 | disposition home or self-care (01) ==
LOC: LAB 13:36
PROVIDERS: PCP Nurse Practitioner Family; Visit Provider Internal Medicine
DX: E89.0 Postprocedural hypothyroidism (principal)
CPT/HCPCS: 36415; 84439; 84443

== ENCOUNTER → 2024-04-18 11:14 | Outpatient (BNVA) | payer OTHER, SELFPAY | PROVIDERS: PCP Nurse Practitioner Family; Visit Provider Internal Medicine | DX: E89.0 Postprocedural hypothyroidism (principal); R71.8 Other abnormality of red blood cells; G62.9 Polyneuropathy, unspecified; Z71.3 Dietary counseling and surveillance; R53.83 Other fatigue; M54.9 Dorsalgia, unspecified; H57.89 Other specified disorders of eye and adnexa; I48.0 Paroxysmal atrial fibrillation; E07.9 Disorder of thyroid, unspecified | CPT/HCPCS: 99214 ==

== ENCOUNTER 2024-04-25 20:00 | Outpatient (CLI) | payer OTHER, SELFPAY | END 2024-04-25 20:01 | disposition home or self-care (01) | LOC: SLEEP 04-26 05:05 | PROVIDERS: PCP Nurse Practitioner Family; Visit Provider Nurse Practitioner Family | DX: G47.33 Obstructive sleep apnea (adult) (pediatric) (principal); G47.39 Other sleep apnea | CPT/HCPCS: 95810 ==

== ENCOUNTER → 2024-04-26 10:51 | Outpatient (BNVA) | payer OTHER, SELFPAY | PROVIDERS: PCP Nurse Practitioner Family; Visit Provider Internal Medicine | DX: I10 Essential (primary) hypertension (principal); R07.9 Chest pain, unspecified; M06.041 Rheumatoid arthritis without rheumatoid factor, right hand; M06.042 Rheumatoid arthritis without rheumatoid factor, left hand; J43.9 Emphysema, unspecified; M47.816 Spondylosis without myelopathy or radiculopathy, lumbar region; E89.0 Postprocedural hypothyroidism | CPT/HCPCS: 99214 ==

== ENCOUNTER 2024-05-05 08:45 | Outpatient (CLI) | payer OTHER, SELFPAY ==
[2024-05-05 08:53] VITALS: BMI 25.4
--- NOTE | 2024-05-05 08:56 | ECG_ITS ---
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 Interpretive Statements Lung unchanged pre/post procedure; Intraprocedure shortess of breath; Symptoms resoled by discharge PROCEDURE: At the baseline, the EKG revealed sinus tachycardia with a rate of 103 bpm. Diffuse nonspecific T wave changes.. The baseline heart was 123 bpm with a blood pressue of 154/109 mm of Hg Lexiscan was infused over a period of 20 seconds. A total of 0.4 milligrams of Lexiscan was infused. The stress phase was continued for a total of 5 minutes. Heart rate at the end of the stress phase was 129 bpm with a blood pressure 145/94 mm of Hg. The EKG at the peak infusion revealed no significant changes. Sestamibi was injected 20 seconds after the Lexiscan infusion. Heart rate at the end of the recovery phase was 127 bpm with a blood pressure of 161/102 mm of Hg. CONCLUSION: 1. No significant EKG changes with the LexiScan infusion 2. No LexiScan induced chest pain or cardiac arrhythmia 3. Normal blood pressure and heart rate response 4. Sestamibi/sestamibi perfusion scan pending; see separate report. Electronically Signed On 05-05-2024 13:50:58 CDT by Young Hartman M.D. [email or web address]
--- NOTE | 2024-05-05 08:57 | NMCV_ITS ---
NM sandeep perf SPECT r/s* [id number] Gil Rojas Age: 78 Gender: M : 1945 Exam Date: 05/05/2024 10:02 Ordering Phys: Vaibhav Perez M.D ([email or web address]) Technologist: CHINO Carty Exam Location: [facility] Indications: cp STRESS TEST Please see separate stress test report in [facility] for full findings IMAGE PROTOCOL Rest/Stress 1 Lexiscan Day Radiopharmaceutical Dose (mCi) Administration Site Administered by Rest: Tc-99m 10.5 IV Deya Meadows [facility] Sestamibi Stress:Tc-99m 32.4 IV Deya Quintanillagle, [facility] DIRECT[facility] Sestamibi Rest: 05-May-2024 60 Discovery 630 Stress: 05-May-2024 30 Discovery 630 0.4mg Lexiscan. Images obtained in supine and prone position. SPECT RESULTS Technical Quality: Good Raw Data Analysis: Normal Image Corrections: No attenuation or motion correction applied Summed Stress Score: 0 Summed Rest Score: 0 Summed Difference Score: 0 PERFUSION FINDINGS Uniform myocardial tracer uptake with no significant perfusion abnormality FUNCTIONAL RESULTS (calculated via Gated SPECT) Stress Image LV EF (%): 78 Stress EDV (mL):41 TID: 0.7 Stress ESV (mL):9 FUNCTIONAL FINDINGS: Segmental wall motion analysis revealing no gross wall motion abnormalities IMPRESSIONS 1. Myocardial perfusion imaging revealing uniform myocardial tracer uptake with no significant perfusion abnormalities 2. Normal LV ejection fraction of 78%. 3. LV wall motion analysis revealing no gross wall motion abnormalities. 4. Normal LV volume Low probability for coronary ischemia, based on the above findings Dr Young Hartman MD FACC (Electronically Signed) Final Date: 05 May 2024 13:11 S
[2024-05-05] MEDS: regadenoson 0.4 Mg/5 ml Syringe IVP (10:28)
[2024-05-05 10:54] VITALS: BP 132/64; PULSE 118
== END 2024-05-05 08:46 | disposition home or self-care (01) ==
LOC: CDL 08:46
PROVIDERS: PCP Nurse Practitioner Family; Visit Provider Internal Medicine
DX: R07.9 Chest pain, unspecified (principal)
CPT/HCPCS: 36415; 78452; 93017; 96374; A9500; J2785

== ENCOUNTER 2024-05-07 13:04 | Emergency (ER) | payer OTHER, MEDICARE, SELFPAY ==
[2024-05-07 13:12] VITALS: PULSE 117; RESP 18; TEMP 36.8; O2SAT 98; BMI 25.2
--- NOTE | 2024-05-07 13:12 | XRR_ITS ---
PROCEDURE INFORMATION: Exam: XR Right Foot Exam date and time: 05/07/2024 1:35 PM Age: 78 years old Clinical indication: Pain; Foot; Right; Additional info: Foot pain TECHNIQUE: Imaging protocol: Radiologic exam of the right foot. Views: 3 or more views. COMPARISON: CR XR foot RT min 3V* [id number] 08/06/2020 12:19 PM FINDINGS: Bones/joints: Severe 1st MT P joint degenerative changes. No acute osseous abnormality. No traumatic malalignment. Midfoot degenerative changes with some anterior subluxation of the talonavicular joint. Tibiotalar joint degenerative changes. Soft tissues: Normal. Vasculature: Vascular calcifications. XR/XR foot RT min 3V* [id number] IMPRESSION: As above.
--- NOTE | 2024-05-07 14:28 | MRR_ITS ---
PROCEDURE INFORMATION: Exam: MR Lumbar Spine Without and With Contrast Exam date and time: 05/07/2024 4:14 PM Age: 78 years old Clinical indication: Low back pain and sciatica; Bilateral; Prior surgery; Surgery date: 6+ months; Surgery type: Lumbar fusion; Additional info: Severe low back pain b/l le pain TECHNIQUE: Imaging protocol: Magnetic resonance imaging of the lumbar spine without and with contrast. Contrast material: MULTIHANCE; Contrast volume: 13 ml; Contrast route: INTRAVENOUS (IV); COMPARISON: MR lumbar spine wo/w con [id number] 07/24/2022 2:24 PM FINDINGS: Bones/joints: There is transitional anatomy present with sacralization of the L5 vertebrae in comparison with the same-day thoracic spine study. Therefore the previously described fusion changes are at the L4-L5 level which appears similar on the current exam. Grade 1 anterolisthesis L4-L5 measuring 6 mm unchanged. Diffusely heterogeneous marrow without focal lesion likely reflects red marrow unchanged. Mild chronic loss of height of the superior endplate of L2 on L3 unchanged. No acute fracture. Diffuse disc space height loss with desiccation and anterior osteophytosis similar to previous. Spinal cord: Visualized cord, conus medullaris and cauda equina are unremarkable. T12-L1: There is diffuse disc bulging with right-sided subarticular focal disc protrusion causing mild stenosis of the spinal canal again present. The neural foramina are severely narrowed on both sides unchanged. Type 1 endplate degenerative changes posteriorly with enhancement which is likely degenerative. L1-L2: diffuse disc bulging and degenerative facet arthrosis with mild stenosis of the spinal canal is unchanged. Stable severe bilateral neural foraminal stenosis. L2-L3: diffuse disc bulging and degenerative facet arthrosis with mild stenosis of the spinal canal is unchanged. Stable severe right neural foraminal stenosis. Stable moderate left neural foraminal stenosis. L3-L4: diffuse disc bulging and endplate osteophyte without significant stenosis of the spinal canal is unchanged. Stable mild bilateral neural foraminal stenosis. L4-L5: Diffuse disc bulging due to anterolisthesis and facet arthrosis without spinal canal stenosis unchanged. There is severe bilateral neural foraminal narrowing which is unchanged. Previous laminectomy change. L5-S1: No significant disc bulge or herniation. No severe spinal canal stenosis. No significant neural foraminal narrowing. Soft tissues: Unremarkable. MR/MR lumbar spine wo/w con [id number] IMPRESSION: No acute findings. Stable spinal fusion changes. Stable degenerative disc disease with mild spinal canal stenosis T12-L3 and multilevel severe neural foraminal stenosis, as described.
--- NOTE | 2024-05-07 14:28 | MRR_ITS ---
PROCEDURE INFORMATION: Exam: MR Thoracic Spine Without and With Contrast Exam date and time: 05/07/2024 3:34 PM Age: 78 years old Clinical indication: Pain in thoracic spine; With radiculopathy; Bilateral; Additional info: Severe low back pain w/ b/l le pain, unable to walk TECHNIQUE: Imaging protocol: Magnetic resonance imaging of the thoracic spine without and with contrast. Contrast material: MULTIHANCE; Contrast volume: 13 ml; Contrast route: INTRAVENOUS (IV); COMPARISON: CT cervical spine w con [id number] 03/24/2024 12:28 AM FINDINGS: Bones/joints: The alignment is near anatomic. There is minimal chronic superior endplate height loss in T7. No acute fracture. There is disc space height loss at T7-8 with type 2 endplate degenerative changes and enhancement which is likely degenerative. Minimal diffuse disc bulging T1-2 T8-T9 T10-T11 without significant spinal canal stenosis. At T12-L1 there is a right-sided subarticular focal disc protrusion with superimposed diffuse disc bulging and with facet arthropathy causing mild stenosis of the spinal canal. There is no high-grade compromise of the thoracic spinal canal. The left T9-10 and T10-11 neural foramina are severely narrowed. The left T12-L1 neural foramina is severely narrowed. Multilevel anterior osteophytosis. There are multilevel severe degenerative changes of the cervical spine partially seen on the localizer imaging. Mildly heterogeneous marrow minimal effect red marrow conversion. No focal lesion seen. Spinal cord: Normal signal. Soft tissues: Unremarkable. Kidneys and ureters: Right medial upper pole simple renal cyst measures 8 mm. MR/MR thoracic spine wo/w [id number] IMPRESSION: 1. Degenerative changes without significant spinal canal stenosis, as described. 2. There are multilevel severe degenerative changes of the cervical spine partially seen on the localizer imaging. This could be further evaluated with a dedicated cervical spinal MRI if indicated.
--- NOTE | 2024-05-07 14:31 | W.ED.EXTPRO ---
HPI - Extremity Problem General: Chief complaint: Extremity Problem,Nontraumatic Stated complaint: rt foot pain Time Seen by Provider: 05/07/24 13:38 History of Present Illness: 78-year-old male presents with approximately 9 days of severe right lower extremity pain. He explains he is also had left lower extremity pain and low back pain. He does have a history of lumbosacral disease. He reports a history of a spacer at L5-S1. The patient did not initially connect the dots that this could be radiculopathy. However, he states he has had no trauma, no skin changes, no constitutional symptoms, no fever or chills. On exam he has palpable dorsalis pedis pulse bilaterally. There is no lower extremity swelling redness or asymmetry. He reports he is now unable to take more than a few steps due to pain. He denies any bowel or bladder incontinence. He reports no new constipation. He is not immunocompromise. He does take dabigatran for atrial fibrillation. The patient is in severe pain here gritting his teeth, slight sweat, holding still, occasionally grunting. Associated symptoms: Deny chest pain, fever(s) or rash Related Data Home Medications ?Medication ?Instructions ?Recorded ?Confirmed ezetimibe 10 mg tablet (Zetia) 10 mg PO DAILY 09/16/23 05/07/24 acetaminophen 500 mg tablet 1,000 mg PO .[id number] for 02/23/24 05/07/24 (Tylenol Extra Strength) osteoarthritis furosemide 20 mg tablet 20 mg PO DAILY 04/26/24 05/07/24 Previous Rx's ?Medication ?Instructions ?Recorded amiodarone 200 mg tablet (Pacerone) 200 mg PO DAILY #30 tabs 03/24/24 aspirin 81 mg capsule 81 mg PO DAILY #90 caps 03/24/24 levothyroxine 88 mcg capsule 88 mcg PO DAILY #30 caps 03/24/24 dabigatran etexilate 150 mg capsule 150 mg PO BID #180 caps 03/31/24 gabapentin 100 mg capsule 100 mg PO TID PRN muscle spasm #30 05/07/24 caps hydrocodone 5 mg-acetaminophen 325 1 tab PO Q6H PRN pain (scale score 05/07/24 mg tablet 7-10) #20 tabs prednisone 50 mg tablet 50 mg PO DAILY 5 days #5 tabs 03/23/25 Allergies Allergy/AdvReac Type Severity Reaction Status Date / Time leflunomide Allergy Intermediate rash Verified 05/05/24 08:57 levothyroxine sodium (From Allergy Unknown [place] Verified 05/05/24 08:57 Levothroid) lisinopril Allergy Unknown [place] Verified 05/05/24 08:57 sulfasalazine AdvReac Intermediate reaction Verified 05/05/24 08:57 to bar Review of Systems General: Reports: 10 or more systems reviewed and unremarkable except in HPI and below Const: Denies: fever(s), chills or body aches Eyes: Denies: change in vision ENMT: Denies: throat pain Card: Denies: chest pain, edema or syncope Resp: Denies: dyspnea or productive cough GI: Denies: abdominal pain, nausea, vomiting or diarrhea : Denies: flank pain, difficulty urinating, dysuria, urinary frequency, urinary urgency, urinary hesitancy, urinary dribbling, difficulty starting urination or change in urine stream Musc: Reports: back pain and extremity pain; Denies: neck pain, extremity swelling, joint pain, joint swelling, joint redness, joint warmth, joint stiffness, muscle cramps, muscle weakness or deformity Skin/Breast: Denies: rash, pruritus or erythema Neuro: Denies: headache(s), numbness in extremities, weakness in extremities, lack of coordination or difficulty walking PFSH ED PFSH: Medical History Periodic paralysis Paroxysmal atrial fibrillation Osteoarthritis of carpometacarpal (CMC) joint of both thumbs Immunization counseling Seronegative rheumatoid arthritis of both hands Labile essential hypertension High risk medication use Inflammatory arthritis Emphysema of lung 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, bilateral Polyarthralgia CVA (cerebral vascular accident) Hyperlipidemia Hypertension Thyroid disease Renal calculi Status post lithotripsy, stent removed Bilateral renal stones Left ureteral calculus Chronic migraine without aura, intractable, with status migrainosus Surgical History Status post total replacement of right shoulder History of back surgery H/O lithotripsy Family History Mother , 99 Cancer cervical Father , 65 CAD (coronary artery disease) Diabetes Hypertension Cancer Hyperlipidemia Other Lung disease Lupus Rheumatoid arthritis Stroke Social History Smoking and tobacco/nicotine status: unknown if used tobacco/nicotine Alcohol intake: never Substance/Drug Use: never Marital status: Current occupational status: retired Physical Exam Narrative: EXAM NARRATIVE: Patient is in distress. He has a slight diaphoresis on his forehead. He is gritting his teeth. He has tachycardic. It feels as if he might be slightly irregular as if he is bouncing into atrial fibrillation. He has tenderness all through the lumbar region on palpation. He was extremely hesitant to roll over or sit up so I did the palpation with him lying supine in my hand underneath. He has pain with passive range of motion of his lower extremities even with slight straight leg raise. He has bilateral DP pulses that are palpable. The skin in his lower extremities is normal. There is no swelling of the lower extremities or joint deformities. He has patellar reflexes are intact. He can perform great toe dorsiflexion and plantarflexion bilaterally but causes him significant pain. Const: COMMON NORMALS: no limitations, alert and well nourished EXAM LIMITATIONS: no altered mental status HENMT: COMMON NORMALS: normocephalic, atraumatic and external ears normal HEAD & SCALP: normocephalic and atraumatic EXTERNAL EAR: Yes external ears normal MOUTH: no muffled voice Eye: COMMON NORMALS: conjunctivae normal and no scleral icterus CONJUNCTIVA: Yes conjunctivae normal Neck/C-Spine: GENERAL: Yes normal visual inspection and Yes trachea midline Resp: COMMON NORMALS: normal respiratory effort, No use of accessory muscles and clear to auscultation bilaterally AUSCULTATION: clear to auscultation bilaterally GI: COMMON NORMALS: Soft to palpation and non-tender PALPATION: Yes Soft to palpation and No Guarding due to palpation present (GI) Extremity: COMMON NORMALS: normal to inspection Neuro: COMMON NORMALS: moves all extremities, no focal motor deficits and no sensory deficits noted SENSORIUM/ORIENTATION: Yes alert SPEECH: speech normal Psych: COMMON NORMALS: mental status grossly normal, Normal thought process present, cooperative and speech normal SPEECH: Yes normal speech THOUGHT PROCESS: Normal thought process present Skin: COMMON NORMALS: no rashes or lesions noted, turgor normal and no jaundice GENERAL SKIN EXAM: no rashes or lesions noted and turgor normal Course Vital Signs: Vital signs: Vital Signs Temperature 98.2 F 05/07/24 13:12 Pulse Rate 114 H 05/07/24 17:11 Respiratory Rate 16 05/07/24 17:11 Blood Pressure 124/78 05/07/24 17:11 Pulse Oximetry 96 05/07/24 17:11 Oxygen Delivery Me thod Room Air 05/07/24 17:11 MDM - Extremity (Nontraumatic) Medical Decision Making Suspected lumbosacral radiculopathy. Patient seems to be in excruciating amount of pain. He has had L5-S1 issues in the past. He denies bowel or bladder issues. He denies constitutional symptoms including fever or chills. He is not known to be immunocompromise. He is on blood thinners. The patient is able to utilize his extremities although he gives only partial strength on exam due to pain with movement. His reflexes in the lower extremities are intact. His sensation is intact to light touch. His pulses are intact distally. We discussed options. This is less likely to be a genitourinary, gastrointestinal, aortic, or primary lower extremity problem. An MRI of the thoracic and lumbar region would be the best test for him. He does have a loop recorder. I contacted the MRI department and they are going to screen him but think they can perform the test. If the patient is able to tolerate it, we will do the MRIs with and without contrast for best sensitivity. Update 1824 Patient's MRI studies were reviewed. Patient has multilevel degenerative disc disease, some areas of mild spinal canal stenosis, and multilevel severe neural foraminal stenosis. After pain medication the patient is much more comfortable. It is easier for him to talk about his symptoms. He can move his lower extremities without severe pain. He has had the same symptoms in the past. It appears that it is still consistent with lumbar radiculopathy. This would be an acute exacerbation. There is nothing on the MRI requiring emergency treatment. I am going to recommend that he do conservative therapy for 4 to 6 weeks in addition to physical [facility] which [facility] Patient can take gabapentin 3 times daily as needed for severe pain and can use [place] as needed per package instructions for severe pain. He was informed about the potential side effects of these medications and to use them only if needed. He states that is fine as he does not like using medication. After discussion with patient and and going over treatment plan and return precautions he can be discharged from the ER. Lab Data 05/07/24 14:30 05/07/24 14:30 Radiology Impressions Foot X-Ray 05/07/24 13:12 IMPRESSION: As above. Lumbar Spine MRI 05/07/24 14:28 IMPRESSION: No acute findings. Stable spinal fusion changes. Stable degenerative disc disease with mild spinal canal stenosis T12-L3 and multilevel severe neural foraminal stenosis, as described. Thoracic Spine MRI 05/07/24 14:28 IMPRESSION: 1. Degenerative changes without significant spinal canal stenosis, as described. 2. There are multilevel severe degenerative changes of the cervical spine partially seen on the localizer imaging. This could be further evaluated with a dedicated cervical spinal MRI if indicated. Laboratory Results WBC 6.87 10^3/uL (3.29-11.43) 05/07/24 14:30 RBC 4.70 10^6/uL (3.85-5.65) 05/07/24 14:30 Hgb 15.90 g/dL (11.27-16.99) 05/07/24 14:30 Hct 45.0 % (37-53) 05/07/24 14:30 MCV 95.7 fl (82-101) 05/07/24 14:30 MCH 33.8 pg (27-33) H 05/07/24 14:30 MCHC 35.3 g/dL (30-55) 05/07/24 14:30 RDW 13.0 % (12.1-15.1) 05/07/24 14:30 Plt Count 224 10^3/cmm (157-399) 05/07/24 14:30 MPV 8.7 fL (7.4-10.4) 05/07/24 14:30 Neut % (Auto) 60.0 % 05/07/24 14:30 Lymph % (Auto) 21.4 % 05/07/24 14:30 Williams % (Auto) 16.3 % 05/07/24 14:30 Eos % (Auto) 1.0 % 05/07/24 14:30 Baso % (Auto) 0.7 % 05/07/24 14:30 Neut # (Auto) 4.12 10^3/uL (1.8-7.7) 05/07/24 14:30 Lymph # (Auto) 1.5 10^3/uL (0.8-4.8) 05/07/24 14:30 Williams # (Auto) 1.1 10^3/uL (0.2-0.9) H 05/07/24 14:30 Eos # (Auto) 0.1 10^3/uL (0.0-0.8) 05/07/24 14:30 Baso # (Auto) 0.1 10^3/uL (0.0-0.1) 05/07/24 14:30 Nucleated RBC % (auto) 0 % 05/07/24 14:30 Nucleated RBCs # 0.0 /100WBC 05/07/24 14:30 Sodium 138 mmol/L (136-145) 05/07/24 14:30 Potassium 3.6 mmol/L (3.5-5.1) 05/07/24 14:30 Chloride 99 mmol/L (98-107) 05/07/24 14:30 Carbon Dioxide 19 mmol/L (22-29) L 05/07/24 14:30 Anion Gap 23.6 (5-19) H 05/07/24 14:30 BUN 20 mg/dL (8-23) 05/07/24 14:30 Creatinine 1.5 mg/dL (0.7-1.2) H 05/07/24 14:30 GFR Calculation Not Reportable 05/07/24 14:30 Glucose 100 mg/dL (65-115) 05/07/24 14:30 Calculated Osmolality 289 mOsm/kg (285-295) 05/07/24 14:30 Calcium 9.9 mg/dL (8.5-10.5) 05/07/24 14:30 All radiology interpretation(s) finalized by discharge Discharge Plan Discharge Patient Disposition: Home Clinical Impression: Acute lumbar radiculopathy Condition: Stable Prescriptions: New prednisone 50 mg tablet 50 mg PO DAILY 5 Days Qty: 5 0RF hydrocodone-acetaminophen 5-325 mg tablet 1 tab PO Q6H PRN (Reason: pain (scale score 7-10)) Qty: 20 0RF gabapentin 100 mg capsule 100 mg PO TID PRN (Reason: muscle spasm) Qty: 30 0RF No Action ezetimibe [Zetia] 10 mg tablet 10 mg PO DAILY furosemide 20 mg tablet 20 mg PO DAILY acetaminophen [Tylenol Extra Strength] 500 mg tablet 1,000 mg PO .[id number] aspirin 81 mg capsule 81 mg PO DAILY Qty: 90 0RF levothyroxine 88 mcg capsule 88 mcg PO DAILY Qty: 30 3RF amiodarone [Pacerone] 200 mg Tablet 200 mg PO DAILY Qty: 30 0RF dabigatran etexilate 150 mg capsule 150 mg PO BID Qty: 180 0RF Discharge Orders: Discharge ED (Routine); Ordered 05/07/24 Ordered By: Vernon Michel Referrals: Princess Sutton APRN [Primary Care Provider] - 05/11/24 (Acute on chronic lumbar radiculopathy) Discharge Activity: Increase activity as tolerated Patient Instructions: Lumbar Radiculopathy (ED), Lower Back Exercises (ED), Opioid Safety, Pain Management Activity Restrictions/Additional Instructions: Your symptoms seem most likely to be related to lumbar radiculopathy. This is because when there is impingement upon nerves coming from the spinal cord. This can cause severe pain. Often times it improves with time and conservative treatment. You may participate in physical therapy as you described. You can take gabapentin and [place] as needed for severe pain. Remember that these medications can make you sedated, constipated, dizzy, nauseated. Only take them if necessary. Do not drive while using them. Make sure you have stool softeners available to use. Read the handout carefully. Return to the emergency department if you have fever, weakness, loss of bowel or bladder control, trouble urinating, or other urgent symptoms. Print Language: Polish Coding Level of Care Code ED [employer] Maintenance [employer]per for Donna Alberts
[2024-05-07] MEDS: ondansetron 2 mg/ML SDV 2 mL 4 MG IVP (14:38)
[2024-05-07] MEDS: HYDROmorphone 0.5 MG/0.5 ML INJ 1 MG IVP (14:38)
[2024-05-07 14:39] VITALS: BP 161/98; PULSE 131; O2SAT 100
[2024-05-07 14:46] LABS: Basophils # 0.1 10^3/uL (0.0-0.1); Basophils % 0.7 %; Eosinophils # 0.1 10^3/uL (0.0-0.8); Lymphocytes # 1.5 10^3/uL (0.8-4.8); Lymphocytes % 21.4 %; Mean Corpuscular HGB Conc 35.3 g/dL (30-55); Mean Corpuscular Hemoglobin 33.8 pg (27-33); Mean Corpuscular Volume 95.7 fl (82-101); Mean Platelet Volume 8.7 fL (7.4-10.4); Monocytes # 1.1 10^3/uL (0.2-0.9); Monocytes % 16.3 %; Neutrophils # 4.12 10^3/uL (1.8-7.7); Nucleated Red Blood Cells % 0 %; Platelet Count 224 10^3/cmm (157-399); White Blood Count 6.87 10^3/uL (3.29-11.43)
[2024-05-07 14:56] LABS: Anion Gap 23.6 (5-19); Blood Urea Nitrogen 20 mg/dL (8-23); Calcium 9.9 mg/dL (8.5-10.5); Carbon Dioxide 19 mmol/L (22-29); Chloride 99 mmol/L (98-107); Creatinine Clr Calc Pharmacy 33.0744; Glucose 100 mg/dL (65-115); Osmolality Calculated 289 mOsm/kg (285-295); Potassium 3.6 mmol/L (3.5-5.1); Sodium 138 mmol/L (136-145)
[2024-05-07] MEDS: LORazepam 2 mg/mL INJ 1 mL 1 MG IVP (15:07)
[2024-05-07] MEDS: gadobenate dimeglumine 20 mL vial IV (16:05)
--- NOTE | 2024-05-07 16:26 | PC.NURSE ---
at approximately 1500 pt went to MRI.
[2024-05-07 17:11] VITALS: BP 124/78; PULSE 114; RESP 16; O2SAT 96
[2024-05-07] MEDS: HYDROcodone-acetaminophen 5-325 mg Tablet 2 TAB PO (18:36)
[2024-05-07] MEDS: predniSONE 20 mg Tablet 60 MG PO (18:37)
[2024-05-07 18:57] VITALS: BP 128/75; PULSE 108; O2SAT 97
== END 2024-05-07 18:58 | disposition home or self-care (01) ==
PROVIDERS: Emergency Provider Emergency Medicine; PCP Nurse Practitioner Family
DX: M54.16 Radiculopathy, lumbar region (principal); Z79.82 Long term (current) use of aspirin; Z86.73 Personal history of transient ischemic attack (TIA), and cerebral infarction without residual deficits; E78.5 Hyperlipidemia, unspecified; I10 Essential (primary) hypertension
CPT/HCPCS: 72157; 72158; 73630; 80048; 85025; 96374; 96375; 99285; J1171; J2060; J2405; J7512; J9999

== ENCOUNTER 2024-05-17 10:49 | Outpatient (CLI) | payer OTHER, SELFPAY ==
[2024-05-17 13:33] LABS: Free T4 Free Thyroxine 1.32 ng/dL (0.82-1.77); Thyroid Stimulating Hormone 10.09 uIU/mL (0.27-4.20)
== END 2024-05-17 10:50 | disposition home or self-care (01) ==
LOC: LAB 10:51
PROVIDERS: PCP Nurse Practitioner Family; Visit Provider Internal Medicine
DX: E89.0 Postprocedural hypothyroidism (principal)
CPT/HCPCS: 36415; 84439; 84443

== ENCOUNTER 2024-05-17 22:00 | Outpatient (CLI) | payer OTHER, SELFPAY | END 2024-05-17 22:01 | disposition home or self-care (01) | LOC: SLEEP 23:00 | PROVIDERS: PCP Nurse Practitioner Family; Visit Provider Nurse Practitioner Family | DX: G47.33 Obstructive sleep apnea (adult) (pediatric) (principal); I48.91 Unspecified atrial fibrillation | CPT/HCPCS: 95811 ==

== ENCOUNTER → 2024-05-24 13:44 | Outpatient (BNVA) | payer OTHER, SELFPAY | PROVIDERS: PCP Nurse Practitioner Family; Visit Provider Internal Medicine Rheumatology | DX: Z71.89 Other specified counseling (principal); Z79.899 Other long term (current) drug therapy; M06.041 Rheumatoid arthritis without rheumatoid factor, right hand; M06.042 Rheumatoid arthritis without rheumatoid factor, left hand; I10 Essential (primary) hypertension | CPT/HCPCS: 99214 ==

== ENCOUNTER 2024-05-26 14:00 | Emergency (ER) | payer OTHER, MEDICARE, SELFPAY ==
[2024-05-26 14:03] VITALS: BP 142/99; PULSE 137; RESP 22; TEMP 36.7; O2SAT 99; BMI 25.6
--- NOTE | 2024-05-26 14:18 | ECG_ITS ---
[facility] Date: 2024-05-26 Pat Name: Gil Rojas Department: Room: Gender: Male Digester: : 1945 Requested By: Elina Rousseau Order Number: [id number] Kaycee MD: Young Hartman M.D. Measurements Intervals [place] Rate: 135 P: 0 FL: 0 QRS: 48 QRSD: 90 T: 56 QT: 319 QTc: 479 Interpretive Statements ATRIAL FLUTTER/FIBRILLATION,WITH RAPID VENTRICULAR RESPONSE MODERATE ST DEPRESSION [0.05+ mV ST DEPRESSION] Compared to ECG 03/22/2024 11:01:52 ST (T wave) deviation now present Atrial fibrillation no longer present T-wave abnormality no longer present Electronically Signed On 05-27-2024 13:08:14 CDT by Young Hartman M.D. [email or web address]
--- NOTE | 2024-05-26 14:28 | PC.PHAR ---
Addendum entered by Liz Scherer 05/26/24 14:28: Pt last discharged 05/07/24-no changes found but faxed for med list to double check. Original Note: [facility] 05/26/24 2:27pm
[2024-05-26] MEDS: HYDROmorphone 0.5 MG/0.5 ML INJ 1 MG IVP (14:33)
[2024-05-26] MEDS: ondansetron 2 mg/ML SDV 2 mL 8 MG IVP (14:33)
--- NOTE | 2024-05-26 14:38 | CT_ITS ---
WS: [id number] CT LUMBAR SPINE TECHNIQUE: Noncontrast CT of the lumbar spine with coronal and sagittal reformatted images. CLINICAL INFORMATION: worsening low back pain, cannot lift legs; pain in scrotum COMPARISON: MRI 05/07/2024 DLP: 325.[address] scans at [facility] use at least one of these dose optimization techniques: automated exposure control; mA and/or kV adjustment per patient size (includes targeted exams where dose is matched to clinical indication); or iterative reconstruction. FINDINGS: Osteopenia. Mild lumbar curve convex LEFT. Prior postoperative changes pedicle screw fixation L5-S1 with grade 1 anterolisthesis. Advanced spondylitic changes lumbar spine. Chronic compression superior endplate L3 and L4 appears unchanged. Advanced disc space narrowing throughout the lumbar spine worse at L4-5. Prior interbody fusion L5-S1. Laminectomy defects lower lumbar spine. L1-L2: Mild disc bulging with mild central canal stenosis. Impingement in the subarticular recess bilaterally. Moderate LEFT greater than RIGHT foraminal narrowing. Mild facet arthropathy. L2-L3: Mild disc bulging with impingement on the subarticular recesses RIGHT greater than LEFT. Moderate central canal stenosis. Moderate RIGHT and mild LEFT foraminal narrowing. Moderate facet arthropathy. L3-L4: Disc bulging with moderate central canal stenosis and moderate to severe impingement on the subarticular recess bilaterally. Moderate facet arthropathy. Moderate RIGHT and mild LEFT foraminal narrowing. L4-L5: Mild disc bulging with slight effacement of the ventral thecal sac. Mild facet arthropathy. Foramina are patent. L5-S1: Grade 1 anterolisthesis. Laminectomy defects. Spinal canal is patent. Mild LEFT greater than RIGHT foraminal narrowing. Visualized pelvic bony structures: Normal. Paravertebral soft tissues: Normal. Small esophageal hiatal hernia. RIGHT renal cyst. CT/CT lumbar spine wo con* [id number] IMPRESSION: 1. No acute fractures. 2. Osteopenia. 3. Pedicle screw fixation L5-S1. Grade 1 anterolisthesis L5 on S1. 4. Chronic compression of the superior endplates of L3 and L4 unchanged since the recent MRI. 5. Mild central canal stenosis L1-2. 6. Moderate central canal stenosis L2-L3 and L3-4 with severe impingement of t he subarticular recess bilaterally
--- NOTE | 2024-05-26 14:39 | ED_ITS ---
HPI - Back Pain/Injury 2 General: Chief Complaint: Back Pain/Injury Stated Complaint: BACK PAIN Time Seen by Provider: 05/26/24 14:23 Source: patient Mode of arrival: EMS Limitations: no limitations History of Present Illness: Chief Complaint: Severe low back pain. Patient Summary: The patient is a 78-year-old male with a significant past medical history of multiple chronic conditions including A-fib, hypertension, thyroid disease, degenerative disc disease, periodic paralysis, emphysema who presents with severe low back pain. The patient reports the onset of severe low back pain starting early this morning. In addition to the back pain, he experiences continuous pain in both legs, especially the right, sharp pain in the penis occasionally, aching in the scrotum, and intermittent pain in the rectum. The patient denies any recent falls or trauma. He reports not having any urinary issues or signs of kidney stones. He has not urinated since the morning and has not experienced any loss of bowel or bladder control. His pain is currently rated at 9 or 10 out of 10. The patient mentions that he does not regularly take pain medication during the day but takes muscle relaxers and pain medication at night if the pain is severe. He received medication in the ambulance, which did not alleviate his symptoms. The patient reports not having chest pain more than usual, despite having a history of atrial fibrillation and a slightly elevated heart rate today. In addition to the low back pain patient reports heaviness of bilateral arms and difficulty moving the arms that also began this morning. His came into the room after initial report and states patient does have a history of neck issues and was supposed to be having some neck imaging however that had not been completed yet. The upper body symptoms are completely new today. Related Data Home Medications ?Medication ?Instructions ?Recorded ?Confirmed ezetimibe 10 mg tablet (Zetia) 10 mg PO DAILY 09/16/23 05/26/24 acetaminophen 500 mg tablet 1,000 mg PO .[id number] for 02/23/24 05/26/24 (Tylenol Extra Strength) osteoarthritis furosemide 20 mg tablet 20 mg PO DAILY 04/26/2405/16 amoxicillin 875 mg-potassium 1 tab PO BID 05/26/2401/09 clavulanate 125 mg tablet aspirin 81 mg tablet,delayed 81 mg PO DAILY 05/26/24 0 05/26/24 release benzonatate 200 mg capsule 200 mg PO Q8H PRN Cough 01/0905/26/24 dabigatran etexilate 150 mg 150 mg PO BID 05/26/2401/09 capsule (Pradaxa) Previous Rx's ?Medication ?Instructions ?Recorded amiodarone 200 mg tablet (Pacerone) 200 mg PO DAILY #3 0 tabs 03/24/24 levothyroxine 88 mcg capsule 88 mcg PO DAILY #30 caps 03/24/24 gabapentin 100 mg capsule 100 mg PO TID PRN muscle spa sm #30 05/07/24 caps hydrocodone 5 mg-acetaminophen 325 1 tab PO Q6H PRN pa in (scale score 05/07/24 mg tablet 7-10) #20 tabs Allergies Allergy/AdvReac Type Severity Reaction Status Date / Time leflunomide Allergy Intermediate rash Verified 05/24/24 14:26 levothyroxine sodium (From Allergy Unknown NOWN Verified 05/24/24 14:26 Levothroid) lisinopril Allergy Unknown [facility] Verified 05/24/24 14:26 sulfasalazine AdvReac Intermediate reaction Verified 05/24/24 14:26 to bar Review of Systems 2 Narrative: Review of Systems: - General: Reports severe low back pain and pain in both legs, penis, scrotum, and rectum. - Cardiovascular: Reports history of atr ial fibrillation; heart rate elevated today. - Genitourinary: Reports sharp pain in t he penis occasionally and aching in the scrotum; has not urinated since morning. - Neurological: Reports ability to wiggl e toes; denies loss of bowel or bladder control. - Musculoskeletal: Reports severe low ba ck pain starting this morning. - Respiratory: Reports not having chest pain more than usual. - Gastrointestinal: Reports not having l oss of bowel control. 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, bilateral Polyarthralgia CVA (cerebral vascular accident) Hyperlipidemia Hypertension Thyroid disease Renal calculi Status post lithotripsy, stent removed Bilateral renal stones Left ureteral calculus Chronic migraine without aura, intractable, with status migrainosus Surgical History Status post total replacement of right shoulder History of back surgery H/O lithotripsy Family History Mother , 99 Cancer cervical Father , 65 CAD (coronary artery disease) Diabetes Hypertension Cancer Hyperlipidemia Other Lung disease Lupus Rheumatoid arthritis Stroke Social History (Updated 05/24/24 @ 14:28 by Kaylie Deluca LPN) Smoking and tobacco/nicotine status: never used tobacco/nicotine Alcohol intake: never Substance/Drug Use: never Marital status: Current occupational status: retired Physical Exam 2 Const: OTHER: Patient appears to be in significant pain on exam. Patient moaning and crying upon exam. Neck/C-Spine: CERVICAL SPINE: No Cervical spine tenderness Resp: COMMON NORMALS: normal respiratory effort, No retractions and clear to auscultation bilaterally AUSCULTATION: clear to auscultation bilaterally Cardio: RATE: tachycardic RHYTHM: abnormal rhythm irregularly irregular HEART SOUNDS: no murmurs GI: COMMON NORMALS: Normal to inspection, nondistended, normoactive bowel sounds present and Soft to palpation PALPATION: Yes Soft to palpation Extremity: NARRATIVE EXTREMITY EXAM: Patient is able to plantarflex with both feet on exam however unable to lift either leg due to heaviness and severe back pain. Patient tried to lift both arms off of the bed and was unable to lift without shaking significantly due to pain. Normal sensation was noted in both arms and both lower extremities. Neuro: OTHER: See above, sensation appears normal in bilateral lower extremities along with bilateral arms. Unable to assess gait due to pain. Psych: COMMON NORMALS: mental status grossly normal, Normal thought process present and cooperative THOUGHT PROCESS: Normal thought process present Skin: COMMON NORMALS: no rashes or lesions noted and no wounds GENERAL SKIN EXAM: no rashes or lesions noted Course 2 ED course: 78-year-old male presenting to the ER in significant pain since early this a.m. Patient came by ambulance. He reports it was sudden onset this morning. He reports difficulty lifting either leg and having pain that radiated into his rectum and his penis. Patient describes his pain as being a 10 out of 10 and sharp and severe. Patient also reported difficulty lifting his arms since this morning. Patient reports all of his body feels very heavy. He does have a significant past medical history of chronic back issues with surgery in the past. He had an MRI done about a week ago. Patient reports he is used to chronic back pain radiating down his right leg however this is now down the left also. Patient's reports he does appear to be in significant pain in comparison to his norm. Lab work was completed along with CTs although patient has had recent MRI and CTs. We did go ahead and CT the head given the heaviness and full body sensations he is having. On patient's lab work it was noted that he has significantly elevated liver enzymes. This was then discussed with the patient who reports he has had an upset stomach off-and-on the last couple of weeks along with some upper abdominal pain. He reports no history of any gallbladder issues or liver issues in the past. Pain improved in the ER. Pts gallbladder US is otherwise unremarkable and pt will f/u with PCP regarding elevated liver enzymes. Reevaluation(s): Reevaluation #1: Patient resting comfortably at this time as long as he does not move. We are going to get a gallbladder ultrasound given patient's elevated liver enzymes. Vital Signs: Vital signs: Vital Signs Temperature 98.1 F 05/26/24 14:03 Pulse Rate 126 H 05/26/24 15:57 Respiratory Rate 22 H 05/26/24 14:03 Blood Pressure 142/86 05/26/24 15:57 Pulse Oximetry 99 05/26/24 15:57 Oxygen Delivery Me thod Room Air 05/26/24 15:57 MDM - Back Pain/Injury Medical Decision Making Patient presented to the ER with severe low back pain. He was recently here with similar issues and had an MRI done within the last 2 weeks patient also had CTs done within the last 2 months. Pain appeared to be worse and involve the left leg instead of the right only this time so repeat CT of the L-spine was performed along with CT of the C-spine given upper extremity involvement. CTs appear to be stable and unchanged from the previous ones 2 months ago. Patient's pain did finally improve with fentanyl and Dilaudid while in the ER. Patient was found to have elevated liver enzymes and gallbladder ultrasound was performed given recent nausea and up for epigastric pain. Gallbladder ultrasound was unremarkable. Discussed findings with patient and he will follow-up with his primary care provider outpatient regarding this. Will discharge patient and did discuss the importance of staying ahead of his pain. He does not take home pain medications as prescribed. He takes them only as needed. We discussed taking them regularly on schedule and trying to stay head of the pain to prevent exacerbations like this. Patient was agreeable to the treatment plan. Labs 05/26/24 14:30 05/26/24 14:30 Radiology Impressions Lumbar Spine CT 05/26/24 14:38 IMPRESSION: 1. No acute fractures. 2. Osteopenia. 3. Pedicle screw fixation L5-S1. Grade 1 anterolisthesis L5 on S1. 4. Chronic compression of the superior endplates of L3 and L4 unchanged since the recent MRI. 5. Mild central canal stenosis L1-2. 6. Moderate central canal stenosis L2-L3 and L3-4 with severe impingement of the subarticular recess bilaterally Cervical Spine CT 05/26/24 14:58 IMPRESSION: No evidence of acute fracture or dislocation. Advanced spondylitic changes Head CT 05/26/24 14:58 IMPRESSION: 1. No evidence of intracranial hemorrhage or mass effect. 2. Paranasal sinusitis with air-fluid levels 3. No acute intracranial findings. Gallbladder Ultrasound 05/26/24 15:59 IMPRESSION: 1. No acute findings. 2. Right renal cyst 3. Dilated gallbladder without stones. Laboratory Results WBC 9.49 10^3/uL (3.29-11.43) 05/26/24 14:30 RBC 4.16 10^6/uL (3.85-5.65) 05/26/24 14:30 Hgb 14.00 g/dL (11.27-16.99) 05/26/24 14:30 Hct 41.5 % (37-53) 05/26/24 14:30 MCV 99.8 fl (82-101) 05/26/24 14:30 MCH 33.7 pg (27-33) H 05/26/24 14:30 MCHC 33.7 g/dL (30-55) 05/26/24 14:30 RDW 13.2 % (12.1-15.1) 05/26/24 14:30 Plt Count 219 10^3/cmm (157-399) 05/26/24 14:30 MPV 8.4 fL (7.4-10.4) 05/26/24 14:30 Neut % (Auto) 74.7 % 05/26/24 14:30 Lymph % (Auto) 14.4 % 05/26/24 14:30 Elliott % (Auto) 8.7 % 05/26/24 14:30 Eos % (Auto) 1.5 % 05/26/24 14:30 Baso % (Auto) 0.2 % 05/26/24 14:30 Neut # (Auto) 7.08 10^3/uL (1.8-7.7) 05/26/24 14:30 Lymph # (Auto) 1.4 10^3/uL (0.8-4.8) 05/26/24 14:30 Elliott # (Auto) 0.8 10^3/uL (0.2-0.9) 05/26/24 14:30 Eos # (Auto) 0.1 10^3/uL (0.0-0.8) 05/26/24 14:30 Baso # (Auto) 0.0 10^3/uL (0.0-0.1) 05/26/24 14:30 Nucleated RBC % (auto) 0 % 05/26/24 14: Nucleated RBCs # 0.0 /100WBC 05/26/24 14:30 ESR 25 mm/hr (0-10) H 05/26/24 14:30 Sodium 133 mmol/L (136-145) L 05/26/24 14:30 Potassium 3.7 mmol/L (3.5-5.1) 05/26/24 14:30 Chloride 97 mmol/L (98-107) L 05/26/24 14:30 Carbon Dioxide 18 mmol/L (22-29) L 05/26/24 14:30 Anion Gap 21.7 (5-19) H 05/26/24 14:30 BUN 16 mg/dL (8-23) 05/26/24 14:30 Creatinine 1.3 mg/dL (0.7-1.2) H 05/26/24 14:30 GFR Calculation Not Reportable 05/26/24 14:30 Glucose 107 mg/dL (65-115) 05/26/24 14:30 Calculated Osmolality 278 mOsm/kg (285-295) L 05/26/24 14:30 Lactic Acid 2.0 mmol/L (0.5-2.2) 05/26/24 15:48 Calcium 9.1 mg/dL (8.5-10.5) 05/26/24 14:30 Total Bilirubin 1.2 mg/dL (0.15-1.2) 05/26/24 14:30 AST 165 U/L (0-40) H 05/26/24 14:30 ALT 264 U/L (0-41) H 05/26/24 14:30 Alkaline Phosphatase 358 U/L (40-130) H 05/26/24 14:30 Troponin T Baseline 12 ng/L (0-15) 05/26/24 14:30 Troponin T 120 Minute 11.72 ng/L (0-15) 05/26/24 15:48 Delta Troponin T -0.28 ABS# (0-10) L 05/26/24 15:48 C-Reactive Protein 8.8 mg/L (0.0-4.9) H 05/26/24 14:30 Total Protein 7.0 g/dL (6.6-8.7) 05/26/24 14:30 Albumin 4.0 g/dL (3.5-5.2) 05/26/24 14:30 Globulin 3.0 g/dL (1.3-4.6) 05/26/24 14:30 Lipase 13 U/L (13-60) 05/26/24 15:48 Urine Color Yellow (Yellow) 05/26/24 16:47 Urine Appearance Clear (CLEAR) 05/26/24 16:47 Urine pH 8 (5-7) A 05/26/24 16:47 Ur Specific [place] 1.005 (1.005-1.030) 05/26/24 16:47 Urine Protein Neg (Negative) 05/26/24 16:47 Urine Glucose (UA) Norm (Normal) 05/26/24 16:47 Urine Ketones 1+ (Negative) H 05/26/24 16:47 Urine Blood Neg (Negative) 05/26/24 16:47 Urine Nitrate Negative (Negative) 05/26/24 16:47 Urine Bilirubin Neg (Negative) 05/26/24 16:47 Urine Urobilinogen Norm mg/dL (Negative) 05/26/24 16:47 Ur Leukocyte Esterase Negative (Negative) 05/26/24 16:47 Urine RBC 0-2 /hpf (0-2) 05/26/24 16:47 Urine WBC 0-5 /hpf (0-5) 05/26/24 16:47 Ur Squamous Epith Cells 0-5 /hpf (0-5) 05/26/24 16:47 Amorphous Sediment Not Reportable 05/26/24 16:47 Urine Bacteria None seen /hpf (NONE) 05/26/24 16:47 Hyaline Casts 0-4 /lpf H 05/26/24 16:47 All radiology interpretation(s) finalized by discharge Discharge Plan Discharge Patient Disposition: Home Clinical Impression: Elevated LFTs, Acute exacerbation of chronic low back pain Degenerative joint disease (DJD) of lumbar spine Qualifiers: Spinal osteoarthritis complication: with radiculopathy Qualified Code(s): M 47.26 - Other spondylosis with radiculopathy, lumbar region Condition: Stable Prescriptions: No Action ezetimibe [Zetia] 10 mg tablet 10 mg PO DAILY furosemide 20 mg tablet 20 mg PO DAILY acetaminophen [Tylenol Extra Strength] 500 mg tablet 1,000 mg PO .[id number] benzonatate 200 mg capsule 200 mg PO Q8H PRN (Reason: Cough) aspirin [Aspir-81] 81 mg Tablet,Delayed Release (Dr/Ec) 81 mg PO DAILY amoxicillin-pot clavulanate 875-125 mg tablet 1 tab PO BID dabigatran etexilate [Pradaxa] 150 mg capsule 150 mg PO BID levothyroxine 88 mcg capsule 88 mcg PO DAILY Qty: 30 3RF amiodarone [Pacerone] 200 mg Tablet 200 mg PO DAILY Qty: 30 0RF hydrocodone-acetaminophen 5-325 mg tablet 1 tab PO Q6H PRN (Reason: pain (scale score 7-10)) Qty: 20 0RF gabapentin 100 mg capsule 100 mg PO TID PRN (Reason: muscle spasm) Qty: 30 0RF Discharge Orders: Discharge ED (Routine); Ordered 05/26/24 Ordered By: Carmen Degroot Referrals: Princess Sutton MARBLE MASON [Primary Care Provider] - Discharge Diet: Usual diet Discharge Activity: Increase activity as tolerated Patient Instructions: Opioid Safety, Pain Management Activity Restrictions/Additional Instructions: Stay on top of pain and take pain medications and gabapentin as prescribed. F/U with PCP regarding elevated liver enzymes. Return to the ER with any new or worsening symptoms. Print Language: Croatian Coding Level of Care Code ED Stamping Press Operator for Donna Alberts
[2024-05-26 14:42] LABS: Basophils % 0.2 %; Eosinophils # 0.1 10^3/uL (0.0-0.8); Eosinophils % 1.5 %; Hematocrit 41.5 % (37-53); Lymphocytes # 1.4 10^3/uL (0.8-4.8); Lymphocytes % 14.4 %; Mean Corpuscular HGB Conc 33.7 g/dL (30-55); Mean Corpuscular Hemoglobin 33.7 pg (27-33); Mean Corpuscular Volume 99.8 fl (82-101); Mean Platelet Volume 8.4 fL (7.4-10.4); Monocytes # 0.8 10^3/uL (0.2-0.9); Monocytes % 8.7 %; Neutrophils # 7.08 10^3/uL (1.8-7.7); Neutrophils % 74.7 %; Nucleated Red Blood Cells % 0 %; Platelet Count 219 10^3/cmm (157-399); Red Blood Count 4.16 10^6/uL (3.85-5.65); Red Cell Distribution Width 13.2 % (12.1-15.1); White Blood Count 9.49 10^3/uL (3.29-11.43)
[2024-05-26 14:49] LABS: Erythrocyte Sedimentation Rate 25 mm/hr (0-10)
[2024-05-26 14:56] LABS: Troponin(5th) Baseline 12 ng/L (0-15)
[2024-05-26 14:58] LABS: Alanine Aminotransferase 264 U/L (0-41); Alkaline Phosphatase 358 U/L (40-130); Anion Gap 21.7 (5-19); Aspartate Amino Transferase 165 U/L (0-40); Blood Urea Nitrogen 16 mg/dL (8-23); C Reactive Protein 8.8 mg/L (0.0-4.9); Calcium 9.1 mg/dL (8.5-10.5); Carbon Dioxide 18 mmol/L (22-29); Chloride 97 mmol/L (98-107); Creatinine Clr Calc Pharmacy 38.7733; Glucose 107 mg/dL (65-115); Osmolality Calculated 278 mOsm/kg (285-295); Potassium 3.7 mmol/L (3.5-5.1); Sodium 133 mmol/L (136-145); Total Bilirubin 1.2 mg/dL (0.15-1.2)
--- NOTE | 2024-05-26 14:58 | CT_ITS ---
WS: [id number] CT CERVICAL TRAUMA TECHNIQUE: Noncontrast CT of the cervical spine with coronal and sagittal reformatted images. CLINICAL INFORMATION: heaviness and difficulty moving arms COMPARISON: 03/24/2024 DLP: 1328.[address] scans at [facility] use at least one of these dose optimization techniques: automated exposure control; mA and/or kV adjustment per patient size (includes targeted exams where dose is matched to clinical indication); or iterative reconstruction. FINDINGS: Straightening of the normal cervical lordosis. Osteopenia. Advanced spondylitic changes. Normal craniocervical junction. Normal C1-C2 articulation. Dens is normal in appearance. Normal occipital condyles. Disc osteophyte complexes with mild to moderate central canal stenosis C3-C4 C4- C5 C5-C6 similar to previous. Normal prevertebral soft tissues. Mastoids air cells are well aerated. CT/CT cervical spin wo con* [id number] IMPRESSION: No evidence of acute fracture or dislocation. Advanced spondylitic changes
--- NOTE | 2024-05-26 14:58 | CT_ITS ---
WS: [id number] CT HEAD TECHNIQUE: Noncontrast CT of the head obtained from the skullbase to the vertex. CLINICAL INFORMATION: heaviness and difficulty moving arms and legs COMPARISON: None. DLP: 1328.[address] scans at [facility] use at least one of these dose optimization techniques: automated exposure control; mA and/or kV adjustment per patient size (includes targeted exams where dose is matched to clinical indication); or iterative reconstruction. FINDINGS: No evidence of intracranial hemorrhage or mass effect. Ventricular system and basal cisterns are patent. Mild small vessel changes with moderate parenchymal volume loss. No extra-axial fluid collections. No evidence of mass or mass effect. Vascular calcification. Paranasal sinusitis with air-fluid levels in the maxillary sinuses. Partial opacification of the ethmoid air cells. Mucosal thickening and fluid in the LEFT frontal sinus and frontoethmoidal recess. Mastoid air cells are well aerated. CT/CT head wo con* [id number] IMPRESSION: 1. No evidence of intracranial hemorrhage or mass effect. 2. Paranasal sinusitis with air-fluid levels 3. No acute intracranial findings.
[2024-05-26 15:57] VITALS: BP 142/86; PULSE 126; O2SAT 99
--- NOTE | 2024-05-26 15:59 | USR_ITS ---
PROCEDURE INFORMATION: Exam: US Abdomen; Limited Exam date and time: 05/26/2024 4:32 PM Age: 78 years old Clinical indication: Pain and abnormal findings; Abnormal lab test; Elevated liver enzymes; Abdominal pain; Generalized; Additional info: Abd pain, elevated liver enzymes TECHNIQUE: Imaging protocol: Real time ultrasound of the abdomen with image documentation. Limited exam focused on the region of clinical interest. COMPARISON: [place] liver [id number] 10/20/2023 8:17 AM FINDINGS: Liver: The liver is unremarkable echogenicity measuring 11.6 cm. Gallbladder: Gallbladder is dilated without stones. Biliary ducts: Common bile duct is 7 mm. Pancreas: Pancreas is not visible due to bowel gas. Right kidney: 6.5 cm x 3.6 cm x 3.4 cm no focal abnormalities.. Upper pole right renal cyst 1 cm x 1 cm x 1.1 cm Other findings: . US/US gall bladder [id number] IMPRESSION: 1. No acute findings. 2. Right renal cyst 3. Dilated gallbladder without stones.
--- NOTE | 2024-05-26 16:26 | ECG_ITS ---
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 Measurements Intervals [place] Rate: 116 P: 153 MT: 179 QRS: 67 QRSD: 95 T: 25 QT: 320 QTc: 445 Interpretive Statements SINUS TACHYCARDIA with occasional supraventricular ectopics. First-degree AV block LOW QRS VOLTAGE IN EXTREMITY LEADS [QRS DEFLECTION < 0.5 mV IN LIMB LEADS] ABNORMAL RHYTHM ECG Compared to ECG 05/26/2024 14:18:32 Low QRS voltage now present Atrial flutter no longer present ST (T wave) deviation no longer present Electronically Signed On 05-27-2024 13:18:58 CDT by Young Hartman M.D. [email or web address]
[2024-05-26 16:32] LABS: Troponin 5 2HR 11.72 ng/L (0-15); Troponin 5 2HR Delta -0.28 ABS# (0-10)
[2024-05-26 16:34] LABS: Lipase 13 U/L (13-60)
[2024-05-26 17:03] LABS: Bacteria Urine None Seen /hpf; Hyaline Casts Urine 0-4 /lpf; RBC Urine 0-2 /hpf (0-2); Squamous Epithelial Cell Urine 0-5 /hpf (0-5); WBC Urine 0-5 /hpf (0-5)
[2024-05-26 17:04] LABS: Add Urine Culture? No; Bilirubin Urine Neg (Negative); Blood Urine Neg (Negative); Glucose Urine UA Norm (Normal); Ketones Urine 1+ (Negative); Leukocyte Esterase Urine Negative (Negative); Nitrate Urine Negative (Negative); Protein Urine Neg (Negative); Specific Gravity, Urine 1.005 (1.005-1.030); Urine Appearance Clear (CLEAR); Urine Color Yellow (Yellow); Urobilinogen Urine Norm (Negative); pH Urine 8 (5-7)
[2024-05-26 17:41] VITALS: BP 147/106; PULSE 119; O2SAT 96
== END 2024-05-26 17:42 | disposition home or self-care (01) ==
PROVIDERS: Emergency Medicine; Emergency Provider Physician Assistant; PCP Nurse Practitioner Family
DX: M47.26 Other spondylosis with radiculopathy, lumbar region (principal); M54.50 Low back pain, unspecified; R74.01 Elevation of levels of liver transaminase levels; Z79.82 Long term (current) use of aspirin; Z86.73 Personal history of transient ischemic attack (TIA), and cerebral infarction without residual deficits; E78.5 Hyperlipidemia, unspecified; I10 Essential (primary) hypertension
CPT/HCPCS: 36415; 70450; 72125; 72131; 76705; 80053; 81001; 83605; 83690; 84484; 85025; 85651; 86140; 93005; 96374; 96375; 99285; J1171; J2405

== ENCOUNTER 2024-05-31 12:26 | Outpatient (CLI) | payer OTHER, SELFPAY ==
[2024-05-31 12:45] LABS: Basophils # 0.1 10^3/uL (0.0-0.1); Eosinophils # 0.5 10^3/uL (0.0-0.8); Eosinophils % 10.1 %; Hematocrit 41.2 % (37-53); Lymphocytes # 1.2 10^3/uL (0.8-4.8); Lymphocytes % 24.4 %; Mean Corpuscular HGB Conc 32.3 g/dL (30-55); Mean Corpuscular Hemoglobin 33.3 pg (27-33); Mean Corpuscular Volume 103.3 fl (82-101); Mean Platelet Volume 8.4 fL (7.4-10.4); Monocytes # 0.6 10^3/uL (0.2-0.9); Monocytes % 12.7 %; Neutrophils # 2.44 10^3/uL (1.8-7.7); Neutrophils % 49.4 %; Nucleated Red Blood Cells % 0 %; Platelet Count 228 10^3/cmm (157-399); Red Blood Count 3.99 10^6/uL (3.85-5.65); Red Cell Distribution Width 13.5 % (12.1-15.1); White Blood Count 4.95 10^3/uL (3.29-11.43)
[2024-05-31 12:54] LABS: Erythrocyte Sedimentation Rate 14 mm/hr (0-10)
[2024-05-31 13:25] LABS: 25 Hydroxy Vitamin D 36 ng/mL (30-100); Alanine Aminotransferase 131 U/L (0-41); Albumin Level 3.7 g/dL (3.5-5.2); Alkaline Phosphatase 355 U/L (40-130); Aspartate Amino Transferase 50 U/L (0-40); C Reactive Protein 8.4 mg/L (0.0-4.9); Chol HDL Ratio 2.89 mg/dL (1.0-5.00); Cholesterol 220 mg/dL (0-200); Globulin 2.8 g/dL (1.3-4.6); HDL Cholesterol 76 mg/dL (60-100); LDL Cholesterol Calculated 102 mg/dL (50-129); LDL HDL Ratio 1.34 RATIO (0.00-3.22); Thyroid Stimulating Hormone 7.69 uIU/mL (0.27-4.20); Total Bilirubin 0.5 mg/dL (0.15-1.2); Total Protein 6.5 g/dL (6.6-8.7); Triglycerides 209 mg/dL (0-150)
[2024-05-31 14:05] LABS: Free T4 Free Thyroxine 1.36 ng/dL (0.82-1.77)
== END 2024-05-31 12:27 | disposition home or self-care (01) ==
LOC: LAB 12:27
PROVIDERS: PCP Nurse Practitioner Family; Visit Provider Internal Medicine Rheumatology
DX: Z79.899 Other long term (current) drug therapy (principal); M06.041 Rheumatoid arthritis without rheumatoid factor, right hand; M06.042 Rheumatoid arthritis without rheumatoid factor, left hand; I10 Essential (primary) hypertension
CPT/HCPCS: 36415; 80061; 80076; 82306; 82565; 84439; 84443; 85025; 85651; 86140

== ENCOUNTER → 2024-06-15 11:26 | Outpatient (BNVA) | payer OTHER, SELFPAY | PROVIDERS: Referring Provider Nurse Practitioner Family; Visit Provider Psychiatry & Neurology Neurology | DX: G72.3 Periodic paralysis (principal); G47.411 Narcolepsy with cataplexy; G83.5 Locked-in state | CPT/HCPCS: 99212 ==

== ENCOUNTER 2024-06-26 14:01 | Outpatient (RCR) | payer OTHER, SELFPAY | END 2024-07-15 23:59 | disposition home or self-care (01) | LOC: SPT 14:01 | PROVIDERS: Visit Provider Nurse Practitioner Family | DX: M54.50 Low back pain, unspecified (principal) | CPT/HCPCS: 97161 ==

== ENCOUNTER 2024-07-10 16:21 | Emergency (ER) | payer OTHER, MEDICARE, SELFPAY ==
[2024-07-10 16:22] VITALS: BP 190/149; PULSE 122; RESP 25; TEMP 37.3; O2SAT 98
--- NOTE | 2024-07-10 16:31 | CTR_ITS ---
PROCEDURE INFORMATION: Exam: CT Head Without Contrast Exam date and time: 07/10/2024 4:47 PM Age: 78 years old Clinical indication: Stroke-like symptoms; Altered mental status/memory loss; Additional info: AMS TECHNIQUE: Imaging protocol: Computed tomography of the head without contrast. Radiation optimization: All CT scans at this facility use at least one of these dose optimization techniques: automated exposure control; mA and/or kV adjustment per patient size (includes targeted exams where dose is matched to clinical indication); or iterative reconstruction. Other technique: STROKE PROTOCOL was implemented. COMPARISON: CT head wo con* [id number] 05/26/2024 3:01 PM RADIATION DOSE METRICS: Total DLP (mGy-cm): 1071.8 FINDINGS: Brain: There is mild cortical atrophy. Low-density changes in the white matter are consistent with nonspecific small vessel chronic ischemic change. There is no intracranial mass, hemorrhage or edema. Cerebral ventricles: No ventriculomegaly. Paranasal sinuses: There is a small amount of fluid and mucosal thickening in the right maxillary antrum. The sinus disease in the maxillary sinuses is improved compared with the previous exam. Mastoid air cells: Visualized mastoid air cells are well aerated. Bones: Unremarkable. No acute fracture. Soft tissues: Unremarkable. CT/CT head wo con* [id number] IMPRESSION: 1. No acute intracranial finding. 2. Mild maxillary sinus disease improved from previous. ASSESSMENT: ASPECTS ([place] Stroke Program Early CT Score) is 10.
--- NOTE | 2024-07-10 16:31 | CTR_ITS ---
PROCEDURE INFORMATION: Exam: CT Lumbar Spine Without Contrast Exam date and time: 07/10/2024 4:50 PM Age: 78 years old Clinical indication: Low back pain; Prior surgery; Surgery date: 6+ months TECHNIQUE: Imaging protocol: Computed tomography of the lumbar spine without contrast. Radiation optimization: All CT scans at this facility use at least one of these dose optimization techniques: automated exposure control; mA and/or kV adjustment per patient size (includes targeted exams where dose is matched to clinical indication); or iterative reconstruction. COMPARISON: CT lumbar spine wo con* [id number] 05/26/2024 3:07 PM RADIATION DOSE METRICS: Total DLP (mGy-cm): 671.2 FINDINGS: Bones/joints: There is wide L5 laminectomy unchanged. L1-L2: Severe narrowing of the disc space which is increased from the previous examination. There is sclerosis and degenerative change of the adjacent endplates. There are hypertrophic changes in the facet joints more on the right than on the left than there is mild posterior bulging of the disc which encroaches upon the left subarticular zone causing mild stenosis not significantly changed. L2-L3: Severe disc space narrowing with posterior osteophyte formation. Degenerative changes in facet joints more on the right than on the left with hypertrophy of the ligamentum flavum and moderate foraminal narrowing more on the right than on the left. Chronic fracture superior endplate L3 unchanged. L3-L4: Diffuse posterior bulging of the disc. Hypertrophy of the ligamentum flavum and degenerative changes in the facet joints causing moderate central canal stenosis moderate bilateral foraminal narrowing. Mild diffuse posterior bulging of the disc. L4-L5: Severe decreased height of the disc space with degenerative changes in the facet joints posterior osteophyte formation. Moderate bilateral foraminal narrowing. L5-S1: There is L5-S1 PLIF with bilateral pedicle screws at L5 and S1 and posterior metallic hardware. There is fusion of the L5-S1 disc space with instrumentation within the disc space and residual 7 mm of anterolisthesis not significantly changed. Severe narrowing of the disc space. Instrumentation within the disc space and 8 mm of anterolisthesis. Wide L5 laminectomy. Bilateral pedicle screws at L5 and S1. Kidneys and ureters: There are multiple bilateral renal collecting system calcifications. Soft tissues: Unremarkable. CT/CT lumbar spine wo con* [id number] IMPRESSION: Postsurgical and degenerative changes in the lumbar spine essentially stable compared with 05/26/2024. No acute abnormality. COMMENTS: Numbering of levels corresponds with the numbering on the prior CT lumbar spine of 05/26/2024. This patient has variant anatomy and careful correlation with images is suggested prior to any intervention.
[2024-07-10 16:35] VITALS: BP 186/128; PULSE 111; RESP 18; O2SAT 95
[2024-07-10] MEDS: HYDROmorphone 0.5 MG/0.5 ML INJ IVP (16:42)
[2024-07-10 17:13] VITALS: BP 159/118; PULSE 102; RESP 20; O2SAT 95
--- NOTE | 2024-07-10 17:15 | ECG_ITS ---
[facility] Test Date: 2024-07-10 Pat Name: Gil Rojas Department: Room: Gender: Male C[employer] Sheet: : [id number] Requested By: Gabi Fitzpatrick Order Number: [id number] Reading MD: LEOBARDO WEBB Measurements Intervals [place] Rate: 105 P: 0 [place]: 0 QRS: 70 QRSD: 111 T: -20 QT: 403 QTc: 533 Interpretive Statements ATRIAL FLUTTER/TACHYCARDIA WITH RAPID VENTRICULAR RESPONSE MODERATE INTRAVENTRICULAR CONDUCTION DELAY [110+ ms QRS DURATION] NONSPECIFIC ST & T-WAVE ABNORMALITY Compared to ECG 05/26/2024 16:26:40 Intraventricular conduction delay now present T-wave abnormality now present Sinus tachycardia no longer present Electronically Signed On 07-10-2024 19:02:13 CDT by LEOBARDO WEBB [email or web address]
[2024-07-10 17:20] LABS: Basophils # 0.1 10^3/uL (0.0-0.1); Eosinophils # 0.1 10^3/uL (0.0-0.8); Eosinophils % 1.3 %; Hematocrit 44.4 % (37-53); Lymphocytes # 1.1 10^3/uL (0.8-4.8); Lymphocytes % 13.6 %; Mean Corpuscular HGB Conc 33.8 g/dL (30-55); Mean Corpuscular Hemoglobin 33.2 pg (27-33); Mean Corpuscular Volume 98.2 fl (82-101); Mean Platelet Volume 8.8 fL (7.4-10.4); Monocytes % 11.9 %; Neutrophils # 5.55 10^3/uL (1.8-7.7); Neutrophils % 67.7 %; Nucleated Red Blood Cells % 0 %; Platelet Count 194 10^3/cmm (157-399); Red Blood Count 4.52 10^6/uL (3.85-5.65); Red Cell Distribution Width 12.7 % (12.1-15.1); White Blood Count 8.21 10^3/uL (3.29-11.43)
[2024-07-10 17:36] LABS: Alanine Aminotransferase 169 U/L (0-41); Albumin Level 4.1 g/dL (3.5-5.2); Alkaline Phosphatase 109 U/L (40-130); Blood Urea Nitrogen 18 mg/dL (8-23); Calcium 9.3 mg/dL (8.5-10.5); Carbon Dioxide 26 mmol/L (22-29); Chloride 97 mmol/L (98-107); Globulin 2.7 g/dL (1.3-4.6); Glucose 111 mg/dL (65-115); Lipase 17 U/L (13-60); Osmolality Calculated 287 mOsm/kg (285-295); Sodium 137 mmol/L (136-145); Total Bilirubin 1.1 mg/dL (0.15-1.2); Total Protein 6.8 g/dL (6.6-8.7)
[2024-07-10 17:41] LABS: Aspartate Amino Transferase 76 U/L (0-40)
[2024-07-10 18:15] LABS: Bilirubin Urine Negative (Negative); Blood Urine Negative (Negative); Glucose Urine UA Negative (Normal); Ketones Urine Negative (Negative); Leukocyte Esterase Urine Negative (Negative); Nitrate Urine Negative (Negative); Protein Urine Negative (Negative); Specific Gravity, Urine 1.008 (1.005-1.030); Urine Appearance Clear (CLEAR); Urine Color Yellow (Yellow); Urobilinogen Urine 0.2 mg/dL (Negative)
[2024-07-10 18:20] LABS: Add Urine Microscopic? YES; Bacteria Urine None Seen /hpf; Hyaline Casts Urine 0-4 /lpf; RBC Urine 0-2 /hpf (0-2); Squamous Epithelial Cell Urine 0-5 /hpf (0-5); WBC Urine 0-5 /hpf (0-5)
--- NOTE | 2024-07-10 18:30 | CTR_ITS ---
PROCEDURE INFORMATION: Exam: CTA Chest With Contrast Exam date and time: 07/10/2024 6:42 PM Age: 78 years old Clinical indication: Abdominal pain; Generalized; Chest wall pain; Prior surgery; Surgery date: 6+ months; Surgery type: Back fusion; Additional info: Abd pain TECHNIQUE: Imaging protocol: Computed tomographic angiography of the chest with contrast. Exam focused on the arteries. 3D rendering (Not supervised by radiologist): MIP and/or 3D reconstructed images were created by the technologist. Radiation optimization: All CT scans at this facility use at least one of these dose optimization techniques: automated exposure control; mA and/or kV adjustment per patient size (includes targeted exams where dose is matched to clinical indication); or iterative reconstruction. Contrast material: OMNI 350; Contrast volume: 100 ml; Contrast route: INTRAVENOUS (IV); COMPARISON: CT chest w con* [id number] 07/12/2020 2:04 PM RADIATION DOSE METRICS: Total DLP (mGy-cm): 248.5 FINDINGS: Tubes, catheters and devices: Loop recorder is seen in the anterior left chest wall. Pulmonary arteries: There is no evidence of filling defects within the pulmonary arterial circulation to suggest pulmonary embolism. Aorta: There is no thoracic aortic aneurysm or dissection. Lungs: There is calcified granuloma in the right lower lobe. There is some dependent atelectasis at the lung bases. No acute pulmonary infiltrate is identified. Pleural spaces: Unremarkable. No pneumothorax. No pleural effusion. Heart: Unremarkable. No cardiomegaly. No pericardial effusion. Coronary arteries: There is moderate atherosclerotic calcification of the coronary arteries. Lymph nodes: There is no evidence of lymphadenopathy. Kidneys: There are calcified hilar and mediastinal lymph nodes in keeping with old granulomatous disease. Bones/joints: There are old healed posterior right rib fractures. There is right shoulder replacement. There are degenerative changes in the left shoulder. The thoracic spine demonstrates moderate degenerative changes at multiple levels. There is no evidence of acute fracture. Soft tissues: Unremarkable. PROCEDURE INFORMATION: Exam: CT Abdomen And Pelvis With Contrast Exam date and time: 07/10/2024 6:42 PM Age: 78 years old Clinical indication: Abdominal pain; Generalized; Chest wall pain; Prior surgery; Surgery date: 6+ months; Surgery type: Back fusion; Additional info: Abd pain TECHNIQUE: Imaging protocol: Computed tomography of the abdomen and pelvis with contrast. Radiation optimization: All CT scans at this facility use at least one of these dose optimization techniques: automated exposure control; mA and/or kV adjustment per patient size (includes targeted exams where dose is matched to clinical indication); or iterative reconstruction. Contrast material: OMNI 350; Contrast volume: 100 ml; Contrast route: INTRAVENOUS (IV); COMPARISON: CT kidney stone [id number] 06/18/2019 12:30 AM RADIATION DOSE METRICS: Total DLP (mGy-cm): 336.3 FINDINGS: Liver: There is no focal abnormality within the liver. Gallbladder and biliary ducts: The gallbladder is normal. Pancreas: The pancreas is normal. Spleen: The spleen is normal. Adrenal glands: The adrenal glands are normal. Kidneys and ureters: There is 12 mm sized benign simple cyst upper pole right kidney. There is no evidence of hydronephrosis. There are multiple bilateral renal collecting system calcifications. The renal calcifications are seen on the partly imaged kidneys on the pulmonary angiogram phase of the examination but are obscured by contrast on the abdominal exam. Stomach and bowel: There is no evidence of colitis/diverticulitis. There is no evidence of intestinal obstruction. Appendix: A normal appendix is identified. Intraperitoneal space: There is no evidence of free intraperitoneal fluid. Vasculature: The aorta demonstrates moderate atherosclerotic calcification. There is no evidence of an abdominal aortic aneurysm. Lymph nodes: There is no evidence of lymphadenopathy. Urinary bladder: Unremarkable as visualized. Reproductive: Unremarkable as visualized. Bones/joints: There is mild scoliosis concave to the right. There is L5-S1 PLIF with severe narrowing of the L5-S1 disc space and with instrumentation in the disc space 8 mm of anterolisthesis and wide L5 laminectomy. There is chronic appearing compression deformity superior endplate of L3 and mild compression deformity superior endplate of L4, stable compared with 06/18/2019 Soft tissues: Unremarkable. CT/CT angio chest w abd pel w con IMPRESSION: No acute findings in the chest. No evidence for pulmonary embolism. IMPRESSION: No acute findings in the abdomen or pelvis. COMMENTS: Consistent with the [place] [employer] [employer]'s Incidental Findings Committee white paper (J Am Roselyn Radiol 2018): Any incidental renal lesion less than 1 cm or classified as too small to characterize, or any incidental cystic renal lesion characterized as simple-appearing, is likely benign. No follow-up imaging is recommended for these lesions per consensus recommendations based on imaging criteria.
[2024-07-10] MEDS: iohexol 350 mg/mL 500 mL Btl (per mL) IV (18:43)
[2024-07-10] MEDS: dilTIAZem 5 mg/mL SDV 5 mL 15 MG IVP (19:03)
[2024-07-10 19:12] VITALS: BP 144/78; PULSE 78; RESP 16; O2SAT 98
[2024-07-10 19:42] VITALS: BP 162/109; PULSE 90; RESP 18; O2SAT 96
--- NOTE | 2024-07-10 19:44 | ED_ITS ---
HPI - Back Pain/Injury 2 General: Chief Complaint: Back Pain/Injury Stated Complaint: BACK PAIN Time Seen by Provider: 07/10/24 16:24 History of Present Illness: 78-year-old male patient presents to ER via EMS with back pain. Pt has a significant past medical history of A-fib, hypertension, thyroid disease, degenerative disc disease, periodic paralysis, and chronic low back pain with back surgery scheduled in August. The patient reports the onset of severe low back pain starting early this morning. patient denies any recent trauma or injury or flank pain. Pt denies any fever or loss of bowel or bladder. His pain is currently rated at 10 out of 10. Pt states the back pain is radiating to his abd. Per EMS pt has altered mental status. His came into the room after initial report and states patient is normal mentation. Pt was given Fentanyl in EMS but states it has not helped. Associated symptoms: Reports difficulty walking Related Data Home Medications ?Medication ?Instructions ?Recorded ?Confirmed dabigatran etexilate 150 mg 150 mg PO BID 05/26/2403/11 capsule (Pradaxa) levothyroxine 100 mcg tablet 100 mcg PO DAILY 06/15/24 06/15/24 (Unithroid) tizanidine 4 mg capsule 4 mg PO TID PRN 06/15/2403/11 Previous Rx's ?Medication ?Instructions ?Recorded amiodarone 200 mg tablet (Pacerone) 200 mg PO DAILY #3 0 tabs 03/24/24 levothyroxine 88 mcg capsule 88 mcg PO DAILY #30 caps 03/24/24 gabapentin 100 mg capsule 100 mg PO TID PRN muscle spa sm #30 05/07/24 caps prednisone 20 mg tablet 20 mg PO BID 5 days #10 tabs 07/10/24 Allergies Allergy/AdvReac Type Severity Reaction Status Date / Time leflunomide Allergy Intermediate rash Verified 06/15/24 08:38 levothyroxine sodium (From Allergy Unknown [place] Verified 06/15/24 08:38 Levothroid) lisinopril Allergy Unknown [place] Verified 06/15/24 08:38 sulfasalazine AdvReac Intermediate reaction Verified 06/15/24 08:38 to bar Review of Systems 2 General: Reports: 10 or more systems reviewed and unremarkable except in HPI and below Musc: Reports: back pain Neuro: Reports: difficulty walking 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, bilateral Polyarthralgia CVA (cerebral vascular accident) Hyperlipidemia Hypertension Thyroid disease Renal calculi Status post lithotripsy, stent removed Bilateral renal stones Left ureteral calculus Chronic migraine without aura, intractable, with status migrainosus Surgical History Status post total replacement of right shoulder History of back surgery H/O lithotripsy Family History Mother , 99 Cancer cervical Father , 65 CAD (coronary artery disease) Diabetes Hypertension Cancer Hyperlipidemia Other Lung disease Lupus Rheumatoid arthritis Stroke Social History Smoking and tobacco/nicotine status: never used tobacco/nicotine Alcohol intake: never Substance/Drug Use: never Marital status: Current occupational status: retired Physical Exam 2 Const: COMMON NORMALS: no acute distress, patient oriented x3, healthy appearing, alert and well nourished GENERAL APPEARANCE: cooperative, comfortable, well kempt and well developed; not ill appearing ORIENTATION/CONSCIOUSNESS: Yes awake, Yes oriented to person, Yes oriented to place and Yes oriented to time HENMT: COMMON NORMALS: normocephalic, atraumatic, hearing grossly normal bilaterally, external ears normal, Normal external nose present, Normal nasal mucous membranes and turbinates present and moist oral mucous membranes HEAD & SCALP: normal to inspection, normocephalic and atraumatic FACE & SINUS: n ormal facial exam, sinuses nontender and face symmetric NOSE: Normal external nose present, Normal nares present, Normal nasal mucous membranes and turbinates present and No nasal discharge present EXTERNAL EAR: Yes external ears normal and Yes mastoids normal MOUTH: Normal oral and palatal mucosa present, lip normal, tongue normal and Normal salivary glands and ducts present THROAT: p osterior oropharynx normal, tonsils normal and uvula midline Eye: COMMON NORMALS: EOMs intact bilaterally and no scleral icterus GENERAL EYE: appearance normal, both eyes and all related structures Neck/C-Spine: COMMON NORMALS: full ROM, no lymphadenopathy, supple, no meningeal signs, no JVD and Thyroid normal GENERAL: Yes normal visual inspection and Yes trachea midline THYROID: Thyroid normal CERVICAL SPINE: Yes cervical ROM normal Lymph: LYMPHATIC: no lymphadenopathy noted and no lymphedema noted Chest: COMMONS NORMALS: normal inspection of the chest and normal palpation of entire chest wall Resp: COMMON NORMALS: normal respiratory effort, No retractions, No use of accessory muscles and clear to auscultation bilaterally EFFORT & INSPECTION: Yes able to speak in complete sentences and Yes symmetric chest movement A USCULTATION: clear to auscultation bilaterally Cardio: COMMON NORMALS: no JVD, regular rate and regular rhythm RATE: r egular rate RHYTHM: regular rhythm GI: COMMON NORMALS: Normal to inspection, nondistended, normoactive bowel sounds present, Soft to palpation, non-tender, No hepatosplenomegaly present, no masses and no bruits INSPECTION: Yes normal to inspection AUSCULTATION: Y es normoactive bowel sounds PALPATION: Yes Soft to palpation and Yes No hepatosplenomegaly present PERCUSSION: normal to percussion RECTAL EXAM: Y es deferred : COMMON NORMALS: Yes no CVA tenderness BLADDER/KIDNEY EXAM: Yes no CVA tenderness Back/Pelvis: COMMON NORMALS: no CVA tenderness and thoracic and lumbar spine normal to inspection THORACIC SPINE/UPPER BACK: Yes normal to inspection L UMBAR SPINE/LOWER BACK: Yes normal to inspection Extremity: COMMON NORMALS: normal to inspection, full ROM and capillary refill normal GENERAL: Yes normal exam except as noted Neuro: COMMON NORMALS: patient oriented x3, CN's II-XII intact bilaterally, moves all extremities, no focal motor deficits, no sensory deficits noted, deep tendon reflexes 2+ bilaterally and gait normal SENSORIUM/ORIENTATION: Yes alert, Yes oriented to person, Yes oriented to place and Yes oriented to time MENINGEAL SIGNS: Yes no meningeal signs CRANIAL NERVES: Yes CN normal except as noted SPEECH: speech normal GAIT: Yes Normal gait present SENSORY EXAM: Yes extremities Psych: COMMON NORMALS: mental status grossly normal, Normal thought process present, cooperative, normal affect, speech normal, activity/motor behavior normal, denies hallucinations, denies homicidal ideation and denies suicidal ideation APPEARANCE: Yes grossly normal and Yes well kempt ATTITUDE: Yes calm ACTIVITY/MOTOR BEHAVIOR: Yes appropriate eye contact SPEECH: Yes normal speech THOUGHT PROCESS: Normal thought process present THOUGHT CONTENT: Yes Normal thought content present ATTENTION/CONCENTRATION: Yes attention grossly intact MEMORY/COGNITION: Yes memory grossly intact I NSIGHT: Good insight present (Psych) JUDGEMENT: Good judgement present (Psych) Skin: COMMON NORMALS: no rashes or lesions noted, no wounds, turgor normal, no jaundice, no petechiae and no mottling GENERAL SKIN EXAM: no rashes or lesions noted and turgor normal Course 2 Vital Signs: Vital signs: Vital Signs Temperature 99.2 F 07/10/24 16:22 Pulse Rate 90 07/10/24 19:42 Respiratory Rate 18 07/10/24 19:42 Blood Pressure 162/109 07/10/24 19:42 Pulse Oximetry 96 07/10/24 19:42 Oxygen Delivery Me thod Room Air 07/10/24 16:22 MDM - Back Pain/Injury Medical Decision Making Patient presents in obvious pain. Patient Summary: The patient is a 78-year-old male with a significant past medical history of multiple chronic conditions including A-fib, hypertension, thyroid disease, degenerative disc disease, periodic paralysis, emphysema who presents with severe low back pain. The patient reports the onset of severe low back pain starting early this morning. In addition to the back pain, he experiences continuous pain in both legs, especially the right, sharp pain in the penis occasionally, aching in the scrotum, and intermittent pain in the rectum. The patient denies any recent falls or trauma. He reports not having any urinary issues or signs of kidney stones. He has not urinated since the morning and has not experienced any loss of bowel or bladder control. His pain is currently rated at 9 or 10 out of 10. The patient mentions that he does not regularly take pain medication during the day but takes muscle relaxers and pain medication at night if the pain is severe. He received medication in the ambulance, which did not alleviate his symptoms. The patient reports not having chest pain more than usual, despite having a history of atrial fibrillation and a slightly elevated heart rate today. In addition to the low back pain patient reports heaviness of bilateral arms and difficulty moving the arms that also began this morning. His came into the room after initial report and states patient does have a history of neck issues and was supposed to be having some neck imaging however that had not been completed yet. The upper body symptoms are completely new today. Pt given Dilaudid for pain. Pt was hypertensive and EKG reveals uncontrolled aflutter. Pt states he has not taken his meds today. Pt was given a dose of cardizem and his rate is now controlled. Pt states his pain is much improved after dilaudid. Given patients vitals and exam findings, CT chest pe protocol ordered. Liver enzymes are elevated which pt has hx of this. CT abd/pelvis negative for any acute findings. Pt denies any chest pain or SOB. At this point, I do not feel patient would benefit from any additional emergent testing. Pt states he presented for pain control and now feels much better. VSS. Pt is scheduled for back surgery in August but has been advised to follow up with his neuro surgeon. Pt has taken steroids in the past and states they help and would like to have them again for this acute on chronic back pain. I discussed with patient return precautions, follow up and home care. Labs 07/10/24 17:14 07/10/24 17:[address] 07/10/24 16:31 IMPRESSION: 1. No acute intracranial finding. 2. Mild maxillary sinus disease improved from previous. ASSESSMENT: ASPECTS ([place] Stroke Program Early CT Score) is 10. ADDENDUM: 07/10/24 1706 Addendum: THIS REPORT CONTAINS FINDINGS THAT MAY BE CRITICAL TO PATIENT CARE. The findings were verbally communicated via telephone conference with SAW FITZPATRICK at 5:04 PM CDT on 07/10/2024. The findings were acknowledged and understood. Lumbar Spine CT 07/10/24 16:31 IMPRESSION: Postsurgical and degenerative changes in the lumbar spine essentially stable compared with 05/26/2024. No acute abnormality. COMMENTS: Numbering of levels corresponds with the numbering on the prior CT lumbar spine of 05/26/2024. This patient has variant anatomy and careful correlation with images is suggested prior to any intervention. Chest/Abdomen/Pelvis CT 07/10/24 18:30 IMPRESSION: No acute findings in the chest. No evidence for pulmonary embolism. IMPRESSION: No acute findings in the abdomen or pelvis. COMMENTS: Consistent with the [employer]'s Incidental Findings Committee white paper (J Am Roselyn Radiol 2018): Any incidental renal lesion less than 1 cm or classified as too small to characterize, or any incidental cystic renal lesion characterized as simple-appearing, is likely benign. No follow-up imaging is recommended for these lesions per consensus recommendations based on imaging criteria. Laboratory Results WBC 8.21 10^3/uL (3.29-11.43) 07/10/24 17:14 RBC 4.52 10^6/uL (3.85-5.65) 07/10/24 17:14 Hgb 15.00 g/dL (11.27-16.99) 07/10/24 17:14 Hct 44.4 % (37-53) 07/10/24 17:14 MCV 98.2 fl (82-101) 07/10/24 17:14 MCH 33.2 pg (27-33) H 07/10/24 17:14 MCHC 33.8 g/dL (30-55) 07/10/24 17:14 RDW 12.7 % (12.1-15.1) 07/10/24 17:14 Plt Count 194 10^3/cmm (157-399) 07/10/24 17:14 MPV 8.8 fL (7.4-10.4) 07/10/24 17:14 Neut % (Auto) 67.7 % 07/10/24 17:14 Lymph % (Auto) 13.6 % 07/10/24 17:14 [place] % (Auto) 11.9 % 07/10/24 17:14 Eos % (Auto) 1.3 % 07/10/24 17:14 Baso % (Auto) 1.0 % 07/10/24 17:14 Neut # (Auto) 5.55 10^3/uL (1.8-7.7) 07/10/24 17:14 Lymph # (Auto) 1.1 10^3/uL (0.8-4.8) 07/10/24 17:14 [place] # (Auto) 1.0 10^3/uL (0.2-0.9) H 07/10/24 17:14 Eos # (Auto) 0.1 10^3/uL (0.0-0.8) 07/10/24 17:14 Baso # (Auto) 0.1 10^3/uL (0.0-0.1) 07/10/24 17:14 Nucleated RBC % (auto) 0 % 07/10/24 17:14 Nucleated RBCs # 0.0 /100WBC 07/10/24 17:14 Sodium 137 mmol/L (136-145) 07/10/24 17:14 Potassium 4.0 mmol/L (3.5-5.1) 07/10/24 17:14 Chloride 97 mmol/L (98-107) L 07/10/24 17:14 Carbon Dioxide 26 mmol/L (22-29) 07/10/24 17:14 Anion Gap 18.0 (5-19) 07/10/24 17:14 BUN 18 mg/dL (8-23) 07/10/24 17:14 Creatinine 1.2 mg/dL (0.7-1.2) 07/10/24 17:14 GFR Calculation Not Reportable 07/10/24 17:14 Glucose 111 mg/dL (65-115) 07/10/24 17:14 Calculated Osmolality 287 mOsm/kg (285-295) 07/10/24 17:14 Calcium 9.3 mg/dL (8.5-10.5) 07/10/24 17:14 Total Bilirubin 1.1 mg/dL (0.15-1.2) 07/10/24 17:14 AST 76 U/L (0-40) H 07/10/24 17:14 ALT 169 U/L (0-41) H 07/10/24 17:14 Alkaline Phosphatase 109 U/L (40-130) 07/10/24 17:14 Total Protein 6.8 g/dL (6.6-8.7) 07/10/24 17:14 Albumin 4.1 g/dL (3.5-5.2) 07/10/24 17:14 Globulin 2.7 g/dL (1.3-4.6) 07/10/24 17:14 Lipase 17 U/L (13-60) 07/10/24 17:14 Urine Color Yellow (Yellow) 07/10/24 18:04 Urine Appearance Clear (CLEAR) 07/10/24 18:04 Urine pH 7.0 (5-7) 07/10/24 18:04 Ur Specific [place] 1.008 (1.005-1.030) 07/10/24 18:04 Urine Protein Negative (Negative) 07/10/24 18:04 Urine Glucose (UA) Negative (Normal) 07/10/24 18:04 Urine Ketones Negative (Negative) 07/10/24 18:04 Urine Blood Negative (Negative) 07/10/24 18:04 Urine Nitrate Negative (Negative) 07/10/24 18:04 Urine Bilirubin Negative (Negative) 07/10/24 18:04 Urine Urobilinogen 0.2 mg/dL (Negative) 07/10/24 18:04 Ur Leukocyte Esterase Negative (Negative) 07/10/24 18:04 Urine RBC 0-2 /hpf (0-2) 07/10/24 18:04 Urine WBC 0-5 /hpf (0-5) 07/10/24 18:04 Ur Squamous Epith Cells 0-5 /hpf (0-5) 07/10/24 18:04 Amorphous Sediment Not Reportable 07/10/24 18:04 Urine Bacteria None seen /hpf (NONE) 07/10/24 18:04 Hyaline Casts 0-4 /lpf H 07/10/24 18:04 All radiology interpretation(s) finalized by discharge Discharge Plan Discharge Patient Disposition: Home Clinical Impression: Lumbar radiculopathy Atrial fibrillation Qualifiers: Atrial fibrillation type: paroxysmal Qualified Code(s): I48.0 - Paroxysmal atrial fibrillation Condition: Stable Prescriptions: New prednisone 20 mg tablet 20 mg PO BID 5 Days Qty: 10 0RF No Action tizanidine 4 mg capsule 4 mg PO TID PRN levothyroxine [Unithroid] 100 mcg tablet 100 mcg PO DAILY dabigatran etexilate [Pradaxa] 150 mg capsule 150 mg PO BID levothyroxine 88 mcg capsule 88 mcg PO DAILY Qty: 30 3RF amiodarone [Pacerone] 200 mg Tablet 200 mg PO DAILY Qty: 30 0RF gabapentin 100 mg capsule 100 mg PO TID PRN (Reason: muscle spasm) Qty: 30 0RF Discharge Orders: Discharge ED (Routine); Ordered 07/10/24 Ordered By: Saw Fitzpatrick Discharge Diet: Advance as tolerated Discharge Activity: Increase activity as tolerated Patient Instructions: Acute Low Back Pain (ED), Opioid Safety, Pain Management Activity Restrictions/Additional Instructions: Continue to take meds as prescribed Follow up with Neuro Surgeon Return to the ER if You have severe pain. You have sudden stiffness and heaviness on both buttocks down to both legs. You have numbness or weakness in one leg, or pain in both legs. You have numbness in your genital area or across your lower back. You cannot control your urine or bowel movements Print Language: Kazakh Coding Level of Care Code ED Self Pay Collector for Donna Alberts
[2024-07-10 20:09] VITALS: BP 154/107; PULSE 96; RESP 18; O2SAT 97
== END 2024-07-10 20:10 | disposition home or self-care (01) ==
PROVIDERS: Emergency Provider Registered Nurse
DX: M54.16 Radiculopathy, lumbar region (principal); I10 Essential (primary) hypertension; G72.3 Periodic paralysis; E07.9 Disorder of thyroid, unspecified; I48.0 Paroxysmal atrial fibrillation; Z79.899 Other long term (current) drug therapy; Z79.890 Hormone replacement therapy
CPT/HCPCS: 70450; 71275; 72131; 74177; 80053; 81001; 83690; 85025; 93005; 96374; 96375; 99285; J1171; J3490

== ENCOUNTER 2024-07-12 11:28 | Outpatient (CLI) | payer OTHER, SELFPAY ==
[2024-07-12 13:26] LABS: Free T4 Free Thyroxine 1.39 ng/dL (0.82-1.77); Thyroid Stimulating Hormone 3.72 uIU/mL (0.27-4.20)
== END 2024-07-12 11:29 | disposition home or self-care (01) ==
PROVIDERS: Visit Provider Internal Medicine
DX: I10 Essential (primary) hypertension (principal)
CPT/HCPCS: 36415; 84439; 84443

== ENCOUNTER 2024-07-16 05:00 | Outpatient (RCR) | payer OTHER, SELFPAY | END 2024-08-14 23:59 | disposition home or self-care (01) | LOC: SPT 05:00 | PROVIDERS: Visit Provider Nurse Practitioner Family | DX: M54.50 Low back pain, unspecified (principal) | CPT/HCPCS: 97110; 97113; 97164 ==

== ENCOUNTER 2024-08-10 16:26 | Outpatient (CLI) | payer OTHER, SELFPAY ==
--- NOTE | 2024-08-10 16:33 | MR_ITS ---
WS: [id number] MRI CERVICAL SPINE NONCONTRAST TECHNIQUE: Sagittal T1, T2 and STIR imaging. Axial T2, gradient, and fiesta imaging. CLINICAL INFORMATION: neck pain COMPARISON: CT 05/26/2024 FINDINGS: Straightening of the normal cervical lordosis. Interbody bony fusion at C3-4. Moderate spondylitic changes with multilevel disc osteophyte complexes worse at C4-5 and C5-6. C2-C3: Moderate facet arthropathy. Moderate RIGHT bony foraminal narrowing. Uncovertebral joint hypertrophy. C3-C4: Disc osteophyte complex with endplate ridging. Interbody bony fusion. Slight indentation on the LEFT ventral cervical cord. Mild central canal stenosis. Moderate bilateral bony foraminal narrowing. Facet arthropathy with uncovertebral joint hypertrophy C4-C5: Disc osteophyte complex with indentation on the cervical cord. Moderate central canal stenosis. Severe RIGHT and mild LEFT bony foraminal narrowing. Moderate facet arthropathy worse RIGHT. Uncovertebral joint hypertrophy. C5-C6: Disc osteophyte complex with mild central canal stenosis. Slight contact of the cervical cord. Moderate to severe bilateral bony foraminal narrowing. Moderate facet arthropathy with uncovertebral joint hypertrophy C6-C7: Disc osteophyte complex. Spinal canal is patent. Moderate facet arthropathy. Moderate to severe RIGHT and mild to moderate LEFT bony foraminal narrowing. Moderate to advanced facet arthropathy. Uncovertebral joint hypertrophy. C7-T1: Grade 1 anterolisthesis. Mild LEFT and no significant RIGHT foraminal narrowing. T1-T2: Mild RIGHT bony foraminal narrowing. Visualized brain stem structures: Normal. Prevertebral soft tissues: Normal. MR/MR cervical spin wo con* [id number] IMPRESSION: 1. Straightening of the normal cervical lordosis. Moderate spondylitic changes with multilevel disc osteophyte complexes. Interbody bony fusion C3-4 2. Mild central canal stenosis C3-4. Moderate central canal stenosis C4-C5. Mi ld central canal stenosis C5-C6. 3. Multilevel moderate to severe bony foraminal narrowing worse at LEFT C3-4, RIGHT C4-5, bilateral C5-C6, and RIGHT C6-7. 4. Multilevel facet arthropathy and uncovertebral joint hypertrophy 5. Cord signal is normal. 6. Grade 1 anterolisthesis C7-T1
== END 2024-08-10 16:27 | disposition home or self-care (01) ==
PROVIDERS: Visit Provider Orthopaedic Surgery
DX: G95.9 Disease of spinal cord, unspecified (principal); M47.892 Other spondylosis, cervical region; M48.02 Spinal stenosis, cervical region; M46.89 Other specified inflammatory spondylopathies, multiple sites in spine; M25.78 Osteophyte, vertebrae; M40.50 Lordosis, unspecified, site unspecified; S13.180A Subluxation of C7/T1 cervical vertebrae, initial encounter; X58.XXXA Exposure to other specified factors, initial encounter
CPT/HCPCS: 72141

== ENCOUNTER 2024-08-21 11:13 | Emergency (ER) | payer OTHER, MEDICARE, SELFPAY ==
[2024-08-21] VITALS (15 sets, daily range): BP systolic 94–215; BP diastolic 59–142; PULSE 65–128; RESP 18–97; TEMP 36.8; O2SAT 97–100
--- OUTSIDE RECORDS SUMMARY | 2024-08-21 10:00 | XMS_ITS | Continuity of Care Document ---
Author Name [facility] Organization [facility] Care Team Providers Care Customer Counter Associate Name Role Phone [facility] Unavailable Unavailable Problems Combined list of problems from Department of Defense and Veterans Affairs facilities. It does not include entries that were removed or entered in error. Problem Status Onset Date Problem Type Date of Resolution Comments Source AF-Atrial Fibrillation (SCT [id number]) Active Condition May 18, 2023 Entered By: ELIAS GUZMAN Comment: Per Hospital records, 04/2023. [place] [facility] Bilateral tinnitus Active Condition [place] [facility] Cervical spinal stenosis Active Condition [place] [facility] CVA - cerebrovascular accident due to cerebral artery occlusion Active Condition Dec 05, 2019 Entered By: ELIAS GUZMAN Comment: 2019. [place] [facility] RAMSAY - Headache (SNOMED CT [id number]) Active Condition Mar 30, 2023 Entered By: ELIAS GUZMAN Comment: 03/2023. 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 Admitted for same. [place] [facility] Migraine Active Condition [place] [facility] Prediabetes Active Condition [place] [facility] RA - Rheumatoid arthritis Active Condition [place] [facility] Sensorineural hearing loss of bilateral ears Active Condition [place] [facility] Diagnosis: ICD-10-CM M54.50 Low back pain, unspecified Active Diagnosis [facility] Diagnosis: ICD-10-CM G47.33 Obstructive sleep apnea (adult) (pediatric) Active Diagnosis [place] [facility] Diagnosis: ICD-10-CM Z60.0 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 Active Diagnosis [facility] Diagnosis: ICD-10-CM Z09 Encntr for f/u exam aft trtmt for cond oth than malig neoplm Active Diagnosis [facility] Diagnosis: ICD-10-CM Z00.01 Encounter for general adult medical exam w abnormal findings Active Diagnosis [facility] Diagnosis: ICD-10-CM Z51.81 Encounter for therapeutic drug level monitoring Active Diagnosis [place] [facility] Diagnosis: ICD-10-CM 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, unspecified Active Diagnosis [facility] Diagnosis: ICD-10-CM G43.901 Migraine, unsp, not intractable, with status migrainosus Active Diagnosis [place] [facility] Diagnosis: ICD-10-CM G44.311 Acute post-traumatic headache, intractable Active Diagnosis [facility] Diagnosis: ICD-10-CM I10 Essential (primary) hypertension Active Diagnosis [facility] Diagnosis: ICD-10-CM Z46.1 Encounter for fitting and adjustment of hearing aid Active Diagnosis [place] [facility] Diagnosis: ICD-10-CM I48.91 Unspecified atrial fibrillation Active Diagnosis [facility] Diagnosis: ICD-10-CM H93.13 Tinnitus, bilateral [facility] Diagnosis: ICD-10-CM R07.9 Chest pain, unspecified Active Diagnosis [facility] Diagnosis: ICD-10-CM H61.23 Impacted cerumen, bilateral Active Diagnosis [facility] Diagnosis: ICD-10-CM R09.81 Nasal congestion Active Diagnosis [facility] Diagnosis: ICD-10-CM Z71.9 Counseling, unspecified Active Diagnosis [facility] Diagnosis: ICD-10-CM H10.89 Other conjunctivitis Active Diagnosis [facility] Diagnosis: ICD-10-CM H10.33 Unspecified acute conjunctivitis, bilateral Active Diagnosis [facility] Diagnosis: ICD-10-CM G44.59 Other complicated headache syndrome Active Diagnosis [facility] Medications Combined list of outpatient medications from Department of Defense and Veterans Affairs facilities.Medications provided include 1) outpatient medications from the last 15 months, and 2) patient-reported medications. Medication Details Route Status Patient Instructions Prescription Expires Prescription Number Last Dispense Date Ordering Provider Order Date Order Qty Source AMIODARONE HCL (PACERONE) 200MG TAB TAKE ONE TABLET BY MOUTH ONCE A DAY FOR VENTRICU LAR ARRHYTHM IA AVOID TAKING WITH GRAPEFRU IT JUICE. USE OF SUNSCREE N IS RECOMMEN DED. ORAL ACTIVE 04/01/2025 [id number] 5 NUÑEZABHILASH ISTEL G 2024 90 [facility] AMIODARONE HCL (PACERONE) 200MG TAB TAKE ONE TABLET BY MOUTH ONCE A DAY FOR VENTRICU LAR ARRHYTHM IA AVOID TAKING WITH GRAPEFRU IT JUICE. USE OF SUNSCREE N IS RECOMMEN DED. ORAL DISCONT INUED BY PROVIDE R 10/12/2024 [id number] 4 Mary HATCH R 2023 90 [facility] AMLODIPINE BESYLATE 5MG TAB TAKE ONE TABLET BY MOUTH ONCE A DAY ORAL DISCONT INUED BY PROVIDE R 11/01/2024 [id number] 4 Kendy ALBARADO 2023 90 [place] [facility] APIXABAN 5MG TAB TAKE ONE TABLET BY MOUTH TWICE A DAY FOR ANTICOAG ULATION ORAL DISCONT INUED 10/25/2024 [id number] 4 SABINE PERSAUD 2023 180 [place] [facility] APIXABAN 5MG TAB TAKE ONE TABLET BY MOUTH TWICE A DAY FOR ANTICOAG ULATION ORAL DISCONT INUED (EDIT) 05/18/2024 [id number] 4 CARLOS A HINKLE 2023 120 [place] [facility] ASPIRIN 81MG TAB,EC TAKE ONE TABLET BY MOUTH ONCE A DAY ORAL ACTIVE ABHILASH NUÑEZ ISTEL G 2024 [facility] ATORVASTATI N CA 80MG TAB TAKE ONE TABLET BY MOUTH AT BEDTIME FOR HIGH CHOLESTE ROL ORAL DISCONT INUED BY PROVIDE R 03/30/2024 [id number] 4 RENETTA GUZMAN 2023 90 [facility] ATORVASTATI N CA 80MG TAB TAKE ONE-HALF TABLET BY MOUTH AT BEDTIME ORAL DISCONT INUED (EDIT) 03/30/2024 [id number] 4 RENETTA GUZMAN 2023 45 [facility] CHOLECALCIF PHILLIP 50MCG (2,000UNIT) TAB TAKE ONE TABLET BY MOUTH ONCE A DAY FOR VITAMIN D DEFICIEN CY. ORAL ACTIVE 01/27/2025 [id number] 5 ABHILASH NUÑEZ ISTEL G 2024 100 [facility] CHOLECALCIF PHILLIP 50MCG (2,000UNIT) TAB TAKE ONE TABLET BY MOUTH ONCE A DAY FOR VITAMIN D DEFICIEN CY. ORAL DISCONT INUED 01/26/2024 [id number] 4 RENETTA GUZMAN Messi 2023 100 [facility] CYANOCOBALA MIN 500MCG TAB TAKE ONE TABLET BY MOUTH ONCE A DAY ORAL DISCONT INUED 06/28/2023 [id number] 4 RENETTA GUZMAN Messi 2023 100 [facility] CYANOCOBALA MIN 500MCG TAB TAKE ONE TABLET BY MOUTH ONCE A DAY ORAL 06/28/2023 [id number] 4 RENETTA GUZMAN Messi 2023 100 [facility] DABIGATRAN ETEXILATE 150MG CAP,ORAL TAKE ONE CAPSULE BY MOUTH TWICE A DAY - SWALLOW WHOLE. DO NOT BREAK,CR USH,OR CHEW. KEEP IN ORIGINAL CONTAINE R AND DO NOT OPEN UNTIL READY FOR DOSE. ONCE OPENED, PRODUCT SHOULD BE USED WITHIN 4 MONTHS. ORAL ACTIVE 10/23/2024 [id number] 5 ABHILASH NUÑEZ ISTEL G 2024 180 [facility] DABIGATRAN ETEXILATE 150MG CAP,ORAL TAKE ONE CAPSULE BY MOUTH TWICE A DAY - SWALLOW WHOLE. DO NOT BREAK,CR USH,OR CHEW. KEEP IN ORIGINAL CONTAINE R AND DO NOT OPEN UNTIL READY FOR DOSE. ONCE OPENED, PRODUCT SHOULD BE USED WITHIN 4 MONTHS. ORAL DISCONT INUED 06/29/2024 [id number] 5 ROBERTA WHITFIELD R 2024 180 [place] [facility] DIVALPROEX NA 500MG TAB,SA TAKE ONE TABLET BY MOUTH ONCE A DAY FOR MIGRAINE HEADACHE ORAL DISCONT INUED BY PROVIDE R 05/18/2024 [id number] 4 RENETTA GUZMAN [address] [place] [address] [facility] ENOXAPARIN 60MG/0.6ML INJ,SYRINGE ,0.6ML INJECT 60MG/0.6 ML UNDER THE SKIN EVERY 12 HOURS 08/14/24 ONE INJECTIO N IN THE MORNING AND EVENING 08/15/24 ON INJECTIO N IN THE EVENING ONLY SUBCUT ANEOUS ACTIVE 08/31/2024 [id number] 5 Kendy ALBARADO USSAIN 2024 2 [place] [facility] ERENUMAB-AO OE 70MG/ML AUTOINJECTO R,1ML INJECT 70MG (CONTENT S OF 1 AUTOINJE CTOR) UNDER THE SKIN EVERY MONTH SUBCUT ANEOUS ACTIVE 06/28/2025 [id number] 5 LUIS MORTON 2024 1 [place] [facility] ERENUMAB-AO OE 70MG/ML AUTOINJECTO R,1ML INJECT 70MG (CONTENT S OF 1 AUTOINJE CTOR) UNDER THE SKIN ONE TIME SUBCUT ANEOUS DISCONT INUED 04/14/2024 [id number] 5 LUIS MORTON 2024 1 [place] [facility] EZETIMIBE 10MG TAB TAKE ONE TABLET BY MOUTH ONCE A DAY FOR HIGH CHOLESTE ROL ORAL ACTIVE 01/27/2025 [id number] 5 ABHILASH NUÑEZ [address] [place] [address] [facility] EZETIMIBE 10MG TAB TAKE ONE TABLET BY MOUTH ONCE A DAY FOR HIGH CHOLESTE ROL ORAL DISCONT INUED 01/26/2024 [id number] 4 RENETTA GUZMAN [address] [place] [address] [facility] FOLIC ACID 0.4MG TAB TAKE ONE TABLET BY MOUTH ONCE A DAY FOR FOLIC ACID SUPPLEME NTATION ORAL DISCONT INUED BY PROVIDE R 10/12/2024 [id number] SIMBA MAYA [address] [place] [address] [facility] FUROSEMIDE 20MG TAB TAKE ONE TABLET BY MOUTH EVERY MORNING NEEDED FOR FLUID RETENTIO N (EDEMA) ORAL ACTIVE 10/25/2024 [id number] 5 ABHILASH NUÑEZ 2024 90 [facility] FUROSEMIDE 20MG TAB TAKE ONE TABLET BY MOUTH EVERY MORNING NEEDED FOR FLUID RETENTIO N (EDEMA) ORAL DISCONT INUED BY REGINALD R 04/20/2025 [id number] 5 ABHILASH NUÑEZ 2024 90 [facility] GABAPENTIN 100MG CAP TAKE TWO CAPSULES BY MOUTH THREE TIMES A DAY FOR NERVE PAIN CONTINUE TO TAKE 100 MG DURING THE DAY TILL ABLE TO TAKE WITH SOMEONE AROUND IN CASE CAUSES INCREASE IN SLEEPINE SS. MAY TAKE UP TO 300 MG AT NIGHT IF TAKING 100 MG DURING THE DAY CONTINUE TO TAKE 100 MG DURING THE DAY TILL ABLE TO TAKE WITH SOMEONE AROUND IN CASE CAUSES INCREASE IN SLEEPINE SS. MAY TAKE UP TO 300 MG AT NIGHT IF TAKING 100 MG DURING THE DAY ORAL DISCONT INUED (EDIT) 05/18/2025 [id number] 5 ABHILASH NUÑEZ RORO Adamson 2024 540 [facility] GABAPENTIN 300MG CAP TAKE ONE CAPSULE BY MOUTH THREE TIMES A DAY FOR NERVE PAIN CONTINUE TO TAKE 100 MG DURING THE DAY TILL ABLE TO TAKE WITH SOMEONE AROUND IN CASE CAUSES INCREASE IN SLEEPINE SS. MAY TAKE UP TO 300 MG AT NIGHT IF TAKING 100 MG DURING THE DAY ORAL ACTIVE 06/29/2025 [id number] 5 NUÑEZABHILASH Adamson 2024 270 [facility] HYDROCODONE 10MG/ACETAM INOPHEN 325MG TAB TAKE ONE TABLET BY MOUTH EVERY 6 HOURS NEEDED ORAL ACTIVE ABHILASH NUÑEZ MARICHUYOnelia Adamson 2024 [facility] LEVOTHYROXI NE NA 100MCG TAB TAKE ONE TABLET BY MOUTH EVERY OTHER DAY FOR HYPOTHYR OIDISM TAKE 30 MINUTES BEFORE FOOD. TAKE SEPARATE LY FROM ALL OTHER MEDICATI ONS. ORAL ACTIVE 06/01/2025 [id number] 5 ABHILASH NUÑEZ MARICHUYOnelia Juan Diego 2024 45 [facility] LEVOTHYROXI NE NA 100MCG TAB TAKE ONE TABLET BY MOUTH EVERY MORNING BEFORE A MEAL TAKE 30 MINUTES BEFORE FOOD. TAKE SEPARATE LY FROM ALL OTHER MEDICATI ONS. ORAL DISCONT INUED (EDIT) 02/03/2025 [id number] 4 EZRA DAMON LYNDA 2023 90 [place] [facility] LEVOTHYROXI NE NA 75MCG TAB (SYNTHROID) TAKE ONE TABLET BY MOUTH EVERY MORNING BEFORE A MEAL FOR HYPOTHYR OIDISM FOR THYROID. TAKE 30 MINUTES BEFORE FOOD. TAKE SEPARATE LY FROM ALL OTHER MEDICATI ONS. ORAL DISCONT INUED (EDIT) 08/27/2024 [id number] 4 Mary HATCH R 2023 90 [facility] LEVOTHYROXI NE NA 88MCG TAB TAKE ONE TABLET BY MOUTH EVERY OTHER DAY FOR HYPOTHYR OIDISM TAKE 30 MINUTES BEFORE FOOD. TAKE SEPARATE LY FROM ALL OTHER MEDICATI ONS. ORAL ACTIVE 06/01/2025 [id number] 5 ABHILASH NUÑEZ ISTEL G 2024 45 [facility] LEVOTHYROXI NE NA 88MCG TAB TAKE ONE TABLET BY MOUTH EVERY MORNING BEFORE A MEAL FOR HYPOTHYR OIDISM TAKE 30 MINUTES BEFORE FOOD. TAKE SEPARATE LY FROM ALL OTHER MEDICATI ONS. ORAL DISCONT INUED (EDIT) 04/01/2025 [id number] 5 ABHILASH NUÑEZ ISTEL G 2024 90 [facility] LEVOTHYROXI NE NA 88MCG TAB TAKE ONE TABLET BY MOUTH EVERY MORNING BEFORE A MEAL FOR HYPOTHYR OIDISM TAKE 30 MINUTES BEFORE FOOD. TAKE SEPARATE LY FROM ALL OTHER MEDICATI ONS. ORAL DISCONT INUED BY PROVIDE R 01/27/2025 [id number] 4 ABHILASH NUÑEZ ISTEL G 2023 90 [facility] METOPROLOL TARTRATE 50MG TAB TAKE ONE TABLET BY MOUTH TWICE A DAY TAKE WITH OR IMMEDIAT PIYUSH FOLLOWIN G FOOD. ORAL DISCONT INUED BY PROVIDE R 06/28/2024 [id number] 4 MIRIAM LARSEN 2023 180 [place] [facility] METOPROLOL TARTRATE 50MG TAB TAKE ONE TABLET BY MOUTH TWICE A DAY TAKE WITH OR IMMEDIAT PIYUSH FOLLOWIN G FOOD. ORAL DISCONT INUED 06/15/2024 [id number] 4 MIRIAM LARSEN 2023 60 [facility] METOPROLOL TARTRATE 50MG TAB TAKE ONE-HALF TABLET BY MOUTH TWICE A DAY FOR HIGH BLOOD PRESSURE TAKE WITH OR IMMEDIAT PIYUSH FOLLOWIN G FOOD. ORAL DISCONT INUED 06/01/2024 [id number] 4 RENETTA GUZMAN 2023 90 [facility] PEG-3350/LY MAUREEN (EQV-NULYTE LY) ORAL PWDR MIX AND DRINK CONTENTS OF BOTTLE BY MOUTH ONE-TIME FOR BOWEL EMPTYING MIX ACCORDIN G TO INSTRUCT IONS.DRI NK ONE-HALF THE EVENING PRIOR TO PROCEDUR E AND REMAININ G ONE-HALF THE MORNING OF PROCEDUR E, MUST BE COMPLETE D 2 HOURS PRIOR TO LEAVING HOME. ORAL DISCONT INUED 06/24/2024 [id number] 5 BEAU RIOS 2024 1 [facility] POTASSIUM CHLORIDE 20MEQ TAB,SA (DISPERSIBL E) TAKE ONE TABLET BY MOUTH ONCE A DAY NEEDED FOR POTASSIU M SUPPLEME NTATION TAKE WITH FOOD TAKE WITH FUROSMID E ORAL ACTIVE 04/20/2025 [id number] 5 ABHILASH NUÑEZ ISTEL G 2024 90 [facility] PREDNISONE 2.5MG TAB TAKE ONE TABLET BY MOUTH ONCE A DAY TAKE WITH FOOD OR MILK. ORAL DISCONT INUED 03/30/2024 [id number] 4 RENETTA GUZMAN 2023 90 [facility] PREDNISONE 5MG TAB TAKE ONE-HALF TABLET BY MOUTH ONCE A DAY TAKE WITH FOOD OR MILK. ORAL DISCONT INUED BY PROVIDE R 11/10/2023 [id number] 4 R[facility]ETTA GUZMAN 2023 45 [facility] SIM[facility] 80MG TAB,CHEW CHEW AND SWALLOW ONE TABLET BY MOUTH DIRECTED CHEW 1 TABLET AFTER DRINKING FIRST HALF OF PREP, THEN CHEW 2 TABLETS AFTER DRINKING SECOND HALF OF PREP. FOLLOW EACH DOSE WITH 1 CUP OF WATER. ORAL DISCONT INUED 06/24/2024 [id number] 5 BEAU RIOS SPENCER 2024 100 [facility] TAMSULOSIN HCL 0.4MG CAP TAKE ONE CAPSULE BY MOUTH EVERY EVENING APPROXIM ATELY 30 MINUTES AFTER THE SAME MEAL EACH DAY ORAL DISCONT INUED BY PROVIDE R 06/28/2023 [id number] MEGAN RENETTA Messi [address] [place] [address] [facility] TAMSULOSIN HCL 0.4MG CAP TAKE ONE CAPSULE BY MOUTH EVERY EVENING APPROXIM ATELY 30 MINUTES AFTER THE SAME MEAL EACH DAY ORAL DISCONT INUED 06/28/2023 [id number] MEGAN RENETTA Messi [address] [place] [address] [facility] TIZANIDINE HCL 2MG TAB TAKE ONE TABLET BY MOUTH THREE TIMES A DAY NEEDED FOR SPASTICI TY MAY TAKE LITTLE 1 MG UP TO 4 MG 3 TIMES A DAY ORAL ACTIVE 06/29/2025 [id number] 5 ABHILASH NUÑEZ [address] [place] [address] [facility] TIZANIDINE HCL 4MG TAB TAKE ONE TABLET BY MOUTH THREE TIMES A DAY NEEDED FOR SPASTICI TY MAY TAKE LITTLE 1 MG UP TO 4 MG 3 TIMES A DAY ORAL DISCONT INUED (EDIT) 05/18/2025 [id number] 5 ABHILASH NUÑEZ [address] [place] [address] [facility] UBROGEPANT 100MG TAB TAKE ONE TABLET BY MOUTH ONE-TIME NEEDED. TAKE AT ONSET OF HEADACHE . MAY REPEAT AFTER 2 HOURS. NOT TO EXCEED 200MG IN 24 HOURS. ORAL DISCONT INUED BY PROVIDE R 12/29/2024 [id number] 5 LUIS MORTON 2023 10 [facility] Allergies, Adverse Reactions, Alerts Combined list of allergies from Department of Defense and Veterans Affairs facilities. It does not include entries that were removed or entered in error. Substance Category Reaction Severity Reaction type Status Date Reported Comments Source INDOMETHACIN Propensity to adverse reactions to drug (finding) Dizziness active 1 [facility] LEFLUNOMIDE Propensity to adverse reactions to drug (finding) Eruption active 4 [facility] LISINOPRIL Propensity to adverse reactions to drug (finding) Dizziness active 8 [facility] ROSUVASTATIN Propensity to adverse reactions to drug (finding) active 0 [facility] SULFASALAZIN E Propensity to adverse reactions to drug (finding) Eruption active 4 [facility] Immunizations Combined list of available immunizations from the Department of [facility] and [facility] facilities. Immunization Series Date Given Administered By Site Reaction Lot Number CVX Code Drug Epoxy Coatings Installer Status Comments Source TDAP 2020 115 complet ed [facility] TETANUS-DIPHT -aPERT (HISTORICAL) 2010 115 complet ed [facility] TDAP 2009 115 complet ed [facility] Results Combined list of recent chemistry, hematology and other laboratory results from Department of Defense and Veterans Affairs, ranging from 15 months to all on record, depending upon the facility. Order Name Results Value Reference Range Date Interpretation Specimen Comments Source B12 COBALAMIN (VITAMIN B12) [MASS/VOLUM E] IN SERUM OR PLASMA >2000pg/ mL 213 - 816 05/17 H Specimen Type: SERUM No comment entered. Ordering Provider: CARMELO NUÑEZ G Report Released Date/Time: May 17, 2024 02:01 PM Reporting Lab: [place] [facility] [address] [place] [address] Performing Lab: [place] [facility] [address] [place] [address] [facility] CBC LEUKOCYTES [#/VOLUME] IN BLOOD BY AUTOMATED COUNT 13.1 10*3/uL 3.6 - 11.2 05/17 H Specimen Type: BLOOD No comment entered. Ordering Provider: CARMELO NUÑEZ TEL G Report Released Date/Time: May 17, 2024 02:01 PM Reporting Lab: [place] [facility] [address] [place] [facility] Performing Lab: [place] [facility] [address] [place] [address] [facility] CBC ERYTHROCYTE S [#/VOLUME] IN BLOOD BY AUTOMATED COUNT 4.39 10*6/uL 4.10 - 5.70 05/17 Specimen Type: BLOOD No comment entered. Ordering Provider: CARMELO NUÑEZ Report Released Date/Time: May 17, 2024 02:01 PM Reporting Lab: [place] [facility] [address] [place] [id number] Performing Lab: [place] [facility] [address] [place] [address] [facility] CBC HEMOGLOBIN [MASS/VOLUM E] IN BLOOD 15.0 g/dL 13.1 - 16.8 05/17 Specimen Type: BLOOD No comment entered. Ordering Provider: CARMELO NUÑEZ Report Released Date/Time: May 17, 2024 02:01 PM Reporting Lab: [place] [facility] [address] [place] [address] Performing Lab: [place] [facility] [address] [place] [address] [facility] CBC HEMATOCRIT [VOLUME FRACTION] OF BLOOD 44.4 38.2 - 48.4 05/17 Specimen Type: BLOOD No comment entered. Ordering Provider: CARMELO NUÑEZ Report Released Date/Time: May 17, 2024 02:01 PM Reporting Lab: [place] [facility] [address] [place] [address] Performing Lab: [place] [facility] [address] [place] [address] [facility] CBC MCV [ENTITIC VOLUME] BY AUTOMATED COUNT 101.1 fL 80.0 - 100.0 05/17 H Specimen Type: BLOOD No comment entered. Ordering Provider: CARMELO NUÑEZ Report Released Date/Time: May 17, 2024 02:01 PM Reporting Lab: [place] [facility] [address] [place] [id number] Performing Lab: [place] [facility] [address] [place] [address] [facility] CBC MCH [ENTITIC MASS] BY AUTOMATED COUNT 34.2 pg 27.0 - 34.0 05/17 H Specimen Type: BLOOD No comment entered. Ordering Provider: NUÑEZ,CARMELO TEL G Report Released Date/Time: May 17, 2024 02:01 PM Reporting Lab: [place] [facility] [address] [place] [address] Performing Lab: [place] [facility] [address] [place] [address] [facility] CBC MCHC [MASS/VOLUM E] BY AUTOMATED COUNT 33.8 g/dL 33.0 - 36.0 05/17 Specimen Type: BLOOD No comment entered. Ordering Provider: CARMELO NUÑEZ Report Released Date/Time: May 17, 2024 02:01 PM Reporting Lab: [place] [facility] [address] [place] [address] Performing Lab: [place] [facility] [address] [place] [address] [facility] CBC PLATELETS [#/VOLUME] IN BLOOD BY AUTOMATED COUNT 226 10*3/uL 150 - 400 05/17 Specimen Type: BLOOD No comment entered. Ordering Provider: CARMELO NUÑEZ Report Released Date/Time: May 17, 2024 02:01 PM Reporting Lab: [place] [facility] [address] [place] [phone] Performing Lab: [place] [facility] [address] [place] [address] [facility] CBC PLATELET MEAN VOLUME [ENTITIC VOLUME] IN BLOOD BY AUTOMATED COUNT 10.9 fL 7.5 - 11.2 05/17 Specimen Type: BLOOD No comment entered. Ordering Provider: CARMELO NUÑEZ Report Released Date/Time: May 17, 2024 02:01 PM Reporting Lab: [place] [facility] [address] [place] [address] Performing Lab: [place] [facility] [address] [place] [address] [facility] CBC SEGMENTED NEUTROPHILS /100 LEUKOCYTES IN BLOOD BY MANUAL COUNT 70 05/17 Specimen Type: BLOOD No comment entered. Ordering Provider: CARMELO NUÑEZ Report Released Date/Time: May 17, 2024 02:01 PM Reporting Lab: [place] [facility] [address] [place] [address] Performing Lab: [place] [facility] [address] [place] [address] [facility] CBC MONOCYTES/1 00 LEUKOCYTES IN BLOOD BY AUTOMATED COUNT 8 05/17 Specimen Type: BLOOD No comment entered. Ordering Provider: CARMELO NUÑEZ Report Released Date/Time: May 17, 2024 02:01 PM Reporting Lab: [place] [facility] [address] [place] [address] Performing Lab: [place] [facility] [address] [place] [address] [place] [address] [facility] CBC METAMYELOCY MAUREEN/100 LEUKOCYTES IN BLOOD BY MANUAL COUNT 2 0 05/17 H Specimen Type: BLOOD No comment entered. Ordering Provider: CARMELO NUÑEZ Report Released Date/Time: May 17, 2024 02:01 PM Reporting Lab: [place] [facility] [address] [place] [phone] Performing Lab: [place] [facility] [address] [place] [address] [facility] CBC MYELOCYTES/ 100 LEUKOCYTES IN BLOOD 1 0 05/17 H Specimen Type: BLOOD No comment entered. Ordering Provider: CARMELO NUÑEZ Report Released Date/Time: May 17, 2024 02:01 PM Reporting Lab: [place] [facility] [address] [place] [id number] Performing Lab: [place] [facility] [address] [place] [address] [facility] CBC PLATELET ADEQUACY [PRESENCE] IN BLOOD BY LIGHT MICROSCOPY ADEQUATE 05/17 Specimen Type: BLOOD No comment entered. Ordering Provider: CARMELO NUÑEZ Report Released Date/Time: May 17, 2024 02:01 PM Reporting Lab: [place] [facility] [address] [place] [id number] Performing Lab: [place] [facility] [address] [place] [address] [facility] CBC ERYTHROCYTE DISTRIBUTIO N WIDTH [RATIO] BY AUTOMATED COUNT 13.2 11.8 - 15.1 05/17 Specimen Type: BLOOD No comment entered. Ordering Provider: CARMELO NUÑEZ Report Released Date/Time: May 17, 2024 02:01 PM Reporting Lab: [place] [facility] [address] [place] [id number] Performing Lab: [place] [facility] [address] [place] [address] [facility] CBC LYMPHOCYTES /100 LEUKOCYTES IN BLOOD BY MANUAL COUNT 19 05/17 Specimen Type: BLOOD No comment entered. Ordering Provider: CARMELO NUÑEZ G Report Released Date/Time: May 17, 2024 02:01 PM Reporting Lab: [place] [facility] [address] [place] [address] Performing Lab: [place] [facility] [address] [place] [address] [facility] CBC LYMPHOCYTES /100 LEUKOCYTES IN BLOOD BY AUTOMATED COUNT 8.9 05/17 Specimen Type: BLOOD No comment entered. Ordering Provider: CARMELO NUÑEZ Report Released Date/Time: May 17, 2024 02:01 PM Reporting Lab: [place] [facility] [address] [place] [address] Performing Lab: [place] [facility] [address] [place] [address] [facility] CBC MONOCYTES/1 00 LEUKOCYTES IN BLOOD BY AUTOMATED COUNT 7.0 05/17 Specimen Type: BLOOD No comment entered. Ordering Provider: CARMELO NUÑEZ Report Released Date/Time: May 17, 2024 02:01 PM Reporting Lab: [place] [facility] [address] [place] [address] Performing Lab: [place] [facility] [address] [place] [address] [facility] CBC NEUTROPHILS /100 LEUKOCYTES IN BLOOD BY AUTOMATED COUNT 76.7 05/17 Specimen Type: BLOOD No comment entered. Ordering Provider: CARMELO NUÑEZ G Report Released Date/Time: May 17, 2024 02:01 PM Reporting Lab: [place] [facility] [address] [place] [address] Performing Lab: [place] [facility] [address] [place] [address] [facility] CBC EOSINOPHILS /100 LEUKOCYTES IN BLOOD BY AUTOMATED COUNT 0.2 05/17 Specimen Type: BLOOD No comment entered. Ordering Provider: CARMELO NUÑEZ Report Released Date/Time: May 17, 2024 02:01 PM Reporting Lab: [place] [facility] [address] [place] [phone] Performing Lab: [place] [facility] [address] [place] [address] [place] [address] [facility] CBC BASOPHILS/1 00 LEUKOCYTES IN BLOOD BY AUTOMATED COUNT 0.9 05/17 Specimen Type: BLOOD No comment entered. Ordering Provider: CARMELO NUÑEZ Report Released Date/Time: May 17, 2024 02:01 PM Reporting Lab: [place] [facility] [address] [place] [address] Performing Lab: [place] [facility] [address] [place] [address] [facility] CBC LYMPHOCYTES [#/VOLUME] IN BLOOD BY AUTOMATED COUNT 1.17 10*3/uL 0.77 - 4.50 05/17 Specimen Type: BLOOD No comment entered. Ordering Provider: CARMELO NUÑEZ Report Released Date/Time: May 17, 2024 02:01 PM Reporting Lab: [place] [facility] [address] [place] [address] Performing Lab: [place] [facility] [address] [place] [address] [facility] CBC MONOCYTES [#/VOLUME] IN BLOOD BY AUTOMATED COUNT 0.92 10*3/uL 0.19 - 0.8 05/17 H Specimen Type: BLOOD No comment entered. Ordering Provider: CARMELO NUÑEZ Report Released Date/Time: May 17, 2024 02:01 PM Reporting Lab: [place] [facility] [address] [place] [phone] Performing Lab: [place] [facility] [address] [place] [address] [place] [address] [place] [facility] CBC NEUTROPHILS [#/VOLUME] IN BLOOD BY AUTOMATED COUNT 10.01 10*3/uL 2.10 - 8.00 05/17 H Specimen Type: BLOOD No comment entered. Ordering Provider: CARMELO NUÑZE Report Released Date/Time: May 17, 2024 02:01 PM Reporting Lab: [place] [facility] [address] [place] [address] Performing Lab: [place] [facility] [address] [place] [address] [facility] CBC EOSINOPHILS [#/VOLUME] IN BLOOD BY AUTOMATED COUNT 0.03 10*3/uL 0.00 - 0.60 05/17 Specimen Type: BLOOD No comment entered. Ordering Provider: CARMELO NUÑEZ Report Released Date/Time: May 17, 2024 02:01 PM Reporting Lab: [place] [facility] [address] [place] [address] Performing Lab: [place] [facility] [address] [place] [address] [facility] CBC BASOPHILS [#/VOLUME] IN BLOOD BY AUTOMATED COUNT 0.12 10*3/uL 0.00 - 0.20 05/17 Specimen Type: BLOOD No comment entered. Ordering Provider: CARMELO NUÑEZ Report Released Date/Time: May 17, 2024 02:01 PM Reporting Lab: [place] [facility] [address] [place] [address] Performing Lab: [place] [facility] [address] [place] [address] [facility] CBC IMMATURE GRANULOCYTE S/100 LEUKOCYTES IN BLOOD BY AUTOMATED COUNT 6.3 05/17 Specimen Type: BLOOD No comment entered. Ordering Provider: CARMELO NUÑEZ Report Released Date/Time: May 17, 2024 02:01 PM Reporting Lab: [place] [facility] [address] [place] [address] Performing Lab: [place] [facility] [address] [place] [address] [facility] CBC IMMATURE GRANULOCYTE S [#/VOLUME] IN BLOOD BY AUTOMATED COUNT 0.83 10*3/uL 0.00 - 0.05 05/17 H Specimen Type: BLOOD No comment entered. Ordering Provider: CARMELO NUÑEZ G Report Released Date/Time: May 17, 2024 02:01 PM Reporting Lab: [place] [facility] [address] [place] [phone] Performing Lab: [place] [facility] [address] [place] [address] [place] [address] [facility] CBC MANUAL DIFFERENTIA L COMMENT [INTERPRETA TION] IN BLOOD NARRATIVE YES 05/17 Specimen Type: BLOOD No comment entered. Ordering Provider: CARMELO NUÑEZ Report Released Date/Time: May 17, 2024 02:01 PM Reporting Lab: [place] [facility] [address] [place] [address] Performing Lab: [place] [facility] [address] [place] [address] [facility] CBC MANUAL DIFFERENTIA L PERFORMED [PRESENCE] IN BLOOD 0.39 10*3/uL 0.00 05/17 Specimen Type: BLOOD No comment entered. Ordering Provider: CARMELO NUÑEZ Report Released Date/Time: May 17, 2024 02:01 PM Reporting Lab: [place] [facility] [address] [place] [address] Performing Lab: [place] [facility] [address] [place] [address] [facility] CBC MONOCYTES [#/VOLUME] IN BLOOD BY MANUAL COUNT 1.05 10*3/uL 0.19 - 0.8 05/17 H Specimen Type: BLOOD No comment entered. Ordering Provider: CARMELO NUÑEZ G Report Released Date/Time: May 17, 2024 02:01 PM Reporting Lab: [place] [facility] [address] [place] [phone] Performing Lab: [place] [facility] [address] [place] [address] [facility] CBC LYMPHOCYTES [#/VOLUME] IN BLOOD BY MANUAL COUNT 2.49 10*3/uL 0.77 - 4.50 04/02 /2025 Specimen Type: BLOOD No comment entered. Ordering Provider: CARMELO NUÑEZ Report Released Date/Time: May 17, 2024 02:01 PM Reporting Lab: [place] [facility] [address] [place] [address] Performing Lab: [place] [facility] [address] [place] [address] [facility] CBC NEUTROPHILS [#/VOLUME] IN BLOOD BY MANUAL COUNT 9.17 10*3/uL 2.10 - 8.00 05/17 H Specimen Type: BLOOD No comment entered. Ordering Provider: CARMELO NUÑEZ Report Released Date/Time: May 17, 2024 02:01 PM Reporting Lab: [place] [facility] [address] [place] [address] Performing Lab: [place] [facility] [address] [place] [address] [facility] CHOLESTER OL PANEL (PB) CHOLESTEROL [MASS/VOLUM E] IN SERUM OR PLASMA 219 mg/dL 0 - 200 05/17 H Specimen Type: PLASMA No comment entered. Ordering Provider: CARMELO NUÑEZ Report Released Date/Time: May 17, 2024 02:01 PM Reporting Lab: [place] [facility] [address] [place] [address] Performing Lab: [place] [facility] [address] [place] [address] [facility] CHOLESTER OL PANEL (PB) TRIGLYCERID E [MASS/VOLUM E] IN SERUM OR PLASMA 213 mg/dL 0 - 150 05/17 H Specimen Type: PLASMA No comment entered. Ordering Provider: CARMELO NUÑEZ Report Released Date/Time: May 17, 2024 02:01 PM Reporting Lab: [place] [facility] [address] [place] [address] Performing Lab: [place] [facility] [address] [place] [address] [facility] CHOLESTER OL PANEL (PB) CHOLESTEROL IN LDL [MASS/VOLUM E] IN SERUM OR PLASMA BY CALCULATION 95.4 mg/dL 05/17 Specimen Type: PLASMA No comment entered. Ordering Provider: CARMELO NUÑEZ Report Released Date/Time: May 17, 2024 02:01 PM Reporting Lab: [place] [facility] [address] [place] [address] Performing Lab: [place] [facility] [address] [place] [address] [facility] CHOLESTER OL PANEL (PB) CHOLESTEROL IN HDL [MASS/VOLUM E] IN SERUM OR PLASMA 81.0 mg/dL 40 05/17 H Specimen Type: PLASMA No comment entered. Ordering Provider: CARMELO NUÑEZ Report Released Date/Time: May 17, 2024 02:01 PM Reporting Lab: [place] [facility] [address] [place] [address] Performing Lab: [place] [facility] [address] [place] [address] [facility] CHOLESTER OL PANEL (PB) CHOLESTEROL IN HDL/CHOLEST PHILLIP.TOTAL [MASS RATIO] IN SERUM OR PLASMA 37.0 25 05/17 Specimen Type: PLASMA No comment entered. Ordering Provider: CARMELO NUÑEZ Report Released Date/Time: May 17, 2024 02:01 PM Reporting Lab: [place] [facility] [address] [place] [address] Performing Lab: [place] [facility] [address] [place] [address] [facility] COMPREHEN SIVE METABOLIC PANEL CREATININE [MASS/VOLUM E] IN SERUM OR PLASMA 1.40 mg/dL 0.7 - 1.3 05/17 H Specimen Type: PLASMA No comment entered. Ordering Provider: CARMELO NUÑEZ Report Released Date/Time: May 17, 2024 02:01 PM Reporting Lab: [place] [facility] [address] [place] [address] Performing Lab: [place] [facility] [address] [place] [address] [facility] COMPREHEN SIVE METABOLIC PANEL UREA NITROGEN [MASS/VOLUM E] IN SERUM OR PLASMA 28 mg/dL 9 - 25 05/17 H Specimen Type: PLASMA No comment entered. Ordering Provider: CARMELO NUÑEZ Report Released Date/Time: May 17, 2024 02:01 PM Reporting Lab: [place] [facility] [address] [place] [address] Performing Lab: [place] [facility] [address] [place] [address] [facility] COMPREHEN SIVE METABOLIC PANEL GLUCOSE [MASS/VOLUM E] IN SERUM OR PLASMA 108 mg/dL 72 - 99 05/17 H Specimen Type: PLASMA No comment entered. Ordering Provider: CARMELO NUÑEZ Report Released Date/Time: May 17, 2024 02:01 PM Reporting Lab: [place] [facility] [address] [place] [address] Performing Lab: [place] [facility] [address] [place] [address] [facility] COMPREHEN SIVE METABOLIC PANEL SODIUM [MOLES/VOLU ME] IN SERUM OR PLASMA 139 meq/L 136 - 145 05/17 Specimen Type: PLASMA No comment entered. Ordering Provider: CARMELO NUÑEZ Report Released Date/Time: May 17, 2024 02:01 PM Reporting Lab: [place] [facility] [address] [place] [address] Performing Lab: [place] [facility] [address] [place] [address] [facility] COMPREHEN SIVE METABOLIC PANEL POTASSIUM [MOLES/VOLU ME] IN SERUM OR PLASMA 5.3 meq/L 3.5 - 5 05/17 H Specimen Type: PLASMA No comment entered. Ordering Provider: CARMELO NUÑEZ G Report Released Date/Time: May 17, 2024 02:01 PM Reporting Lab: [place] [facility] [address] [place] [address] Performing Lab: [place] [facility] [address] [place] [address] [facility] COMPREHEN SIVE METABOLIC PANEL CHLORIDE [MOLES/VOLU ME] IN SERUM OR PLASMA 105 meq/L 98 - 107 05/17 Specimen Type: PLASMA No comment entered. Ordering Provider: CARMELO NUÑEZ TEL G Report Released Date/Time: May 17, 2024 02:01 PM Reporting Lab: [place] [facility] [address] [place] [address] Performing Lab: [place] [facility] [address] [place] [address] [facility] COMPREHEN SIVE METABOLIC PANEL CARBON DIOXIDE, TOTAL [MOLES/VOLU ME] IN SERUM OR PLASMA 27 meq/L 22 - 31 05/17 Specimen Type: PLASMA No comment entered. Ordering Provider: CARMELO NUÑEZ TEL G Report Released Date/Time: May 17, 2024 02:01 PM Reporting Lab: [place] [facility] [address] [place] [address] Performing Lab: [place] [facility] [address] [place] [address] [facility] COMPREHEN SIVE METABOLIC PANEL CALCIUM [MASS/VOLUM E] IN SERUM OR PLASMA 9.3 mg/dL 8.4 - 10.4 05/17 Specimen Type: PLASMA No comment entered. Ordering Provider: CARMELO NUÑEZ TEL Juan Diego Report Released Date/Time: May 17, 2024 02:01 PM Reporting Lab: [place] [facility] [address] [place] [address] Performing Lab: [place] [facility] [address] [place] [address] [facility] COMPREHEN SIVE METABOLIC PANEL PROTEIN [MASS/VOLUM E] IN SERUM OR PLASMA 6.9 g/dL 6 - 8.6 05/17 Specimen Type: PLASMA No comment entered. Ordering Provider: CARMELO NUÑEZ TEL G Report Released Date/Time: May 17, 2024 02:01 PM Reporting Lab: [place] [facility] [address] [place] [address] Performing Lab: [place] [facility] [address] [place] [address] [facility] COMPREHEN SIVE METABOLIC PANEL ALBUMIN [MASS/VOLUM E] IN SERUM OR PLASMA 3.9 g/dL 3.4 - 5 05/17 Specimen Type: PLASMA No comment entered. Ordering Provider: CARMELO NUÑEZ G Report Released Date/Time: May 17, 2024 02:01 PM Reporting Lab: [place] [facility] [address] [place] [address] Performing Lab: [place] [facility] [address] [place] [address] [facility] COMPREHEN SIVE METABOLIC PANEL BILIRUBIN.T OTAL [MASS/VOLUM E] IN SERUM OR PLASMA 0.8 mg/dL 0.2 - 1.2 05/17 Specimen Type: PLASMA No comment entered. Ordering Provider: CARMELO NUÑEZ Report Released Date/Time: May 17, 2024 02:01 PM Reporting Lab: [place] [facility] [address] [place] [address] Performing Lab: [place] [facility] [address] [place] [address] [facility] COMPREHEN SIVE METABOLIC PANEL ALKALINE PHOSPHATASE [ENZYMATIC ACTIVITY/VO LUME] IN SERUM OR PLASMA 87 U/L 40 - 150 05/17 Specimen Type: PLASMA No comment entered. Ordering Provider: CARMELO NUÑEZ Report Released Date/Time: May 17, 2024 02:01 PM Reporting Lab: [place] [facility] [address] [place] [address] Performing Lab: [place] [facility] [address] [place] [address] [facility] COMPREHEN SIVE METABOLIC PANEL ASPARTATE AMINOTRANSF ERASE [ENZYMATIC ACTIVITY/VO LUME] IN SERUM OR PLASMA 23 U/L 5 - 34 05/17 Specimen Type: PLASMA No comment entered. Ordering Provider: CARMELO NUÑEZ Vocent Report Released Date/Time: May 17, 2024 02:01 PM Reporting Lab: [place] [facility] [address] [place] [address] Performing Lab: [place] [facility] [address] [place] [address] [facility] COMPREHEN SIVE METABOLIC PANEL ALANINE AMINOTRANSF ERASE [ENZYMATIC ACTIVITY/VO LUME] IN SERUM OR PLASMA 37 U/L 8 - 40 05/17 Specimen Type: PLASMA No comment entered. Ordering Provider: CARMELO NUÑEZ Report Released Date/Time: May 17, 2024 02:01 PM Reporting Lab: [place] [facility] [address] [place] [address] Performing Lab: [place] [facility] [address] [place] [address] [facility] COMPREHEN SIVE METABOLIC PANEL GLOMERULAR FILTRATION RATE/1.73 SQ M.PREDICTED [VOLUME RATE/AREA] IN SERUM, PLASMA OR BLOOD BY CREATININE- BASED FORMULA (CKD-EPI 2020) 52 05/17 Specimen Type: PLASMA No comment entered. Ordering Provider: CARMELO NUÑEZ Report Released Date/Time: May 17, 2024 02:01 PM Reporting Lab: [place] [facility] [address] [place] [address] Performing Lab: [place] [facility] [address] [place] [address] [facility] FOLATE (PB) FOLATE [MASS/VOLUM E] IN SERUM OR PLASMA 15.9 ng/mL 7 - 20 05/17 Specimen Type: SERUM No comment entered. Ordering Provider: CARMELO NUÑEZ Report Released Date/Time: May 17, 2024 02:01 PM Reporting Lab: [place] [facility] [address] [place] [address] Performing Lab: [place] [facility] [address] [place] [address] [facility] HGA1C HEMOGLOBIN A1C/HEMOGLO BIN.TOTAL IN BLOOD 5.9 4.0 - 6.0 05/17 Specimen Type: BLOOD No comment entered. Ordering Provider: CARMELO NUÑEZ Report Released Date/Time: May 17, 2024 02:01 PM Reporting Lab: [place] [facility] [address] [place] [address] Performing Lab: [place] [facility] [address] [place] [address] [facility] TSH (MA-PB) THYROTROPIN [UNITS/VOLU ME] IN SERUM OR PLASMA 9.920 u[IU]/mL 0.47 - 5 05/17 H Specimen Type: SERUM No comment entered. Ordering Provider: CARMELO NUÑEZ Report Released Date/Time: May 17, 2024 02:01 PM Reporting Lab: [place] [facility] [address] [place] [phone] Performing Lab: [place] [facility] [address] [place] [address] [facility] TSH (MA-PB) THYROXINE (T4) FREE [MASS/VOLUM E] IN SERUM OR PLASMA 1.14 ng/dL 05/17 Specimen Type: SERUM No comment entered. Ordering Provider: CARMELO NUÑEZ Report Released Date/Time: May 17, 2024 02:01 PM Reporting Lab: [place] [facility] [address] [place] [address] Performing Lab: [place] [facility] [address] [place] [address] [facility] URINE ALBUMIN PROFILE-i h (PB) ALBUMIN [MASS/VOLUM E] IN URINE 28.28 mg/L 0 - 30 05/17 Specimen Type: URINE No comment entered. Ordering Provider: CARMELO NUÑEZ Report Released Date/Time: May 17, 2024 02:01 PM Reporting Lab: [place] [facility] [address] [place] [address] Performing Lab: [place] [facility] [address] [place] [address] [facility] URINE ALBUMIN PROFILE-i h (PB) ALBUMIN/CRE ATININE [MASS RATIO] IN URINE 13.79 ug/mg 05/17 Specimen Type: URINE No comment entered. Ordering Provider: CARMELO NUÑEZ Report Released Date/Time: May 17, 2024 02:01 PM Reporting Lab: [place] [facility] [address] [place] [address] Performing Lab: [place] [facility] [address] [place] [address] [facility] URINE ALBUMIN PROFILE-i h (PB) CREATININE [MASS/VOLUM E] IN URINE 205.01 mg/dL 05/17 Specimen Type: URINE No comment entered. Ordering Provider: CARMELO NUÑEZ Report Released Date/Time: May 17, 2024 02:01 PM Reporting Lab: [place] [facility] [address] [place] [address] Performing Lab: [place] [facility] [address] [place] [address] [facility] VITAMIN D, 25-HYDROX Y 25-HYDROXYV ITAMIN D3 [MASS/VOLUM E] IN SERUM OR PLASMA 41.7 ng/mL 30 - 96 05/17 Specimen Type: SERUM No comment entered. Ordering Provider: CARMELO NUÑEZ Report Released Date/Time: May 17, 2024 02:01 PM Reporting Lab: [place] [facility] [address] [place] [address] Performing Lab: [place] [facility] [address] [place] [address] [facility] GASTROINT ESTINAL PCR PANEL CAMPYLOBACT ER COLI+JEJUNI +UPSALIENSI S DNA [PRESENCE] IN STOOL BY ANN MARIE WITH NON-PROBE DETECTION Not Detected 04/27 Specimen Type: FECES Comment: The test EIEC cannot differentia te between Enteroinvas edmundo E. coli and Shigella. Ordering Provider: CARMELO NUÑEZ Report Released Date/Time: Apr 27, 2024 02:56 PM Reporting Lab: [place] [facility] [address] [place] [address] Performing Lab: [place] [facility] [address] [place] [address] [place] [facility] GASTROINT ESTINAL PCR PANEL CLOSTRIDIOI MATA DIFFICILE TOXIN A+B TCDA+TCDB GENES [PRESENCE] IN STOOL BY ANN MARIE WITH NON-PROBE DETECTION canc 04/27 Specimen Type: FECES Comment: The test EIEC cannot differentia te between Enteroinvas edmundo E. coli and Shigella. Ordering Provider: CARMELO NUÑEZ Report Released Date/Time: Apr 27, 2024 02:56 PM Reporting Lab: [place] [facility] [address] [place] [address] Performing Lab: [place] [facility] [address] [place] [address] [place] [facility] GASTROINT ESTINAL PCR PANEL PLESIOMONAS SHIGELLOIDE S DNA [PRESENCE] IN STOOL BY ANN MARIE WITH NON-PROBE DETECTION Not Detected 04/27 Specimen Type: FECES Comment: The test EIEC cannot differentia te between Enteroinvas edmundo E. coli and Shigella. Ordering Provider: CARMELO NUÑEZ G Report Released Date/Time: Apr 27, 2024 02:56 PM Reporting Lab: [place] [facility] [address] [place] [address] Performing Lab: [place] [facility] [address] [place] [address] [place] [facility] GASTROINT ESTINAL PCR PANEL SALMONELLA ENTERICA+KEVIN NGORI DNA [PRESENCE] IN STOOL BY ANN MARIE WITH NON-PROBE DETECTION Not Detected 04/27 Specimen Type: FECES Comment: The test EIEC cannot differentia te between Enteroinvas edmundo E. coli and Shigella. Ordering Provider: CARMELO NUÑEZ G Report Released Date/Time: Apr 27, 2024 02:56 PM Reporting Lab: [place] [facility] [address] [place] [address] Performing Lab: [place] [facility] [address] [place] [address] [place] [facility] GASTROINT ESTINAL PCR PANEL YERSINIA ENTEROCOLIT ICA DNA [PRESENCE] IN STOOL BY ANN MARIE WITH NON-PROBE DETECTION Not Detected 04/27 Specimen Type: FECES Comment: The test EIEC cannot differentia te between Enteroinvas edmundo E. coli and Shigella. Ordering Provider: CARMELO NUÑEZ G Report Released Date/Time: Apr 27, 2024 02:56 PM Reporting Lab: [place] [facility] [address] [place] [address] Performing Lab: [place] [facility] [address] [place] [address] [place] [facility] GASTROINT ESTINAL PCR PANEL VIBRIO CHOLERAE+PA RAHAEMOLYTI CUS+VULNIFI CUS DNA [PRESENCE] IN STOOL BY ANN MARIE WITH NON-PROBE DETECTION Not Detected 04/27 Specimen Type: FECES Comment: The test EIEC cannot differentia te between Enteroinvas edmundo E. coli and Shigella. Ordering Provider: CARMELO NUÑEZ Report Released Date/Time: Apr 27, 2024 02:56 PM Reporting Lab: [place] [facility] [address] [place] [address] Performing Lab: [place] [facility] [address] [place] [address] [place] [facility] GASTROINT ESTINAL PCR PANEL VIBRIO CHOLERAE DNA [PRESENCE] IN STOOL BY ANN MARIE WITH NON-PROBE DETECTION Not Detected 04/27 Specimen Type: FECES Comment: The test EIEC cannot differentia te between Enteroinvas edmundo E. coli and Shigella. Ordering Provider: CARMELO NUÑEZ Report Released Date/Time: Apr 27, 2024 02:56 PM Reporting Lab: [place] [facility] [address] [place] [address] Performing Lab: [place] [facility] [address] [place] [address] [place] [facility] GASTROINT ESTINAL PCR PANEL ESCHERICHIA COLI ENTEROAGGRE GATIVE SARAH PLASMID AGGR+AATA GENES [PRESENCE] IN STOOL BY ANN MARIE WITH NON-PROBE DETECTION Not Detected 04/27 Specimen Type: FECES Comment: The test EIEC cannot differentia te between Enteroinvas edmundo E. coli and Shigella. Ordering Provider: CARMELO NUÑEZ Report Released Date/Time: Apr 27, 2024 02:56 PM Reporting Lab: [place] [facility] [address] [place] [address] Performing Lab: [place] [facility] [address] [place] [address] [place] [facility] GASTROINT ESTINAL PCR PANEL ESCHERICHIA COLI ENTEROPATHO GENIC EAE GENE [PRESENCE] IN STOOL BY ANN MARIE WITH NON-PROBE DETECTION Not Detected 04/27 Specimen Type: FECES Comment: The test EIEC cannot differentia te between Enteroinvas edmundo E. coli and Shigella. Ordering Provider: CARMELO NUÑEZ Report Released Date/Time: Apr 27, 2024 02:56 PM Reporting Lab: [place] [facility] [address] [place] [address] Performing Lab: [place] [facility] [address] [place] [address] [place] [facility] GASTROINT ESTINAL PCR PANEL ESCHERICHIA COLI ENTEROTOXIG ENIC LTA+ST1A+ST 1B GENES [PRESENCE] IN STOOL BY ANN MARIE WITH NON-PROBE DETECTION Not Detected 04/27 Specimen Type: FECES Comment: The test EIEC cannot differentia te between Enteroinvas edmundo E. coli and Shigella. Ordering Provider: CARMELO NUÑEZ Report Released Date/Time: Apr 27, 2024 02:56 PM Reporting Lab: [place] [facility] [address] [place] [address] Performing Lab: [place] [facility] [address] [place] [address] [place] [facility] GASTROINT ESTINAL PCR PANEL ESCHERICHIA COLI STX1 AND STX2 TOXIN STX1+STX2 GENES [PRESENCE] IN STOOL BY ANN MARIE WITH NON-PROBE DETECTION Not Detected 04/27 Specimen Type: FECES Comment: The test EIEC cannot differentia te between Enteroinvas edmundo E. coli and Shigella. Ordering Provider: CARMELO NUÑEZ Report Released Date/Time: Apr 27, 2024 02:56 PM Reporting Lab: [place] [facility] [address] [place] [address] Performing Lab: [place] [facility] [address] [place] [address] [place] [facility] GASTROINT ESTINAL PCR PANEL ESCHERICHIA COLI O157 DNA [PRESENCE] IN STOOL BY ANN MARIE WITH NON-PROBE DETECTION Not Applicab le 04/27 Specimen Type: FECES Comment: The test EIEC cannot differentia te between Enteroinvas edmundo E. coli and Shigella. Ordering Provider: CARMELO NUÑEZ Report Released Date/Time: Apr 27, 2024 02:56 PM Reporting Lab: [place] [facility] [address] [place] [address] Performing Lab: [place] [facility] [address] [place] [address] [place] [facility] GASTROINT ESTINAL PCR PANEL SHIGELLA SPECIES+EIE C INVASION PLASMID ANTIGEN H IPAH GENE [PRESENCE] IN STOOL BY ANN MARIE WITH NON-PROBE DETECTION Not Detected 04/27 Specimen Type: FECES Comment: The test EIEC cannot differentia te between Enteroinvas edmundo E. coli and Shigella. Ordering Provider: CARMELO NUÑEZ Report Released Date/Time: Apr 27, 2024 02:56 PM Reporting Lab: [place] [facility] [address] [place] [address] Performing Lab: [place] [facility] [address] [place] [address] [place] [facility] GASTROINT ESTINAL PCR PANEL CRYPTOSPORI DIUM SP DNA [PRESENCE] IN STOOL BY ANN MARIE WITH NON-PROBE DETECTION Not Detected 04/27 Specimen Type: FECES Comment: The test EIEC cannot differentia te between Enteroinvas edmundo E. coli and Shigella. Ordering Provider: CARMELO NUÑEZ Report Released Date/Time: Apr 27, 2024 02:56 PM Reporting Lab: [place] [facility] [address] [place] [address] Performing Lab: [place] [facility] [address] [place] [address] [place] [facility] GASTROINT ESTINAL PCR PANEL CYCLOSPORA CAYETANENSI S DNA [PRESENCE] IN STOOL BY ANN MARIE WITH NON-PROBE DETECTION Not Detected 04/27 Specimen Type: FECES Comment: The test EIEC cannot differentia te between Enteroinvas edmundo E. coli and Shigella. Ordering Provider: CARMELO NUÑEZ Report Released Date/Time: Apr 27, 2024 02:56 PM Reporting Lab: [place] [facility] [address] [place] [address] Performing Lab: [place] [facility] [address] [place] [address] [place] [facility] GASTROINT ESTINAL PCR PANEL ENTAMOEBA HISTOLYTICA DNA [PRESENCE] IN STOOL BY ANN MARIE WITH NON-PROBE DETECTION Not Detected 04/27 Specimen Type: FECES Comment: The test EIEC cannot differentia te between Enteroinvas edmundo E. coli and Shigella. Ordering Provider: CARMELO NUÑEZ Report Released Date/Time: Apr 27, 2024 02:56 PM Reporting Lab: [place] [facility] [address] [place] [address] Performing Lab: [place] [facility] [address] [place] [address] [place] [facility] GASTROINT ESTINAL PCR PANEL GIARDIA LAMBLIA DNA [PRESENCE] IN STOOL BY ANN MARIE WITH NON-PROBE DETECTION Not Detected 04/27 Specimen Type: FECES Comment: The test EIEC cannot differentia te between Enteroinvas edumndo E. coli and Shigella. Ordering Provider: CARMELO NUÑEZ Report Released Date/Time: Apr 27, 2024 02:56 PM Reporting Lab: [place] [facility] [address] [place] [address] Performing Lab: [place] [facility] [address] [place] [address] [place] [facility] GASTROINT ESTINAL PCR PANEL ADENOVIRUS 40+41 DNA [PRESENCE] IN STOOL BY ANN MARIE WITH NON-PROBE DETECTION Not Detected 04/27 Specimen Type: FECES Comment: The test EIEC cannot differentia te between Enteroinvas edmundo E. coli and Shigella. Ordering Provider: CARMELO NUÑEZ Report Released Date/Time: Apr 27, 2024 02:56 PM Reporting Lab: [place] [facility] [address] [place] [address] Performing Lab: [place] [facility] [address] [place] [address] [place] [facility] GASTROINT ESTINAL PCR PANEL NOROVIRUS GENOGROUP I+II RNA [PRESENCE] IN STOOL BY ANN MARIE WITH NON-PROBE DETECTION Not Detected 04/27 Specimen Type: FECES Comment: The test EIEC cannot differentia te between Enteroinvas edmundo E. coli and Shigella. Ordering Provider: CARMELO NUÑEZ Report Released Date/Time: Apr 27, 2024 02:56 PM Reporting Lab: [place] [facility] [address] [place] [address] Performing Lab: [place] [facility] [address] [place] [address] [place] [facility] GASTROINT ESTINAL PCR PANEL ROTAVIRUS A RNA [PRESENCE] IN STOOL BY ANN MARIE WITH NON-PROBE DETECTION Not Detected 04/27 Specimen Type: FECES Comment: The test EIEC cannot differentia te between Enteroinvas edmundo E. coli and Shigella. Ordering Provider: CARMELO NUÑEZ Report Released Date/Time: Apr 27, 2024 02:56 PM Reporting Lab: [place] [facility] [address] [place] [address] Performing Lab: [place] [facility] [address] [place] [address] [place] [facility] GASTROINT ESTINAL PCR PANEL SAPOVIRUS GENOGROUPS I+II+IV+V RNA [PRESENCE] IN STOOL BY ANN MARIE WITH NON-PROBE DETECTION Not Detected 04/27 Specimen Type: FECES Comment: The test EIEC cannot differentia te between Enteroinvas edmundo E. coli and Shigella. Ordering Provider: CARMELO NUÑEZ Report Released Date/Time: Apr 27, 2024 02:56 PM Reporting Lab: [place] [facility] [address] [place] [address] Performing Lab: [place] [facility] [address] [place] [address] [place] [facility] GASTROINT ESTINAL PCR PANEL ASTROVIRUS SUBTYPES 1-8 RNA [PRESENCE] IN STOOL BY ANN MARIE WITH NON-PROBE DETECTION Not Detected 04/27 Specimen Type: FECES Comment: The test EIEC cannot differentia te between Enteroinvas edmundo E. coli and Shigella. Ordering Provider: CARMELO NUÑEZ Report Released Date/Time: Apr 27, 2024 02:56 PM Reporting Lab: [place] [facility] [address] [place] [address] Performing Lab: [place] [facility] [address] [place] [address] [place] [facility] Vital Signs Combined list of inpatient and outpatient Vital Signs from Department of Defense and Veterans Affairs, ranging from 12 months to all on record, depending upon the facility. Vital Sign Value Date Comments Source SYSTOLIC BLOOD PRESSURE 171 07/27/2024 14:29:00 [place] [facility] DIASTOLIC BLOOD PRESSURE 77 07/27/2024 14:29:00 [facility] PULSE OXIMETRY 99 07/27/2024 14:29:00 [place] [facility] WEIGHT 132.7 07/27/2024 14:29:00 [place] [facility] BMI 20 kg/m2 07/27/2024 14:29:00 [facility] [place] [facility] PAIN 6 07/27/2024 14:29:00 [place] [facility] TEMPERATURE 97.6 07/27/2024 14:29:00 [place] [facility] PULSE 109 07/27/2024 14:29:00 [place] [facility] RESPIRATION 20 07/27/2024 14:29:00 [place] [facility] SYSTOLIC BLOOD PRESSURE 147 06/28/2024 13:48:00 [place] [facility] DIASTOLIC BLOOD PRESSURE 92 06/28/2024 13:48:00 [place] [facility] PULSE OXIMETRY 98 06/28/2024 13:48:00 [place] [facility] WEIGHT 127.8 06/28/2024 13:48:00 [place] [facility] BMI 19 kg/m2 06/28/2024 13[facility]48:00 [place] [facility] PAIN 6 06/28/2024 13:48:00 [place] [facility] TEMPERATURE 98.1 06/28/2024 13:48:00 [place] [facility] PULSE 110 06/28/2024 13:48:00 [place] [facility] RESPIRATION 18 06/28/2024 13:48:00 [place] [facility] SYSTOLIC BLOOD PRESSURE 165 05/31/2024 13:17:00 [place] [facility] DIASTOLIC BLOOD PRESSURE 98 05/31/2024 13:17:00 [place] [facility] PULSE OXIMETRY 97 05/31/2024 13:17:00 [place] [facility] PAIN 8 05/31/2024 13:17:00 [facility] [place] [facility] TEMPERATURE 97.3 05/31/2024 13:17:00 [facility] [place] [facility] PULSE 90 05/31/2024 13:17:00 [place] [facility] RESPIRATION 20 05/31/2024 13:17:00 [facility] SYSTOLIC BLOOD PRESSURE 104 05/17/2024 13:32:00 [place] [facility] DIASTOLIC BLOOD PRESSURE 54 05/17/2024 13:32:00 [place] [facility] PULSE OXIMETRY 98 05/17/2024 13:32:00 [place] [facility] WEIGHT 124.7 05/17/2024 13:32:00 [place] [facility] BMI 18 kg/m2 05/17/2024 13:32:00 [place] [facility] PAIN 5 05/17/2024 13:32:00 [place] [facility] TEMPERATURE 98.4 05/17/2024 13:32:00 [place] [facility] PULSE 114 05/17/2024 13:32:00 [place] [facility] RESPIRATION 18 05/17/2024 13:32:00 [place] [facility] SYSTOLIC BLOOD PRESSURE 119 03/31/2024 09:03:00 [place] [facility] DIASTOLIC BLOOD PRESSURE 76 03/31/2024 09:03:00 [place] [facility] PULSE OXIMETRY 87 03/31/2024 09:03:00 [place] [facility] WEIGHT 129.7 03/31/2024 09:03:00 [place] [facility] BMI 19 kg/m2 03/31/2024 09:03:00 [place] [facility] PAIN 0 03/31/2024 09:03:00 [place] [facility] TEMPERATURE 98.1 03/31/2024 09:03:00 [place] [facility] PULSE 98 03/31/2024 09:03:00 [place] [facility] RESPIRATION 20 03/31/2024 09:03:00 [place] [facility] Encounters Combined list of: 1) Encounters from Department of Veterans Affairs facilities going backup to the last 18 months, not all VA inpatient encounters are included; 2) Encounters from the Department of Defense facilities going backup to 280 months. Location Location Details Encounter Type Encounter Number Reason For Visit Attending Provider ADM Date DC Date Status Disposition Source [facility] Outpatient Encounter [id number] Nohemi GUZMAN 02/22 [facility] Outpatient Encounter [id number] JACINDA ROLON 03/24 [facility] EVANBONNIECINTIA ANURAG [facility] Outpatient Encounter [id number] 03/25 ANCA CRUZ [facility] FAYECINTIA OSBORN [facility] Outpatient Encounter [id number] SHARITASHAHNAZ LarryN 03/26 FABRICIO CRUZ [facility] Outpatient Encounter [id number] 03/29 [facility] CB OFFICE O/P EST MOD 30 MIN [id number] Diagnos is: ICD-10- CM G44.59 Other complic ated Nohemi Quijano 03/30 [facility] Outpatient Encounter [id number] 04/06 [facility] En[facility] [id number] 04/06 [facility] Encounter [id number] 04/13 [facility] Encounter [id number] 04/14 [facility] Out[facility] Encounter [id number] 04/20 [facility] Out[facility] Encounter [id number] 05/02 [facility] Outpatient Encounter [id number] 05/04 [facility] Outpatient Encounter [id number] IZA LOPES SEMAJ Onelia 05/16 [facility] CBOC OFF/OP EST MAY X REQ PHY/QHP [id number] Diagnos is: ICD-10- CM H10.33 Unspeci fied acute conjunc tivitis , Bakari Wilson 05/17 [facility] CB[facility] OFFICE O/P EST LOW 20 MIN [id number] Diagnos is: ICD-10- CM H10.89 Other conjunc tivitis SARAH NUÑEZ 05/17 [facility] [place] [facility] MTAZ BY PHARM EST 15 MIN [id number] Diagnos is: ICD-10- CM Z51.81 Encount er for therape utic drug level monitor [facility] SHARONALEÓN CARLOS A Sandoval 05/17 [place] 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 OFFICE O/P EST HI 40 MIN [id number] Diagnos is: ICD-10- CM I48.91 Unspeci fied atrial fibrill ation Nohemi GUZMAN SHA Swenson 05/31 [facility] Outpatient Encounter [id number] Nohemi GUZMAN SHA Swenson 06/01 [facility] Outpatient Encounter [id number] 07/01 [facility] Outpatient Encounter [id number] 07/07 [facility] CBOC OFF/OP EST JUNE X REQ PHY/QHP [id number] Diagnos is: ICD-10- CM R09.81 Nasal congest ion CUSTRED,TO RRI J 07/08 [facility] HC PRO PHONE CALL 5-10 MIN [id number] Diagnos is: ICD-10- CM Z51.81 Encount er for therape utic drug level monitor JOHNSON Connors 07/19 [facility] Outpatient Encounter [id number] IZA LOPES RIL L 07/25 [facility] Outpatient Encounter [id number] 08/04 [facility] Outpatient Encounter [id number] IZA LOPES RIL L 08/15 [facility] Outpatient Encounter [id number] 08/22 [facility] CBOC OFF/OP EST MAY X REQ PHY/QHP [id number] Diagnos is: ICD-10- CM H61.23 ronnie Guerrero ANG ELA A 08/26 [facility] Outpatient Encounter [id number] 08/30 [facility] OFFICE O/P EST MOD 30 MIN [id number] Diagnos is: ICD-10- CM R07.9 Chest pain, unspeci fied SARAH NUÑEZ G 08/30 [facility] Outpatient Encounter [id number] 08/30 [facility] Outpatient Encounter [id number] IZA LOPES 08/31 [facility] [place] [facility] Outpatient Encounter [id number] 08/31 [place] [facility] Outpatient Encounter [id number] 09/01 [facility] TELEHEALTH FACILITY FEE [id number] Diagnos is: ICD-10- CM H93.13 Tinnitu s, bilbrooke al GRAVES,ABE MAYA A 09/01 [facility] [place] [facility] HEARING AID FITTING/CH ECKING [id number] Diagnos is: ICD-10- CM H93.13 Tinnitu s, bilater al GRAVES,ABE MAYA A 09/01 [place] [facility] TEVIN OSBORN [facility] Outpatient Encounter [id number] 09/03 [facility] Encounter [id number] 09/03 [facility] TEVIN OSBORN [facility] Outpatient Encounter [id number] SHAHNAZ XAVIER 09/05 EVANFABRICIO CRUZ [facility] Outpatient Encounter [id number] Diagnos is: ICD-10- CM I48.91 Unspeci fied atrial fibrill ation ANGIE DUGAN A 09/05 [facility] OFFICE O/P EST MOD 30 MIN [id number] Diagnos is: ICD-10- CM Z09 Encntr for f/u exam aft trtmt for cond oth than malig neoplSARAH Hill 09/07 [facility] Outpatient Encounter [id number] 09/08 [facility] Outpatient Encounter [id number] 09/19 [facility] Outpatient Encounter [id number] 09/20 [facility] Outpatient Encounter [id number] 09/20 [facility] Outpatient Encounter [id number] 09/21 [facility] TELEHEALTH FACILITY FEE [id number] Diagnos is: ICD-10- CM Z46.1 Encount er for fitting and adjustm ent of hearing aid ABE LOPEZ A 10/04 [facility] CONFORMITY EVALUATION [id number] Diagnos is: ICD-10- CM Z46.1 Encount er for fitting and adjustm ent of hearing aid ABE LOPEZ 10/04 [place] [facility] Outpatient Encounter [id number] 10/08 [place] [facility] En[facility] [id number] 10/12 [facility] Outpatient Encounter [id number] 10/24 [facility] MTMS BY PHARM EST 15 MIN [id number] Diagnos is: ICD-10- CM Z51.81 Encount er for therape utic drug level monitor SABINE Cazares 10[facility]24 [facility] Outpatient Encounter [id number] 10/27 [facility] Outpatient Encounter [id number] Diagnos is: ICD-10- CM I10 Essenti al (primar y) hyperte SARAH Abarca 10/27 [facility] Outpatient Encounter [id number] 11/21 [facility] Outpatient Encounter [id number] 11/23 [facility] Outpatient Encounter [id number] IZA LOPES 12/12 [facility] [place] [facility] Outpatient Encounter [id number] 12/15 [facility] OFFICE O/P EST LOW 20 MIN [id number] Diagnos is: ICD-10- CM G44.311 Acute post-tr aumatic headach e, intract able SARAH NUÑEZOnelia G 12/15 [facility] Outpatient Encounter [id number] IZA LOPES RIL L 12/16 [facility] Outpatient Encounter [id number] 12/22 [facility] Outpatient Encounter [id number] 12/26 [facility] OL DIG ASSMT&MGMT 5-10 [id number] Diagnos is: ICD-10- CM G43.901 Migrain e, unsp, not intract able, with status migrain osCYNDIE Fajardo V 12/29 [place] [facility] Outpatient Encounter [id number] 01/04 [facility] N [facility] Outpatient Encounter [id number] 01/04 [facility] En[facility] [id number] 01/05 [facility] Outpatient Encounter [id number] 01/06 [facility] JORGE LI [facility] [facility] Outpatient Encounter [id number] 01/09 EVANFABRICIO CRUZ [facility] Outpatient Encounter [id number] SHAHNAZ XAVIER 01/11 FAFABRICIO CRUZ [facility] Outpatient Encounter [id number] 01/13 FABRICIO CRUZ [facility] Outpatient Encounter [id number] 01/13 [facility] [place] [facility] Outpatient Encounter [id number] 01/20 [place] [facility] Outpatient Encounter [id number] 01/23 [facility] OFFICE O/P EST MOD 30 MIN [id number] Diagnos is: ICD-10- CM Z09 Encntr for f/u exam aft trtmt for cond oth than malig SARAH Tse 01/26 [facility] En[facility] [id number] 01/26 [facility] [place] [facility] Outpatient Encounter [id number] 01/26 [place] [facility] [place] [facility] Outpatient Encounter [id number] ROBER MARSHALL 02/09 [place] [facility] Outpatient Encounter [id number] 02/14 [facility] Outpatient Encounter [id number] 02/22 [facility] Outpatient Encounter [id number] 02/22 [facility] N [facility] Outpatient Encounter [id number] 03/15 [facility] N [place] [facility] MTMS BY PHARM EST 15 MIN [id number] Diagnos is: ICD-10- CM G43.901 Migrain e, unsp, not intract able, with status migrain osCYNDIE Fajardo V 03/16 [place] [facility] Outpatient Encounter [id number] 03/17 [facility] N [facility] Outpatient Encounter [id number] IZA LOPES L 03/23 [facility] Outpatient Encounter [id number] 03/24 [facility] Outpatient Encounter [id number] 03/29 [facility] N [facility] OFFICE O/P EST LOW 20 MIN [id number] Diagnos is: ICD-10- CM G83.9 Paralyt ic syndrom e, unspeci fied SARAH NUÑEZ G 03/31 [facility] Outpatient Encounter [id number] 03/31 [facility] NQHP OL DIG ASSMT&MGMT 5-10 [id number] Diagnos is: ICD-10- CM Z51.81 Encount er for therape utic drug level monitor SABINE Cazares 03/[address] [facility] Outpatient Encounter [id number] 04/04 [facility] Outpatient Encounter [id number] 04/04 [facility] Outpatient Encounter [id number] 04/05 [facility] Outpatient Encounter [id number] 04/06 [facility] Outpatient Encounter [id number] 04/07 [facility] Outpatient Encounter [id number] 04/25 [facility] Outpatient Encounter [id number] 04/27 [facility] Outpatient Encounter [id number] IZA LOPES L 05/08 [facility] Outpatient Encounter [id number] 05/15 [facility] Outpatient Encounter [id number] 05/17 [facility] Outpatient Encounter [id number] 05/17 [facility] OFFICE O/P EST MOD 30 MIN [id number] Diagnos is: ICD-10- CM Z00.01 Encount er for general adult medical exam w abnorma l finding s SARAH NUÑEZ G 05/17 [facility] Outpatient Encounter [id number] MARIANNEIZA RIL L 05/29 [facility] Outpatient Encounter [id number] 05/31 [facility] OFFICE O/P EST MOD 30 MIN [id number] Diagnos is: ICD-10- CM Z09 Encntr for f/u exam aft trtmt for cond oth than malig neoplm SARAH NUÑEZ G 05/31 [facility] Outpatient Encounter [id number] 06/05 [facility] Outpatient Encounter [id number] 06/05 [facility] Outpatient Encounter [id number] SARAH NUÑEZ G 06/05 [facility] PT 45 MINUTES [id number] Diagnos is: ICD-10- CM Z60.0 Problem s of adjustm ent to life-cy paula transit ions RUIZ GARNETT P 06/06 [facility] Outpatient Encounter [id number] 06/06 [facility] Outpatient Encounter [id number] SARAH NUÑEZ G 06/07 [facility] En[facility] [id number] NUÑEZSARAH G 06/07 [facility] Encounter [id number] 06/12 [facility] Outpatient Encounter [id number] 06/13 [facility] Outpatient Encounter [id number] [id number] 06/23 [facility] Outpatient Encounter [id number] 06/23 [facility] Outpatient Encounter [id number] 06/23 [facility] Outpatient Encounter [id number] 06/27 [facility] Outpatient Encounter [id number] 06/28 [facility] N [facility] OFFICE O/P EST MOD 30 MIN [id number] Diagnos is: ICD-10- CM M54.50 Low back pain, unspeci fied SARAH NUÑEZ G 06/28 [facility] Encounter [id number] 07/06 [facility] Outpatient Encounter [id number] 07/07 [facility] Outpatient Encounter [id number] 07/11 [facility] Outpatient Encounter [id number] IZA LOPES L 07/11 [facility] PH1 ASSMT&MGMT NQHP 21-30 [id number] Diagnos is: ICD-10- CM G47.33 Obstruc tive sleep apnea (adult) (pediat elias) WILD MOSES B 07/12 [facility] Outpatient Encounter [id number] 07/18 [facility] Outpatient Encounter [id number] MAINOR MURRIETA 07/21 [facility] Outpatient Encounter [id number] 07/25 [facility] OFFICE O/P EST LOW 20 MIN [id number] Diagnos is: ICD-10- CM M54.50 Low back pain, unspeci fied SARAH NUÑEZ 07/27 [facility] Outpatient Encounter [id number] 08/07 [facility] N [facility] Outpatient Encounter [id number] KADEN CRAIG 08/08 [facility] Outpatient Encounter [id number] 08/09 [facility] Outpatient Encounter [id number] 08/11 [facility] Outpatient Encounter [id number] 08/15 [facility] Outpatient Encounter [id number] 08/17 [facility] Outpatient Encounter [id number] 08/17 [facility] [place] [facility] Outpatient Encounter [id number] 08/21 [facility] Social History Combined list of available smoking, tobacco, and other social history from Department of Defense and Veterans Affairs facilities. Social History Type Response Date Comment Sour e Tobacco smoking status NHIS VA-TOBACCO NEVER USED 06/01/2023 [facility] History of tobacco use VA-TOBACCO NEVER USED 06/02/2022 [facility] History of tobacco use VA-TOBACCO NEVER USED 06/25/2021 [facility] History of tobacco use VA-TOBACCO NEVER USED 06/25/2020 [facility] History of tobacco use VA-TOBACCO NEVER USED 03/08/2018 [facility] History of tobacco use LIFETIME NON-USER OF TOBACCO 01/28/2015 [facility] Plan of Care List of future care activities from Department of Veterans Affairs facilities. Additional future care activities may be listed in the Assessment and Plan section. Date/Time Care Activity Care Activity Detail Facili ty 08/21/2024 AMBULATORY - MEDICINE AMBULATORY - MEDICI [facility] [facility]
--- NOTE | 2024-08-21 11:18 | XR_ITS ---
WS: [id number] Exam: XR chest 1V portable [id number] Date/Time of Exam: 08/21/2024 11:36 AM Reason For Exam: cp Comparison 08/31/2023. The lungs are fully expanded and clear. Normal cardiomediastinal silhouette. A battery pack seen over the LEFT diaphragm. No pleural effusion. Unremarkable bony structures. RIGHT humeral head prosthesis. Thoracolumbar scoliosis. XR/XR chest 1V portable [id number] IMPRESSION: 1. No acute cardiopulmonary finding.
--- NOTE | 2024-08-21 11:32 | ECG_ITS ---
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 Measurements Intervals [place] Rate: 109 P: 153 NM: 200 QRS: 18 QRSD: 90 T: -32 QT: 294 QTc: 396 Interpretive Statements SINUS TACHYCARDIA MODERATE ST DEPRESSION [0.05+ mV ST DEPRESSION] Compared to ECG 07/10/2024 17:15:57 ST (T wave) deviation now present Atrial flutter no longer present Intraventricular conduction delay no longer present T-wave abnormality no longer present Electronically Signed On 08-22-2024 08:22:04 CDT by Vaibhav Perez M.D. [email or web address]
--- OUTSIDE RECORDS SUMMARY | 2024-08-21 11:37 | XMS_ITS | Clinical Summary ---
Author Organization [facility] Address [address] [facility] [address] [place] [address] Phone Care Team Providers Care Kitchenwhere Maker Name Role Phone Gautam Walters DO Primary Care Provider [phone] Allergies Active Allergy Reactions Criticality Noted Date Comments Levothyroxine Abdominal Pain Low 06/16/2017 Lisinopril Other (See Comments) 06/16/2017 Unstable ambulation and makes it hard to think Medications aspirin (ECOTRIN EC) 325 mg Tablet, Delayed Release (E.C.) Take 325 mg by mouth daily. Active metoprolol tartrate (LOPRESSOR) 50 mg tablet Take 50 mg by mouth 2 times daily. Active levothyroxine 100 mcg tablet Take 100 mcg by mouth daily. Active indomethacin (INDOCIN) 50 mg capsule Take 2 Capsules (100 mg) by mouth 2 times daily. 360 Capsule 3 04/15/2020 Active Active Problems Problem Noted Date Diagnosed Date Intractable migraine without aura and without status migrainosus 08/02/2017 Chronic intractable headache Neurological symptoms Orthostatic hypotension Social History Tobacco Use Types Packs/Day Years Used Date Smoking Tobacco: Never Smokeless Tobacco: Never Alcohol Use Standard Drinks/Week Comments No 0 (1 standard drink = 0.6 oz pur e alcohol) Sex and Gender Information Value Date Recorded Sex Assigned at Not on file Legal Sex Male 1:14 PM CDT Gender Identity Not on file Sexual Orientation Not on file Last Filed Vital Signs Vital Sign Reading Time Taken Comments Blood Pressure 130/82 04/11/2020 10:00 AM FUSE CUTTER Pulse 65 04/11/2020 10:00 AM FUSE CUTTER Temperature 35.8 C (96.5 F) 04/11/2020 10:00 AM FUSE CUTTER Respiratory Rate 16 04/11/2020 10:00 AM FUSE CUTTER Oxygen Saturation 98% 04/11/2020 10:00 AM FUSE CUTTER Inhaled Oxygen Concentration - - Weight 54.4 kg (120 lb) 04/11/2020 10:00 AM FUSE CUTTER Height 157.5 cm (5' 2 ) 04/11/2020 10:00 AM FUSE CUTTER Body Mass Index 21.95 04/11/2020 10:00 AM FUSE CUTTER Plan of Treatment Health Maintenance Due Date Last Done Comments PNEUMOCOCCAL VACCINE 50+ YEA RS (1 of 1 - PCV) 1996 ZOSTER VACCINE (1 of 2) 1996 DTAP/TDAP/TD VACCINES (3 - Td or Tdap) 02/16/2020, 02/15/2009 RSV VACCINE (60+ or ) (1 - 1-dose 75+ series) 2021 INFLUENZA VACCINE (#1) 2024 Insurance MEDICARE PART A AND B [email or web address] [facility] ID CCN [employer] Advance Directives For more information, please contact: [phone] * Full Code (Latest Code Status on File) Date Activated Date Inactivated Comments 08/02/2017 8:50 PM 08/13/2017 6:10 PM Care Teams Kitchenwhere Maker Relationship Specialty Start Date End Date Gautam Walters DO PCP - General Family Practice 06/16/17
--- OUTSIDE RECORDS SUMMARY | 2024-08-21 11:37 | XMS_ITS | Encounter Summary ---
Author Organization [facility] Address [address] [place] [address] Care Team Providers Care Gang Mower Operator Name Role Phone Unavailable Primary Care Provider Unavailabl e Reason for Visit * Reason Onset Date Comments Needs appointment rescheduled 09/23/2023 Encounter Details Date Type Department Care Team (Late st Contact Info) Description 09/23/2023 Telephone [facility] [address] [place] [phone] Graciela De Jesus MD [address] [place] [phone] Needs appointment rescheduled Social History Tobacco Use Types Packs/Day Years Used Date Smoking Tobacco: Never Smokeless Tobacco: Never Alcohol Use Standard Drinks/Week Comments No 0 (1 standard drink = 0.6 oz pur e alcohol) Feeling Safe Answer Date Recorded Are you in a relationship wi th someone who hurts you emotionally and/or physically? No 09/03/2023 Food Insecurity Answer Date Recorded Social/Environmental Concerns No concerns Transportation Needs Answer Date Record ed Social/Environmental Concerns No concerns Housing Stability Answer Date Recorded Social/Environmental Concerns No concerns Utility Needs Answer Date Recorded Social/Environmental Concerns No concerns Sex and Gender Information Value Date Recorded Sex Assigned at Not on file Legal Sex Male 6:28 AM CEMENTER HAND Gender Identity Male 01/16/2024 5:34 PM CEMENTER HAND Sexual Orientation Not on file documented as of this encounter Miscellaneous Notes * Telephone Encounter - Rosa Isela Deshpande - 09/23/2023 8:37 AM CDT Neal (Provider) (home) MESSAGE PT states he has an appointment 11/25/2023 rito/ [place] and is asking for a different time. They haveto travel and it takes them 2 hours to get to [place]. M-F after 2:30p would be preferred. Please send the updated appt to the [employer] portal. Thank you Cardiology Photoengraving Etcher: Tamara Deshpande documented in this encounter Plan of Treatment Upcoming Encounters Date Type Department Care Team (Late st Contact Info) Description 10/17/2024 11:30 AM CDT Office Visit [facility] [place] [address] [place] [phone] Ely Wu MD [address] [place] [address] 11/06/2024 8:00 AM CDT Procedure visit [facility] [address] [place] [phone] Graciela De Jesus MD [address] [place] [phone] 03/05/2025 1:20 PM CEMENTER HAND Office Visit [facility] [address] [place] [phone] Graciela De Jesus MD [address] [place] [phone] [place] William PA [address] [place] [phone] documented as of this encounter Visit Diagnoses Not on filedocumented in this encounter Additional Health Concerns Infection Onset Date Last Indicated Resolved Time Streptococcus Pneumonia 01/11/2024 01/11/202412/18 1:16 AM CEMENTER HAND documented as of this encounter
--- OUTSIDE RECORDS SUMMARY | 2024-08-21 11:37 | XMS_ITS | Encounter Summary ---
Author Organization [facility] Address [address] [place] [address] Care Team Providers Care Manager Ed Name Role Phone Unavailable Primary Care Provider Unavailabl e Reason for Visit * Reason Onset Date Comments Medication Question 10/12/2023 Encounter Details Date Type Department Care Team (Late st Contact Info) Description 10/12/2023 Telephone [facility] [address] [place] [phone] Graciela De Jesus MD [address] [place] [phone] Medication Question Social History Tobacco Use Types Packs/Day Years [...] on file Legal Sex Male 6:28 AM UPPER MARKER Gender Identity Male 01/16/2024 5:34 PM UPPER MARKER Sexual Orientation Not on file documented as of this encounter Miscellaneous Notes * Telephone Encounter - Rosa Isela Deshpande - 10/12/2023 1:45 PM CDT Medication question * Telephone Encounter - Rosa Isela Deshpande - 10/12/2023 10:26 AM CDT Neal (Provider) Caller: Jenny w/ [facility]/ [id number] MESSAGE Caller states PT was prescribed amiodarone (CORDARONE) 200 mg tablet once a day when he was in the Hospital. States they called his PCP to ask them to continue prescribing now that PT has been discharged, butPCP won't because it's a heart medication. Caller doesn't know if PT needs to continue taking that medication. Caller asking if Dr De Jesus will take over prescribing it if PT does need to keep taking it. If so, please send script to [facility] in [place] FAX#[phone] or escript. Caller asking for a call to discuss, if Dr De Jesus won't prescribe it. Thank you Cardiology Concrete Mixing Plant Superintendent: Tamara Jeramy documented in this encounter Plan of Treatment Upcoming Encounters Date Type Department Care Team (Late st Contact Info) Description 10/17/2024 11:30 AM CDT Office Visit [facility] Neurology - [place] [address] [place] [phone] Ely Wu MD [address] [place] [phone] 11/06/2024 8:00 AM CDT Procedure visit [facility] [address] [place] [phone] Graciela De Jesus MD [address] [place] [phone] 03/05/2025 1:20 PM UPPER MARKER Office Visit [facility] [address] [place] [phone] Graciela De Jesus MD [address] [place] [phone] Medina William PA [address] [place] [phone] documented as of this encounter Visit Diagnoses Not on filedocumented in this encounter Additional Health Concerns Infection Onset Date Last Indicated Resolved Time Streptococcus Pneumonia 01/11/2024 01/11/202412/18 1:16 AM UPPER MARKER documented as of this encounter
--- OUTSIDE RECORDS SUMMARY | 2024-08-21 11:37 | XMS_ITS | Clinical Summary ---
Author Organization [facility] Address [address] [place] [address] Phone Care Team Providers Care Ticket Printer And Tagger Name Role Phone Unavailable Primary Care Provider Unavailabl e Allergies Active Allergy Reactions Criticality Noted Date Comments Indomethacin Dizziness Low 06/25/2020 Leflunomide Rash Low 03/30/2023 Levothyroxine Abdominal Pain Low 06/16/2017 Lisinopril Other (See Comments) 06/16/2017 Unstable ambulation and makes it hard to think Sulfasalazine Rash Low 06/01/2023 Medications ezetimibe (ZETIA) 10 mg tablet Take 10 mg by mouth daily. Takes at night Active Cholecalciferol , Vitamin D3, 50 mcg (2,000 unit) Capsule Take 50 mcg by mouth daily. Takes at bedtime Active coenzyme Q10 100 mg Capsule Take 3 Capsules (300 mg) by mouth daily. 4 Active acetaminophen (TYLENOL) 500 mg tablet Take 2 Tablets (1,000 mg) by mouth every 8 hours as needed for Other (See Comment) (take at first onset of headache). 4 Active cyanocobalamin (VITAMIN B-12) 500 mcg tablet Take 1 Tablet (500 mcg) by mouth daily. 90 Tablet 4 Active meclizine (ANTIVERT) 25 mg tablet Take 1 Tablet (25 mg) by mouth every 8 hours as needed for Other (See Comment) or Nausea (Take at first onset of acute headache). 4 Active diphenhydrAMINE (CHILDREN'S BENADRYL) 12.5 mg Tablet, Chewable Take 1 Tablet (12.5 mg) by mouth every 8 hours as needed for Other (See Comment) (Take at first onset of acute headache). 4 Active furosemide (LASIX) 20 mg tablet Take 20 mg by mouth 1 time daily as needed for Other (See Comment) (edema). Active amLODIPine (NORVASC) 5 mg tablet Take 5 mg by mouth daily. 4 Active Synthroid 100 mcg tablet Take 88 mcg by mouth. 4 Active amiodarone (CORDARONE) 200 mg tablet Take 1 Tablet by mouth daily. 5 Active dabigatran etexilate (PRADAXA) 150 mg Capsule Take 1 Capsule by mouth 2 times daily. 5 Active ubrogepant (Ubrelvy) 100 mg tablet One tab at onset of migraine once daily as needed. 10 Tablet 5 5 Active gabapentin (NEURONTIN) 100 mg capsule Take 200 mg by mouth. 5 Active ascorbic acid (VITAMIN C) 100 mg Tablet, Chewable Take 100 mg by mouth. Active aspirin (AC CHEWABLE) 81 mg Tablet, Chewable Take 81 mg by mouth daily. Active potassium CHLORIDE (K-DUR,KLOR-CON M20) 20 mEq Extended Release tablet Take 20 mEq by mouth. 5 Active erenumab-aooe (AIMOVIG) 70 mg/mL Auto-Injector Inject 1 mL (70 mg) by subcutaneous injection every 30 days. 1 mL 5 5 Active Active Problems Problem Noted Date Diagnosed Date Melena 03/29/2024 Implantable loop recorder present - Medtronic Hx of syncope 01/25/2024 Respiratory arrest 01/11/2024 Acute hypoxic respiratory failure 01/10/2024 Chest pain 01/10/2024 AMS (altered mental status) 01/10/2024 A-fib 01/10/2024 Hypothyroidism 01/10/2024 Syncope 01/10/2024 Sick sinus syndrome 09/10/2023 Atrial fibrillation with RVR 09/03/2023 H/O: CVA (cerebrovascular accident) 09/03/2023 Protein-calorie malnutrition, moderate 4 Received tissue plasminogen activator (t-PA) less than 24 hours prior to arrival 03/24/2023 Stroke-like symptoms 03/24/2023 Generalized muscle weakness 03/24/2023 Chronic daily headache 03/24/2023 Intractable chronic migraine with aura and without status migrainosus 08/02/2017 Chronic intractable headache Neurological symptoms Orthostatic hypotension Encounters Date Type Department Care Team Description 5 External Device Data STL ABSTRACTION Provider, Abstract 5 8:00 AM CDT Procedure visit [facility] [address] [facility] [address] [place] [phone] Graciela De Jesus MD Syncope, unspecified syncope type (Primary Dx); Atrial fibrillation, unspecified type (CMS/HCC); Implantable loop recorder present - Medtronic 5 External Device Data STL ABSTRACTION Provider, Abstract 5 External Device Data STL ABSTRACTION Provider, Abstract 5 1:00 PM CDT Telephone Check Up [facility] Gastroenterology [address] [place] [phone] Vaishali Suh, ACTIVITY MANAGER Melena (Primary Dx) 5 External Device Data STL ABSTRACTION Provider, Abstract 5 Refill [facility] Neurology [place] [address] [place] [phone] Ely Wu MD 5 Telephone [place] [address] [place] [phone] Ely Wu MD New Prescription Request 5 Results Follow-Up [place] [id number] [facility] [address] [place] [phone] Cass Solano, PATHOLOGY 5 12:26 PM CDT Anesthesia Event [facility] Endoscopy [address] [place] [phone] Richie Carrillo MD Le, Andrew N, KATHY 5 12:00 PM CDT - 5 12:20 PM CDT Surgery [facility] Endoscopy [address] [place] [phone] Cass Solano DO ESOPHAGOGASTRODUODENOSCOPY 5 11:57 AM CDT - 5 1:18 PM CDT Hospital Encounter [facility] Endoscopy [address] [place] [phone] Cass Solano DO Discharge Disposition: Home or Self Care 5 External Device Data STL ABSTRACTION Provider, Abstract 5 2:00 PM CDT Procedure visit [address] [place] [phone] Graciela De Jesus MD Sick sinus syndrome (CMS/HCC) (Primary Dx); Atrial fibrillation, unspecified type (CMS/HCC) 5 2:00 PM CDT Office Visit [address] [place] [phone] Graciela De Jesus MD [facility]able loop recorder [facility] (Primary Dx); Syncope, unspecified syncope type; Persistent atrial fibrillation (CMS/HCC); Hx of syncope; Chronic anticoagulation; Sick sinus syndrome (CMS/HCC) from Last 3 Months Family History Medical History Relation Name Comments Colon Cancer Neg Hx Social History Tobacco Use Types Packs/Day Years Used Date Smoking Tobacco: Never Smokeless Tobacco: Never Alcohol Use Standard Drinks/Week Comments No 0 (1 standard drink = 0.6 oz pur e alcohol) Feeling Safe Answer Date Recorded Are you in a relationship wi th someone who hurts you emotionally and/or physically? No 06/05/2024 Food Insecurity Answer Date Recorded Patient needs follow up regardin 06/07/2024 Transportation Needs Answer Date Record ed Patient needs follow up regardin 06/07/2024 Housing Stability Answer Date Recorded Social/Environmental Concerns No concerns Utility Needs Answer Date Recorded Patient needs follow up regardin 06/07/2024 Sex and Gender Information Value Date Recorded Sex Assigned at Not on file Legal Sex Male 6:28 AM DOCUMENT ANALYST Gender Identity Male 01/16/2024 5:34 PM DOCUMENT ANALYST Sexual Orientation Not on file Last Filed Vital Signs Vital Sign Reading Time Taken Comments Blood Pressure 143/107 06/05/2024 1:08 PM CDT Pulse 106 06/05/2024 1:08 PM CDT Temperature 36.3 C (97.3 F) 01/14/2024 7:22 AM DOCUMENT ANALYST Respiratory Rate 18 06/05/2024 1:08 PM CDT Oxygen Saturation 98% 06/05/2024 1:08 PM CDT Inhaled Oxygen Concentration - - Weight 58.1 kg (128 lb) 05/25/2024 9:15 AM CDT Height 149.9 cm (4' 11 ) 05/25/2024 9:15 AM CDT Body Mass Index 25.85 05/25/2024 9:15 AM CDT Plan of Treatment Upcoming Encounters Date Type Department Care Team (Late st Contact Info) Description 10/17/2024 11:30 AM CDT Office Visit [facility] Neurology - [place] [address] [place] [phone] Ely Wu MD [address] [place] [phone] 11/06/2024 8:00 AM CDT Procedure visit [place] [address] [place] [phone] Graciela De Jesus MD [address] [place] [phone] 03/05/2025 1:20 PM DOCUMENT ANALYST Office Visit [facility] [address] [place] [phone] Graciela De Jesus MD [address] [place] [phone] Medina William PA [address] [facility] [address] [place] [phone] Health Maintenance Due Date Last Done Comments PNEUMOCOCCAL VACCINE 50+ YEA RS (1 of 1 - PCV) 1996 ZOSTER VACCINE (1 of 2) 1996 RSV VACCINE (60+ or ) (1 - 1-dose 75+ series) 2021 INFLUENZA VACCINE (#1) 2024 DTAP/TDAP/TD VACCINES (4 - T d or Tdap) 06/25/2030 06/25/2020, 02/15/2010, 02/15/2009 COLORECTAL SCREENING Discontinued 06/05/2024, 06/06/19 25 Colorectal Cancer Screening Discontinued FIT-DNA Q 3 years Discontinued FIT/FOBT Q 1 year Discontinued Flex Sig/CT Colonography Q 5 years Discontinued Medical Devices Implanted Type Area Bellmaker Device Identifier Shelf Expiration Date Model / Serial / Lot Monitor Cardiac Linq Ii Icm Implantable [id number] - Sna Implanted:Qty: 1 on 01/12/2024 by Graciela De Jesus MD at [facility] Cardiovascular Device Left: Chest MEDTRONIC- CARD RHYTHM MGMT [id number] / NA / Procedures Procedure Name Priority Date/Time Associated Diagnosis Comments [place] REM INTERROG SCRMS <30 D PHYS/QHP Routine 08/07/2024 12:25 AM CDT Atrial fibrillation, unspecified type (CMS/HCC) Syncope, unspecified syncope type Implantable loop recorder present - Medtronic COLONOSCOPY REPORT 06/05/2024 12:48 PM CDT PATHOLOGY Pathology 06/05/2024 12:44 PM CDT UPPER ENDOSCOPY REPORT 12:34 PM CDT [place] COLONOSCOPY FLX DX W/NENA J SPEC WHEN PFRMD 06/05/2024 12:00 PM CDT Melena Case Notes Entry date:03/30/2024 Procedure: DBL Special Notes: Afib,SSS, Loop Recorder Dx: Melena BT:Pradaxa (dabigatran) 2 days BT managed by: Josh Santos Diabetic: NO Diabetic/WT med:NONE Procedure Loc & Reason:[facility] BMI: 25.85 Last Procedure: Colon 7 yrs-[facility] Referring Provider: Princess Sutton NP GI Doc:Dr Cass Figueroa Insurance: [facility] GI appt: 03/29/24-Majo Vikash Other info: Letter [place] ESOPHAGOGASTRODUODENOSCOP Y TRANSORAL DIAGNOSTIC 06/05/2024 12:00 PM CDT Melena Case Notes Entry date:03/30/2024 Procedure: DBL Special Notes: Afib,SSS, Loop Recorder Dx: Melena BT:Pradaxa (dabigatran) 2 days BT managed by: Josh Santos Diabetic: NO Diabetic/WT med:NONE Procedure Loc & Reason:[facility] BMI: 25.85 Last Procedure: Colon 7 yrs-[facility] Referring Provider: Princess Sutton NP GI Doc:Dr Cass Figueroa Insurance: [facility] GI appt: 03/29/24-Majo Vikash Other info: Letter [place] INTERROG DEV EVAL SCRMS PHYS/QHP IN PERSON Routine 05/24/2024 11:05 AM CDT Sick sinus syndrome (CMS/HCC) Atrial fibrillation, unspecified type (CMS/HCC) [place] ECG ROUTINE ECG W/LEAST 1 2 LDS W/I&R Routine 05/23/2024 1:51 PM CDT Sick sinus syndrome (CMS/HCC) Atrial fibrillation with RVR (CMS/HCC) Orthostatic hypotension from Last 3 Months Results * [place] REM INTERROG SCRMS <30 D PHYS/QHP (08/07/2024 12:25 AM CDT) 08/07/2024 12:2 5 AM CDT Narrative INTERFACE SYSTEM - 08/16/2024 2:38 PM CDT Remote Transmission Report Date of Procedure: August 07, 2024 Events: since 05/08/2024 18 pt triggered events 2 detections in pause zone - appropriate 3-4 seconds during atrial flutter 222 detections in juana zone - available tracings c/w slow ventricular response during atrial flutter 17 AF (0%) - appropriate. Known hx. On Pradaxa per med list. Likely under-representation of true burden AEB juana and pause detections w/ tracings indicating atrial flutter but no associated AF detections. Comments: Routine [facility] remote transmission reveals normal Implantable Loop Recorder function. Episodes as above. Presenting EGM indicates ventricular sensing c/w atrial flutter, regularly irregular ventricular response. Follow-up by remote in 3 months. Will check w/ pt on symptoms for triggered events. See attached report for details. Procedure Note Provider, Historical - 08/16/2024 Remote Transmission Report Date of Procedure: August 07, 2024 Events: since 05/08/2024 18 pt triggered events 2 detections in pause zone - appropriate 3-4 seconds during atrialflutter 222 detections in juana zone - available tracings c/w slow ventricularresponse during atrial flutter 17 AF (0%) - appropriate. Known hx. On Pradaxa per med list. Likelyunder-representation of true burden AEB juana and pause detections w/tracings indicating atrial flutter but no associated AF detections. Comments: Routine [facility] remote transmission reveals normal Implantable LoopRecorder function. Episodes as above. Presenting EGM indicates ventricular sensing c/w atrial flutter, regularlyirregular ventricular response. Follow-up by remote in 3 months. Will check w/ pt on symptoms fortriggered events. See attached report for details. Graciela De Jesus MD CARDIAC SERVICES ORDERABLES E dited Result - Final INTERFACE SYSTEM Refer to clinic/hospital department * COLONOSCOPY REPORT (06/05/2024 12:48 PM CDT) Narrative Procedure Note Cass Solano DO - 06/05/2024 12:48 PM CDT [facility] Patient Name: Gil Willson Procedure Date: 06/05/2024 Date of : 1945 Admit Type: Outpatient Age: 78 Attending MD: Cass Figueroa DO, Procedure: Colonoscopy Indications: Melena Providers: Cass Figueroa DO Referring MD: Princess Sutton Medicines: Propofol per Anesthesia Complications: No immediate complications. Procedure: Pre-Anesthesia Assessment: - The anesthesia plan was to use monitored anesthesia care (MAC). - Prior to the procedure, a History and Physical was performed, and patient medications and allergies were reviewed. The patient's tolerance of previous anesthesia was also reviewed. The risks and benefits of the procedure and the sedation options and risks were discussed with the patient. All questions were answered, and informed consent was obtained. Prior Anticoagulants: The patient has taken no anticoagulant or antiplatelet agents. ASA Grade Assessment: III - A patient with severe systemic disease. After reviewing the risks and benefits, the patient was deemed in satisfactory condition to undergo the procedure. After I obtained informed consent, the scope was passed under direct vision. Throughout the procedure, the patient's blood pressure, pulse, and oxygen saturations were monitored continuously. The Colonoscope was introduced through the anus and advanced to the cecum, identified by appendiceal orifice and ileocecal valve. The colonoscopy was performed without difficulty. The patient tolerated the procedure well. The quality of the bowel preparation was excellent. Estimated Blood Loss: Estimated blood loss was minimal. Findings: The perianal and digital rectal examinations were normal. A 4 mm polyp was found in the transverse colon. The polyp was sessile. The polyp was removed with a cold snare. Resection and retrieval were complete. Internal hemorrhoids were found during retroflexion. The hemorrhoids were small. Impression: - One 4 mm polyp in the transverse colon, removed with a cold snare. Resected and retrieved. - Internal hemorrhoids. Recommendation: - Written discharge instructions were provided to the patient. - Continue present medications. - Await pathology results. Cass Figueroa DO 06/05/2024 12:48:49 PM This report has been signed electronically. Number of Addenda: 0 Note Initiated On: 06/05/2024 12:10 PM Scope Withdrawal Time 0 hours 7 minutes 9 seconds Scope In: 12:35:56 PM Scope Out: 12:47:35 PM Patient Profile: This is a 78 year old male. [address] [place] [address] Cass Figueroa DO GI PROCEDURE ORDERABLE S Final Result * PATHOLOGY (06/05/2024 12:44 PM CDT) CASE REPORT Surgical Pathology Report Case: [id number] Authorizing Provider: Korey Cass Figueroa, Collected: 06/05/2024 12:44 PM DO Ordering Location: [facility] Received: 06/05/2024 03:44 PM Endoscopy Pathologist: Flory Rivera MD Specimen: Colon, transverse, polyp 8:48 AM CDT [facility] FINAL DIAGNOSIS A. Colon, transverse, polyp, biopsy - Adenomatous polyp Flory Rivera MD [id number] 5 8:48 AM CDT [facility] at 0848 CDT GROSS DESCRIPTION A. Received in formalin labeled Bob -transverse colon polyp is a single fragment of sahu-pink soft tissue, 0.3 cm in greatest dimension. The specimen is submitted entirely in A1. [place] Yung 5 8:48 AM CDT [facility] OPERATIVE PROCEDURE 1: ESOPHAGOGASTRODUODENOSCO PY 2: COLONOSCOPY 5 8:48 AM CDT [facility] CLINICAL INFORMATION Melena 5 8:48 AM CDT [facility] COMMENT The [employer] voice-activated dictation system may have been used in the creation of this report. Inherent to this system is the possibility of errors in syntax, grammar, punctuation, or other areas that could impact interpretation. If there are interpretive questions about the report, please contact the performing pathologist. Unless gross only is specified in the diagnosis, the microscopic examination substantiates the above cited diagnosis. The performance characteristics of all immunohistochemical stains cited in this report (if any) were determined by the Diagnostic Immunohistochemistry Laboratory of [facility] in compliance with CLIA'88 regulations. Some of these tests rely on the use of analyte specific reagents and are subject to specific labeling requirements by the FDA. All controls show appropriate reactivity. This testing was developed by the [facility]ohist[facility] Laboratory of [facility]. It has not been cleared or approved by the FDA. The FDA has determined that such clearance or approval is not necessary. 8:48 AM CDT [facility] Tissue TRANSVERSE COLON STRUCTURE / Unknown Collection / Unknown 06/05/2024 12:44 PM CDT 06/05/2024 3:44 PM CDT us Cass Figueroa DO PATHOLOGY/CYTOLOGY ORD ERABLES Final Result [facility] CLIA # [id number] [address] [place] [id number] * UPPER ENDOSCOPY REPORT (06/05/2024 12:34 PM CDT) Narrative Procedure Note Cass Solano DO - 06/05/2024 12:34 PM CDT [facility] GI Patient Name: Gil Willson Procedure Date: 06/05/2024 Date of : 1945 Admit Type: Outpatient Age: 78 Attending MD: Cass Figueroa DO, Procedure: Upper GI endoscopy Indications: Melena Providers: Cass Figueroa DO Referring MD: Princess Sutton Medicines: Propofol per Anesthesia, Monitored Anesthesia Care Complications: No immediate complications. Procedure: Pre-Anesthesia Assessment: - Prior to the procedure, a History and Physical was performed, and patient medications and allergies were reviewed. The patient's tolerance of previous anesthesia was also reviewed. The risks and benefits of the procedure and the sedation options and risks were discussed with the patient. All questions were answered, and informed consent was obtained. Prior Anticoagulants: The patient has taken Pradaxa (dabigatran). ASA Grade Assessment: III - A patient with severe systemic disease. After reviewing the risks and benefits, the patient was deemed in satisfactory condition to undergo the procedure. After obtaining informed consent, the endoscope was passed under direct vision. Throughout the procedure, the patient's blood pressure, pulse, and oxygen saturations were monitored continuously. The Colonoscope was introduced through the mouth, and advanced to the second part of duodenum. The patient tolerated the procedure well. The upper GI endoscopy was accomplished with ease. Estimated Blood Loss: Estimated blood loss: none. Findings: The examined esophagus was normal. The Z-line was regular and was found 37 cm from the incisors. The entire examined stomach was normal. The cardia and gastric fundus were normal on retroflexion. The duodenal bulb, first portion of the duodenum and second portion of the duodenum were normal. Impression: - Normal esophagus. - Z-line regular, 37 cm from the incisors. - Normal stomach. - Normal duodenal bulb, first portion of the duodenum and second portion of the duodenum. - No specimens collected. Recommendation: proceed with colonoscopy Cass Figueroa DO 06/05/2024 12:34:33 PM This report has been signed electronically. Number of Addenda: 0 Note Initiated On: 06/05/2024 12:11 PM Scope Withdrawal Time Scope In: Scope Out: Patient Profile: This is a 78 year old male. Refer to note in patient chart for documentation of history and physical. [facility] [place], [place] Cass Figueroa DO GI PROCEDURE ORDERABLE S Final Result * [place] INTERROG DEV EVAL SCRMS PHYS/QHP IN PERSON (05/24/2024 11:05 AM CDT) Narrative [facility] CARDIOLOGY - 05/24/2024 11:05 AM CDT Ava Swift 05/24/2024 11:05 AM Office Device Check By Vendor Space Technologist Date of Procedure: May 23, 2024 Bellmaker: Medtronic Comments: Office check by [employer] risk control representative in conjunction w/ EP office visit. Interrogation reviewed by provider. Please see scan for details. Procedure Note Ava Swift - 05/24/2024 11:05 AM CDT Office Device Check By Vendor Space Technologist Date of Procedure: May 23, 2024 Bellmaker: Medtronic Comments: Office check by [employer] risk control representative in conjunction w/ EPoffice visit. Interrogation reviewed by provider. Please see scan for details. us Graciela De Jesus MD CARDIAC SERVICES ORDERABLES F inal Result Performing Organization Address City/[facility] Co de Phone Number [facility] CARDIOLOGY [address] [facility] [place] [address] * [place] ECG ROUTINE ECG W/LEAST 12 LDS W/I&R (05/23/2024 1:51 PM CDT) Narrative [facility] - 05/23/2024 1:51 PM CDT Medina William PA 05/23/2024 2:23 PM 12 Lead EKG: Rhythm: A flutter, ventricular rate 87 bpm, [place] interval -- ms, QRS duration 76 ms, QTc 435 ms Procedure Note Medina William PA - 05/23/2024 1:51 PM CDT 12 Lead EKG: Rhythm: A flutter, ventricular rate 87 bpm, [place] interval --ms, QRS duration 76 ms, QTc 435 ms us Medina PALOMARES ECG ORDERABLES Final R esult Performing Organization Address City/[facility] Co de Phone Number [facility] CLIA [id number] [address] [place] [address], [place] [phone] from Last 3 Months Insurance MEDICARE PART A AND B [place] [employer] SUPP[employer] RX REID PLANS (INTERNAL) [facility] [employer] [place] [address] [employer] [facility] OFFICE OF [facility] [place] [employer] Advance Directives For more information, please contact: [phone] * Full Code (Latest Code Status on File) Date Activated Date Inactivated Comments 06/05/2024 12:09 PM 06/05/2024 3:23 PM * Full Code Date Activated Date Inactivated Comments 01/13/2024 6:46 AM 01/14/2024 3:46 PM * Default Full Code - Needs Discussion Date Activated Date Inactivated Comments 01/10/2024 3:31 PM 01/13/2024 6:46 AM * Full Code Date Activated Date Inactivated Comments 09/03/2023 2:36 PM 09/04/2023 4:24 PM * Default Full Code - Needs Discussion Date Activated Date Inactivated Comments 03/24/2023 7:45 AM 03/25/2023 5:01 PM
--- OUTSIDE RECORDS SUMMARY | 2024-08-21 11:37 | XMS_ITS | Encounter Summary ---
Author Organization [facility] Address [address] [place] [address] Care Team Providers Care Sales Assistants And Salespersons Name Role Phone Unavailable Primary Care Provider Unavailabl e Reason for Visit * Reason Onset Date Comments Needs Appointment 09/13/2023 return msg 09/13/2023 Encounter Details Date Type Department Care Team (Late st Contact Info) Description 09/13/2023 Telephone [facility] [address] [facility] [address] [place] [id number] Graciela De Jesus MD [address] [facility] [address] [place] [phone] Needs Appointment; return msg Social History Tobacco Use Types Packs/Day Years [...] on file Legal Sex Male 6:28 AM OPS ANALYST Gender Identity Male 01/16/2024 5:34 PM OPS ANALYST Sexual Orientation Not on file documented as of this encounter Miscellaneous Notes * Telephone Encounter - Marie Schaefer - 09/15/2023 4:15 PM CDT [facility] Call Center Communications Provider: Neal , can leave a msg MESSAGE Pt returning call. I was not able to find any msgs of a call out to him at time of call. Best time to schedule an appt would be afternoons on Mon, or Wed. Cardiology Airline Flight Attendant: RHONDA WilburnR * Telephone Encounter - Rosa Isela Deshpande - 09/13/2023 2:59 PM CDT Neal (Provider) (home) MESSAGE PT states he saw Dr De Jesus while in the hospital 09/02-09/10/2023 PT is wearing a holter monitor and it's due to be stopped on 09/17/2023 PT asking for a follow up appointment to get the results. Please assist. Thank you Cardiology Airline Flight Attendant: Tamara Deshpande documented in this encounter Plan of Treatment Upcoming Encounters Date Type Department Care Team (Late st Contact Info) Description 10/17/2024 11:30 AM CDT Office Visit [facility] Neurology [facility] [address] [place] [place] [id number] Ely Wu MD [address] [place] [address] 11/06/2024 8:00 AM CDT Procedure visit [facility] [address] [place] [address] Graciela De Jesus MD [address] [place] [address] 03/05/2025 1:20 PM OPS ANALYST Office Visit [facility] [address] [facility] [address] [place] [address] Graciela De Jesus MD [address] [facility] [address] [place] [address] Medina William PA [address] [facility] [address] [place] [address] documented as of this encounter Visit Diagnoses Not on filedocumented in this encounter Additional Health Concerns Infection Onset Date Last Indicated Resolved Time Streptococcus Pneumonia 01/11/2024 01/11/202412/18 1:16 AM OPS ANALYST documented as of this encounter
--- NOTE | 2024-08-21 11:41 | W.ED.ARRPALP ---
HPI - Arrhythmia/Palpitations General: Chief Complaint: Arrhythmia/Palpitations Stated Complaint: rapid resp, high bp and hr Time Seen by Provider: 08/21/24 11:41 History of Present Illness: 78-year-old male presents emergency room from the cardiology clinic as a rapid response. Patient has a history of hypertension. He was found to be hypertensive with a rapid heart rate at the clinic this morning. Also complaining of back pain and headache. Related Data Home Medications ?Medication ?Instructions ?Recorded ?Confirmed dabigatran etexilate 150 mg 150 mg PO BID 05/26/24 08/21/24 capsule (Pradaxa) levothyroxine 100 mcg tablet 100 mcg PO DAILY 06/15/24 08/21/24 (Unithroid) tizanidine 4 mg capsule 4 mg PO TID PRN 06/15/24 08/21/24 cholecalciferol (vitamin D3) 50 50 mcg PO DAILY 08/21/24 08/21/24 mcg (2,000 unit) capsule coQ10 (ubiquinol) 100 mg capsule 100 mg PO DAILY 08/21/24 08/21/24 (Qunol Mat CoQ10) ezetimibe 10 mg tablet 10 mg PO DAILY 08/21/24 08/21/24 furosemide 20 mg tablet (Lasix) 20 mg PO DAILY PRN 08/21/24 08/21/24 gabapentin 100 mg capsule 300 mg PO TID muscle spasm 08/21/24 magnesium 200 mg tablet 200 mg PO DAILY 08/21/24 08/21/24 potassium chloride 20 mEq 20 meq PO DAILY PRN 08/21/24 08/21/24 tablet,extended release (K-Tab) Previous Rx's ?Medication ?Instructions ?Recorded amiodarone 200 mg tablet (Pacerone) 200 mg PO DAILY #30 tabs 03/24/24 levothyroxine 88 mcg capsule 88 mcg PO DAILY #30 caps 03/24/24 Allergies Allergy/AdvReac Type Severity Reaction Status Date / Time leflunomide Allergy Intermediate rash Verified 08/21/24 11:37 levothyroxine sodium (From Allergy Unknown [place] Verified 08/21/24 11:37 Levothroid) lisinopril Allergy Unknown [place] Verified 08/21/24 11:37 sulfasalazine AdvReac Intermediate reaction Verified 08/21/24 11:37 to sun Review of Systems Const: Denies: fever(s) or chills Card: Denies: chest pain Resp: Denies: dyspnea GI: Denies: abdominal pain : Denies: dysuria, urinary frequency or urinary urgency Musc: Denies: neck pain or back pain Skin/Breast: Denies: rash PFSH ED PFSH: Medical History Periodic paralysis Paroxysmal atrial fibrillation Osteoarthritis of carpometacarpal (CMC) joint of both thumbs Immunization counseling Seronegative rheumatoid arthritis of both hands Labile essential hypertension High risk medication use Inflammatory arthritis Emphysema of lung 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, bilateral Polyarthralgia CVA (cerebral vascular accident) Hyperlipidemia Hypertension Thyroid disease Renal calculi Status post lithotripsy, stent removed Bilateral renal stones Left ureteral calculus Chronic migraine without aura, intractable, with status migrainosus Surgical History Status post total replacement of right shoulder History of back surgery H/O lithotripsy Family History Mother , 99 Cancer cervical Father , 65 CAD (coronary artery disease) Diabetes Hypertension Cancer Hyperlipidemia Other Lung disease Lupus Rheumatoid arthritis Stroke Social History Smoking and tobacco/nicotine status: never used tobacco/nicotine Alcohol intake: never Substance/Drug Use: never Marital status: Current occupational status: retired Physical Exam Const: GENERAL APPEARANCE: cooperative ORIENTATION/CONSCIOUSNESS: Yes awake, Yes oriented to person, Yes oriented to place and Yes oriented to time HENMT: COMMON NORMALS: normocephalic, atraumatic and hearing grossly normal bilaterally HEAD & SCALP: normocephalic and atraumatic Resp: COMMON NORMALS: normal respiratory effort, No retractions, No use of accessory muscles and clear to auscultation bilaterally AUSCULTATION: clear to auscultation bilaterally Cardio: COMMON NORMALS: No murmurs present (Cardio) RATE: tachycardic RHYTHM: abnormal rhythm irregularly irregular GI: COMMON NORMALS: Soft to palpation and No hepatosplenomegaly present AUSCULTATION: Yes normoactive bowel sounds PALPATION: Yes Soft to palpation, No Tenderness to palpation present (GI), No Guarding due to palpation present (GI) and Yes No hepatosplenomegaly present Extremity: COMMON NORMALS: normal to inspection, capillary refill normal, no clubbing, cyanosis or edema, no calf tenderness and no pedal edema Neuro: SENSORIUM/ORIENTATION: Yes oriented to person, Yes oriented to place and Yes oriented to time Skin: COMMON NORMALS: no rashes or lesions noted GENERAL SKIN EXAM: no rashes or lesions noted Course Vital Signs: Vital signs: Vital Signs Temperature 98.3 F 08/21/24 11:26 Pulse Rate 113 H 08/21/24 18:47 Respiratory Rate 18 08/21/24 19:36 Blood Pressure 141/98 08/21/24 18:47 Pulse Oximetry 99 08/21/24 18:47 Oxygen Delivery Me thod Room Air 08/21/24 17:11 MDM - Arrhythmia/Palpitations Medical Decision Making Patient's primary issue is A-fib with RVR he has chronic back and neck pain. He feels like it is getting worse now because he is off of his scheduled medications we did give him gabapentin and tizanidine he was in A-fib when he arrived. Rate varying up to 130-140s at times may be resting comfortably until myself or the other staff came in the room pain convulse around. His confirms these are chronic issues. We gave him a single dose of Cardizem his rate became controlled and we are planning on discharging him home. With even minimal activity moving in bed his heart rate began to increase and he returned to A-fib with RVR. He was given a dose of amiodarone and started back on Cardizem and his rate improved. Rhythm strip shows shows A-fib with RVR. CBC was unremarkable white count normal hemoglobin 14.8. He did have a slight elevation in his troponin likely due to stress from his A-fib with RVR. Creatinine 1.3 which is patient's baseline. He does have a very mild elevation of his AST and ALT and his total bilirubin however he has no abdominal pain at this time. His alk phos is normal. Fortunately we do not have any available beds in our facility. Patient was given a second dose of amiodarone in hopes of titrating his Cardizem off but we are unable to do so he continued to require. Will transfer patient to [place]. Likely will have a short stay however due to the fact that we have no available beds in our facility to manage him he is requiring transfer. Discussed with hospitalist about home patient is stable at time of transfer. Medical Records I reviewed the patient's medical records. Lab Data I reviewed the patient's lab results. 08/21/24 12:07 08/21/24 12:07 Radiology Impressions Chest X-Ray 08/21/24 11:18 IMPRESSION: 1. No acute cardiopulmonary finding. Head CT 08/21/24 11:59 IMPRESSION: 1. No acute intracranial process. Diffuse atrophy and mild microvascular ischemic change. 2. Minimal RIGHT maxillary and ethmoid sinus disease. Laboratory Results WBC 6.77 10^3/uL (3.29-11.43) 08/21/24 12:07 RBC 4.55 10^6/uL (3.85-5.65) 08/21/24 12:07 Hgb 14.80 g/dL (11.27-16.99) 08/21/24 12:07 Hct 45.0 % (37-53) 08/21/24 12:07 MCV 98.9 fl (82-101) 08/21/24 12:07 MCH 32.5 pg (27-33) 08/21/24 12:07 MCHC 32.9 g/dL (30-55) 08/21/24 12:07 RDW 13.3 % (12.1-15.1) 08/21/24 12:07 Plt Count 164 10^3/cmm (157-399) 08/21/24 12:07 MPV 8.6 fL (7.4-10.4) 08/21/24 12:07 Neut % (Auto) 55.1 % 08/21/24 12:07 Lymph % (Auto) 23.6 % 08/21/24 12:07 Love % (Auto) 14.5 % 08/21/24 12:07 Eos % (Auto) 3.0 % 08/21/24 12:07 Baso % (Auto) 0.7 % 08/21/24 12:07 Neut # (Auto) 3.73 10^3/uL (1.8-7.7) 08/21/24 12:07 Lymph # (Auto) 1.6 10^3/uL (0.8-4.8) 08/21/24 12:07 Love # (Auto) 1.0 10^3/uL (0.2-0.9) H 08/21/24 12:07 Eos # (Auto) 0.2 10^3/uL (0.0-0.8) 08/21/24 12:07 Baso # (Auto) 0.1 10^3/uL (0.0-0.1) 08/21/24 12:07 Nucleated RBC % (auto) 0 % 08/21/24 12:07 Nucleated RBCs # 0.0 /100WBC 08/21/24 12:07 PT 17.20 SECONDS (12.1-14.9) H 08/21/24 12:07 INR 1.31 (0.8-1.2) H 08/21/24 12:07 Sodium 139 mmol/L (136-145) 08/21/24 12:07 Potassium 4.2 mmol/L (3.5-5.1) 08/21/24 12:07 Chloride 100 mmol/L (98-107) 08/21/24 12:07 Carbon Dioxide 24 mmol/L (22-29) 08/21/24 12:07 Anion Gap 19.2 (5-19) H 08/21/24 12:07 BUN 16 mg/dL (8-23) 08/21/24 12:07 Creatinine 1.3 mg/dL (0.7-1.2) H 08/21/24 12:07 GFR Calculation Not Reportable 08/21/24 12:07 Glucose 98 mg/dL (65-115) 08/21/24 12:07 Calculated Osmolality 289 mOsm/kg (285-295) 08/21/24 12:07 Calcium 9.8 mg/dL (8.5-10.5) 08/21/24 12:07 Total Bilirubin 1.4 mg/dL (0.15-1.2) H 08/21/24 12:07 AST 43 U/L (0-40) H 08/21/24 12:07 ALT 65 U/L (0-41) H 08/21/24 12:07 Alkaline Phosphatase 114 U/L (40-130) 08/21/24 12:07 Troponin T Baseline 14 ng/L (0-15) 08/21/24 12:07 Troponin T 120 Minute 13.23 ng/L (0-15) 08/21/24 13:55 Delta Troponin T -0.77 ABS# (0-10) L 08/21/24 13:55 Troponin T Hi Sens 6Hr 16.63 ng/L (0-15) H 08/21/24 18:26 Troponin T Hi Sens 6Hr Delta 2.63 ng/L (0-12) 08/21/24 18:26 NT-Pro-B Natriuret Pep 305 pg/mL (0-450) 08/21/24 12:07 Total Protein 7.5 g/dL (6.6-8.7) 08/21/24 12:07 Albumin 4.7 g/dL (3.5-5.2) 08/21/24 12:07 Globulin 2.8 g/dL (1.3-4.6) 08/21/24 12:07 All radiology interpretation(s) finalized by discharge EKG Data EKG 1: Interpretation: A-fib with RVR. Rate 109. Other EKG comments: Chest X-Ray 08/21/24 11:18 IMPRESSION: 1. No acute cardiopulmonary finding. Head CT 08/21/24 11:59 IMPRESSION: 1. No acute intracranial process. Diffuse atrophy and mild microvascular ischemic change. 2. Minimal RIGHT maxillary and ethmoid sinus disease. Discharge Plan Discharge Condition: Stable Prescriptions: No Action tizanidine 4 mg capsule 4 mg PO TID PRN levothyroxine [Unithroid] 100 mcg tablet 100 mcg PO DAILY furosemide [Lasix] 20 mg tablet 20 mg PO DAILY PRN magnesium 200 mg tablet 200 mg PO DAILY ezetimibe 10 mg tablet 10 mg PO DAILY cholecalciferol (vitamin D3) 50 mcg (2,000 unit) capsule 50 mcg PO DAILY coQ10 (ubiquinol) [Qunol Mat CoQ10] 100 mg capsule 100 mg PO DAILY potassium chloride [K-Tab] 20 mEq tablet extended release 20 meq PO DAILY PRN gabapentin 100 mg capsule 300 mg PO TID dabigatran etexilate [Pradaxa] 150 mg capsule 150 mg PO BID levothyroxine 88 mcg capsule 88 mcg PO DAILY Qty: 30 3RF amiodarone [Pacerone] 200 mg Tablet 200 mg PO DAILY Qty: 30 0RF Referrals: Kendall Alejandra MD [Primary Care Provider, Family Practice] Print Language: Bengali Coding Level of Care Code ED Sign Language Interpreter for Donna Alberts
--- NOTE | 2024-08-21 11:59 | CT_ITS ---
WS: [email or web address] Exam: CT head wo con* [id number] Date/Time of Exam: 08/21/2024 12:44 PM Reason For Exam: Altered mental status headache DLP: 1043.[address] scans at [facility] use at least one of these dose optimization techniques: automated exposure control; mA and/or kV adjustment per patient size (includes targeted exams where dose is matched to clinical indication); or iterative reconstruction. Comparison 07/10/2024. No sign of acute intracranial bleed or space-occupying mass. Diffuse atrophy and microvascular ischemic changes noted. The brainstem and cerebellum are unremarkable. No extra-axial fluid collections are seen. The orbits and optic globes are intact. The mastoids are clear. Minimal RIGHT maxillary and ethmoid sinus changes noted. The skull is intact. The scalp is unremarkable. CT/CT head wo con* [id number] IMPRESSION: 1. No acute intracranial process. Diffuse atrophy and mild microvascular ischem ic change. 2. Minimal RIGHT maxillary and ethmoid sinus disease.
[2024-08-21 12:12] LABS: Hematocrit 45.0 % (37-53); Hemoglobin 14.80 g/dL (11.27-16.99); Mean Corpuscular HGB Conc 32.9 g/dL (30-55); Mean Corpuscular Hemoglobin 32.5 pg (27-33); Mean Corpuscular Volume 98.9 fl (82-101); Nucleated Red Blood Cells % 0 %; Platelet Count 164 10^3/cmm (157-399); Red Blood Count 4.55 10^6/uL (3.85-5.65); White Blood Count 6.77 10^3/uL (3.29-11.43)
[2024-08-21] MEDS: dilTIAZem 5 mg/mL SDV 5 mL 20 MG IVP (12:19)
[2024-08-21] MEDS: fentaNYL 50 mcg/mL INJ 2mL IVP (12:20)
[2024-08-21 12:34] LABS: INR 1.31 (0.8-1.2); Prothrombin Time 17.20 SECONDS (12.1-14.9)
[2024-08-21 12:41] LABS: Troponin(5th) Baseline 14 ng/L (0-15)
[2024-08-21 13:02] LABS: Alanine Aminotransferase 65 U/L (0-41); Albumin Level 4.7 g/dL (3.5-5.2); Alkaline Phosphatase 114 U/L (40-130); Anion Gap 19.2 (5-19); Aspartate Amino Transferase 43 U/L (0-40); Blood Urea Nitrogen 16 mg/dL (8-23); Calcium 9.8 mg/dL (8.5-10.5); Carbon Dioxide 24 mmol/L (22-29); Chloride 100 mmol/L (98-107); Creatinine Clr Calc Pharmacy 40.2998; Globulin 2.8 g/dL (1.3-4.6); Glucose 98 mg/dL (65-115); NT Pro B Type Natriuretic Pept 305 pg/mL (0-450); Osmolality Calculated 289 mOsm/kg (285-295); Potassium 4.2 mmol/L (3.5-5.1); Sodium 139 mmol/L (136-145); Total Protein 7.5 g/dL (6.6-8.7)
[2024-08-21] MEDS: hyDRALAzine 20 mg/mL INJ 1 mL IVP (13:45)
[2024-08-21] MEDS: diphenhydrAMINE 50 mg/mL SDV 1mL 25 MG IVP (13:45)
[2024-08-21 14:18] LABS: Troponin 5 2HR 13.23 ng/L (0-15)
[2024-08-21 14:19] LABS: Troponin 5 2HR Delta -0.77 ABS# (0-10)
[2024-08-21] MEDS: morphine 4 mg/mL SDV 1 mL IVP (15:36)
[2024-08-21] MEDS: dilTIAZem 100 MG in sodium chloride 0.9% (add-van) 100 ML IV (15:36)
--- NOTE | 2024-08-21 17:18 | ECG_ITS ---
[facility] [place] [place] Test Date: 2024-08-21 Pat Name: Gil Rojas Department: Room: Gender: Male Chief Specialist Leed: : 1945 Requested By: Leo Benton Order Number: [id number] Kaycee MD: Vaibhav Perez M.D. Measurements Intervals [place] Rate: 108 P: 110 ME: 148 QRS: 52 QRSD: 93 T: 16 QT: 393 QTc: 528 Interpretive Statements ATRIAL FIBRILLATION WITH RVR NONSPECIFIC ST & T-WAVE ABNORMALITY Compared to ECG 08/21/2024 11:32:24 T-wave abnormality now present ST (T wave) deviation no longer present Electronically Signed On 08-22-2024 08:33:58 CDT by Vaibhav Perez M.D. [email or web address]
[2024-08-21 19:12] LABS: Troponin 5 6HR 16.63 ng/L (0-15); Troponin 5 6HR Delta 2.63 ng/L (0-12)
[2024-08-21] MEDS: fentaNYL 50 mcg/mL INJ 2mL 25 MCG IVP (19:36)
== END 2024-08-21 19:46 ==
PROVIDERS: Emergency Medicine; Emergency Provider Family Medicine; PCP Family Medicine Geriatric Medicine
DX: I48.20 Chronic atrial fibrillation, unspecified (principal); M54.9 Dorsalgia, unspecified; M54.2 Cervicalgia
CPT/HCPCS: 36415; 70450; 71045; 80053; 83880; 84484; 85025; 85610; 93005; 96365; 96375; 96376; 99285; J0360; J1200; J1885; J2270; J3010; J3490; J9999

== ENCOUNTER → 2024-10-05 14:59 | Outpatient (BNVA) | payer OTHER, SELFPAY | PROVIDERS: PCP Family Medicine Geriatric Medicine; Visit Provider Nurse Practitioner Family | DX: I48.20 Chronic atrial fibrillation, unspecified (principal); I10 Essential (primary) hypertension; M06.042 Rheumatoid arthritis without rheumatoid factor, left hand; M06.041 Rheumatoid arthritis without rheumatoid factor, right hand; J43.9 Emphysema, unspecified; M47.816 Spondylosis without myelopathy or radiculopathy, lumbar region; E03.9 Hypothyroidism, unspecified; Z86.73 Personal history of transient ischemic attack (TIA), and cerebral infarction without residual deficits; I48.0 Paroxysmal atrial fibrillation | CPT/HCPCS: 93005; 99214 ==

== ENCOUNTER → 2024-10-09 12:47 | Outpatient (BNVA) | payer OTHER, SELFPAY | PROVIDERS: PCP Family Medicine Geriatric Medicine; Visit Provider Internal Medicine | DX: I10 Essential (primary) hypertension (principal); M47.816 Spondylosis without myelopathy or radiculopathy, lumbar region | CPT/HCPCS: 99214 ==

== ENCOUNTER 2024-10-19 13:01 | Outpatient (CLI) | payer OTHER, SELFPAY ==
[2024-10-19 13:58] LABS: Free T4 Free Thyroxine 1.64 ng/dL (0.82-1.77); Thyroid Stimulating Hormone 0.76 uIU/mL (0.27-4.20)
== END 2024-10-19 13:02 | disposition home or self-care (01) ==
PROVIDERS: PCP Family Medicine Geriatric Medicine; Visit Provider Internal Medicine
DX: E89.0 Postprocedural hypothyroidism (principal)
CPT/HCPCS: 84439; 84443

== ENCOUNTER → 2024-10-31 12:25 | Outpatient (BNVA) | payer OTHER, SELFPAY | PROVIDERS: PCP Nurse Practitioner Family; Visit Provider Internal Medicine | DX: R71.8 Other abnormality of red blood cells (principal); G62.9 Polyneuropathy, unspecified; E89.0 Postprocedural hypothyroidism; Z71.3 Dietary counseling and surveillance; R53.83 Other fatigue; M54.9 Dorsalgia, unspecified; H57.89 Other specified disorders of eye and adnexa; I48.91 Unspecified atrial fibrillation; E07.9 Disorder of thyroid, unspecified | CPT/HCPCS: 99214 ==

== ENCOUNTER 2025-01-17 13:15 | Outpatient (CLI) | payer OTHER, SELFPAY ==
[2025-01-17 14:44] LABS: Free T4 Free Thyroxine 1.66 ng/dL (0.82-1.77); Thyroid Stimulating Hormone 0.96 uIU/mL (0.27-4.20)
== END 2025-01-17 13:16 | disposition home or self-care (01) ==
LOC: LAB 13:17
PROVIDERS: PCP Family Medicine Geriatric Medicine; Visit Provider Internal Medicine
DX: E89.0 Postprocedural hypothyroidism (principal)
CPT/HCPCS: 36415; 84439; 84443